=== PATIENT | female | born 1975 | race Caucasian/White ===

== ENCOUNTER 2017-11-07 09:00 | Outpatient (RCR) | payer MEDICAID, SELFPAY ==
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
--- NOTE | 2017-11-07 10:35 | BH.SGPN ---
Service Group Progress Note - Session Psychotherapy Session #2 Date Open:: 11/07/17 Time Started:: 10:12 Time Stopped:: 11:12 Targeted Problem #:: 1 Type of Group:: Illness Management - 10 participants
--- NOTE | 2017-11-07 10:35 | BH.SGPN ---
Service Group Progress Note - Session Psychotherapy Session #1 Date Open:: 18 - 9 group members Time Started:: 09:10 Time Stopped:: 10:02 Targeted Problem #:: 1 Type of Group:: Process Goal of Group:: The goal of today's group was to check-in with client's mood, stressors, and positives, and introduce topic for the day. Client Response/Progress/Benefit:: Client responded well to session as client was receptive to supportive statements from peers. Client reports feeling anxious and depressed today as client is uncertain what her living arrangements will look like after this week. Client shared I don't know where I'm going to sleep tonight. Client stated she had been residing at [facility], but no longer feels supported there. Client stated she is having a hard time focusing on her mental health as the stressor of living is causing racing, paranoid thoughts. Client reported her registered nurse hh case manager plans to help client find a temporary usp. Client's first day of the program and client reported she would like to work on myself by gaining coping skills. Client appeared to benefit from receiving supportive feedback from peers and therapist. Eye Contact:: Intense Motor Activity:: Appropriate Appearance:: Disheveled Speech:: Other - circumstantial- discussing housing issues Mood:: Anxious Affect:: Constricted Thoughts:: Racing, Other - preoccupied, potentially paranoid thoughts as evidenced by report of people being out to get client., No evidence of hallucinations/delusions noted Staff Interventions:: Therapist used open-ended questions to elicit information about client's current stressors and mood state. Therapist was supportive by using active listening and reflection.
--- NOTE | 2017-11-07 11:25 | BH.COMM ---
Communication Note - Communication with Client Communication Note: Upon presenting for group this AM pt reports that she had some housing issues. She decided to leave her Assisted Living Facility on Tuesday due to poor interaction with a staff member. She has been staying with her friend. She wants to look for her own apartment. Does not appear to be immediate crisis however pt unsure of how long she will be with her friend. She was not kicked out of current housing and may return whenever she wishes. ANGEL signed for pt's block and case maker. Message left informing cargo service agent of the current situation. Pt was also given local resources for care home including [facility] and [facility]. [facility] has walk-in housing assessments today from 8a-5pm. She denies any suicidal ideations, plan, or intent during conversation. Future-oriented looking forward to jew group this afternoon and some jew activities happening this week. Does not present as imminent danger to herself due to no ideations, plan, or intent. Has transporation arranged with friend this afternoon. Will await call back from pt's cargo service agent Pratima Bustamante.
--- NOTE | 2017-11-07 11:34 | BH.COMM_ITS ---
Communication Note - Communication with Client Communication Note: Upon presenting for group this AM pt reports that she had some housing issues. She decided to leave her Assisted Living Facility on Tuesday due to poor interaction with a staff member. She has been staying with her friend. She wants to look for her own apartment. Does not appear to be immediate crisis however pt unsure of how long she will be with her friend. She was not kicked out of current housing and may return whenever she wishes. ANGEL signed for pt's medical case manager. Message left informing milking machine operator of the current situation. Pt was also given local resources for long term including [facility] and [facility]. [facility] has walk-in housing assessments today from 8a- 5pm. She denies any suicidal ideations, plan, or intent during conversation. Future-oriented looking forward to zoroastrian group this afternoon and some zoroastrian activities happening this week. Does not present as imminent danger to herself due to no ideations, plan, or intent. Has transporation arranged with friend this afternoon. Will await call back from pt's milking machine operator Pratima Bustamante.
--- NOTE | 2017-11-08 14:39 | BH.COMM ---
Communication Note - Communication with Client Communication Note: Pt's green building energy engineer Pratima Giraldo returned phone call. She is aware of housing issues with pt and is working on a solution. Current plan is for pt to stay with friend until green building energy engineer can find some stable housing which she hopes will be next week. She will keep us informed.
--- NOTE | 2017-11-09 09:41 | BH.COMM_ITS ---
Communication Note - Communication with Client Communication Note: Pt's sql ssis developer Pratima Giraldo returned phone call. She is aware of housing issues with pt and is working on a solution. Current plan is for pt to stay with friend until sql ssis developer can find some stable housing which she hopes will be next week. She will keep us informed.
--- NOTE | 2017-11-10 10:24 | BH.COMM ---
Communication Note - Communication with Client Communication Note: This therapist called client to follow up as client appeared to be having a difficult morning as evidenced by client canceling IOP session today and reporting my life is a mess. Client shared she did not think she could manage coming to group today based on client's current emotional state. Therapist assessed safety and risk while providing emotional support to client. Client contracted for safety and stated she will be staying with a friend to help stabilize clients mood. Client was receptive to therapist contacting client's adult protective caseworker for continuity of care and to create a plan to help client make it to group. Client plans to come to [facility] tomorrow 11/11/17.
--- NOTE | 2017-11-10 10:30 | BH.COMM_ITS ---
Communication Note - Communication with Client Communication Note: This therapist called client to follow up as client appeared to be having a difficult morning as evidenced by client canceling IOP session today and reporting my life is a mess. Client shared she did not think she could manage coming to group today based on client's current emotional state. Therapist assessed safety and risk while providing emotional support to client. Client contracted for safety and stated she will be staying with a friend to help stabilize client?s mood. Client was receptive to therapist contacting client's case management assistant for continuity of care and to create a plan to help client make it to group. Client plans to come to [facility] tomorrow .
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
--- NOTE | 2017-11-11 14:31 | BH.DR.ITP ---
Initial Treatment Plan - Patient Information Visit Information: ADMISSION DATE: EXPECTED LOS: 4-6 weeks Diagnoses:: Schizoaffective disorder bipolar type. PTSD - Problems/Symptoms Problem #1:: Mood instability/depression Symptom:: Sad mood, anhedonia, isolative behavior, decreased energy, biologic disruption of sleep and appetite, suicidal ideation Problem #2:: Anxiety Symptom:: Rumination, paranoid thoughts, intrusive traumatic memories, hypervigilance
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
--- NOTE | 2017-11-14 14:01 | BH.SGPN_ITS ---
Service Group Progress Note - Session Psychotherapy Session #2 Date Open:: 11/14/17 - 7 group members Time Started:: 10:23 Time Stopped:: 11:20 Targeted Problem #:: 1 Type of Group:: Illness Management Goal of Group:: To identify the importance of change, increase understanding of difficulty of making change, identify what clients would like to make changes in and identify the barriers or obstacles that get in the way of change. Client Response/Progress/Benefit:: Client responded well to session, reporting high stress and declining to participate in activity. Client helped group identify difficulties associated with making change such as fear, avoidance, mental health, and feeling overwhelmed. Client identified changes she would like to make such as packing, moving items to storage, and finding housing. Client reported these changes would reduce stress as client is uncertain where she will be living. Client identified her barriers to be no money, no supports, and ?waiting.? Client appeared to benefit from gaining awareness of her barriers as well as identifying changes that would positively impact her mental health and functioning. Client progressing with identifying changes she can make, but continues to struggle with emotional regulation which may hinder client?s progress. Eye Contact:: Poor Motor Activity:: Restless Appearance:: Disheveled Speech:: Tangential Mood:: Anxious - Client had to remove herself from the activity as client reported I can't do this., Irritable, Depressed Affect:: Labile Thoughts:: Circular Staff Interventions:: Therapist facilitated discussion about change and helped client?s make connections of why change is important. Therapist led group in an experiential activity which involved client?s identifying changes want to make and barriers that get in the way of making those changes. Therapist utilized activity as a tool to help client?s make connections of difficulties in making changes and identify what helps overcome barriers to change. Psychotherapy Session #3 Date Open:: 11/14/17 - 6 group members Time Started:: 11:28 Time Stopped:: 12:20 Targeted Problem #:: 1 Type of Group:: Functional Skills Development Goal of Group:: To identify specific barriers to an identified change want to make and identify ways to overcome those barriers. Client Response/Progress/Benefit:: Client responded well to session, contributing ideas to group discussion. Client identified her goal this week as moving her belongings to storage. Client shared her barriers are high anxiety, no supports, and being overwhelmed. Client reported she feels overwhelmed about her goals and reports belief she has no outside supports to help client. With therapist elicitation, client shared she has a friend and a corrections caseworker that could help client. Client created strategies to accomplish this change such as reaching out to her supports and packing her belongings to move throughout the week. Client seemed to benefit from gaining awareness of barriers and developing strategies to reach her weekly goal. Client continues to report high stress and continuous crisis, but reports low willingness to challenge negative thinking that contributes to client?s anxiety. Eye Contact:: Fair Motor Activity:: Appropriate Appearance:: Disheveled Mood:: Anxious, Irritable, Depressed Affect:: Congruent Thoughts:: Circular Staff Interventions:: Therapist facilitated discussion about what helped the group overcome challenges that came about during the experiential activity. Therapist utilized the activity as a tool in relating those experiences to ways to overcome barriers with challenges in their life when trying to make change. Therapist group into smaller groups and had them brainstorm ways to overcome certain barriers to their identified change. Therapist provided support by using reflective listening and providing feedback.
--- NOTE | 2017-11-14 15:48 | BH.MTP ---
Master Treatment Plan - Patient Information Program Physician:: Dr. DENIA Mesa Primary Therapist:: Brea Niño [facility] - Psychiatric Diagnoses Psychiatric Diagnoses:: schizoaffective disorder bipolar type. PTSD. borderline personality disorder. dissociative disorder by history Diagnosis Code(s):: F 25.0 - Estimated LOS Estimated LOS (in weeks):: 6 Problem/Goal #1 - Problem/Goal #1 Stated Goal:: Client will increase mood stability and decrease depressive symptoms, anger/irritability, and suicidal ideation through Intensive Outpatient Program. Description of Barriers: Pt's negative attitude about already trying everything and nothing has worked could be barrier to treatment. Other barriers include: cognitive distortions, past trauma, and psychosocial stressors. Functional Impact: Pt recently hospitalized for SI and has extensive hx of past psychiatric admissions. Pt has been decompensating over the past year which is impacting he energy, motivation, and feeling hopeless. Pt's mental health symptoms put strain on interpersonal relationships. Goal Relevant Strengths/Supports: Pt verbalizes desire to get better. Has several professional supports in community that are helpful to pt. - Objectives Objective #1 Stated Objective: Client will identify and replace 2-3 negative thinking patterns that reinforce depressive symptoms. Interventions: Through groups and individual therapy, pt will be provided with education on cognitive distortions, mistaken beliefs, and identifying and combating negative self-talk. Therapist will help pt explore connection between thoughts, feelings, and actions. Discharge Criteria: Pt will be able to identify 2-3 negative thinking patterns and be able to effectively stop, challenge, or cope with those negative thoughts. Target Date: 12/05/17 Review Date: 12/19/17 Objective #2 Stated Objective: Client will identify 5 physical warning signs of anger and 5 ways to calm and manage anger. Interventions: Therapist will provide worksheet to track situations, thoughts, feelings, and actions associated with moments of anger, irritation, or disappointment. Through individual therapy and group work will help client explore warning signs to anger and anger management strategies. Discharge Criteria: Client will have met this goal after documenting anger journal for several weeks showing insight into anger triggers, warning signs, and effective ways to cope or manage anger. Target Date: 12/05/17 Review Date: 12/29/17 Problem/Goal #2 - Problem/Goal #2 Stated Goal:: Stabilize anxiety level while increasing ability to function and decreasing ruminative thoughts on a daily basis through Intensive Outpatient Program. Description of Barriers: Pt's negative attitude about already trying everything and nothing has worked could be barrier to treatment. Other barriers include: cognitive distortions, past trauma, and psychosocial stressors. Functional Impact: Pt recently hospitalized for SI and has extensive hx of past psychiatric admissions. Pt has been decompensating over the past year which is impacting he energy, motivation, and feeling hopeless. Pt's mental health symptoms put strain on interpersonal relationships. Goal Relevant Strengths/Supports: Pt verbalizes desire to get better. Has several professional supports in community that are helpful to pt. - Objectives Objective #1 Stated Objective: Identify at least 2-3 distorted thought patterns that increase anxious feelings and replace thoughts with positive, rational messages. Interventions: Therapist will help client identify distorted, negative beliefs and replace with more realistic, affirmative messages. Discharge Criteria: Client will have achieved this goal when can verbalize at least 2 distorted thought patterns and effectively replace those thoughts with rational, positive messages. Target Date: 12/05/17 Review Date: 12/19/17
--- NOTE | 2017-11-15 09:42 | BH.MDN ---
Multi-Disciplinary Note - Note 30-min Individual Time Started:: 08:10 Date: 11/15/17 Purpose of session/treatment goals addressed:: Purpose of session was to assess current symptoms and stressors. Other topics: discussing treatment goals. Eye Contact:: Fair Motor Activity:: Restless Appearance:: Disheveled Speech:: Rambling Mood:: Anxious, Depressed Affect:: Labile Thoughts:: Racing, No evidence of hallucinations/delusions noted Staff Interventions:: Therapist used open ended questions to elicit pt's current symptoms and stressors. Therapist inquired pt's thoughts about IOP program thus far. Therapist led discussion about treatment goals, eliciting pt's thoughts about what she wants to focus on while in IOP. Therapist gently challenged pt's negative thought patterns, attempted to help pt see impact her thought patterns has on functioning. Provided support by using active listening. Client Response:: Pt responded well to session AEB pt answering questions and elaborating on responses. Pt reported thus far she is enjoying the program, able to see how it can benefit her. Pt shared she recognizes the need to change her attitude because she is often negative about everything. However, pt reported she doesn't know if she is able to change her thought patterns because she's able to turn everything into a negative. Pt did not respond well to having her thought patten challenged by therapist. Pt reported when others try to point out a positive she is able to give reasons as to why a situation is not positive because of her history and experience. Pt reported she also would like to increase her knowledge and utilization of healthy coping skills. Pt talked about having a lot of anger which can result in pt not being very nice to others. Pt verbalized desire to make changes in her life, but in same sentence often would counter that with a negative can't teach an old dog new tricks. Pt expressed anxieties about all the tasks she needs to get done today to ensure she gets her belongings from the assisted living place she was in. Pt able to verbalize a plan of what she is going to do in order to get those tasks complete. Risks/Concerns:: Pt reports chronic SI, denies current plan or intention to date. Pt's mormonism serves a protective factor for pt. Progress Toward Goals/Plan:: Pt seems to be ambivalent about wanting to make changes that will benefit her mental health due to not believing certain skills won't help. Pt seems to have awareness of what she does that hinders her progress, but it seems her motivation to change is low. Pt to continue IOP to decrease depressive symptoms and prevent decompensation. Time Stopped:: 08:30
--- NOTE | 2017-11-15 15:49 | BH.MTP_ITS ---
Master Treatment Plan - Patient Information Program Physician:: Dr. DENIA Mesa Primary Therapist:: Brea Niño [facility] - Psychiatric Diagnoses Psychiatric Diagnoses:: schizoaffective disorder bipolar type. PTSD. borderline personality disorder. dissociative disorder by history Diagnosis Code(s):: F 25.0 - Estimated LOS Estimated LOS (in weeks):: 6 Problem/Goal #1 - Problem/Goal #1 Stated Goal:: Client will increase mood stability and decrease depressive symptoms, anger/irritability, and suicidal ideation through Intensive Outpatient Program. Description of Barriers: Pt's negative attitude about already trying everything and nothing has worked could be barrier to treatment. Other barriers include : cognitive distortions, past trauma, and psychosocial stressors. Functional Impact: Pt recently hospitalized for SI and has extensive hx of past psychiatric admissions. Pt has been decompensating over the past year which is impacting he energy, motivation, and feeling hopeless. Pt's mental health symptoms put strain on interpersonal relationships. Goal Relevant Strengths/Supports: Pt verbalizes desire to get better. Has several professional supports in community that are helpful to pt. - Objectives Objective #1 Stated Objective: Client will identify and replace 2-3 negative thinking patterns that reinforce depressive symptoms. Interventions: Through groups and individual therapy, pt will be provided with education on cognitive distortions, mistaken beliefs, and identifying and combating negative self-talk. Therapist will help pt explore connection between thoughts, feelings, and actions. Discharge Criteria: Pt will be able to identify 2-3 negative thinking patterns and be able to effectively stop, challenge, or cope with those negative thoughts. Target Date: 12/05/17 Review Date: 12/19/17 Objective #2 Stated Objective: Client will identify 5 physical warning signs of anger and 5 ways to calm and manage anger. Interventions: Therapist will provide worksheet to track situations, thoughts, feelings, and actions associated with moments of anger, irritation, or disappointment. Through individual therapy and group work will help client explore warning signs to anger and anger management strategies. Discharge Criteria: Client will have met this goal after documenting anger journal for several weeks showing insight into anger triggers, warning signs, and effective ways to cope or manage anger. Target Date: 12/05/17 Review Date: 12/29/17 Problem/Goal #2 - Problem/Goal #2 Stated Goal:: Stabilize anxiety level while increasing ability to function and decreasing ruminative thoughts on a daily basis through Intensive Outpatient Program. Description of Barriers: Pt's negative attitude about already trying everything and nothing has worked could be barrier to treatment. Other barriers include : cognitive distortions, past trauma, and psychosocial stressors. Functional Impact: Pt recently hospitalized for SI and has extensive hx of past psychiatric admissions. Pt has been decompensating over the past year which is impacting he energy, motivation, and feeling hopeless. Pt's mental health symptoms put strain on interpersonal relationships. Goal Relevant Strengths/Supports: Pt verbalizes desire to get better. Has several professional supports in community that are helpful to pt. - Objectives Objective #1 Stated Objective: Identify at least 2-3 distorted thought patterns that increase anxious feelings and replace thoughts with positive, rational messages. Interventions: Therapist will help client identify distorted, negative beliefs and replace with more realistic, affirmative messages. Discharge Criteria: Client will have achieved this goal when can verbalize at least 2 distorted thought patterns and effectively replace those thoughts with rational, positive messages. Target Date: 12/05/17 Review Date: 12/19/17
--- NOTE | 2017-11-16 10:32 | BH.SGPN_ITS ---
Service Group Progress Note - Session Psychotherapy Session #2 Date Open:: 11/15/17 Time Started:: 10:10 Time Stopped:: 11:02 Targeted Problem #:: 1 Type of Group:: Illness Management - 4 group members Goal of Group:: To increase understanding of what stress is, identify current life stressors, and connect impact stressors have on mental health. Client Response/Progress/Benefit:: Client reported when she has stress she tries to do something about it to get the stressor taking care of. Client struggled to connect how one's thinking about a stress can increase stress level. She reported there have been times she has done everything and he did not make any of her stress better. Reported currently her stress includes: Self -hatred, not being a nice person, past trauma, financial problems, needing to apply for [employer], being homeless, anger. Client shared she is currently overwhelmed, sure she has and finds herself to be easily irritable and more just verbally go off on people. Client shared she does want to learn ways to manage her anger. She seems to lack awareness often her line of thinking is black and white and catastrophize situations. Seemed benefit from learning about how thought process can increase stress level. Eye Contact:: Fair Motor Activity:: Restless Appearance:: Disheveled Speech:: Appropriate Mood:: Anxious, Irritable, Depressed Affect:: Labile Thoughts:: Linear, No evidence of hallucinations/delusions noted Staff Interventions:: Therapist facilitated discussion about stress. Therapist facilitated an activity in which group members were asked to identify various stressors they have in their life currently. Therapist instructed group members to indicate if certain stressors were larger than others. Therapist led processing of each member???s stress jar and helped them connect impact the stress has on their mental health. Psychotherapy Session #3 Date Open:: 11/15/17 Time Started:: 11:15 Time Stopped:: 12:10 Targeted Problem #:: 1 Type of Group:: Functional Skills Development - 4 group members Goal of Group:: To identify what stressors have control over and what stressors have no control over. Another goal was to increase awareness of healthy strategies that can help relieve stress level. Client Response/Progress/Benefit:: Client able to identify which stressors are currently in and out of her control. Seemed to connect with the idea that it is important to put forth more effort into those stressors that are in her control and put less effort and time into the ones she cannot do anything about. During challenge activity client often reported I cannot do this; I am going to mess everything up; it is all my fault. Despite therapist and peers attempting to encourage and challenge client's negative thought patterns client eventually quit activity because she believed she was going to mess everything up. Struggle with identifying positive that she was able to make it 3 of the 4 rounds in the activity which is progress compared to yesterday's group in which she did not participate at all. Client seemed to benefit from reviewing the handout of different ways to relieve stress. Eye Contact:: Fair Motor Activity:: Restless Appearance:: Disheveled Speech:: Rambling Mood:: Anxious, Irritable, Depressed Affect:: Labile Thoughts:: Racing, Circular, No evidence of hallucinations/delusions noted Staff Interventions:: Therapist facilitated discussion about control versus no control and helped group members connect the concept to stressors. Therapist led an activity in which group members had to manage their stress level during a series of frustrating tasks. Therapist processed with group what skills each group member utilized in order to manage their emotions in stress level during the activity. Therapist read a handout and reviewed the handout about stress relieving skills and strategies.
--- NOTE | 2017-11-17 10:16 | BH.COMM ---
Communication Note - Communication with Client Communication Note: Pt called reporting she wanted to drop out of the IOP program because she did think this is the right time for her to be involved in IOP. Pt reported she has too much going on in her life right now and doesn't really like being around people. Pt shared she knows she won't be any good for the other group members because of her negativity. This therapist attempted to problem solve how to make IOP possible for her to continue to do despite multiple psychosocial stressors. Therapist encouraged her that IOP could provide support needed to help her address current stressors. Pt reported she appreciates all we have done, but does not want to continue attending.
== END 2017-11-16 23:59 ==
LOC: BHIOP 09:00
PROVIDERS: Family Provider Internal Medicine; PCP Internal Medicine; Visit Provider Psychiatry & Neurology Psychiatry
DX: F25.0 Schizoaffective disorder, bipolar type (principal); F43.10 Post-traumatic stress disorder, unspecified; F60.3 Borderline personality disorder; F44.9 Dissociative and conversion disorder, unspecified; R07.9 Chest pain, unspecified; G40.909 Epilepsy, unspecified, not intractable, without status epilepticus; Z79.899 Other long term (current) drug therapy; K21.9 Gastro-esophageal reflux disease without esophagitis; R73.9 Hyperglycemia, unspecified; Z62.810 Personal history of physical and sexual abuse in childhood
CPT/HCPCS: 99204; H0035; H2012; H2020; 90832

== ENCOUNTER 2017-11-11 10:06 | Emergency (ER) | payer MEDICAID, SELFPAY ==
[2017-11-11 10:07] VITALS: BP 155/91; PULSE 88; RESP 24; TEMP 36.4; O2SAT 97; BMI 47.0
--- NOTE | 2017-11-11 10:18 | EKG12_ITS ---
Test Reason : CP Blood Pressure : / mmHG Vent. Rate : 071 BPM Atrial Rate : 071 BPM P-R Int : 164 ms QRS Dur : 088 ms QT Int : 390 ms P-R-T Axes : 058 053 043 degrees QTc Int : 423 ms Normal sinus rhythm Normal ECG Confirmed by ALVAREZ CHAVEZ ([id number]), editorial clerk PRINCE GRAFF ([id number]) on 11/15/2017 9:47:31 AM Referred By: [facility] Confirmed By:ALVAREZ CHAVEZ
--- NOTE | 2017-11-11 10:18 | RAD_ITS ---
STUDY: X-RAY CHEST REASON FOR EXAM: Female, 41 years old. Chest pain. Anxiety TECHNIQUE: Single AP portable view of the chest. COMPARISON: January 07, 2017 FINDINGS: The lungs are clear and expanded. There is no demonstrated pleural abnormality. Normal size heart. Normal mediastinum and getachew. Normal visualized pulmonary arteries. Normal visualized aortic arch and descending thoracic aorta. There are diffuse degenerative changes of the visualized thoracic spine. Normal visualized ribs, clavicles, and shoulders. There is no demonstrated abnormality of the visualized soft tissue structures of the upper abdomen. RAD/Chest 1 View (Portable) IMPRESSION: Degenerative changes, as described above. No demonstrated acute cardiopulmonary process. Electronically Signed: Roe Thomason MD at 10:44 EST , Service support ,
[2017-11-11 10:45] LABS: Absolute Lymphocyte Count 1.55 X10^3/ul (0.83-4.51); Absolute Neutrophil Count 7.9 X10^3/uL (2.0-7.7); Basophil# 0.02 X10^3/uL; Basophil% 0.2 % (0-1); Eosinophil# 0.05 X10^3/uL; Eosinophils% 0.5 % (0-5); Hemoglobin 12.8 g/dl (12.0-15.0); Lymphocyte # 1.55 X10^3/ul (4.0); Mean Corp Hgb Conc 33.7 g/gl (32-36); Mean Corpuscular Hgb 31.3 pg (27.0-32.0); Mean Corpuscular Volume 92.9 fL (81-99); Mean Platelet Vol. 8.6 fl (6.2-12.0); Monocyte% 6.8 % (0-10); Neutrophil # 7.89 X10^3/uL (2.7-7.7); Neutrophil % 76.4 % (47-70); Platelet Count 224 K/mm3 (150-450); RBC Distribution Width CV 13.6 % (11.6-14.6); RBC Distribution Width SD 46.4 fl (35.1-43.9); Red Blood Count 4.09 M/mm3 (4.2-5.4); White Blood Count 10.3 K/mm3 (4.4-11.0)
[2017-11-11 10:46] LABS: POSITIVE COUNT NO; POSITIVE DIFFERENTIAL NO; POSITIVE MORPHOLOGY NO
[2017-11-11 10:50] VITALS: BP 141/87; PULSE 77; RESP 16; O2SAT 100
[2017-11-11 10:55] VITALS: O2SAT 99
[2017-11-11 11:04] LABS: Anion Gap 8 (5-15); BUN 5 mg/dL (7-18); BUN/Creat Ratio 7.2 RATIO (10-20); Calcium,Total 8.4 mg/dL (8.5-10.1); Chloride 100 mmol/L (98-107); EST Glomerular Filtration Rate 98 mL/min (>60); Est Glom Filt Rate - Afr Amer 118 mL/min (>60); Estimated Creatinine Clearance 90.41 ml/min; Glucose 145 mg/dL (70-110); Potassium 3.5 mmol/L (3.5-5.1); Sodium Level 134 mmol/L (136-145)
--- NOTE | 2017-11-11 11:15 | ED.VISSUMM ---
- ER Visit Summary Date of Service: 11/11/17 Chief Complaint: Chest pain History of Present Illness: The patient is a 41 F presenting for evaluation secondary to chest pain. Patient is in intensive outpatient psychiatric therapy and today he complained to the counselor that she was having some chest pain. Patient states it has been continuous since last night and is associated with increased stress because she has to move out of her current home and does not have a place to stay. Patient states that it is worsened by stress or bending over has been associated with some shortness of breath. She describes it as sharp substernal pain. She denies any history of coronary disease she does have a history of hypertension and diabetes she is a non-smoker no premature family history. She denies any DVT or PE risk factors. She has never had a stress test. Physical Examination: Vital signs are within normal limits, patient is afebrile. General: Patient is well-nourished well-developed and in no acute distress. Head: Normocephalic, atraumatic Eyes: Pupils equal round and reactive bilaterally, extra occular motion intact bialterally ENT: Moist mucous membranes Neck: Supple, no lymphadenopathy, no JVD, no meningismus CVS: Heart regular rate and rhythm, no murmurs, rubs or gallops, radial pulses 2+ bilaterally Resp: Respirations nondistressed, lung sounds clear bilaterally Abdomen: Soft, nontender, nondistended, no palpable masses, normal bowel sounds Back: Nontender Extremities: Nontender, atraumatic, active full range of motion, no peripheral edema Skin: warm, no rashes, no petechia Neuro: Alert and oriented x 4, CN 2-12 intact, no lateralizing neurological defecits Psyc: Normal affect Test Results: EKG shows sinus rate [address] segments normal T waves. CBC chemistry troponin negative. Chest x-ray shows chronic changes. Emergency Department Course and Treatment: Patient presented secondary chest pain. This sounds rather atypical, and it has been going on continuously since yesterday. His workup was found to be negative as noted above. Her heart score is low risk. Again I believe the patient cannot receive an outpatient stress test does not require admission. Patient was informed of this and she was discharged. Disposition: Discharge Impression: 1. Anxiety This note was generated with [employer] dictation software. It may contain incorrect words, spelling, and punctuation that were not noted in review of the chart prior to signing ED Disposition - Plan for ED Patient: Disposition: Home or Assisted Living Chief Complaint: Shortness of Breath Diagnosis: Anxiety Instructions: ED Stress React Referrals: Vannesa Guzman MD [Primary Care Provider] -
--- NOTE | 2017-11-11 11:19 | ED.DCSUM_ITS ---
- ER Visit Summary Date of Service: 11/11/17 Chief Complaint: Chest pain History of Present Illness: The patient is a 41 F presenting for evaluation secondary to chest pain. Patient is in intensive outpatient psychiatric therapy and today he complained to the counselor that she was having some chest pain. Patient states it has been continuous since last night and is associated with increased stress because she has to move out of her current home and does not have a place to stay. Patient states that it is worsened by stress or bending over has been associated with some shortness of breath. She describes it as sharp substernal pain. She denies any history of coronary disease she does have a history of hypertension and diabetes she is a non-smoker no premature family history. She denies any DVT or PE risk factors. She has never had a stress test. Physical Examination: Vital signs are within normal limits, patient is afebrile. General: Patient is well-nourished well-developed and in no acute distress. Head: Normocephalic, atraumatic Eyes: Pupils equal round and reactive bilaterally, extra occular motion intact bialterally ENT: Moist mucous membranes Neck: Supple, no lymphadenopathy, no JVD, no meningismus CVS: Heart regular rate and rhythm, no murmurs, rubs or gallops, radial pulses 2 + bilaterally Resp: Respirations nondistressed, lung sounds clear bilaterally Abdomen: Soft, nontender, nondistended, no palpable masses, normal bowel sounds Back: Nontender Extremities: Nontender, atraumatic, active full range of motion, no peripheral edema Skin: warm, no rashes, no petechia Neuro: Alert and oriented x 4, CN 2-12 intact, no lateralizing neurological defecits Psyc: Normal affect Test Results: EKG shows sinus rate [address] segments normal T waves. CBC chemistry troponin negative. Chest x-ray shows chronic changes. Emergency Department Course and Treatment: Patient presented secondary chest pain. This sounds rather atypical, and it has been going on continuously since yesterday. His workup was found to be negative as noted above. Her heart score is low risk. Again I believe the patient cannot receive an outpatient stress test does not require admission. Patient was informed of this and she was discharged. Disposition: Discharge Impression: 1. Anxiety This note was generated with SocialFlow dictation software. It may contain incorrect words, spelling, and punctuation that were not noted in review of the chart prior to signing ED Disposition - Plan for ED Patient: Disposition: Home or Assisted Living Chief Complaint: Shortness of Breath Diagnosis: Anxiety Instructions: ED Stress React Referrals: Vannesa Guzman MD [Primary Care Provider] -
== END 2017-11-11 11:46 | disposition home or self-care (01) ==
PROVIDERS: Emergency Provider Emergency Medicine; Family Provider Internal Medicine; PCP Internal Medicine
DX: F41.9 Anxiety disorder, unspecified (principal); I10 Essential (primary) hypertension; E11.9 Type 2 diabetes mellitus without complications; E66.9 Obesity, unspecified; Z68.42 Body mass index [BMI] 45.0-49.9, adult; Z79.899 Other long term (current) drug therapy
CPT/HCPCS: 71045; 80048; 84484; 85025; 93005; 99284; A4216

== ENCOUNTER 2017-11-28 19:41 | Emergency (ER) | payer MEDICAID, SELFPAY ==
[2017-11-28 19:42] VITALS: BP 159/97; PULSE 97; RESP 17; TEMP 36.6; O2SAT 99; BMI 47.2
--- NOTE | 2017-11-28 20:31 | EKG12_ITS ---
Test Reason : Blood Pressure : / mmHG Vent. Rate : 092 BPM Atrial Rate : 092 BPM P-R Int : 158 ms QRS Dur : 084 ms QT Int : 362 ms P-R-T Axes : 028 015 011 degrees QTc Int : 447 ms Normal sinus rhythm Normal ECG Confirmed by DIVINA CHEUNG MD ([id number]), news editor PRINCE GRAFF ([id number] on 11/29/2017 1:46:21 PM Referred By: LENNY Confirmed By:DIVINA CHEUNG MD
--- NOTE | 2017-11-28 20:35 | RAD_ITS ---
STUDY: X-RAY CHEST REASON FOR EXAM: Female, 42 years old. Short of breath. TECHNIQUE: Single AP portable view of the chest. COMPARISON: None. FINDINGS: The lungs are clear and expanded. There is no demonstrated pleural abnormality. Normal size heart. Normal mediastinum and getachew. Normal visualized pulmonary arteries. Normal visualized aortic arch and descending thoracic aorta. Normal visualized thoracic spine. Normal visualized ribs, clavicles, and shoulders. There is no demonstrated abnormality of the visualized soft tissue structures of the upper abdomen. RAD/Chest 1 View (Portable) IMPRESSION: Normal x-ray examination of the chest. Electronically Signed: Gama Mejia MD at 22:04 EST , Service support ,
[2017-11-28 21:25] LABS: Absolute Neutrophil Count 6.7 X10^3/uL (2.0-7.7); Basophil# 0.01 X10^3/uL; Basophil% 0.1 % (0-1); Eosinophil# 0.05 X10^3/uL; Eosinophils% 0.5 % (0-5); Hematocrit 37.6 % (37-47); Hemoglobin 12.7 g/dl (12.0-15.0); Lymphocyte % 19.1 % (19-41); Mean Corp Hgb Conc 33.8 g/gl (32-36); Mean Corpuscular Hgb 31.3 pg (27.0-32.0); Mean Corpuscular Volume 92.6 fL (81-99); Mean Platelet Vol. 8.9 fl (6.2-12.0); Monocyte# 0.79 X10^3/uL; Monocyte% 8.4 % (0-10); Neutrophil # 6.72 X10^3/uL (2.7-7.7); Neutrophil % 71.6 % (47-70); Platelet Count 216 K/mm3 (150-450); RBC Distribution Width CV 13.5 % (11.6-14.6); RBC Distribution Width SD 46.1 fl (35.1-43.9); Red Blood Count 4.06 M/mm3 (4.2-5.4); White Blood Count 9.4 K/mm3 (4.4-11.0)
[2017-11-28 21:27] LABS: POSITIVE COUNT NO; POSITIVE DIFFERENTIAL NO; POSITIVE MORPHOLOGY NO
[2017-11-28 21:33] LABS: D-Dimer Quantitative (DVT/PE) < 0.27 FEU/ug/m (0.27-0.49)
[2017-11-28 21:38] LABS: Anion Gap 11 (5-15); BUN 8 mg/dL (7-18); BUN/Creat Ratio 11.5 RATIO (10-20); Calcium,Total 8.9 mg/dL (8.5-10.1); Chloride 104 mmol/L (98-107); EST Glomerular Filtration Rate 98 mL/min (>60); Est Glom Filt Rate - Afr Amer 118 mL/min (>60); Estimated Creatinine Clearance 89.48 ml/min; Glucose 113 mg/dL (74-106); Potassium 3.1 mmol/L (3.5-5.1); Sodium Level 140 mmol/L (136-145)
[2017-11-28 22:22] VITALS: BP 126/69; PULSE 76; RESP 16; O2SAT 100
--- NOTE | 2017-11-28 22:44 | ED.VISSUMM ---
- ER Visit Summary Date of Service: 11/28/17 Chief Complaint: Shortness of breath, eyes burning, right lung pain History of Present Illness: The patient is a 42 F who complains of pain and burning sensation to the right side of her chest and right lung for the past week. Patient states pain is worse with a deep breath. She has not had significant cough. Is also complaining of intermittent numb sensation to both distal lower legs. She wonders if she may have diabetic neuropathy. Physical Examination: Vital signs are significant for blood pressure 159/97, otherwise normal. Head and neck examination is unremarkable. Heart is regular rate and rhythm. Lung sounds are clear. Abdomen is soft, obese, nontender. Lower extremity examination is normal sensation on testing. She has good strength throughout. Strong distal pulses are noted throughout. Test Results: EKG is sinus at 92 with no sign of acute ischemia. Nonspecific lateral T-wave flattening is noted. Chest x-ray is normal. CBC and chemistry studies are significant only for potassium 3.1. Troponin and d-dimer are both normal. Emergency Department Course and Treatment: Patient was observed on environmental monitoring specialist and had no significant change in her rhythm strip. Patient is treated with 40 mEq of potassium chloride. She be given a 5 day course of potassium at home. Repeat blood pressure at time of discharge is 117/96. Treatment Plan: [] Disposition: Discharge Impression: 1. Atypical chest pain 2. Hypokalemia This note was generated with [employer] dictation software. It may contain incorrect words, spelling, and punctuation that were not noted in review of the chart prior to signing ED Disposition - Plan for ED Patient: Disposition: Home or Assisted Living Chief Complaint: Shortness of Breath Instructions: ED Chest Pain NonCardiac, ED Potassium Deficiency Prescriptions: Potassium Chloride [K-Dur] 20 meq PO BID #10 tablet Referrals: Guillermo Velázquez MD [Primary Care Provider] - Keep Therese appointment
[2017-11-28 23:01] VITALS: BP 117/96
== END 2017-11-28 23:01 | disposition home or self-care (01) ==
PROVIDERS: Emergency Provider Emergency Medicine; Family Provider Family Medicine; PCP Family Medicine
DX: E87.6 Hypokalemia (principal); R07.89 Other chest pain; E66.9 Obesity, unspecified; Z68.42 Body mass index [BMI] 45.0-49.9, adult; I10 Essential (primary) hypertension; E11.9 Type 2 diabetes mellitus without complications; E78.00 Pure hypercholesterolemia, unspecified; F41.9 Anxiety disorder, unspecified; F31.9 Bipolar disorder, unspecified; F43.10 Post-traumatic stress disorder, unspecified; F20.9 Schizophrenia, unspecified; Z79.899 Other long term (current) drug therapy
CPT/HCPCS: 71045; 80048; 84484; 85025; 85379; 93005; 99285; A4216

== ENCOUNTER 2017-12-07 19:59 | Emergency (ER) | payer MEDICAID, SELFPAY ==
[2017-12-07 20:00] VITALS: BP 112/85; PULSE 101; RESP 16; TEMP 37.2; O2SAT 98; BMI 45.8
[2017-12-07 21:43] LABS: Absolute Lymphocyte Count 1.92 X10^3/ul (0.83-4.51); Absolute Neutrophil Count 7.2 X10^3/uL (2.0-7.7); Basophil# 0.03 X10^3/uL; Basophil% 0.3 % (0-1); Hematocrit 40.4 % (37-47); Hemoglobin 13.5 g/dl (12.0-15.0); Lymphocyte # 1.92 X10^3/ul (4.0); Lymphocyte % 19.3 % (19-41); Mean Corp Hgb Conc 33.4 g/gl (32-36); Mean Corpuscular Hgb 31.3 pg (27.0-32.0); Mean Corpuscular Volume 93.5 fL (81-99); Monocyte# 0.64 X10^3/uL; Monocyte% 6.4 % (0-10); Neutrophil # 7.18 X10^3/uL (2.7-7.7); Neutrophil % 72.1 % (47-70); Platelet Count 278 K/mm3 (150-450); RBC Distribution Width CV 13.6 % (11.6-14.6); RBC Distribution Width SD 46.9 fl (35.1-43.9); Red Blood Count 4.32 M/mm3 (4.2-5.4)
[2017-12-07 21:43] LABS: Amphetamine Urine VISTA NEGATIVE (<1000 ng/mL); Barbiturate Urine VISTA NEGATIVE (< 200 ng/mL); Benzodiazepine Urine VISTA NEGATIVE (< 200 ng/mL); Cocaine Urine VISTA NEGATIVE (< 300 ng/mL); Ecstacy Urine VISTA NEGATIVE (< 500 ng/mL); Methadone Urine VISTA NEGATIVE (< 300 ng/mL); PCP Urine VISTA NEGATIVE (< 25 ng/mL); THC Urine VISTA NEGATIVE (< 50 ng/mL); Vista UDS pH Range 6
[2017-12-07 21:55] LABS: POSITIVE COUNT NO; POSITIVE DIFFERENTIAL NO; POSITIVE MORPHOLOGY NO
[2017-12-07 22:00] VITALS: RESP 16
[2017-12-07 22:07] LABS: Anion Gap 11 (5-15); BUN 10 mg/dL (7-18); BUN/Creat Ratio 10.9 RATIO (10-20); Calcium,Total 8.7 mg/dL (8.5-10.1); Chloride 104 mmol/L (98-107); Creatinine, Serum 0.92 mg/dL (0.55-1.02); EST Glomerular Filtration Rate 71 mL/min (>60); Est Glom Filt Rate - Afr Amer 86 mL/min (>60); Estimated Creatinine Clearance 68.09 ml/min; Glucose 150 mg/dL (74-106); Potassium 3.7 mmol/L (3.5-5.1); Sodium Level 140 mmol/L (136-145)
--- NOTE | 2017-12-07 22:08 | ED.DCSUM_ITS ---
- ER Visit Summary Date of Service: 12/07/17 Chief Complaint: [] Suicidal ideation History of Present Illness: The patient is a 42 F presents with suicidal thoughts for the last 7 days gradual onset intermittent. Situational factors are making it worse. She appears depressed and worthless. She has not been sleeping secondary to stress. She took some sleeping pills last night and this morning in order to kill herself. Comes in for further evaluation. His done this in the past. Physical Examination: [] Vital signs reviewed General: Well-nourished well-developed Head: Normocephalic atraumatic Eyes: Pupils equal round and reactive to light extraocular movements intact ENT: TMs clear no hemotympanum no trauma Neck: Nontender full range of motion Cardiovascular: Regular rate rhythm no murmurs normal S1-S2 Respiratory: No distress clear to auscultation bilaterally chest nontender Abdomen: Soft nontender nondistended normal bowel sounds no masses Back: Nontender no CVA tenderness Extremities: Nontender active range of motion ?4 extremities no trauma Skin: Normal color no trauma Psychiatry: Positive depression and suicidal thoughts Neuro alert oriented cranial nerves II through XII intact normal strength sensation reflexes Test Results: [] Tox CBC chemistry normal. Patient will be seen by crisis. Will be pink slipped and admitted. Emergency Department Course and Treatment: [] Treatment Plan: [] Disposition: [] Impression: [] Depression with suicidal ideation. This note was generated with [employer] dictation software. It may contain incorrect words, spelling, and punctuation that were not noted in review of the chart prior to signing ED Disposition - Plan for ED Patient: Chief Complaint: Suicidal Referrals: Guillermo Velázquez MD [Primary Care Provider] -
[2017-12-07 22:30] LABS: Pregnancy, Serum, hCG Quali. NEGATIVE Negative (0-9 Nonpreg)
[2017-12-07 23:00] VITALS: RESP 18
--- NOTE | 2017-12-07 23:46 | EKG12_ITS ---
Test Reason : Blood Pressure : / mmHG Vent. Rate : 072 BPM Atrial Rate : 072 BPM P-R Int : 172 ms QRS Dur : 088 ms QT Int : 402 ms P-R-T Axes : 048 052 037 degrees QTc Int : 440 ms Normal sinus rhythm Normal ECG Confirmed by RAFITA COHEN, MAKI ([id number]), photo editor PRINCE GRAFF ([id number]) on 12/09/2017 1:24:25 PM Referred By: ALLY Confirmed By:MAKI ELLER MD
[2017-12-08] VITALS: BP 139/72; PULSE 85; RESP 16; O2SAT 96
[2017-12-08 00:32] LABS: Mucous, Urine 0 SEEN /hpf (<or=2+); Red Blood Cells-Urine 0 SEEN /hpf (0-5)
[2017-12-08 00:35] LABS: Color, Urine Yellow (Yellow); Glucose, Dipstick 50 mg/dl (Normal); Ketone-Dipstick Negative (Negative); Leukocyte Esterase-Dipstick 25 /ul (Negative); Nitrite-Dipstick Negative (Negative); Occult Blood-Urine Negative /ul (Negative); Protein-Dipstick Negative (Negative); Urine Bilirubin Dipstick Negative (Negative); Urine Clarity Sl. Cloudy (Clear); Urine Urobilinogen Normal (Normal); Urine pH 6.5 (5.0 - 8.0)
[2017-12-08 00:41] LABS: Bacteria 2+ /hpf (None Seen); Squamous Epithelial Cells - UA 5-10 SEEN /hpf (5-10)
[2017-12-08 00:42] LABS: White Blood Cells 5-10 SEEN /hpf (0-5)
[2017-12-08 00:46] VITALS: BP 139/72; PULSE 85; RESP 16; O2SAT 96
--- NOTE | 2017-12-08 00:48 | NURSING ---
ACCPETED TO [facility] 1929
--- NOTE | 2017-12-08 00:49 | NURSING ---
[facility] UNAVAILABLE TILL MORNING [facility]YS[facility] UNAVAILABLE TILL MORNING
--- NOTE | 2017-12-08 00:51 | NURSING ---
[facility] NO COVERAGE
--- NOTE | 2017-12-08 00:54 | NURSING ---
[facility] IS SENDING SQU[facility]
--- NOTE | 2017-12-08 01:17 | ED.RN ---
REPORT TO [facility]. PT SKIN P/W/D, RESP EVEN AND UNLABORED, PT A&O X 3, NO DISTRESS NOTED. PT OUT OF ED WITH [facility] FOR TRANSPORT TO [facility].
== END 2017-12-08 01:26 ==
LOC: ED 22:19
PROVIDERS: Emergency Provider Emergency Medicine; Family Provider Family Medicine; PCP Family Medicine
DX: T14.91XA Suicide attempt, initial encounter (principal); T45.0X2A Poisoning by antiallergic and antiemetic drugs, intentional self-harm, initial encounter; Y93.89 Activity, other specified; Y92.9 Unspecified place or not applicable; F32.9 Major depressive disorder, single episode, unspecified; E66.9 Obesity, unspecified; Z68.42 Body mass index [BMI] 45.0-49.9, adult; Z59.0 Homelessness
CPT/HCPCS: 80048; 80307; 80320; 81001; 84703; 85025; 93005; 99284; G0480

== ENCOUNTER 2018-01-17 19:49 | Emergency (ER) | payer MEDICAID, SELFPAY ==
[2018-01-17 19:51] VITALS: BP 126/71; PULSE 58; RESP 18; TEMP 36.7; O2SAT 98; BMI 45.1
[2018-01-17 20:28] LABS: Absolute Lymphocyte Count 2.25 X10^3/ul (0.83-4.51); Absolute Neutrophil Count 6.6 X10^3/uL (2.0-7.7); Basophil# 0.02 X10^3/uL; Basophil% 0.2 % (0-1); Eosinophil# 0.06 X10^3/uL; Eosinophils% 0.6 % (0-5); Hemoglobin 12.9 g/dl (12.0-15.0); Lymphocyte # 2.25 X10^3/ul (4.0); Lymphocyte % 23.7 % (19-41); Mean Corp Hgb Conc 33.1 g/gl (32-36); Mean Corpuscular Hgb 30.9 pg (27.0-32.0); Mean Corpuscular Volume 93.3 fL (81-99); Mean Platelet Vol. 8.9 fl (6.2-12.0); Monocyte% 5.3 % (0-10); Neutrophil # 6.57 X10^3/uL (2.7-7.7); Neutrophil % 69.4 % (47-70); POSITIVE COUNT NO; POSITIVE DIFFERENTIAL NO; POSITIVE MORPHOLOGY NO; Platelet Count 205 K/mm3 (150-450); RBC Distribution Width CV 13.3 % (11.6-14.6); RBC Distribution Width SD 45.5 fl (35.1-43.9); Red Blood Count 4.18 M/mm3 (4.2-5.4); White Blood Count 9.5 K/mm3 (4.4-11.0)
[2018-01-17 20:46] LABS: Allen Test POS; Base Excess -6 mmol/L (-2 to +2); Bicarbonate 19.5 mmol/L (22-26); Blood Gas Specimen Type ART; O2 Delivery Device Room Air; PO2 65 mmHG (75-100); SITE L Radial; SO2 92 % (95-99); Time Given 2035; Total Carbon Dioxide 21 mmol/L; pCO2 34.3 mmHg (35-45); pH 7.36 (7.35-7.45)
[2018-01-17 20:49] LABS: BUN 11 mg/dL (7-18); Creatinine, Serum 0.81 mg/dL (0.55-1.02); EST Glomerular Filtration Rate 82 mL/min (>60); Estimated Creatinine Clearance 77.33 ml/min; Glucose 170 mg/dL (74-106)
[2018-01-17 20:50] LABS: Anion Gap 7 (5-15); BUN/Creat Ratio 13.6 RATIO (10-20); Calcium,Total 8.2 mg/dL (8.5-10.1); Chloride 108 mmol/L (98-107); Est Glom Filt Rate - Afr Amer 100 mL/min (>60); Potassium 3.3 mmol/L (3.5-5.1); Sodium Level 141 mmol/L (136-145); Thyroid Stim Hormone (TSH) 0.93 uIU/mL (0.358-3.74)
--- NOTE | 2018-01-17 22:08 | ED.VISSUMM ---
- ER Visit Summary Date of Service: 01/17/18 Chief Complaint: Weak and sleeping more History of Present Illness: The patient is a 42 F who presents with fatigue, weakness and sleeping more. She is homeless residing in a senior living. She denies fever, chills night sweats. She denies ocular, visual or auditory symptoms. She denies any chest pain or shortness of breath. She denies nausea, vomiting or diarrhea. She denies dysuria, frequency, urgency hematuria. She denies weight gain or weight loss. She denies heat or cold intolerance. She denies headache, paresthesia, anesthesia motor weakness. She denies bruising easily. She denies rash, urticaria or swelling. Please read written note for complete detail Patient has history of anxiety and psychosis with hallucination. She is presently homeless residing in a senior living. Physical Examination: Vital signs are normal. She is obese with a BMI of 45.2. Head is atraumatic normocephalic. Pupils are equal round reactive. Extraocular muscles are intact. TMs are pearly white with landmarks noted. Nares patent with no drainage. Posterior pharynx without erythema or exudate. Uvula is midline. There is no dysphonia or dysphasia. Trachea is midline. There is no stridor with auscultation of the neck. Heart is regular without murmur, gallop or rub. S1 and S2 are normal. Lungs are clear to auscultation with good movement of air bilaterally. Abdomen soft nontender. She is not alert but she is oriented. Her neuro exam reveals no motor sensory deficit. DTRs symmetric with no clonus or Babinski sign. Cranial 2 through 12 intact. Cerebellar testing is normal. Test Results: CBC is normal. BMP revealed slight elevation of glucose, 170 and decrease in potassium 3.3. TSH is normal at 0.93. Blood gas reveals increased a gradient. She is not hypoxic. Suspect pickwickian syndrome. Emergency Department Course and Treatment: Because patient is somnolent will obtain an arterial blood gas to assess for hypercapnia. Because of possible weight gain with fatigue weakness TSH was obtained. Labs were obtained to evaluate for anemia or electrolyte abnormality etc. Treatment Plan: Since patient's workup is negative she will be discharged to return to the senior living Disposition: Discharged to senior living in stable condition Impression: Generalized weakness and fatigue unknown etiology History of psychosis and hallucination Obesity Hyperglycemia in a nondiabetic This note was generated with Dragon dictation software. It may contain incorrect words, spelling, and punctuation that were not noted in review of the chart prior to signing ED Disposition - Plan for ED Patient: Disposition: Home or Assisted Living Chief Complaint: Weakness Instructions: ED Weakness UKO, ED Hyperglycemia New Susp Diabetes Referrals: Guillermo Velázquez MD [Primary Care Provider] - 3-5 Days
--- NOTE | 2018-01-17 22:16 | ED.DCSUM_ITS ---
- ER Visit Summary Date of Service: 01/17/18 Chief Complaint: Weak and sleeping more History of Present Illness: The patient is a 42 F who presents with fatigue, weakness and sleeping more. She is homeless residing in a [facility]. She denies fever, chills night sweats. She denies ocular, visual or auditory symptoms. She denies any chest pain or shortness of breath. She denies nausea, vomiting or diarrhea. She denies dysuria, frequency, urgency hematuria. She denies weight gain or weight loss. She denies heat or cold intolerance. She denies headache, paresthesia, anesthesia motor weakness. She denies bruising easily. She denies rash, urticaria or swelling. Please read written note for complete detail Patient has history of anxiety and psychosis with hallucination. She is presently homeless residing in a [facility]. Physical Examination: Vital signs are normal. She is obese with a BMI of 45.2. Head is atraumatic normocephalic. Pupils are equal round reactive. Extraocular muscles are intact. TMs are pearly white with landmarks noted. Nares patent with no drainage. Posterior pharynx without erythema or exudate. Uvula is midline. There is no dysphonia or dysphasia. Trachea is midline. There is no stridor with auscultation of the neck. Heart is regular without murmur, gallop or rub. S1 and S2 are normal. Lungs are clear to auscultation with good movement of air bilaterally. Abdomen soft nontender. She is not alert but she is oriented. Her neuro exam reveals no motor sensory deficit. DTRs symmetric with no clonus or Babinski sign. Cranial 2 through 12 intact. Cerebellar testing is normal. Test Results: CBC is normal. BMP revealed slight elevation of glucose, 170 and decrease in potassium 3.3. TSH is normal at 0.93. Blood gas reveals increased a gradient. She is not hypoxic. Suspect pickwickian syndrome. Emergency Department Course and Treatment: Because patient is somnolent will obtain an arterial blood gas to assess for hypercapnia. Because of possible weight gain with fatigue weakness TSH was obtained. Labs were obtained to evaluate for anemia or electrolyte abnormality etc. Treatment Plan: Since patient's workup is negative she will be discharged to return to the [facility] Disposition: Discharged to [facility] in stable condition Impression: Generalized weakness and fatigue unknown etiology History of psychosis and hallucination Obesity Hyperglycemia in a nondiabetic This note was generated with Dragon dictation software. It may contain incorrect words, spelling, and punctuation that were not noted in review of the chart prior to signing ED Disposition - Plan for ED Patient: Disposition: Home or Assisted Living Chief Complaint: Weakness Instructions: ED Weakness UKO, ED Hyperglycemia New Susp Diabetes Referrals: Guillermo Velázquez MD [Primary Care Provider] - 3-5 Days
[2018-01-17 22:28] VITALS: RESP 18
== END 2018-01-17 22:29 | disposition home or self-care (01) ==
PROVIDERS: Emergency Provider Emergency Medicine; Family Provider Family Medicine; PCP Family Medicine
DX: R53.1 Weakness (principal); R53.83 Other fatigue; F29 Unspecified psychosis not due to a substance or known physiological condition; F32.9 Major depressive disorder, single episode, unspecified; F41.9 Anxiety disorder, unspecified; R73.9 Hyperglycemia, unspecified; E66.9 Obesity, unspecified; Z68.42 Body mass index [BMI] 45.0-49.9, adult; Z59.0 Homelessness
CPT/HCPCS: 36600; 80048; 82803; 84443; 85025; 99285; J7030; A4216

== ENCOUNTER 2018-03-25 04:15 | Emergency (ER) | payer MEDICAID, SELFPAY ==
--- NOTE | 2018-03-25 04:15 | DT_ITS ---
This patient was seen during an EMR downtime March 20, 2018 - March 27, 2018. This patient may have a combination of paper and electronic documentation or all paper documentation. All documentation is viewable within the e-chart portion of [employer] for each patient visit.
--- NOTE | 2018-03-25 04:25 | RAD_ITS ---
STUDY: X-RAY CHEST REASON FOR EXAM: Female, 42 years old. Palpitations. TECHNIQUE: Single AP portable view of the chest. COMPARISON: November 28, 2017. FINDINGS: The lungs are mildly underexpanded with crowding of the bronchovascular markings. There is interstitial thickening present at the lung bases. There is no demonstrated pleural abnormality. There is borderline cardiomegaly. Normal mediastinum and getachew. Normal visualized pulmonary arteries. Normal visualized aortic arch and descending thoracic aorta. Normal visualized thoracic spine. Normal visualized ribs, clavicles, and shoulders. There is no demonstrated abnormality of the visualized soft tissue structures of the upper abdomen. RAD/Chest 1 View (Portable) IMPRESSION: Borderline cardiomegaly and mild pulmonary congestion. Electronically Signed: Carolina Stahl MD at 5:01 EDT , Service support ,
--- NOTE | 2018-03-25 13:06 | EKG12_ITS ---
Test Reason : PALPITATIONS Blood Pressure : / mmHG Vent. Rate : 062 BPM Atrial Rate : 062 BPM P-R Int : 184 ms QRS Dur : 092 ms QT Int : 422 ms P-R-T Axes : 038 036 039 degrees QTc Int : 428 ms Normal sinus rhythm Normal ECG Reconfirmed by SKYE COHEN, DIVINA ([id number]), editor in chief PRINCE GRAFF ([id number]) on 05/02/2018 2:50:54 PM Referred By: LENNY Confirmed By:DIVINA CHEUNG MD
[2018-03-28 06:44] LABS: Bacteria 0 SEEN /hpf (None Seen); Mucous, Urine 0 SEEN /hpf (<or=2+); Red Blood Cells-Urine 0 SEEN /hpf (0-5); Squamous Epithelial Cells - UA 0 SEEN /hpf (5-10); White Blood Cells 0 SEEN /hpf (0-5)
[2018-03-28 07:06] LABS: Color, Urine Yellow (Yellow); Urine Clarity Clear (Clear)
[2018-03-28 07:07] LABS: Glucose, Dipstick NEGATIVE (Normal); Ketone-Dipstick Negative (Negative); Leukocyte Esterase-Dipstick Negative /ul (Negative); Nitrite-Dipstick Negative (Negative); Occult Blood-Urine Negative /ul (Negative); Protein-Dipstick Negative (Negative); Urine Bilirubin Dipstick Negative (Negative); Urine Urobilinogen Normal (Normal); Urine pH 6.5 (5.0 - 8.0)
[2018-03-28 10:05] LABS: Amphetamine Urine VISTA NEGATIVE (<1000 ng/mL); Barbiturate Urine VISTA NEGATIVE (< 200 ng/mL); Benzodiazepine Urine VISTA NEGATIVE (< 200 ng/mL); Cocaine Urine VISTA NEGATIVE (< 300 ng/mL); Ecstacy Urine VISTA NEGATIVE (< 500 ng/mL); Methadone Urine VISTA NEGATIVE (< 300 ng/mL); PCP Urine VISTA NEGATIVE (< 25 ng/mL); THC Urine VISTA NEGATIVE (< 50 ng/mL)
[2018-03-28 10:10] LABS: Anion Gap 11 (5-15); BUN 14 mg/dL (7-18); BUN/Creat Ratio 16.7 RATIO (10-20); Calcium,Total 8.1 mg/dL (8.5-10.1); Chloride 105 mmol/L (98-107); Creatinine, Serum 0.84 mg/dL (0.55-1.02); EST Glomerular Filtration Rate 79 mL/min (>60); Est Glom Filt Rate - Afr Amer 96 mL/min (>60); Glucose 237 mg/dL (74-106); Potassium 3.5 mmol/L (3.5-5.1); Sodium Level 140 mmol/L (136-145)
[2018-03-28 18:05] LABS: Hemoglobin 12.8 g/dl (12.0-15.0); Red Blood Count 4.18 M/mm3 (4.2-5.4); White Blood Count 8.5 K/mm3 (4.4-11.0)
[2018-03-28 18:06] LABS: Absolute Neutrophil Count 5.8 X10^3/uL (2.0-7.7); Basophil# 0.02 X10^3/uL; Basophil% 0.2 % (0-1); Eosinophil# 0.16 X10^3/uL; Eosinophils% 1.9 % (0-5); Hematocrit 38.2 % (37-47); Lymphocyte % 21.3 % (19-41); Mean Corp Hgb Conc 33.5 g/gl (32-36); Mean Corpuscular Hgb 30.6 pg (27.0-32.0); Mean Corpuscular Volume 91.4 fL (81-99); Mean Platelet Vol. 8.7 fl (6.2-12.0); Monocyte# 0.58 X10^3/uL; Monocyte% 6.8 % (0-10); Neutrophil # 5.84 X10^3/uL (2.7-7.7); POSITIVE COUNT NO; POSITIVE DIFFERENTIAL NO; POSITIVE MORPHOLOGY NO; Platelet Count 208 K/mm3 (150-450); RBC Distribution Width CV 13.4 % (11.6-14.6); RBC Distribution Width SD 44.5 fl (35.1-43.9)
== END 2018-03-25 07:30 | disposition home or self-care (01) ==
LOC: ED 03-26 12:18
PROVIDERS: Emergency Provider Emergency Medicine; Family Provider Nurse Practitioner Family; PCP Nurse Practitioner Family
DX: R00.2 Palpitations (principal)
CPT/HCPCS: 36415; 71045; 80048; 80307; 80320; 81001; 84484; 85025; 93005; 99284; G0480

== ENCOUNTER 2018-04-10 20:51 | Inpatient (IN) | payer MEDICAID, SELFPAY ==
[2018-04-10] VITALS (7 sets, daily range): BP systolic 112–183; BP diastolic 7–116; PULSE 77–130; RESP 15–24; TEMP 35–37.1; O2SAT 97–99; BMI 28.8
--- NOTE | 2018-04-10 21:16 | EKG12_ITS ---
Test Reason : OVERDOSE Blood Pressure : / mmHG Vent. Rate : 102 BPM Atrial Rate : 102 BPM P-R Int : 170 ms QRS Dur : 084 ms QT Int : 392 ms P-R-T Axes : 029 025 015 degrees QTc Int : 510 ms Sinus tachycardia Otherwise normal ECG Confirmed by SKYE COHEN, DIVINA ([id number]), subeditor SHAE DORAN ([id number]) on 04/13/2018 4:01:11 PM Referred By: GARY Confirmed By:DIVINA CHEUNG MD
[2018-04-10 21:33] LABS: Absolute Lymphocyte Count 2.23 X10^3/ul (0.83-4.51); Absolute Neutrophil Count 8.6 X10^3/uL (2.0-7.7); Basophil# 0.02 X10^3/uL; Basophil% 0.2 % (0-1); Eosinophil# 0.09 X10^3/uL; Eosinophils% 0.8 % (0-5); Hemoglobin 14.8 g/dl (12.0-15.0); Lymphocyte # 2.23 X10^3/ul (4.0); Lymphocyte % 18.9 % (19-41); Mean Corp Hgb Conc 33.6 g/gl (32-36); Mean Corpuscular Hgb 30.6 pg (27.0-32.0); Mean Corpuscular Volume 90.9 fL (81-99); Mean Platelet Vol. 9.1 fl (6.2-12.0); Monocyte# 0.77 X10^3/uL; Monocyte% 6.5 % (0-10); Neutrophil # 8.64 X10^3/uL (2.7-7.7); Platelet Count 270 K/mm3 (150-450); RBC Distribution Width CV 13.8 % (11.6-14.6); RBC Distribution Width SD 45.7 fl (35.1-43.9); Red Blood Count 4.84 M/mm3 (4.2-5.4); White Blood Count 11.8 K/mm3 (4.4-11.0)
[2018-04-10 21:34] LABS: POSITIVE COUNT NO; POSITIVE DIFFERENTIAL NO; POSITIVE MORPHOLOGY NO
[2018-04-10] MEDS: Succinylcholine Chloride 200 MG/10 ML Vial 100 MG IV (21:53)
[2018-04-10] MEDS: Etomidate 20 MG/10 ML Vial IV (21:53)
[2018-04-10 22:13] LABS: Bacteria 0 SEEN /hpf (None Seen); Mucous, Urine 0 SEEN /hpf (<or=2+); Red Blood Cells-Urine 0 SEEN /hpf (0-5); White Blood Cells 0 SEEN /hpf (0-5)
[2018-04-10 22:14] LABS: ALB/GLOB Ratio 0.8 RATIO (0.9-2.4); AST(SGOT) 32 U/L (15-37); Alanine Aminotransfer ALT/SGPT 28 U/L (13-56); Albumin, Serum 3.8 g/dL (3.2-5.0); Alkaline Phosphatase 126 U/L (45-117); Anion Gap 11 (5-15); BUN 9 mg/dL (7-18); BUN/Creat Ratio 10.4 RATIO (10-20); CPK Total, Creatine Kinase 161 U/L (26-192); Calcium,Total 8.9 mg/dL (8.5-10.1); Chloride 103 mmol/L (98-107); Creatinine, Serum 0.86 mg/dL (0.55-1.02); EST Glomerular Filtration Rate 76 mL/min (>60); Est Glom Filt Rate - Afr Amer 92 mL/min (>60); Estimated Creatinine Clearance 85.09 ml/min; Globulin 4.6 g/dL (2.2-4.2); Glucose 175 mg/dL (74-106); Potassium 3.6 mmol/L (3.5-5.1); Pregnancy, Serum, hCG Quali. NEGATIVE Negative (0-9 Nonpreg); Protein, Total 8.4 g/dL (6.4-8.2); Sodium Level 139 mmol/L (136-145)
[2018-04-10] MEDS: Propofol 10MG/Ml 1,000 MG/100 ML Bottle 2.585 MG CONT INF (22:15)
[2018-04-10 22:30] LABS: Acetaminophen (Tylenol) Level < 2.0 ug/mL (10.0-30.0); Salicylate < 1.7 mg/dL (2.8-20.0)
--- NOTE | 2018-04-10 22:30 | RAD_ITS ---
STUDY: X-RAY CHEST REASON FOR EXAM: Female, 42 years old. ET tube placement TECHNIQUE: Single view of the chest was obtained. COMPARISON: March 25, 2018 chest radiograph FINDINGS: Endotracheal tube is seen with its tip lying approximately 2.6 cm above the augusto. Nasogastric tube is seen traversing into the stomach. No pneumothorax. Mild perihilar streaky opacities. Cardiac size mildly enlarged. IMPRESSION: Satisfactory positioning of the endotracheal and nasogastric tubes Electronically Signed: Doug Holly, at 23:00 EDT Tel , Service support , RAD/Chest 1 View (Portable)
[2018-04-10 22:33] LABS: Color, Urine Yellow (Yellow); Glucose, Dipstick Normal (Normal); Ketone-Dipstick Negative (Negative); Leukocyte Esterase-Dipstick Negative /ul (Negative); Nitrite-Dipstick Negative (Negative); Occult Blood-Urine Negative /ul (Negative); Protein-Dipstick Negative (Negative); Urine Bilirubin Dipstick Negative (Negative); Urine Clarity Clear (Clear); Urine Urobilinogen Normal (Normal)
--- NOTE | 2018-04-10 22:35 | PCM.HP.STD ---
Problem List (1) Overdose Status: Acute Qualifiers: Encounter type: initial encounter Injury intent: intentional self-harm Qualified Code(s): T50.902A - Poisoning by unspecified drugs, medicaments and biological substances, intentional self-harm, initial encounter (2) Diabetes type 2, controlled Status: Chronic Qualifiers: Comment: Now has an apartment. Feels she is doing well. Provided with a meter and strips. Enc to check before and after meals. Is set up with counselor, social service technician and psychiatrist. Looks and feels happy and she verbally confirms this. Reviewed labs, medications History of Present Illness Date of Admission: 04/10/18 Chief Complaint: overdose The patient is a 42 year old female who reportedly ingested 1200mg of Benadryl intentionally. She is sedated and intubated at this time. Poison control was notified as was Dr Nguyen. Per recommendation of poison control benzodiazepines were recommended for restlessness and therefore, a versed drip was initiated. She will be placed in the ICU while on ventilator. Crisis team will need to be consulted when she is extubated. [place] slip was written by Trena BURGESS. Past Medical History Past Medical History (Chronic Problems): Chronic Problems (Last Reviewed 04/05/18 @ 13:34 by Rosenda Tinajero) Diabetes type 2, controlled (Chronic) Now has an apartment. Feels she is doing well. Provided with a meter and strips. Enc to check before and after meals. Is set up with counselor, social service technician and psychiatrist. Looks and feels happy and she verbally confirms this. Reviewed labs, medications Medical History: Medical History (Last Reviewed 04/05/18 @ 13:34 by Rosenda Tinajero) Anxiety disorder F41.9 Asthma J45.909 Back problem M53.9 Breast lump N63.0 Chronic headaches R51 Diabetes type 2, controlled E11.9 Dx : 2006 Last exacerbation : DKA : never Hypoglycemic episode : never ER visit : never GERD (gastroesophageal reflux disease) K21.9 Hypoglycemia E16.2 IBS (irritable bowel syndrome) K58.9 Schizoaffective disorder F25.9 Seasonal allergies J30.2 Seizure disorder G40.909 Stomach ulcer K25.9 Allergies acetaminophen [From Tylenol] Allergy (Verified 04/10/18 20:55) Anaphylaxis aspirin Allergy (Verified 04/10/18 20:55) Anaphylaxis benztropine mesylate [From Cogentin] Allergy (Verified 04/10/18 20:55) Other carbamazepine [From Tegretol] Allergy (Verified 04/10/18 20:55) Rash egg Allergy (Verified 04/10/18 20:55) Other ibuprofen [From Motrin] Allergy (Verified 04/10/18 20:55) Anaphylaxis Penicillins Allergy (Verified 04/10/18 20:55) Anaphylaxis sulfamethoxazole [From Septra] Allergy (Verified 04/10/18 20:55) Anaphylaxis trimethoprim [From Septra] Allergy (Verified 04/10/18 20:55) Anaphylaxis bacitracin [From Neosporin ([id number])] Adverse Reaction (Verified 04/10/18 20:55) Swelling neomycin [From Neosporin ([id number])] Adverse Reaction (Verified 04/05/18 13:31) Swelling polymyxin B [From Neosporin ([id number])] Adverse Reaction (Verified 04/05/18 13:31) Swelling trazodone Adverse Reaction (Verified 04/05/18 13:31) Vomiting Home Medications: Ambulatory Orders Medication Instructions Recorded Multivitamins,Therapeutic 1 tab PO DAILY 11/07/14 [Multivitamin] Topiramate [Trokendi Xr] 100 mg PO BID 03/26/15 Dicyclomine HCl [Bentyl] 10 mg PO 4X/DAY PRN 06/18/15 Prazosin HCl [Minipress] 5 mg PO QHS 06/18/15 Hydroxyzine Pamoate 100 mg PO QHS 08/01/16 Pantoprazole Sodium [Protonix] 40 mg PO DAILY 09/22/17 Cetirizine HCl [All Day Allergy] 10 mg PO DAILY 01/17/18 Mirtazapine [Remeron] 15 mg PO QHS 01/17/18 Sertraline HCl [Zoloft] 50 mg PO DAILY 01/17/18 tizanidine 4 mg capsule 4 mg PO BID PRN #60 cap 04/05/18 Smoking Status: Unknown if ever smoked Review of Systems Unable to obtain accurate/complete ROS d/t: patient is sedated and intubated VTE Information - Inpt Only VTE Present on Admission: No VTE Mechan Device Prophylaxis: SCD's VTE Pharm Prophylaxis ordered?: No Patient Problems: Active and Suspected Problems (Last Reviewed 04/05/18 @ 13:34 by Rosenda Tinajero) Overdose (Acute) - Physical Exam General: - - sedated and intubated HEENT: Atraumatic, Normocephalic Neck: Supple Lungs: Clear to auscultation, Normal air movement Cardiovascular: Regular rate, Normal S1, Normal S2, No murmurs Abdomen: Bowel Sounds Present, Soft, Non Tender, Obese Extremities: No edema, Capillary Refill Less than 3 Seconds Skin: No rashes Musculoskeletal: No Tenderness to Palpation of Joints or Extremities Neurological: - - sedated Psych/Mental Status: Suicidal, - - unable to assess Vital Signs Temp Pulse Resp BP Pulse Ox 95 F L 88 24 H 135/116 H 99 04/10/18 22:08 04/10/18 22:08 04/10/18 22:08 04/10/18 22:08 04/10/18 22:08 Oxygen Delivery Method Mechanical Ventilator Weight: 190 lb Body Mass Index (BMI) 28.8 Finger Stick Blood Glucose 63 Laboratory Tests Past 24 Hrs 04/10/18 04/10/18 04/10/18 21:00 21:00 21:00 WBC 11.8 H RBC 4.84 Hgb 14.8 Hct 44.0 MCV 90.9 MCH 30.6 MCHC 33.6 RDW 13.8 RDW Differential 45.7 H Plt Count 270 MPV 9.1 Immature Gran % (Auto) 0.600 Neut % (Auto) 73.0 H Lymph % (Auto) 18.9 L [place] % (Auto) 6.5 Eos % (Auto) 0.8 Baso % (Auto) 0.2 Absolute Neuts (auto) 8.6 H Absolute Lymphs (auto) 2.23 Total Counted Not Reportable Sodium Potassium Chloride Carbon Dioxide Anion Gap BUN Creatinine Estim Creat Clear Calc Est GFR (MDRD) Af Amer Est GFR (MDRD) Non-Af BUN/Creatinine Ratio Glucose Calcium Total Bilirubin AST ALT Alkaline Phosphatase Total Creatine Kinase Troponin I Total Protein Albumin Globulin Albumin/Globulin Ratio Serum , Qual NEGATIVE Urine Color Urine Clarity Urine pH Ur Specific [place] Urine Protein Urine Glucose (UA) Urine Ketones Urine Occult Blood Urine Nitrite Urine Bilirubin Urine Urobilinogen Ur Leukocyte Esterase Urine RBC Urine WBC Ur Squamous Epith Cells Urine Bacteria Urine Mucus Salicylates Urine Opiates Screen Urine Methadone Screen Acetaminophen Ur Barbiturates Screen Ur Phencyclidine Scrn Ur Amphetamines Screen U Methamphetamin-MDMA U Benzodiazepines Scrn Urine Cocaine Screen U Cannabinoids Screen Ur Drug Screen Comment Ethyl Alcohol 6.0 04/10/18 04/10/18 04/10/18 21:00 21:00 21:00 WBC RBC Hgb Hct MCV MCH MCHC RDW RDW Differential Plt Count MPV Immature Gran % (Auto) Neut % (Auto) Lymph % (Auto) [place] % (Auto) Eos % (Auto) Baso % (Auto) Absolute Neuts (auto) Absolute Lymphs (auto) Total Counted Sodium 139 Potassium 3.6 Chloride 103 Carbon Dioxide 25.0 Anion Gap 11 BUN 9 Creatinine 0.86 Estim Creat Clear Calc 85.09 Est GFR (MDRD) Af Amer 92 Est GFR (MDRD) Non-Af 76 BUN/Creatinine Ratio 10.4 Glucose 175 H Calcium 8.9 Total Bilirubin 0.40 AST 32 ALT 28 Alkaline Phosphatase 126 H Total Creatine Kinase 161 Troponin I < 0.015 Total Protein 8.4 H Albumin 3.8 Globulin 4.6 H Albumin/Globulin Ratio 0.8 L Serum , Qual Urine Color Urine Clarity Urine pH Ur Specific [place] Urine Protein Urine Glucose (UA) Urine Ketones Urine Occult Blood Urine Nitrite Urine Bilirubin Urine Urobilinogen Ur Leukocyte Esterase Urine RBC Urine WBC Ur Squamous Epith Cells Urine Bacteria Urine Mucus Salicylates < 1.7 L Urine Opiates Screen Urine Methadone Screen Acetaminophen < 2.0 L Ur Barbiturates Screen Ur Phencyclidine Scrn Ur Amphetamines Screen U Methamphetamin-MDMA U Benzodiazepines Scrn Urine Cocaine Screen U Cannabinoids Screen Ur Drug Screen Comment Ethyl Alcohol 04/10/18 04/10/18 22:05 22:11 WBC RBC Hgb Hct MCV MCH MCHC RDW RDW Differential Plt Count MPV Immature Gran % (Auto) Neut % (Auto) Lymph % (Auto) [place] % (Auto) Eos % (Auto) Baso % (Auto) Absolute Neuts (auto) Absolute Lymphs (auto) Total Counted Sodium Potassium Chloride Carbon Dioxide Anion Gap BUN Creatinine Estim Creat Clear Calc Est GFR (MDRD) Af Amer Est GFR (MDRD) Non-Af BUN/Creatinine Ratio Glucose Calcium Total Bilirubin AST ALT Alkaline Phosphatase Total Creatine Kinase Troponin I Total Protein Albumin Globulin Albumin/Globulin Ratio Serum , Qual Urine Color Yellow Urine Clarity Clear Urine pH 8.0 Ur Specific [place] 1.010 Urine Protein Negative Urine Glucose (UA) Normal Urine Ketones Negative Urine Occult Blood Negative Urine Nitrite Negative Urine Bilirubin Negative Urine Urobilinogen Normal Ur Leukocyte Esterase Negative Urine RBC Pending Urine WBC Pending Ur Squamous Epith Cells Pending Urine Bacteria Pending Urine Mucus Pending Salicylates Urine Opiates Screen Pending Urine Methadone Screen Pending Acetaminophen Ur Barbiturates Screen Pending Ur Phencyclidine Scrn Pending Ur Amphetamines Screen Pending U Methamphetamin-MDMA Pending U Benzodiazepines Scrn Pending Urine Cocaine Screen Pending U Cannabinoids Screen Pending Ur Drug Screen Comment Ethyl Alcohol Assessment/Plan All Active Problems (Last Reviewed 04/05/18 @ 13:34 by Rosenda Tinajero) Overdose (Acute) Plan - admit to ICU - consult Dr Nguyen - continue mechanical ventilation with Versed drip - ABG in one- two hours - CBC, CMP, CXR in am - consult Crisis team when extubated - SCDs for DVT prophylaxis Code Visit Inpatient E&M: 70573 Init Hosp L3
[2018-04-10 22:38] LABS: Squamous Epithelial Cells - UA 0-5 SEEN /hpf (5-10)
--- NOTE | 2018-04-10 22:46 | HP.PCM_ITS ---
Problem List (1) Overdose Status: Acute Qualifiers: Encounter type: initial encounter Injury intent: intentional self-harm Qualified Code(s): T50.902A - Poisoning by unspecified drugs, medicaments and biological substances, intentional self-harm, initial encounter (2) Diabetes type 2, controlled Status: Chronic Qualifiers: Comment: Now has an apartment. Feels she is doing well. Provided with a meter and strips. Enc to check before and after meals. Is set up with counselor, social staff worker and psychiatrist. Looks and feels happy and she verbally confirms this. Reviewed labs, medications History of Present Illness Date of Admission: 04/10/18 Chief Complaint: overdose The patient is a 42 year old female who reportedly ingested 1200mg of Benadryl intentionally. She is sedated and intubated at this time. Poison control was notified as was Dr Nguyen. Per recommendation of poison control benzodiazepines were recommended for restlessness and therefore, a versed drip was initiated. She will be placed in the ICU while on ventilator. Crisis team will need to be consulted when she is extubated. [place] slip was written by Trena BURGESS. Past Medical History Past Medical History (Chronic Problems): Chronic Problems (Last Reviewed 04/05/18 @ 13:34 by Rosenda Tinajero) Diabetes type 2, controlled (Chronic) Now has an apartment. Feels she is doing well. Provided with a meter and strips. Enc to check before and after meals. Is set up with counselor, social staff worker and psychiatrist. Looks and feels happy and she verbally confirms this. Reviewed labs, medications Medical History: Medical History (Last Reviewed 04/05/18 @ 13:34 by Rosenda Tinajero) Anxiety disorder F41.9 Asthma J45.909 Back problem M53.9 Breast lump N63.0 Chronic headaches R51 Diabetes type 2, controlled E11.9 Dx : 2006 Last exacerbation : DKA : never Hypoglycemic episode : never ER visit : never GERD (gastroesophageal reflux disease) K21.9 Hypoglycemia E16.2 IBS (irritable bowel syndrome) K58.9 Schizoaffective disorder F25.9 Seasonal allergies J30.2 Seizure disorder G40.909 Stomach ulcer K25.9 Allergies acetaminophen [From Tylenol] Allergy (Verified 04/10/18 20:55) Anaphylaxis aspirin Allergy (Verified 04/10/18 20:55) Anaphylaxis benztropine mesylate [From Cogentin] Allergy (Verified 04/10/18 20:55) Other carbamazepine [From Tegretol] Allergy (Verified 04/10/18 20:55) Rash egg Allergy (Verified 04/10/18 20:55) Other ibuprofen [From Motrin] Allergy (Verified 04/10/18 20:55) Anaphylaxis Penicillins Allergy (Verified 04/10/18 20:55) Anaphylaxis sulfamethoxazole [From Septra] Allergy (Verified 04/10/18 20:55) Anaphylaxis trimethoprim [From Septra] Allergy (Verified 04/10/18 20:55) Anaphylaxis bacitracin [From Neosporin ([id number])] Adverse Reaction (Verified 04/10/18 20:55) Swelling neomycin [From Neosporin ([id number])] Adverse Reaction (Verified 04/05/18 13 :31) Swelling polymyxin B [From Neosporin ([id number])] Adverse Reaction (Verified 13:31) Swelling trazodone Adverse Reaction (Verified 04/05/18 13:31) Vomiting Home Medications: Ambulatory Orders Medication Instructions Recorded Multivitamins,Therapeutic 1 tab PO DAILY 11/07/14 [Multivitamin] Topiramate [Trokendi Xr] 100 mg PO BID 03/26/15 Dicyclomine HCl [Bentyl] 10 mg PO 4X/DAY PRN 06/18/15 Prazosin HCl [Minipress] 5 mg PO QHS 06/18/15 Hydroxyzine Pamoate 100 mg PO QHS 08/01/16 Pantoprazole Sodium [Protonix] 40 mg PO DAILY 09/22/17 Cetirizine HCl [All Day Allergy] 10 mg PO DAILY 01/17/18 Mirtazapine [Remeron] 15 mg PO QHS 01/17/18 Sertraline HCl [Zoloft] 50 mg PO DAILY 01/17/18 tizanidine 4 mg capsule 4 mg PO BID PRN #60 cap 04/05/18 Smoking Status: Unknown if ever smoked Review of Systems Unable to obtain accurate/complete ROS d/t: patient is sedated and intubated VTE Information - Inpt Only VTE Present on Admission: No VTE Mechan Device Prophylaxis: SCD's VTE Pharm Prophylaxis ordered?: No Patient Problems: Active and Suspected Problems (Last Reviewed 04/05/18 @ 13:34 by Rosenda Tinajero ) Overdose (Acute) - Physical Exam General: - - sedated and intubated HEENT: Atraumatic, Normocephalic Neck: Supple Lungs: Clear to auscultation, Normal air movement Cardiovascular: Regular rate, Normal S1, Normal S2, No murmurs Abdomen: Bowel Sounds Present, Soft, Non Tender, Obese Extremities: No edema, Capillary Refill Less than 3 Seconds Skin: No rashes Musculoskeletal: No Tenderness to Palpation of Joints or Extremities Neurological: - - sedated Psych/Mental Status: Suicidal, - - unable to assess Vital Signs Temp Pulse Resp BP Pulse Ox 95 F L 88 24 H 135/116 H 99 04/10/18 22:08 04/10/18 22:08 04/10/18 22:08 04/10/18 22:08 04/10/18 22:08 Oxygen Delivery Method Mechanical Ventilator Weight: 190 lb Body Mass Index (BMI) 28.8 Finger Stick Blood Glucose 63 Laboratory Tests Past 24 Hrs 04/10/18 04/10/18 04/10/18 21:00 21:00 21:00 WBC 11.8 H RBC 4.84 Hgb 14.8 Hct 44.0 MCV 90.9 MCH 30.6 MCHC 33.6 RDW 13.8 RDW Differential 45.7 H Plt Count 270 MPV 9.1 Immature Gran % (Auto) 0.600 Neut % (Auto) 73.0 H Lymph % (Auto) 18.9 L Catron % (Auto) 6.5 Eos % (Auto) 0.8 Baso % (Auto) 0.2 Absolute Neuts (auto) 8.6 H Absolute Lymphs (auto) 2.23 Total Counted Not Reportable Sodium Potassium Chloride Carbon Dioxide Anion Gap BUN Creatinine Estim Creat Clear Calc Est GFR (MDRD) Af Amer Est GFR (MDRD) Non-Af BUN/Creatinine Ratio Glucose Calcium Total Bilirubin AST ALT Alkaline Phosphatase Total Creatine Kinase Troponin I Total Protein Albumin Globulin Albumin/Globulin Ratio Serum , Qual NEGATIVE Urine Color Urine Clarity Urine pH Ur Specific [place] Urine Protein Urine Glucose (UA) Urine Ketones Urine Occult Blood Urine Nitrite Urine Bilirubin Urine Urobilinogen Ur Leukocyte Esterase Urine RBC Urine WBC Ur Squamous Epith Cells Urine Bacteria Urine Mucus Salicylates Urine Opiates Screen Urine Methadone Screen Acetaminophen Ur Barbiturates Screen Ur Phencyclidine Scrn Ur Amphetamines Screen U Methamphetamin-MDMA U Benzodiazepines Scrn Urine Cocaine Screen U Cannabinoids Screen Ur Drug Screen Comment Ethyl Alcohol 6.0 04/10/18 04/10/18 04/10/18 21:00 21:00 21:00 WBC RBC Hgb Hct MCV MCH MCHC RDW RDW Differential Plt Count MPV Immature Gran % (Auto) Neut % (Auto) Lymph % (Auto) Catron % (Auto) Eos % (Auto) Baso % (Auto) Absolute Neuts (auto) Absolute Lymphs (auto) Total Counted Sodium 139 Potassium 3.6 Chloride 103 Carbon Dioxide 25.0 Anion Gap 11 BUN 9 Creatinine 0.86 Estim Creat Clear Calc 85.09 Est GFR (MDRD) Af Amer 92 Est GFR (MDRD) Non-Af 76 BUN/Creatinine Ratio 10.4 Glucose 175 H Calcium 8.9 Total Bilirubin 0.40 AST 32 ALT 28 Alkaline Phosphatase 126 H Total Creatine Kinase 161 Troponin I < 0.015 Total Protein 8.4 H Albumin 3.8 Globulin 4.6 H Albumin/Globulin Ratio 0.8 L Serum , Qual Urine Color Urine Clarity Urine pH Ur Specific [place] Urine Protein Urine Glucose (UA) Urine Ketones Urine Occult Blood Urine Nitrite Urine Bilirubin Urine Urobilinogen Ur Leukocyte Esterase Urine RBC Urine WBC Ur Squamous Epith Cells Urine Bacteria Urine Mucus Salicylates < 1.7 L Urine Opiates Screen Urine Methadone Screen Acetaminophen < 2.0 L Ur Barbiturates Screen Ur Phencyclidine Scrn Ur Amphetamines Screen U Methamphetamin-MDMA U Benzodiazepines Scrn Urine Cocaine Screen U Cannabinoids Screen Ur Drug Screen Comment Ethyl Alcohol 04/10/18 04/10/18 22:05 22:11 WBC RBC Hgb Hct MCV MCH MCHC RDW RDW Differential Plt Count MPV Immature Gran % (Auto) Neut % (Auto) Lymph % (Auto) Catron % (Auto) Eos % (Auto) Baso % (Auto) Absolute Neuts (auto) Absolute Lymphs (auto) Total Counted Sodium Potassium Chloride Carbon Dioxide Anion Gap BUN Creatinine Estim Creat Clear Calc Est GFR (MDRD) Af Amer Est GFR (MDRD) Non-Af BUN/Creatinine Ratio Glucose Calcium Total Bilirubin AST ALT Alkaline Phosphatase Total Creatine Kinase Troponin I Total Protein Albumin Globulin Albumin/Globulin Ratio Serum , Qual Urine Color Yellow Urine Clarity Clear Urine pH 8.0 Ur Specific [place] 1.010 Urine Protein Negative Urine Glucose (UA) Normal Urine Ketones Negative Urine Occult Blood Negative Urine Nitrite Negative Urine Bilirubin Negative Urine Urobilinogen Normal Ur Leukocyte Esterase Negative Urine RBC Pending Urine WBC Pending Ur Squamous Epith Cells Pending Urine Bacteria Pending Urine Mucus Pending Salicylates Urine Opiates Screen Pending Urine Methadone Screen Pending Acetaminophen Ur Barbiturates Screen Pending Ur Phencyclidine Scrn Pending Ur Amphetamines Screen Pending U Methamphetamin-MDMA Pending U Benzodiazepines Scrn Pending Urine Cocaine Screen Pending U Cannabinoids Screen Pending Ur Drug Screen Comment Ethyl Alcohol Assessment/Plan All Active Problems (Last Reviewed 04/05/18 @ 13:34 by Rosenda Tinajero) Overdose (Acute) Plan - admit to ICU - consult Dr Nguyen - continue mechanical ventilation with Versed drip - ABG in one- two hours - CBC, CMP, CXR in am - consult Crisis team when extubated - SCDs for DVT prophylaxis Code Visit Inpatient E&M: 00042 Init Hosp L3
[2018-04-10 23:04] LABS: Amphetamine Urine VISTA NEGATIVE (<1000 ng/mL); Barbiturate Urine VISTA NEGATIVE (< 200 ng/mL); Benzodiazepine Urine VISTA NEGATIVE (< 200 ng/mL); Cocaine Urine VISTA NEGATIVE (< 300 ng/mL); Ecstacy Urine VISTA NEGATIVE (< 500 ng/mL); Methadone Urine VISTA NEGATIVE (< 300 ng/mL); PCP Urine VISTA NEGATIVE (< 25 ng/mL); THC Urine VISTA NEGATIVE (< 50 ng/mL); Vista UDS pH Range 7
--- NOTE | 2018-04-10 23:12 | ED.VISSUMM ---
- ER Visit Summary Date of Service: 04/10/18 Chief Complaint: Overdose History of Present Illness: The patient is a 42 F that overdosed on Benadryl. History was obtained through EMS and law enforcement the patient is unable to provide history due to her medical condition. She took 1200 mg of Benadryl. We are unsure what time. It is unclear if she took any other medications or substances. She has an extensive psychiatric history with suicidal attempts. She was pink slipped by [place] police. Physical Examination: Blood pressure 183/107. Heart rate 130. Otherwise vitals unremarkable. Afebrile. Patient is minimally responsive to pain. Pupils dilated bilaterally. Head atraumatic. Neck is nontender. Heart tachycardic but regular. Lungs clear. Abdomen soft. Skin is slightly pale but otherwise unremarkable. Patient is unable to cooperate with neurologic exam. Test Results: EKG showed sinus rhythm at a rate of 102. Normal QRS, but QTC is 510. White count 11.8. CMP unremarkable. Urinalysis negative. Troponin normal. HCG negative. Acetaminophen, salicylates normal. CPK normal. Alcohol negative. Tox pending. Emergency Department Course and Treatment: I spoke with poison control. They recommended monitoring for anticholinergic symptoms. Check CPK and QRS. Place Nguyen and monitor for 8 hours. Benzos as needed for sedation. Patient's mental status was not improving. She was intubated to protect her airway. Medicated with etomidate and succinylcholine. 7.0 ET tube was placed with direct visualization. Good color change. Bilateral breath sounds, quiet stomach. Chest x-ray confirmed placement. Patient sedated with Versed. Patient was discussed with the bargeman and the hospitalist and will be admitted to the ICU for further monitoring and care. Treatment Plan: Above Disposition: Admission Impression: 1. Overdose on Benadryl 2. Acute respiratory failure This note was generated with [employer] dictation software. It may contain incorrect words, spelling, and punctuation that were not noted in review of the chart prior to signing ED Disposition - Plan for ED Patient: Chief Complaint: Overdose
--- NOTE | 2018-04-10 23:13 | ED.RN ---
at 2308 midazoliam iv started per protocol. propofol on hold per dr. may shah.
--- NOTE | 2018-04-10 23:18 | ED.DCSUM_ITS ---
- ER Visit Summary Date of Service: 04/10/18 Chief Complaint: Overdose History of Present Illness: The patient is a 42 F that overdosed on Benadryl. History was obtained through EMS and law enforcement the patient is unable to provide history due to her medical condition. She took 1200 mg of Benadryl. We are unsure what time. It is unclear if she took any other medications or substances. She has an extensive psychiatric history with suicidal attempts. She was pink slipped by [employer] police. Physical Examination: Blood pressure 183/107. Heart rate 130. Otherwise vitals unremarkable. Afebrile. Patient is minimally responsive to pain. Pupils dilated bilaterally. Head atraumatic. Neck is nontender. Heart tachycardic but regular. Lungs clear. Abdomen soft. Skin is slightly pale but otherwise unremarkable. Patient is unable to cooperate with neurologic exam. Test Results: EKG showed sinus rhythm at a rate of 102. Normal QRS, but QTC is 510. White count 11.8. CMP unremarkable. Urinalysis negative. Troponin normal. HCG negative. Acetaminophen, salicylates normal. CPK normal. Alcohol negative. Tox pending. Emergency Department Course and Treatment: I spoke with poison control. They recommended monitoring for anticholinergic symptoms. Check CPK and QRS. Place Nguyen and monitor for 8 hours. Benzos as needed for sedation. Patient's mental status was not improving. She was intubated to protect her airway. Medicated with etomidate and succinylcholine. 7.0 ET tube was placed with direct visualization. Good color change. Bilateral breath sounds, quiet stomach. Chest x-ray confirmed placement. Patient sedated with Versed. Patient was discussed with the sewer line photo inspector and the hospitalist and will be admitted to the ICU for further monitoring and care. Treatment Plan: Above Disposition: Admission Impression: 1. Overdose on Benadryl 2. Acute respiratory failure This note was generated with [employer] dictation software. It may contain incorrect words, spelling, and punctuation that were not noted in review of the chart prior to signing ED Disposition - Plan for ED Patient: Chief Complaint: Overdose
[2018-04-11] VITALS (39 sets, daily range): BP systolic 108–153; BP diastolic 60–101; PULSE 64–96; RESP 12–18; TEMP 36.6–37.2; O2SAT 97–100; BMI 38.6
[2018-04-11] MEDS: Propofol 10MG/Ml 1,000 MG/100 ML Bottle 2.585 MG CONT INF ×6 (01:43→23:56)
[2018-04-11 01:55] LABS: M R Staph aureus DNA By PCR Negative (Negative); Probe Check PASS; Specimen Processing Control PASS
[2018-04-11 03:06] LABS: Base Excess -1 mmol/L (-2 to +2); Bicarbonate 24.1 mmol/L (22-26); Blood Gas Specimen Type ART; FI02 30; Mode A-C; O2 Delivery Device Vent; PEEP 5; PO2 98 mmHG (75-100); RR 13; SITE R Radial; SO2 97 % (95-99); Time Given 305; Total Carbon Dioxide 25 mmol/L; Vt 485; pCO2 42.8 mmHg (35-45); pH 7.36 (7.35-7.45)
[2018-04-11] MEDS: 0.9% Normal Saline 1,000 ML 100 ML IV ×3 (03:12→22:54)
[2018-04-11 04:21] LABS: Hematocrit 37.5 % (37-47); Hemoglobin 12.6 g/dl (12.0-15.0); Mean Corp Hgb Conc 33.6 g/gl (32-36); Mean Corpuscular Hgb 30.8 pg (27.0-32.0); Mean Corpuscular Volume 91.7 fL (81-99); Mean Platelet Vol. 8.8 fl (6.2-12.0); Platelet Count 245 K/mm3 (150-450); RBC Distribution Width CV 13.9 % (11.6-14.6); RBC Distribution Width SD 46.3 fl (35.1-43.9); Red Blood Count 4.09 M/mm3 (4.2-5.4); White Blood Count 11.8 K/mm3 (4.4-11.0)
[2018-04-11 04:22] LABS: Scan Indicated on CBC? Y/N NO
[2018-04-11 04:55] LABS: ALB/GLOB Ratio 0.8 RATIO (0.9-2.4); AST(SGOT) 29 U/L (15-37); Alanine Aminotransfer ALT/SGPT 25 U/L (13-56); Albumin, Serum 3.1 g/dL (3.2-5.0); Alkaline Phosphatase 99 U/L (45-117); Anion Gap 9 (5-15); BUN 9 mg/dL (7-18); BUN/Creat Ratio 13.1 RATIO (10-20); Calcium,Total 8.1 mg/dL (8.5-10.1); Chloride 107 mmol/L (98-107); Creatinine, Serum 0.69 mg/dL (0.55-1.02); EST Glomerular Filtration Rate 99 mL/min (>60); Est Glom Filt Rate - Afr Amer 120 mL/min (>60); Estimated Creatinine Clearance 106.05 ml/min; Glucose 96 mg/dL (74-106); Potassium 3.6 mmol/L (3.5-5.1); Protein, Total 7.1 g/dL (6.4-8.2); Sodium Level 143 mmol/L (136-145)
[2018-04-11] MEDS: 0.9% NaCl Peripheral Flush Adult/Peds IV (05:07)
--- NOTE | 2018-04-11 05:55 | RAD_ITS ---
STUDY: X-RAY CHEST REASON FOR EXAM: Female, 42 years old. Shortness of breath. Intubation. TECHNIQUE: Single AP portable view of the chest. COMPARISON: Comparison is made with prior study dated April 10, 2018. FINDINGS: An endotracheal tube is in situ. The tip is at 2.3 cm proximal to the augusto. An oral gastric tube is seen with the tip in the body of the stomach. Mild degree of increased bilateral perihilar markings suggestive of atelectasis. Follow-up is recommended. There is no demonstrated pleural abnormality. Normal size heart. Normal mediastinum and getachew. Normal visualized pulmonary arteries. Normal visualized aortic arch and descending thoracic aorta. There are degenerative changes of the visualized thoracic spine. Dextroscoliosis. Normal visualized ribs, clavicles, and shoulders. There is no demonstrated abnormality of the visualized soft tissue structures of the upper abdomen. RAD/Chest 1 View (Portable) IMPRESSION: The tip of the endotracheal tube is at 2.3 cm proximal to the augusto. Mild degree of increased bilateral perihilar markings. Electronically Signed: Emmett Delatorre MD at 9:48 EDT Tel [phone], Service support ,
--- NOTE | 2018-04-11 06:05 | EKG12_ITS ---
Test Reason : AM EKG Blood Pressure : / mmHG Vent. Rate : 063 BPM Atrial Rate : 063 BPM P-R Int : 160 ms QRS Dur : 094 ms QT Int : 470 ms P-R-T Axes : 038 045 073 degrees QTc Int : 480 ms Normal sinus rhythm Prolonged QT Abnormal ECG No previous ECGs available Confirmed by SKYE COHEN, DIVINA ([id number]), script editor SHAE DORAN ([id number] on 04/14/2018 10:07:44 AM Referred By: RASTA ALAN Confirmed By:DIVINA CHEUNG MD
[2018-04-11] MEDS: Albuterol 2.5 MG/3 ML VIAL.NEB. INHALATION ×5 (06:32→23:28)
--- NOTE | 2018-04-11 06:48 | PCM.CON.CC ---
Problem List (1) Overdose Status: Acute Qualifiers: Encounter type: initial encounter Injury intent: intentional self-harm Qualified Code(s): T50.902A - Poisoning by unspecified drugs, medicaments and biological substances, intentional self-harm, initial encounter (2) Diabetes type 2, controlled Status: Chronic Qualifiers: Comment: Now has an apartment. Feels she is doing well. Provided with a meter and strips. Enc to check before and after meals. Is set up with counselor, executive secretary social welfare and psychiatrist. Looks and feels happy and she verbally confirms this. Reviewed labs, medications Reason for Consult Date of Consultation: 04/11/18 Reason for Consultation: Benadryl overdose History of Present Illness: The patient is a 42 year old F, with past medical history listed below, who presented to [facility] on 04/10/2018 following an overdose of 12 g of Benadryl. Patient was pink slipped by [place] police and history was somewhat questionable. Time of ingestion is unclear. Patient reportedly does have an extensive psychiatric history with previous suicide attempts. On presentation to the emergency room, patient's blood pressure was elevated at 183/107 with a heart rate of 130 bpm. An EKG showed an elevated QTC at 510. Patient was noted to be minimally responsive with dilated pupils bilaterally. Given patient's mental status, patient was intubated by ER staff without complication. Poison control was called and suggested benzodiazepines. Patient was initiated on a Versed drip and then transferred to the intensive care unit. Overnight, patient did have significant agitation despite Versed drip. Patient was placed on propofol with significant improvement in sedation. Versed drip is currently being weaned off. Patient is currently heavily sedated and not interacting. Remaining history is unclear. Home medications cannot be verified. Past Medical History Past Medical History (Chronic Problems): Chronic Problems (Last Reviewed 04/05/18 @ 13:34 by Rosenda Tinajero) Diabetes type 2, controlled (Chronic) Now has an apartment. Feels she is doing well. Provided with a meter and strips. Enc to check before and after meals. Is set up with counselor, executive secretary social welfare and psychiatrist. Looks and feels happy and she verbally confirms this. Reviewed labs, medications Medical History: Medical History (Last Reviewed 04/05/18 @ 13:34 by Rosenda Tinajero) Anxiety disorder F41.9 Asthma J45.909 Back problem M53.9 Breast lump N63.0 Chronic headaches R51 Diabetes type 2, controlled E11.9 Dx : 2006 Last exacerbation : DKA : never Hypoglycemic episode : never ER visit : never GERD (gastroesophageal reflux disease) K21.9 Hypoglycemia E16.2 IBS (irritable bowel syndrome) K58.9 Schizoaffective disorder F25.9 Seasonal allergies J30.2 Seizure disorder G40.909 Stomach ulcer K25.9 Allergies acetaminophen [From Tylenol] Allergy (Verified 04/10/18 20:55) Anaphylaxis aspirin Allergy (Verified 04/10/18 20:55) Anaphylaxis benztropine mesylate [From Cogentin] Allergy (Verified 04/10/18 20:55) Other carbamazepine [From Tegretol] Allergy (Verified 04/10/18 20:55) Rash egg Allergy (Verified 04/10/18 20:55) Other ibuprofen [From Motrin] Allergy (Verified 04/10/18 20:55) Anaphylaxis Penicillins Allergy (Verified 04/10/18 20:55) Anaphylaxis sulfamethoxazole [From Septra] Allergy (Verified 04/10/18 20:55) Anaphylaxis trimethoprim [From Septra] Allergy (Verified 04/10/18 20:55) Anaphylaxis bacitracin [From Neosporin ([id number])] Adverse Reaction (Verified 04/10/18 20:55) Swelling neomycin [From Neosporin ([id number])] Adverse Reaction (Verified 04/05/18 13:31) Swelling polymyxin B [From Neosporin ([id number])] Adverse Reaction (Verified 04/05/18 13:31) Swelling trazodone Adverse Reaction (Verified 04/05/18 13:31) Vomiting Home Medications: Ambulatory Orders Medication Instructions Recorded Multivitamins,Therapeutic 1 tab PO DAILY 11/07/14 [Multivitamin] Topiramate [Trokendi Xr] 100 mg PO BID 03/26/15 Dicyclomine HCl [Bentyl] 10 mg PO 4X/DAY PRN 06/18/15 Prazosin HCl [Minipress] 5 mg PO QHS 06/18/15 Hydroxyzine Pamoate 100 mg PO QHS 08/01/16 Pantoprazole Sodium [Protonix] 40 mg PO DAILY 09/22/17 Cetirizine HCl [All Day Allergy] 10 mg PO DAILY 01/17/18 Mirtazapine [Remeron] 15 mg PO QHS 01/17/18 Sertraline HCl [Zoloft] 50 mg PO DAILY 01/17/18 tizanidine 4 mg capsule 4 mg PO BID PRN #60 cap 04/05/18 Smoking Status: Unknown if ever smoked Review of Systems Unable to obtain accurate/complete ROS d/t: Intubated and sedated Patient Problems: Active and Suspected Problems (Last Reviewed 04/05/18 @ 13:34 by Rosenda Tinajero) Overdose (Acute) Objective: Multiple chest x-rays were reviewed showing endotracheal tube in good position. OG is within the stomach. No infiltrates are appreciated. - Physical Exam General: - - Intubated and sedated. RASS -4. Appears older than stated age. HEENT: Atraumatic, PERRLA, EOMI, Normocephalic, - - No scleral icterus or injection noted. Oral: Moist Mucosa, No Gingival or Mucosal Lesions/ Ulcerations Neck: Supple, No JVD, No Nodes, Trachea Midline Lungs: No rhonchi, No wheeze, No rales, Diminished, - - Symmetric expansion. No dullness to percussion. Cardiovascular: Regular rate, Regular Rhythm, Normal S1, Normal S2, No murmurs, No rub noted, No Gallop, - - Morning EKG with improvement in QTC Abdomen: Bowel Sounds Present, Soft, Non Tender, Non-Distended, Obese Extremities: No clubbing, No cyanosis, No edema, Capillary Refill Less than 3 Seconds Skin: No rashes, No breakdown Musculoskeletal: No Tenderness to Palpation of Joints or Extremities Lymphatic: No Cervical, Supraclavicular, or Inguinal Adenopathy Neurological: Neuro grossly intact, - - Withdrawal to stimulus. Motor appears intact. Positive gag and cough reflex. Psych/Mental Status: Flat Affect Vital Signs Temp Pulse Resp BP Pulse Ox 36.8 C 65 12 143/84 H 100 04/11/18 06:00 04/11/18 06:00 04/11/18 06:00 04/11/18 06:00 04/11/18 06:00 Oxygen Delivery Method Mechanical Ventilator Weight: 115.8 kg Body Mass Index (BMI) 38.6 Intake and Output for Last 24 Hours 06/24/18 06/25/18 06/26/18 23:59 23:59 23:59 Intake Total 648 / 648 Output Total 550 / 550 Balance 98 / 98 Laboratory Tests Past 24 Hrs 04/11/18 04/11/18 04/11/18 00:10 03:02 04:15 WBC 11.8 H RBC 4.09 L Hgb 12.6 Hct 37.5 MCV 91.7 MCH 30.8 MCHC 33.6 RDW 13.9 RDW Differential 46.3 H Plt Count 245 MPV 8.8 Specimen Type ART Sample Site R Radial pH 7.36 Bicarbonate Actual 24.1 POC Total CO2 25 Base Excess -1 O2 Saturation 97 O2 % 30 ABG pCO2 42.8 ABG pO2 98 Sameer Test NA Respiration Rate 13 O2 Delivery Device Vent Minute Volume 6.00 Vent Mode A-C Tidal Volume 485 POC PEEP 5 Blood Gas Notified Whom [facility] Blood Gas Notified Time 305 Sodium Potassium Chloride Carbon Dioxide Anion Gap BUN Creatinine Estim Creat Clear Calc Est GFR (MDRD) Af Amer Est GFR (MDRD) Non-Af BUN/Creatinine Ratio Glucose Calcium Total Bilirubin AST ALT Alkaline Phosphatase Total Protein Albumin Globulin Albumin/Globulin Ratio MRSA (PCR) Negative 04/11/18 04:15 WBC RBC Hgb Hct MCV MCH MCHC RDW RDW Differential Plt Count MPV Specimen Type Sample Site pH Bicarbonate Actual POC Total CO2 Base Excess O2 Saturation O2 % ABG pCO2 ABG pO2 Sameer Test Respiration Rate O2 Delivery Device Minute Volume Vent Mode Tidal Volume POC PEEP Blood Gas Notified Whom Blood Gas Notified Time Sodium 143 Potassium 3.6 Chloride 107 Carbon Dioxide 27.0 Anion Gap 9 BUN 9 Creatinine 0.69 Estim Creat Clear Calc 106.05 Est GFR (MDRD) Af Amer 120 Est GFR (MDRD) Non-Af 99 BUN/Creatinine Ratio 13.1 Glucose 96 Calcium 8.1 L Total Bilirubin 0.30 AST 29 ALT 25 Alkaline Phosphatase 99 Total Protein 7.1 Albumin 3.1 L Globulin 4.0 Albumin/Globulin Ratio 0.8 L MRSA (PCR) Clinical Impression(s) from Imaging Studies Chest X-Ray 04/10/18 22:30 Assessment/Plan Active and Suspected Problems (Last Reviewed 04/05/18 @ 13:34 by Rosenda Tinajero) Overdose (Acute) RECOMMENDATIONS: 1. Continue mechanical ventilation 2. Wean off Versed, continue propofol 3. Spontaneous breathing and awakening trials per protocol 4. Crisis evaluation upon extubation 5. Attempt to verify home medications 6. Okay to initiate tube feeds. IMPRESSIONS: 1. Acute respiratory failure secondary to coma secondary to Benadryl overdose Exact history is unclear at this time. Patient was showing symptoms consistent with Benadryl overdose. Will attempt to obtain more information through the day today. Patient did receive significant Versed overnight and is heavily sedated at this time. Will attempt to transition of propofol therapy to facilitate a spontaneous awakening and breathing trial. Will attempt to obtain home medication list so that psychiatric meds can be reinitiated. Patient will need crisis evaluation on extubation. No indication for antibiotics as there are no infiltrates on chest x-ray or fever. Leukocytosis may be secondary to acute condition. Patient will need to be monitored for urinary retention (consequence of Benadryl overdose) after Nguyen removal. 2. Type 2 diabetes mellitus Patient has a reported history of type 2 diabetes mellitus. Blood sugar was slightly elevated on presentation. Will check fingerstick blood sugars every 6 hours. Pepcid will be initiated for GI prophylaxis. Likely okay to initiate tube feeds. 3. Prolonged QT Likely toxic effect from Benadryl overdose. This has been improving with time. Will obtain an EKG every morning while in the hospital. TIME: 33 minutes critical care time spent addressing patient's acute respiratory failure, Benadryl overdose, type 2 diabetes mellitus, review of all data and collaboration with care team. (5:30 AM to 6:30 AM) Code Visit 9xxxx: [id number] Critical care first hour
--- NOTE | 2018-04-11 07:02 | CON.PCM_ITS ---
Problem List (1) Overdose Status: Acute Qualifiers: Encounter type: initial encounter Injury intent: intentional self-harm Qualified Code(s): T50.902A - Poisoning by unspecified drugs, medicaments and biological substances, intentional self-harm, initial encounter (2) Diabetes type 2, controlled Status: Chronic Qualifiers: Comment: Now has an apartment. Feels she is doing well. Provided with a meter and strips. Enc to check before and after meals. Is set up with counselor, high school social studies teacher and psychiatrist. Looks and feels happy and she verbally confirms this. Reviewed labs, medications Reason for Consult Date of Consultation: 04/11/18 Reason for Consultation: Benadryl overdose History of Present Illness: The patient is a 42 year old F, with past medical history listed below, who presented to [facility] on 04/10/2018 following an overdose of 12 g of Benadryl. Patient was pink slipped by [place] police and history was somewhat questionable. Time of ingestion is unclear. Patient reportedly does have an extensive psychiatric history with previous suicide attempts. On presentation to the emergency room, patient's blood pressure was elevated at 183 /107 with a heart rate of 130 bpm. An EKG showed an elevated QTC at 510. Patient was noted to be minimally responsive with dilated pupils bilaterally. Given patient's mental status, patient was intubated by ER staff without complication. Poison control was called and suggested benzodiazepines. Patient was initiated on a Versed drip and then transferred to the intensive care unit. Overnight, patient did have significant agitation despite Versed drip. Patient was placed on propofol with significant improvement in sedation. Versed drip is currently being weaned off. Patient is currently heavily sedated and not interacting. Remaining history is unclear. Home medications cannot be verified. Past Medical History Past Medical History (Chronic Problems): Chronic Problems (Last Reviewed 04/05/18 @ 13:34 by Rosenda Tinajero) Diabetes type 2, controlled (Chronic) Now has an apartment. Feels she is doing well. Provided with a meter and strips. Enc to check before and after meals. Is set up with counselor, high school social studies teacher and psychiatrist. Looks and feels happy and she verbally confirms this. Reviewed labs, medications Medical History: Medical History (Last Reviewed 04/05/18 @ 13:34 by Rosenda Tinajero) Anxiety disorder F41.9 Asthma J45.909 Back problem M53.9 Breast lump N63.0 Chronic headaches R51 Diabetes type 2, controlled E11.9 Dx : 2006 Last exacerbation : DKA : never Hypoglycemic episode : never ER visit : never GERD (gastroesophageal reflux disease) K21.9 Hypoglycemia E16.2 IBS (irritable bowel syndrome) K58.9 Schizoaffective disorder F25.9 Seasonal allergies J30.2 Seizure disorder G40.909 Stomach ulcer K25.9 Allergies acetaminophen [From Tylenol] Allergy (Verified 04/10/18 20:55) Anaphylaxis aspirin Allergy (Verified 04/10/18 20:55) Anaphylaxis benztropine mesylate [From Cogentin] Allergy (Verified 04/10/18 20:55) Other carbamazepine [From Tegretol] Allergy (Verified 04/10/18 20:55) Rash egg Allergy (Verified 04/10/18 20:55) Other ibuprofen [From Motrin] Allergy (Verified 04/10/18 20:55) Anaphylaxis Penicillins Allergy (Verified 04/10/18 20:55) Anaphylaxis sulfamethoxazole [From Septra] Allergy (Verified 04/10/18 20:55) Anaphylaxis trimethoprim [From Septra] Allergy (Verified 04/10/18 20:55) Anaphylaxis bacitracin [From Neosporin ([id number])] Adverse Reaction (Verified 04/10/18 20:55) Swelling neomycin [From Neosporin ([id number])] Adverse Reaction (Verified 04/05/18 13 :31) Swelling polymyxin B [From Neosporin ([id number])] Adverse Reaction (Verified 13:31) Swelling trazodone Adverse Reaction (Verified 04/05/18 13:31) Vomiting Home Medications: Ambulatory Orders Medication Instructions Recorded Multivitamins,Therapeutic 1 tab PO DAILY 11/07/14 [Multivitamin] Topiramate [Trokendi Xr] 100 mg PO BID 03/26/15 Dicyclomine HCl [Bentyl] 10 mg PO 4X/DAY PRN 06/18/15 Prazosin HCl [Minipress] 5 mg PO QHS 06/18/15 Hydroxyzine Pamoate 100 mg PO QHS 08/01/16 Pantoprazole Sodium [Protonix] 40 mg PO DAILY 09/22/17 Cetirizine HCl [All Day Allergy] 10 mg PO DAILY 01/17/18 Mirtazapine [Remeron] 15 mg PO QHS 01/17/18 Sertraline HCl [Zoloft] 50 mg PO DAILY 01/17/18 tizanidine 4 mg capsule 4 mg PO BID PRN #60 cap 04/05/18 Smoking Status: Unknown if ever smoked Review of Systems Unable to obtain accurate/complete ROS d/t: Intubated and sedated Patient Problems: Active and Suspected Problems (Last Reviewed 04/05/18 @ 13:34 by Rosenda Tinajero ) Overdose (Acute) Objective: Multiple chest x-rays were reviewed showing endotracheal tube in good position. OG is within the stomach. No infiltrates are appreciated. - Physical Exam General: - - Intubated and sedated. RASS -4. Appears older than stated age. HEENT: Atraumatic, PERRLA, EOMI, Normocephalic, - - No scleral icterus or injection noted. Oral: Moist Mucosa, No Gingival or Mucosal Lesions/ Ulcerations Neck: Supple, No JVD, No Nodes, Trachea Midline Lungs: No rhonchi, No wheeze, No rales, Diminished, - - Symmetric expansion. No dullness to percussion. Cardiovascular: Regular rate, Regular Rhythm, Normal S1, Normal S2, No murmurs, No rub noted, No Gallop, - - Morning EKG with improvement in QTC Abdomen: Bowel Sounds Present, Soft, Non Tender, Non-Distended, Obese Extremities: No clubbing, No cyanosis, No edema, Capillary Refill Less than 3 Seconds Skin: No rashes, No breakdown Musculoskeletal: No Tenderness to Palpation of Joints or Extremities Lymphatic: No Cervical, Supraclavicular, or Inguinal Adenopathy Neurological: Neuro grossly intact, - - Withdrawal to stimulus. Motor appears intact. Positive gag and cough reflex. Psych/Mental Status: Flat Affect Vital Signs Temp Pulse Resp BP Pulse Ox 36.8 C 65 12 143/84 H 100 04/11/18 06:00 04/11/18 06:00 04/11/18 06:00 04/11/18 06:00 04/11/18 06:00 Oxygen Delivery Method Mechanical Ventilator Weight: 115.8 kg Body Mass Index (BMI) 38.6 Intake and Output for Last 24 Hours 06/24/18 06/25/18 06/26/18 23:59 23:59 23:59 Intake Total 648 / 648 Output Total 550 / 550 Balance 98 / 98 Laboratory Tests Past 24 Hrs 04/11/18 04/11/18 04/11/18 00:10 03:02 04:15 WBC 11.8 H RBC 4.09 L Hgb 12.6 Hct 37.5 MCV 91.7 MCH 30.8 MCHC 33.6 RDW 13.9 RDW Differential 46.3 H Plt Count 245 MPV 8.8 Specimen Type ART Sample Site R Radial pH 7.36 Bicarbonate Actual 24.1 POC Total CO2 25 Base Excess -1 O2 Saturation 97 O2 % 30 ABG pCO2 42.8 ABG pO2 98 Sameer Test NA Respiration Rate 13 O2 Delivery Device Vent Minute Volume 6.00 Vent Mode A-C Tidal Volume 485 POC PEEP 5 Blood Gas Notified Whom [facility] Blood Gas Notified Time 305 Sodium Potassium Chloride Carbon Dioxide Anion Gap BUN Creatinine Estim Creat Clear Calc Est GFR (MDRD) Af Amer Est GFR (MDRD) Non-Af BUN/Creatinine Ratio Glucose Calcium Total Bilirubin AST ALT Alkaline Phosphatase Total Protein Albumin Globulin Albumin/Globulin Ratio MRSA (PCR) Negative 04/11/18 04:15 WBC RBC Hgb Hct MCV MCH MCHC RDW RDW Differential Plt Count MPV Specimen Type Sample Site pH Bicarbonate Actual POC Total CO2 Base Excess O2 Saturation O2 % ABG pCO2 ABG pO2 Sameer Test Respiration Rate O2 Delivery Device Minute Volume Vent Mode Tidal Volume POC PEEP Blood Gas Notified Whom Blood Gas Notified Time Sodium 143 Potassium 3.6 Chloride 107 Carbon Dioxide 27.0 Anion Gap 9 BUN 9 Creatinine 0.69 Estim Creat Clear Calc 106.05 Est GFR (MDRD) Af Amer 120 Est GFR (MDRD) Non-Af 99 BUN/Creatinine Ratio 13.1 Glucose 96 Calcium 8.1 L Total Bilirubin 0.30 AST 29 ALT 25 Alkaline Phosphatase 99 Total Protein 7.1 Albumin 3.1 L Globulin 4.0 Albumin/Globulin Ratio 0.8 L MRSA (PCR) Clinical Impression(s) from Imaging Studies Chest X-Ray 04/10/18 22:30 Assessment/Plan Active and Suspected Problems (Last Reviewed 04/05/18 @ 13:34 by Rosenda Tinajero ) Overdose (Acute) RECOMMENDATIONS: 1. Continue mechanical ventilation 2. Wean off Versed, continue propofol 3. Spontaneous breathing and awakening trials per protocol 4. Crisis evaluation upon extubation 5. Attempt to verify home medications 6. Okay to initiate tube feeds. IMPRESSIONS: 1. Acute respiratory failure secondary to coma secondary to Benadryl overdose Exact history is unclear at this time. Patient was showing symptoms consistent with Benadryl overdose. Will attempt to obtain more information through the day today. Patient did receive significant Versed overnight and is heavily sedated at this time. Will attempt to transition of propofol therapy to facilitate a spontaneous awakening and breathing trial. Will attempt to obtain home medication list so that psychiatric meds can be reinitiated. Patient will need crisis evaluation on extubation. No indication for antibiotics as there are no infiltrates on chest x-ray or fever. Leukocytosis may be secondary to acute condition. Patient will need to be monitored for urinary retention (consequence of Benadryl overdose) after Nguyen removal. 2. Type 2 diabetes mellitus Patient has a reported history of type 2 diabetes mellitus. Blood sugar was slightly elevated on presentation. Will check fingerstick blood sugars every 6 hours. Pepcid will be initiated for GI prophylaxis. Likely okay to initiate tube feeds. 3. Prolonged QT Likely toxic effect from Benadryl overdose. This has been improving with time. Will obtain an EKG every morning while in the hospital. TIME: 33 minutes critical care time spent addressing patient's acute respiratory failure, Benadryl overdose, type 2 diabetes mellitus, review of all data and collaboration with care team. (5:30 AM to 6:30 AM) Code Visit 9xxxx: [id number] Critical care first hour
--- NOTE | 2018-04-11 08:05 | PN_ITS ---
Patient Problems: Active and Suspected Problems (Last Reviewed 04/05/18 @ 13:34 by Rosenda Tinajero ) Overdose (Acute) Subjective: Patient was seen and examined. She is in ICU, intubated, mechanical ventilation. Admitted yesterday after reported overdose of Benadryl about 1200 mg. She was intubated in the ED for airway protection. Been on the Versed drip per poison control recommendation. Patient was still restless and she was subsequently put on propofol drip. Brass Pourer has been consulted. Vitals/I&O's: Vital Signs Temp Pulse Resp BP Pulse Ox 98.2 F 70 12 140/77 H 100 04/11/18 08:00 04/11/18 08:00 04/11/18 08:00 04/11/18 08:00 04/11/18 08:00 Oxygen Delivery Method Mechanical Ventilator Weight: 115.8 kg Body Mass Index (BMI) 38.6 Intake and Output for Last 24 Hours 04/09/18 04/10/18 04/11/18 23:59 23:59 23:59 Intake Total 648 / 648 Output Total 550 / 550 Balance 98 / 98 General: Lethargic - Status post intubation, on propofol and Versed drips HEENT: Atraumatic, PERRLA, EOMI, Normocephalic Oral: Dry Mucosa Neck: Supple Lungs: Clear to auscultation, Normal air movement Cardiovascular: Regular rate, Regular Rhythm, Normal S1, Normal S2, No murmurs Abdomen: Bowel Sounds Present, Soft, Non Tender, Non-Distended, No Hepato- splenomegaly Extremities: No edema Skin: No rashes, No breakdown Musculoskeletal: No Tenderness to Palpation of Joints or Extremities Lymphatic: No Cervical, Supraclavicular, or Inguinal Adenopathy Neurological: Cranial nerves II-XII grossly intact, Neuro grossly intact Psych/Mental Status: Normal Affect, Appropriate Laboratory Results 04/11/18 00:10: MRSA (PCR) Negative 04/11/18 03:02: Specimen Type ART, Sample Site R Radial, pH 7.36, Bicarbonate Actual 24.1, POC Total CO2 25, Base Excess -1, O2 Saturation 97, O2 % 30, ABG pCO2 42.8, ABG pO2 98, Sameer Test NA, Respiration Rate 13, O2 Delivery Device Vent, Minute Volume 6.00, Vent Mode A-C, Tidal Volume 485, POC PEEP 5, Blood Gas Notified Whom BONY COHEN, Blood Gas Notified Time 305 04/11/18 04:15: WBC 11.8 H, RBC 4.09 L, Hgb 12.6, Hct 37.5, MCV 91.7, MCH 30.8, MCHC 33.6, RDW 13.9, RDW Differential 46.3 H, Plt Count 245, MPV 8.8 04/11/18 04:15: Sodium 143, Potassium 3.6, Chloride 107, Carbon Dioxide 27.0, Anion Gap 9, BUN 9, Creatinine 0.69, Estim Creat Clear Calc 106.05, Est GFR ( MDRD) Af Amer 120, Est GFR (MDRD) Non-Af 99, BUN/Creatinine Ratio 13.1, Glucose 96, Calcium 8.1 L, Total Bilirubin 0.30, AST 29, ALT 25, Alkaline Phosphatase 99 , Total Protein 7.1, Albumin 3.1 L, Globulin 4.0, Albumin/Globulin Ratio 0.8 L 04/11/18 04:15: Hemoglobin A1c Pending Current Medications Albuterol Sulfate (Ventolin Aerosols) 2.5 mg INHALATION Q4H.RT [facility] Last Admin: 04/11/18 06:32 Dose: 2.5 mg Chlorhexidine Gluconate () 15 ml PO BID [facility] Chlorhexidine Gluconate () 1 each TOPICAL DAILY [facility] Dextrose (D50w Syringe) 0 gm IV X1 PRN; Protocol PRN Reason: Hypoglycemia Famotidine (Pepcid) 20 mg PO BID [facility] Glucagon () 1 mg IM .X1 PRN PRN Reason: Hypoglycemia Sodium Chloride () 1,000 mls @ 100 mls/hr IV .Q10H [facility] Last Admin: 04/11/18 03:12 Dose: 100 mls/hr Sodium Chloride () 250 mls @ 15 mls/hr IV .[id number] PRN PRN Reason: SALINE FLUSH Propofol (Diprivan) 1,000 mg in 100 mls @ 2.585 mls/hr CONT INF .Q12H [facility]; 5 MCG/KG/MIN PRN Reason: Protocol Last Admin: 04/11/18 04:39 Dose: Not Given Midazolam HCl 50 mg/ Sodium (Chloride) 100 mls @ 0 mls/hr CONT INF .Q0M [facility]; Titrate PRN Reason: Protocol Last Admin: 04/11/18 05:06 Dose: 4 mls/hr Insulin Human Lispro (Humalog Kwikpen (Bkc)) 0 unit SC Q6 [facility] PRN Reason: Protocol Magnesium Hydroxide (Milk Of Magnesia) 30 ml PO DAILY PRN PRN PRN Reason: Constipation Sodium Chloride () 5 - 30 ml IV UD PRN PRN Reason: SALINE FLUSH Last Admin: 04/11/18 05:07 Dose: 10 ml Medical Necessity - Tobacco Use Smoking Status: Unknown if ever smoked Assessment/Plan All Active Problems (Last Reviewed 04/05/18 @ 13:34 by Rosenda Tinajero) Overdose (Acute) 42-year-old female with past medical history of major depression with repeated suicide ideation and intent comes into the hospital via EMS when she is reported to have overdosed on Benadryl more than 1200 mg. Has been intubated for airway protection, remains on mechanical ventilation. Poison control was consulted. Recommended Versed drip, propofol added for restlessness. 1. Acute metabolic encephalopathy secondary to intentional drug overdose, remains intubated, cigarette tester consulted, follow-up on cigarette tester recommendations 2. Intentional drug overdose, Benadryl, on versed drip and propofol, versed being weaned off, will continue to monitor for anticholinergic symptoms 3. Suicidal attempt, history of multiple suicide attempts, patient will be seen by crisis when she is extubated 4. Seizure disorder, on topiramate 5. 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 Type 2 DM, HbA1c 7.4, not on medications, will continue for now on Accu- Cheks and insulin sliding scale whilst on oral feeds and kept n.p.o. 7. Hypertension, fairly controlled, prazosin on hold, will continue to monitor, hydralazine prn 8. Strep agalactiae UTI, unclear if patient is symptomatic from this, status post Nguyen catheter placement, although urine appears cloudy, will hold off starting antibiotics for now. Will have a low threshold to start if she has fevers or leucocytosis worsens. 9. GI prophylaxis with famotidine 10. DVT PPx - Lovenox SC Code Visit Inpatient E&M: 35913 Subs Hosp L3
[2018-04-11 08:15] LABS: Hemoglobin A1c 7.4 % (4.2-6.3)
[2018-04-11 09:14] LABS: Internal QC Validated? YES +Cl - CLEAR BKGD; Pregnancy, Urine Negative Negative
[2018-04-11] MEDS: CHLORHEXIDINE GLUC 2% CLOTH 1 EACH TOWELETTE TOPICAL (09:33)
[2018-04-11] MEDS: Famotidine 20 MG Tablet PO ×2 (09:34→21:29)
[2018-04-11] MEDS: Chlorhexidine 15 ML PO ×2 (09:34→21:30)
[2018-04-11 11:35] LABS: Bedside Glucose 82 mg/dL (70-110)
--- NOTE | 2018-04-11 14:25 | CASEMGMT ---
Social Work SW attended morning rounds. RN reports that the phone numbers on contact list were not correct and family has not been notified that pt is currently in the hospital. SW placed phone call to both numbers on demo sheet and both numbers are wrong numbers. [facility] They were able to provide emergency contact as pt mother Joycelyn Sandhu and correct phone number. Call placed to Joycelyn and SW informed her that pt is currently in the hospital. Pt mother was not aware and upset. SW provided support and offered to call someone else to come be with pt mother. Joycelyn declined and states she will call her other daughter and ask her to come pick her up to bring her to the hosptial. Demographic sheet changed to reflect the correct number. MELIDA Brooks notified of correct contact information and that pt mother plans to be in later today. SW will continue to follow. REHANA Rojas
[2018-04-11] MEDS: Vital AF 1.2 Cal Liquid 1,000 ML 70 ML GT (14:46)
[2018-04-11 18:21] LABS: Bedside Glucose 77 mg/dL (70-110)
[2018-04-12] VITALS (28 sets, daily range): BP systolic 93–157; BP diastolic 64–91; PULSE 68–101; RESP 12–24; TEMP 36.7–37.5; O2SAT 2–99
[2018-04-12 00:11] LABS: Bedside Glucose 105 mg/dL (70-110)
[2018-04-12] MEDS: Propofol 10MG/Ml 1,000 MG/100 ML Bottle 2.585 MG CONT INF (02:15)
[2018-04-12] MEDS: Albuterol 2.5 MG/3 ML VIAL.NEB. INHALATION ×5 (03:32→19:07)
[2018-04-12 04:15] LABS: Absolute Lymphocyte Count 2.15 X10^3/ul (0.83-4.51); Absolute Neutrophil Count 6.7 X10^3/uL (2.0-7.7); Basophil# 0.03 X10^3/uL; Basophil% 0.3 % (0-1); Eosinophil# 0.18 X10^3/uL; Eosinophils% 1.8 % (0-5); Hematocrit 35.7 % (37-47); Hemoglobin 11.8 g/dl (12.0-15.0); Lymphocyte # 2.15 X10^3/ul (4.0); Lymphocyte % 21.3 % (19-41); Mean Corp Hgb Conc 33.1 g/gl (32-36); Mean Corpuscular Hgb 30.9 pg (27.0-32.0); Mean Corpuscular Volume 93.5 fL (81-99); Mean Platelet Vol. 8.7 fl (6.2-12.0); Monocyte# 0.99 X10^3/uL; Monocyte% 9.8 % (0-10); Neutrophil # 6.68 X10^3/uL (2.7-7.7); Neutrophil % 66.1 % (47-70); Platelet Count 207 K/mm3 (150-450); RBC Distribution Width CV 14.6 % (11.6-14.6); RBC Distribution Width SD 48.1 fl (35.1-43.9); Red Blood Count 3.82 M/mm3 (4.2-5.4); White Blood Count 10.1 K/mm3 (4.4-11.0)
[2018-04-12 04:17] LABS: POSITIVE COUNT NO; POSITIVE DIFFERENTIAL NO; POSITIVE MORPHOLOGY NO
--- NOTE | 2018-04-12 05:00 | EKG12_ITS ---
Test Reason : MORNING EKG Blood Pressure : / mmHG Vent. Rate : 082 BPM Atrial Rate : 082 BPM P-R Int : 168 ms QRS Dur : 088 ms QT Int : 444 ms P-R-T Axes : 040 057 100 degrees QTc Int : 518 ms Normal sinus rhythm Prolonged QT Abnormal ECG Confirmed by SKYE COHEN, DIVINA ([id number]), society editor SHAE DORAN ([id number]) on 04/14/2018 9:44:57 AM Referred By: LOUISE Confirmed By:DIVINA CHEUNG MD
[2018-04-12] MEDS: 0.9% NaCl Peripheral Flush Adult/Peds IV (06:04)
[2018-04-12] MEDS: CHLORHEXIDINE GLUC 2% CLOTH 1 EACH TOWELETTE TOPICAL (06:04)
[2018-04-12 06:16] LABS: Bedside Glucose 135 mg/dL (70-110)
[2018-04-12 06:31] LABS: Allen Test POS; Base Excess -1 mmol/L (-2 to +2); Bicarbonate 23.8 mmol/L (22-26); Blood Gas Specimen Type ART; FI02 35; Mode CPAP PS; O2 Delivery Device Vent; PEEP 5; PO2 57 mmHG (75-100); PS 5; SITE R Radial; SO2 89 % (95-99); Time Given 627; Total Carbon Dioxide 25 mmol/L; pCO2 37.6 mmHg (35-45); pH 7.41 (7.35-7.45)
--- NOTE | 2018-04-12 06:34 | PCM.PN.INT ---
Subjective: Patient did okay overnight. No acute issues were reported. Patient was placed on a spontaneous breathing trial this morning without difficulty. Patient did have a decrease in saturations, but saturations were acceptable, so trial was continued. Patient did have a bowel movement while on spontaneous breathing trial. Patient is much more animated and agitated this morning compared to previous. Follow some commands, but rolling eyes frequently. General: Alert, Cooperative - Intermittently, No apparent distress, - - Appears older than stated age. HEENT: Atraumatic, PERRLA, EOMI, Normocephalic, - - Slight scleral injection without icterus Oral: Moist Mucosa, No Gingival or Mucosal Lesions/ Ulcerations Neck: Supple, No JVD, No Nodes, Trachea Midline Lungs: No wheeze, No rales, Diminished, Rhonchi - Scattered, - - Symmetric expansion. No dullness to percussion. Cardiovascular: Regular rate, Regular Rhythm, Normal S1, Normal S2, No murmurs, No rub noted, No Gallop Abdomen: Bowel Sounds Present, Soft, Non Tender, Non-Distended, Obese Extremities: No clubbing, No cyanosis, No edema, Capillary Refill Less than 3 Seconds Skin: No rashes, No breakdown Musculoskeletal: No Tenderness to Palpation of Joints or Extremities Lymphatic: No Cervical, Supraclavicular, or Inguinal Adenopathy Neurological: Cranial nerves II-XII grossly intact, Neuro grossly intact, Motor Exam 5/5 strength throughout Psych/Mental Status: Anxious, Restless Vital Signs Temp Pulse Resp BP Pulse Ox 37.3 C H 75 12 93/64 2 04/12/18 06:00 04/12/18 06:00 04/12/18 06:00 04/12/18 06:00 04/12/18 06:00 Oxygen Delivery Method Mechanical Ventilator Weight: 116.3 kg Body Mass Index (BMI) 38.6 Intake and Output for Last 24 Hours 04/10/18 04/11/18 04/12/18 23:59 23:59 23:59 Intake Total 3697 / 3697 1334 / 1334 Output Total 1150 / 1150 410 / 410 Balance 2547 / 2547 924 / 924 Labs (Last 48 Hours) 04/11/18 04/11/18 04/11/18 00:10 03:02 04:15 WBC 11.8 H RBC 4.09 L Hgb 12.6 Hct 37.5 MCV 91.7 MCH 30.8 MCHC 33.6 RDW 13.9 RDW Differential 46.3 H Plt Count 245 MPV 8.8 Immature Gran % (Auto) Neut % (Auto) Lymph % (Auto) [place] % (Auto) Eos % (Auto) Baso % (Auto) Absolute Neuts (auto) Absolute Lymphs (auto) Total Counted Specimen Type ART Sample Site R Radial pH 7.36 Bicarbonate Actual 24.1 POC Total CO2 25 Base Excess -1 O2 Saturation 97 O2 % 30 ABG pCO2 42.8 ABG pO2 98 Sameer Test NA Respiration Rate 13 O2 Delivery Device Vent Minute Volume 6.00 Vent Mode A-C Tidal Volume 485 POC PEEP 5 POC Pressure Suppt Blood Gas Notified Whom [facility] Blood Gas Notified Time 305 Sodium Potassium Chloride Carbon Dioxide Anion Gap BUN Creatinine Estim Creat Clear Calc Est GFR (MDRD) Af Amer Est GFR (MDRD) Non-Af BUN/Creatinine Ratio Glucose Hemoglobin A1c Calcium Total Bilirubin AST ALT Alkaline Phosphatase Total Protein Albumin Globulin Albumin/Globulin Ratio Urine Test MRSA (PCR) Negative POC Glucose 04/11/18 04/11/18 04/11/18 04:15 04:15 09:00 WBC RBC Hgb Hct MCV MCH MCHC RDW RDW Differential Plt Count MPV Immature Gran % (Auto) Neut % (Auto) Lymph % (Auto) [place] % (Auto) Eos % (Auto) Baso % (Auto) Absolute Neuts (auto) Absolute Lymphs (auto) Total Counted Specimen Type Sample Site pH Bicarbonate Actual POC Total CO2 Base Excess O2 Saturation O2 % ABG pCO2 ABG pO2 Sameer Test Respiration Rate O2 Delivery Device Minute Volume Vent Mode Tidal Volume POC PEEP POC Pressure Suppt Blood Gas Notified Whom Blood Gas Notified Time Sodium 143 Potassium 3.6 Chloride 107 Carbon Dioxide 27.0 Anion Gap 9 BUN 9 Creatinine 0.69 Estim Creat Clear Calc 106.05 Est GFR (MDRD) Af Amer 120 Est GFR (MDRD) Non-Af 99 BUN/Creatinine Ratio 13.1 Glucose 96 Hemoglobin A1c 7.4 H Calcium 8.1 L Total Bilirubin 0.30 AST 29 ALT 25 Alkaline Phosphatase 99 Total Protein 7.1 Albumin 3.1 L Globulin 4.0 Albumin/Globulin Ratio 0.8 L Urine Test Negative MRSA (PCR) POC Glucose 04/11/18 04/11/18 04/11/18 11:25 18:09 23:58 WBC RBC Hgb Hct MCV MCH MCHC RDW RDW Differential Plt Count MPV Immature Gran % (Auto) Neut % (Auto) Lymph % (Auto) Mercer % (Auto) Eos % (Auto) Baso % (Auto) Absolute Neuts (auto) Absolute Lymphs (auto) Total Counted Specimen Type Sample Site pH Bicarbonate Actual POC Total CO2 Base Excess O2 Saturation O2 % ABG pCO2 ABG pO2 Sameer Test Respiration Rate O2 Delivery Device Minute Volume Vent Mode Tidal Volume POC PEEP POC Pressure Suppt Blood Gas Notified Whom Blood Gas Notified Time Sodium Potassium Chloride Carbon Dioxide Anion Gap BUN Creatinine Estim Creat Clear Calc Est GFR (MDRD) Af Amer Est GFR (MDRD) Non-Af BUN/Creatinine Ratio Glucose Hemoglobin A1c Calcium Total Bilirubin AST ALT Alkaline Phosphatase Total Protein Albumin Globulin Albumin/Globulin Ratio Urine Test MRSA (PCR) POC Glucose 82 77 105 04/12/18 04/12/18 04/12/18 04:05 06:10 06:25 WBC 10.1 RBC 3.82 L Hgb 11.8 L Hct 35.7 L MCV 93.5 MCH 30.9 MCHC 33.1 RDW 14.6 RDW Differential 48.1 H Plt Count 207 MPV 8.7 Immature Gran % (Auto) 0.700 Neut % (Auto) 66.1 Lymph % (Auto) 21.3 Mercer % (Auto) 9.8 Eos % (Auto) 1.8 Baso % (Auto) 0.3 Absolute Neuts (auto) 6.7 Absolute Lymphs (auto) 2.15 Total Counted Not Reportable Specimen Type ART Sample Site R Radial pH 7.41 Bicarbonate Actual 23.8 POC Total CO2 25 Base Excess -1 O2 Saturation 89 L O2 % 35 ABG pCO2 37.6 ABG pO2 57 L Sameer Test POS Respiration Rate O2 Delivery Device Vent Minute Volume Vent Mode CPAP PS Tidal Volume POC PEEP 5 POC Pressure Suppt 5 Blood Gas Notified Whom ICU MD Blood Gas Notified Time 627 Sodium Potassium Chloride Carbon Dioxide Anion Gap BUN Creatinine Estim Creat Clear Calc Est GFR (MDRD) Af Amer Est GFR (MDRD) Non-Af BUN/Creatinine Ratio Glucose Hemoglobin A1c Calcium Total Bilirubin AST ALT Alkaline Phosphatase Total Protein Albumin Globulin Albumin/Globulin Ratio Urine Test MRSA (PCR) POC Glucose 135 H Clinical Impression(s) from Imaging Studies Chest X-Ray 04/11/18 05:55 IMPRESSION: The tip of the endotracheal tube is at 2.3 cm proximal to the augusto. Mild degree of increased bilateral perihilar markings. Electronically Signed: Emmett Delatorre MD at 9:48 EDT Tel [phone], Service support , Medical Necessity - Tobacco Use Smoking Status: Unknown if ever smoked Assessment/Plan All Active Problems (Last Reviewed 04/05/18 @ 13:34 by Rosenda Tinajero) Overdose (Acute) RECOMMENDATIONS: 1. Okay to liberate from the ventilator 2. Discontinue propofol 3. Crisis evaluation in the next 24 hours 4. Bedside swallow evaluation 5. Wean oxygen as tolerated. IMPRESSIONS: 1. Acute respiratory failure secondary to coma secondary to Benadryl overdose Exact history is unclear at this time. Patient was showing symptoms consistent with Benadryl overdose. Patient was able to pass a spontaneous breathing trial this morning. Unclear patient has an element of aspiration, but no significant leukocytosis or fever has been reported. Will wean oxygen as tolerated. Patient will need a crisis evaluation once hemodynamically stable. 2. Type 2 diabetes mellitus Patient has a reported history of type 2 diabetes mellitus. Blood sugar was slightly elevated on presentation. Will check fingerstick blood sugars every 6 hours. Pepcid will be initiated for GI prophylaxis. Transition blood sugar checks to q. before meals and at bedtime once patient passes bedside swallow evaluation. 3. Prolonged QT Likely toxic effect from Benadryl overdose. This has been improving with time. Will obtain an EKG every morning while in the hospital until back within normal range. TIME: 37 minutes critical care time spent addressing patient's acute respiratory failure, Benadryl overdose, type 2 diabetes mellitus, review of all data and collaboration with care team. (5:30 AM to 6:30 AM) Code Visit 9xxxx: [id number] Critical care first hour
--- NOTE | 2018-04-12 08:49 | PCM.PN.HOSP ---
Patient Problems: Active and Suspected Problems (Last Reviewed 04/05/18 @ 13:34 by Rosenda Tinajero) Overdose (Acute) Subjective: Patient was seen and examined. She was extubated this morning. No acute events since. Patient's states she has dissociative identity disorder and follows closely with psychiatrist, and therapist as well as counselor. She felt very upset with lots of issues going on in her life. She denies any suicidal or homicidal ideation now. But states that the part of her wants to end herself. No cough or shortness of breath. She will be seen by crisis today. Vitals/I&O's: Vital Signs Temp Pulse Resp BP Pulse Ox 99.2 F H 81 19 H 93/64 93 04/12/18 06:00 04/12/18 07:18 04/12/18 06:40 04/12/18 06:00 04/12/18 06:42 Oxygen Flow Rate (L/min) 3 Oxygen Delivery Method Nasal Cannula Weight: 116.3 kg Body Mass Index (BMI) 38.6 Intake and Output for Last 24 Hours 04/10/18 04/11/18 04/12/18 23:59 23:59 23:59 Intake Total 3697 / 3697 1334 / 1334 Output Total 1150 / 1150 410 / 410 Balance 2547 / 2547 924 / 924 General: Alert, Oriented x3, Cooperative, No apparent distress, - - morbidly obese HEENT: Atraumatic, PERRLA, EOMI, Normocephalic Oral: Moist Mucosa Neck: Supple Lungs: Clear to auscultation, Normal air movement Cardiovascular: Regular rate, Regular Rhythm, Normal S1, Normal S2, No murmurs Abdomen: Bowel Sounds Present, Soft, Non Tender, Non-Distended, No Hepato-splenomegaly Extremities: No edema Skin: No rashes, No breakdown Musculoskeletal: No Tenderness to Palpation of Joints or Extremities Lymphatic: No Cervical, Supraclavicular, or Inguinal Adenopathy Neurological: Cranial nerves II-XII grossly intact, Neuro grossly intact Psych/Mental Status: Normal Affect, Appropriate Laboratory Results 04/11/18 09:00: Urine Test Negative 04/11/18 11:25: POC Glucose 82 04/11/18 18:09: POC Glucose 77 04/11/18 23:58: POC Glucose 105 04/12/18 04:05: WBC 10.1, RBC 3.82 L, Hgb 11.8 L, Hct 35.7 L, MCV 93.5, MCH 30.9, MCHC 33.1, RDW 14.6, RDW Differential 48.1 H, Plt Count 207, MPV 8.7, Immature Gran % (Auto) 0.700, Neut % (Auto) 66.1, Lymph % (Auto) 21.3, [place] % (Auto) 9.8, Eos % (Auto) 1.8, Baso % (Auto) 0.3, Absolute Neuts (auto) 6.7, Absolute Lymphs (auto) 2.15, Total Counted Not Reportable 04/12/18 06:10: POC Glucose 135 H 04/12/18 06:25: Specimen Type ART, Sample Site R Radial, pH 7.41, Bicarbonate Actual 23.8, POC Total CO2 25, Base Excess -1, O2 Saturation 89 L, O2 % 35, ABG pCO2 37.6, ABG pO2 57 L, Sameer Test POS, O2 Delivery Device Vent, Vent Mode CPAP PS, POC PEEP 5, POC Pressure Suppt 5, Blood Gas Notified Whom ICU MD, Blood Gas Notified Time 627 Current Medications Albuterol Sulfate (Ventolin Aerosols) 2.5 mg INHALATION Q4H.RT [facility] Last Admin: 04/12/18 06:34 Dose: 2.5 mg Chlorhexidine Gluconate () 1 each TOPICAL DAILY [facility] Last Admin: 04/12/18 06:04 Dose: 1 each Dextrose (D50w Syringe) 0 gm IV X1 PRN; Protocol PRN Reason: Hypoglycemia Famotidine (Pepcid) 20 mg PO BID [facility] Last Admin: 04/11/18 21:29 Dose: 20 mg Glucagon () 1 mg IM .X1 PRN PRN Reason: Hypoglycemia Hydralazine HCl (Apresoline Iv) 5 mg IV Q6H PRN PRN PRN Reason: blood pressure Sodium Chloride () 250 mls @ 15 mls/hr IV .[id number] PRN PRN Reason: SALINE FLUSH Insulin Human Lispro (Humalog Kwikpen (Bkc)) 0 unit SC Q6 [facility] PRN Reason: Protocol Last Admin: 04/12/18 07:35 Dose: Not Given Magnesium Hydroxide (Milk Of Magnesia) 30 ml PO DAILY PRN PRN PRN Reason: Constipation Mirtazapine (Remeron) 15 mg PO QHS [facility] Multivitamins (Multivitamin) tablet PO DAILY [facility] Non-Formulary Medication (Prazosin Hcl) 5 mg PO QHS [facility] Non-Formulary Medication (Tizanidine Hcl [Zanaflex]) 4 mg PO BID PRN PRN Reason: muscle spasticity Non-Formulary Medication (Topiramate [Trokendi Xr]) 100 mg PO BID [facility] Sertraline HCl (Zoloft) 100 mg PO DAILY [facility] Sodium Chloride () 5 - 30 ml IV UD PRN PRN Reason: SALINE FLUSH Last Admin: 04/12/18 06:04 Dose: 10 ml Medical Necessity - Tobacco Use Smoking Status: Unknown if ever smoked Assessment/Plan All Active Problems (Last Reviewed 04/05/18 @ 13:34 by Rosenda Tinajero) Overdose (Acute) 42-year-old female with past medical history of major depression with repeated suicide ideation/intent comes into the hospital via EMS when she is reported to have overdosed on Benadryl more than 1200 mg. Has been intubated for airway protection, remains on mechanical ventilation. Poison control was consulted. Recommended Versed drip, propofol added for restlessness. 1. Acute metabolic encephalopathy secondary to intentional drug overdose, status post extubation, alert oriented ?3 2. Acute hypoxic respiratory insufficiency, status post recent extubation for primary airway protection, on 3 L of oxygen, will encourage use of incentive spirometer to prevent atelectasis, wean off oxygen for SPO2 more than 94% 3. Intentional drug overdose, Benadryl, off versed drip and propofol, will continue to monitor patient. 3. Suicidal attempt, history of multiple suicide attempts, she will be seen by mobile crisis today. 4. Seizure disorder, on topiramate 5. 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 Type 2 DM, HbA1c 7.4, not on medications, blood sugars have been fairly controlled, will continue to monitor and start patient likely on metformin after further discussions with her. Will continue on accucheks and ISS for now. 7. Hypertension, controlled, will resume home prazosin 8. History of Strep agalactiae UTI, patient is asymptomatic, no need for antibiotics 9. GI prophylaxis with famotidine 10. DVT PPx - Lovenox SC Code Visit Inpatient E&M: 72895 Subs Hosp L3
--- NOTE | 2018-04-12 08:59 | PN_ITS ---
Patient Problems: Active and Suspected Problems (Last Reviewed 04/05/18 @ 13:34 by Rosenda Tinajero ) Overdose (Acute) Subjective: Patient was seen and examined. She was extubated this morning. No acute events since. Patient's states she has dissociative identity disorder and follows closely with psychiatrist, and therapist as well as counselor. She felt very upset with lots of issues going on in her life. She denies any suicidal or homicidal ideation now. But states that the part of her wants to end herself. No cough or shortness of breath. She will be seen by crisis today. Vitals/I&O's: Vital Signs Temp Pulse Resp BP Pulse Ox 99.2 F H 81 19 H 93/64 93 04/12/18 06:00 04/12/18 07:18 04/12/18 06:40 04/12/18 06:00 04/12/18 06:42 Oxygen Flow Rate (L/min) 3 Oxygen Delivery Method Nasal Cannula Weight: 116.3 kg Body Mass Index (BMI) 38.6 Intake and Output for Last 24 Hours 04/10/18 04/11/18 04/12/18 23:59 23:59 23:59 Intake Total 3697 / 3697 1334 / 1334 Output Total 1150 / 1150 410 / 410 Balance 2547 / 2547 924 / 924 General: Alert, Oriented x3, Cooperative, No apparent distress, - - morbidly obese HEENT: Atraumatic, PERRLA, EOMI, Normocephalic Oral: Moist Mucosa Neck: Supple Lungs: Clear to auscultation, Normal air movement Cardiovascular: Regular rate, Regular Rhythm, Normal S1, Normal S2, No murmurs Abdomen: Bowel Sounds Present, Soft, Non Tender, Non-Distended, No Hepato- splenomegaly Extremities: No edema Skin: No rashes, No breakdown Musculoskeletal: No Tenderness to Palpation of Joints or Extremities Lymphatic: No Cervical, Supraclavicular, or Inguinal Adenopathy Neurological: Cranial nerves II-XII grossly intact, Neuro grossly intact Psych/Mental Status: Normal Affect, Appropriate Laboratory Results 04/11/18 09:00: Urine Test Negative 04/11/18 11:25: POC Glucose 82 04/11/18 18:09: POC Glucose 77 04/11/18 23:58: POC Glucose 105 04/12/18 04:05: WBC 10.1, RBC 3.82 L, Hgb 11.8 L, Hct 35.7 L, MCV 93.5, MCH 30.9 , MCHC 33.1, RDW 14.6, RDW Differential 48.1 H, Plt Count 207, MPV 8.7, Immature Gran % (Auto) 0.700, Neut % (Auto) 66.1, Lymph % (Auto) 21.3, [place] % ( Auto) 9.8, Eos % (Auto) 1.8, Baso % (Auto) 0.3, Absolute Neuts (auto) 6.7, Absolute Lymphs (auto) 2.15, Total Counted Not Reportable 04/12/18 06:10: POC Glucose 135 H 04/12/18 06:25: Specimen Type ART, Sample Site R Radial, pH 7.41, Bicarbonate Actual 23.8, POC Total CO2 25, Base Excess -1, O2 Saturation 89 L, O2 % 35, ABG pCO2 37.6, ABG pO2 57 L, Sameer Test POS, O2 Delivery Device Vent, Vent Mode CPAP PS, POC PEEP 5, POC Pressure Suppt 5, Blood Gas Notified Whom ICU MD, Blood Gas Notified Time 627 Current Medications Albuterol Sulfate (Ventolin Aerosols) 2.5 mg INHALATION Q4H.RT [facility] Last Admin: 04/12/18 06:34 Dose: 2.5 mg Chlorhexidine Gluconate () 1 each TOPICAL DAILY [facility] Last Admin: 04/12/18 06:04 Dose: 1 each Dextrose (D50w Syringe) 0 gm IV X1 PRN; Protocol PRN Reason: Hypoglycemia Famotidine (Pepcid) 20 mg PO BID [facility] Last Admin: 04/11/18 21:29 Dose: 20 mg Glucagon () 1 mg IM .X1 PRN PRN Reason: Hypoglycemia Hydralazine HCl (Apresoline Iv) 5 mg IV Q6H PRN PRN PRN Reason: blood pressure Sodium Chloride () 250 mls @ 15 mls/hr IV .[id number] PRN PRN Reason: SALINE FLUSH Insulin Human Lispro (Humalog Kwikpen (Bkc)) 0 unit SC Q6 [facility] PRN Reason: Protocol Last Admin: 04/12/18 07:35 Dose: Not Given Magnesium Hydroxide (Milk Of Magnesia) 30 ml PO DAILY PRN PRN PRN Reason: Constipation Mirtazapine (Remeron) 15 mg PO QHS [facility] Multivitamins (Multivitamin) tablet PO DAILY [facility] Non-Formulary Medication (Prazosin Hcl) 5 mg PO QHS [facility] Non-Formulary Medication (Tizanidine Hcl [Zanaflex]) 4 mg PO BID PRN PRN Reason: muscle spasticity Non-Formulary Medication (Topiramate [Trokendi Xr]) 100 mg PO BID [facility] Sertraline HCl (Zoloft) 100 mg PO DAILY [facility] Sodium Chloride () 5 - 30 ml IV UD PRN PRN Reason: SALINE FLUSH Last Admin: 04/12/18 06:04 Dose: 10 ml Medical Necessity - Tobacco Use Smoking Status: Unknown if ever smoked Assessment/Plan All Active Problems (Last Reviewed 04/05/18 @ 13:34 by Rosenda Tinajero) Overdose (Acute) 42-year-old female with past medical history of major depression with repeated suicide ideation/intent comes into the hospital via EMS when she is reported to have overdosed on Benadryl more than 1200 mg. Has been intubated for airway protection, remains on mechanical ventilation. Poison control was consulted. Recommended Versed drip, propofol added for restlessness. 1. Acute metabolic encephalopathy secondary to intentional drug overdose, status post extubation, alert oriented ?3 2. Acute hypoxic respiratory insufficiency, status post recent extubation for primary airway protection, on 3 L of oxygen, will encourage use of incentive spirometer to prevent atelectasis, wean off oxygen for SPO2 more than 94% 3. Intentional drug overdose, Benadryl, off versed drip and propofol, will continue to monitor patient. 3. Suicidal attempt, history of multiple suicide attempts, she will be seen by mobile crisis today. 4. Seizure disorder, on topiramate 5. Major depression, follows with outpatient psychiatrist, counselor, psychiatric social worker supervisor , will resume sertraline, Remeron, hydroxyzine 6. Type 2 DM, HbA1c 7.4, not on medications, blood sugars have been fairly controlled, will continue to monitor and start patient likely on metformin after further discussions with her. Will continue on accucheks and ISS for now. 7. Hypertension, controlled, will resume home prazosin 8. History of Strep agalactiae UTI, patient is asymptomatic, no need for antibiotics 9. GI prophylaxis with famotidine 10. DVT PPx - Lovenox SC Code Visit Inpatient E&M: 65958 Subs Hosp L3
[2018-04-12] MEDS: Sertraline 50 MG Tablet 100 MG PO (10:00)
[2018-04-12] MEDS: Famotidine 20 MG Tablet PO ×2 (10:00→21:15)
[2018-04-12] MEDS: Enoxaparin 40 MG/0.4 ML Syringe SC (10:00)
[2018-04-12] MEDS: Insulin Lispro 100 UNIT/ML INSULN.PEN SC ×2 (10:40→21:15)
[2018-04-12 10:41] LABS: Bedside Glucose 153 mg/dL (70-110)
--- NOTE | 2018-04-12 11:02 | CASEMGMT ---
Addendum entered by Rakel Sherman 04/12/18 13:08: AUDELIA received a return call from Pratima Bustamante. She said patient does have a bad history with [facility]. She said she would not feel comfortable with letting patient be discharged home due to her history of Psych admissions and past suicide attempts. Pat is on vacation starting tomorrow and will be gone for 3 weeks. AUDELIA tried to call patient's counselor again and this time SW was told she took a vacation day today. AUDELIA conferred with several colleagues and at this time patient should not be sent home and the crisis team should be consulted to help facilitate psych placement. AUDELIA will speak with Donny from Crisis. Rakel TORRES Original Note: AUDELIA participated in interdisciplinary rounds. When AUDELIA told patient someone from [facility] will come and talk with her she became upset. She spoke for quite awhile and eventually AUDELIA spoke with her alone. She told SW her history with [facility] and why she does not want to talk with them. She told SW her counselor's name as well as her Psychiatrist and Credit Union Manager's names. She said she would rather talk with them. She said she has been doing well. She said last night was a mistake. She said she does not need a psych hospital. AUDELIA told her SW will talk with her counselor and caser for some guidance. Patient signed 2 releases of information for AUDELIA. AUDELIA called her counselor, [facility] and left her a voice mail. AUDELIA also called her Credit Union Manager, Pratima Bustamante at [facility] and spoke with academic support assistant. She was able to contact [facility] and she will call AUDELIA between 113. Await return call. Rakel TORRES
--- NOTE | 2018-04-12 14:08 | CASEMGMT ---
AUDELIA called Crisis at [facility] and spoke with Meryl. She said they would come and see patient. SW told her patient's feelings about seeing [facility]. They will still plan on seeing patient. AUDELIA notified carolina Maxwell RN as patient's bedside RN is at lunch. AUDELIA then spoke with patient letting her know SW called her counselor back and she took a vacation day today. AUDELIA told her the only option is for crisis to come and see her. AUDELIA told her SW spoke with Meryl. She said she will not talk with Meryl, but she will talk with Donny. AUDELIA told her SW is not sure who will be coming. SW spoke with Meryl as she is on her way to see patient. SW told her what patient had said. AUDELIA told her that her issue with Meryl stems from a ED visit in early March. She said she will try and straighten this out with patient. Rakel TORRES
[2018-04-12 18:00] LABS: Bedside Glucose 131 mg/dL (70-110)
[2018-04-12] MEDS: Doxazosin 4 MG Tablet PO (21:15)
[2018-04-12] MEDS: Mirtazapine 15 MG Tablet PO (21:15)
[2018-04-12] MEDS: Topiramate 100 MG Tablet PO (21:15)
[2018-04-12 21:35] LABS: Bedside Glucose 175 mg/dL (70-110)
[2018-04-13] VITALS (9 sets, daily range): BP systolic 137–169; BP diastolic 56–82; PULSE 78–90; RESP 18–21; TEMP 36.7–37.1; O2SAT 93–100
[2018-04-13] MEDS: 0.9% NaCl Peripheral Flush Adult/Peds IV (05:48)
[2018-04-13] MEDS: CHLORHEXIDINE GLUC 2% CLOTH 1 EACH TOWELETTE TOPICAL (05:48)
[2018-04-13] MEDS: Albuterol 2.5 MG/3 ML VIAL.NEB. INHALATION (06:38)
--- NOTE | 2018-04-13 07:45 | PCM.PN.INT ---
Subjective: Patient did well overnight. Patient has been on room air overnight without complications. Patient does report significant diarrhea, but states this is an issue at baseline. Patient has voided without complication. Patient denying any pain at this time. General: Alert, Oriented x3, Cooperative, No apparent distress, - - Much more appropriate today. Speaking in full sentences. Obese. HEENT: Atraumatic, PERRLA, EOMI, Normocephalic, - - No scleral icterus or injection noted. Oral: Moist Mucosa, No Gingival or Mucosal Lesions/ Ulcerations Neck: Supple, No JVD, No Nodes, Trachea Midline Lungs: Clear to auscultation, No rhonchi, No wheeze, No rales, Diminished, - - No dullness to percussion. Symmetric expansion. Cardiovascular: Regular rate, Regular Rhythm, Normal S1, Normal S2, No murmurs, No rub noted, No Gallop Abdomen: Bowel Sounds Present, Soft, Non Tender, Non-Distended, Obese Extremities: No clubbing, No cyanosis, No edema, Capillary Refill Less than 3 Seconds Skin: No rashes, No breakdown Musculoskeletal: No Tenderness to Palpation of Joints or Extremities Lymphatic: No Cervical, Supraclavicular, or Inguinal Adenopathy Neurological: Cranial nerves II-XII grossly intact, Neuro grossly intact, Sensory exam intact to light touch and pain Psych/Mental Status: Alert and oriented to time, place, person, mood and affect Vital Signs Temp Pulse Resp BP Pulse Ox 36.7 C 78 18 137/65 H 96 04/13/18 06:00 04/13/18 06:38 04/13/18 06:38 04/13/18 06:00 04/13/18 06:38 Oxygen Flow Rate (L/min) 1 Oxygen Delivery Method Room Air Weight: 115.9 kg Body Mass Index (BMI) 38.6 Intake and Output for Last 24 Hours 04/11/18 04/12/18 04/13/18 23:59 23:59 23:59 Intake Total 3697 / 3697 2663 / 2663 240 / 240 Output Total 1150 / 1150 4710 / 4710 100 / 100 Balance 2547 / 2547 -2047 / -2047 140 / 140 Labs (Last 48 Hours) 04/11/18 04/11/18 04/11/18 04:15 09:00 11:25 WBC RBC Hgb Hct MCV MCH MCHC RDW RDW Differential Plt Count MPV Immature Gran % (Auto) Neut % (Auto) Lymph % (Auto) [place] % (Auto) Eos % (Auto) Baso % (Auto) Absolute Neuts (auto) Absolute Lymphs (auto) Total Counted Specimen Type Sample Site pH Bicarbonate Actual POC Total CO2 Base Excess O2 Saturation O2 % ABG pCO2 ABG pO2 Sameer Test O2 Delivery Device Vent Mode POC PEEP POC Pressure Suppt Blood Gas Notified Whom Blood Gas Notified Time Hemoglobin A1c 7.4 H Urine Test Negative POC Glucose 82 04/11/18 04/11/18 04/12/18 18:09 23:58 04:05 WBC 10.1 RBC 3.82 L Hgb 11.8 L Hct 35.7 L MCV 93.5 MCH 30.9 MCHC 33.1 RDW 14.6 RDW Differential 48.1 H Plt Count 207 MPV 8.7 Immature Gran % (Auto) 0.700 Neut % (Auto) 66.1 Lymph % (Auto) 21.3 [place] % (Auto) 9.8 Eos % (Auto) 1.8 Baso % (Auto) 0.3 Absolute Neuts (auto) 6.7 Absolute Lymphs (auto) 2.15 Total Counted Not Reportable Specimen Type Sample Site pH Bicarbonate Actual POC Total CO2 Base Excess O2 Saturation O2 % ABG pCO2 ABG pO2 Sameer Test O2 Delivery Device Vent Mode POC PEEP POC Pressure Suppt Blood Gas Notified Whom Blood Gas Notified Time Hemoglobin A1c Urine Test POC Glucose 77 105 04/12/18 04/12/18 04/12/18 06:10 06:25 10:37 WBC RBC Hgb Hct MCV MCH MCHC RDW RDW Differential Plt Count MPV Immature Gran % (Auto) Neut % (Auto) Lymph % (Auto) [place] % (Auto) Eos % (Auto) Baso % (Auto) Absolute Neuts (auto) Absolute Lymphs (auto) Total Counted Specimen Type ART Sample Site R Radial pH 7.41 Bicarbonate Actual 23.8 POC Total CO2 25 Base Excess -1 O2 Saturation 89 L O2 % 35 ABG pCO2 37.6 ABG pO2 57 L Sameer Test POS O2 Delivery Device Vent Vent Mode CPAP PS POC PEEP 5 POC Pressure Suppt 5 Blood Gas Notified Whom ICU Blood Gas Notified Time 627 Hemoglobin A1c Urine Test POC Glucose 135 H 153 H 04/12/18 04/12/18 17:55 21:13 WBC RBC Hgb Hct MCV MCH MCHC RDW RDW Differential Plt Count MPV Immature Gran % (Auto) Neut % (Auto) Lymph % (Auto) [place] % (Auto) Eos % (Auto) Baso % (Auto) Absolute Neuts (auto) Absolute Lymphs (auto) Total Counted Specimen Type Sample Site pH Bicarbonate Actual POC Total CO2 Base Excess O2 Saturation O2 % ABG pCO2 ABG pO2 Sameer Test O2 Delivery Device Vent Mode POC PEEP POC Pressure Suppt Blood Gas Notified Whom Blood Gas Notified Time Hemoglobin A1c Urine Test POC Glucose 131 H 175 H Medical Necessity - Tobacco Use Smoking Status: Unknown if ever smoked Assessment/Plan All Active Problems (Last Reviewed 04/05/18 @ 13:34 by Rosenda Tinajero) Overdose (Acute) RECOMMENDATIONS: 1. Okay to resume home medications 2. Continue with sliding scale insulin with meals 3. Hemodynamically stable on room air. Will sign off from a critical care perspective IMPRESSIONS: 1. Acute respiratory failure secondary to coma secondary to Benadryl overdose Patient very apologetic about Benadryl overdose at this time. Patient has been able to void without complications. Patient is back to room air. No signs or symptoms of complications such as aspiration pneumonia at this time. Patient currently hemodynamically stable on room air. Will sign off from a critical care perspective. No outpatient pulmonary follow-up as indicated. 2. Type 2 diabetes mellitus Patient has a reported history of type 2 diabetes mellitus. Blood sugar was slightly elevated on presentation, but well controlled at this time. Continue Pepcid for GI prophylaxis. Continue with sliding scale insulin. 3. Prolonged QT RESOLVED > Likely toxic effect from Benadryl overdose. This has been improving with time. Will obtain an EKG every morning while in the hospital until back within normal range. Code Visit Inpatient E&M: 17754 Subs Hosp L2
[2018-04-13 09:25] LABS: Bedside Glucose 143 mg/dL (70-110)
[2018-04-13] MEDS: Multivitamins,Therapeutic Tablet 1 TABLET PO (09:42)
[2018-04-13] MEDS: Sertraline 50 MG Tablet 100 MG PO (09:43)
[2018-04-13] MEDS: Famotidine 20 MG Tablet PO (09:43)
[2018-04-13] MEDS: Enoxaparin 40 MG/0.4 ML Syringe SC (09:43)
[2018-04-13] MEDS: Topiramate 100 MG Tablet PO (09:44)
[2018-04-13] MEDS: Insulin Lispro 100 UNIT/ML INSULN.PEN SC (13:09)
[2018-04-13 13:15] LABS: Bedside Glucose 201 mg/dL (70-110)
--- NOTE | 2018-04-13 15:50 | PCM.PN.HOSP ---
Patient Problems: Active and Suspected Problems (Last Reviewed 04/05/18 @ 13:34 by Rosenda Tinajero) Overdose (Acute) Subjective: Patient seen and examined. She feels much better. He admits to hearing voices and sees a part of her still wants to kill herself. She is tearful and said 2 nights ago was a mistake and she should not have tried to kill herself. She wants to do better. She is hoping to be discharged home. I told her that she will be evaluated by crisis and will follow up on their recommendations. Denies any shortness of breath or chest pain or dizziness. She has had multiple bowel movements . She has no problems voiding on the bedside commode. She has used both Seroquel and risperidone before. Did not have much effect from the Seroquel but did have significant benefit from risperidone. Will resume risperidone Objective: Physical exam: General: Alert, Oriented x3, Cooperative, No apparent distress, - - morbidly obese HEENT: Atraumatic, PERRLA, EOMI, Normocephalic Oral: Moist Mucosa Neck: Supple Lungs: Clear to auscultation, Normal air movement Cardiovascular: Regular rate, Regular Rhythm, Normal S1, Normal S2, No murmurs Abdomen: Bowel Sounds Present, Soft, Non Tender, Non-Distended, No Hepato-splenomegaly Extremities: No edema Skin: No rashes, No breakdown Musculoskeletal: No Tenderness to Palpation of Joints or Extremities Lymphatic: No Cervical, Supraclavicular, or Inguinal Adenopathy Neurological: Cranial nerves II-XII grossly intact, Neuro grossly intact Psych/Mental Status: Normal Affect, Appropriate Vitals/I&O's: Vital Signs Temp Pulse Resp BP Pulse Ox 98.7 F 90 20 H 169/82 H 95 04/13/18 15:00 04/13/18 15:00 04/13/18 15:00 04/13/18 15:00 04/13/18 15:00 Oxygen Flow Rate (L/min) 1 Oxygen Delivery Method Room Air Weight: 115.9 kg Body Mass Index (BMI) 38.6 Intake and Output for Last 24 Hours 04/11/18 04/12/18 04/13/18 23:59 23:59 23:59 Intake Total 3697 / 3697 2663 / 2663 540 / 540 Output Total 1150 / 1150 4710 / 4710 100 / 100 Balance 2547 / 2547 -7 / -2046 440 / 440 Laboratory Results 04/12/18 17:55: POC Glucose 131 H 04/12/18 21:13: POC Glucose 175 H 04/13/18 09:23: POC Glucose 143 H 04/13/18 13:04: POC Glucose 201 H Current Medications Albuterol Sulfate (Ventolin Aerosols) 2.5 mg INHALATION Q2H PRN PRN PRN Reason: SOB &/OR WHEEZING Chlorhexidine Gluconate () 1 each TOPICAL DAILY [facility] Last Admin: 04/13/18 05:48 Dose: 1 each Dextrose (D50w Syringe) 0 gm IV X1 PRN; Protocol PRN Reason: Hypoglycemia Dicyclomine HCl (Bentyl) 10 mg PO 4X/DAY PRN PRN Reason: abd pain Doxazosin Mesylate (Cardura) 4 mg PO QHS [facility] Last Admin: 04/12/18 21:15 Dose: 4 mg Enoxaparin Sodium (Lovenox) 40 mg SC DAILY [facility] Last Admin: 04/13/18 09:43 Dose: 40 mg Famotidine (Pepcid) 20 mg PO BID [facility] Last Admin: 04/13/18 09:43 Dose: 20 mg Glucagon () 1 mg IM .X1 PRN PRN Reason: Hypoglycemia Hydralazine HCl (Apresoline Iv) 5 mg IV Q6H PRN PRN PRN Reason: blood pressure Hydroxyzine Pamoate (Vistaril Pamoate Capsule) 100 mg PO [facility] Insulin Human Lispro (Humalog Kwikpen (Bkc)) 0 unit SC ACHS [facility] PRN Reason: Protocol Last Admin: 04/13/18 13:09 Dose: 1 u Magnesium Hydroxide (Milk Of Magnesia) 30 ml PO DAILY PRN PRN PRN Reason: Constipation Mirtazapine (Remeron) 15 mg PO QHS [facility] Last Admin: 04/12/18 21:15 Dose: 15 mg [facility]it[facility]) [facility] Last Admin: 04/13/18 09:42 Dose: 1 tablet Pantoprazole Sodium (Protonix) 40 mg PO DAILY [facility] Risperidone (Risperdal) 1 mg PO BID [facility] Sertraline HCl (Zoloft) 100 mg PO DAILY [facility] Last Admin: 04/13/18 09:43 Dose: 100 mg Sodium Chloride () 5 - 30 ml IV UD PRN PRN Reason: SALINE FLUSH Last Admin: 04/13/18 05:48 Dose: 20 ml Tizanidine HCl (Zanaflex) 4 mg PO BID PRN PRN Reason: muscle spasticity Topiramate (Topamax) 100 mg PO BID [facility] Last Admin: 04/13/18 09:44 Dose: 100 mg Medical Necessity - Tobacco Use Smoking Status: Unknown if ever smoked Assessment/Plan All Active Problems (Last Reviewed 04/05/18 @ 13:34 by Rosenda Tinajero) Overdose (Acute) 42-year-old female with past medical history of major depression with repeated suicide ideation/intent comes into the hospital via EMS when she is reported to have overdosed on Benadryl more than 1200 mg. She was intubated for airway protection, was on mechanical ventilation s/p extubation now. 1. Acute metabolic encephalopathy secondary to intentional drug overdose, resolved, status post extubation, alert oriented ?3. 2. Acute hypoxic respiratory insufficiency, status post recent extubation for primary airway protection, resolved, patient is comfortable at room air, no respiratory distress, saturating well. 3. Intentional drug overdose, Benadryl, control consulted, recommended Versed drip, propofol added for restlessness, off all these medications, no anticholinergic side effects seen, will continue to monitor on telemetry. 3. Suicidal attempt, history of multiple suicide attempts, seen by mobile crisis, recommended discharge to inpatient psych facility. Care managera/SW working on facility for discharge. 4. Seizure disorder, on topiramate 5. Major depression, possible schizoaffective disorder, patient admits to hearing voices today, follows with outpatient psychiatrist, counselor, licensed social worker will add risperidone, continue on sertraline, Remeron. 6. Type 2 DM, HbA1c 7.4, not on medications, BS are uncontrolled, will start patient on metformin 500mg po bid, watch for side-effects, continue Accu-Cheks and insulin sliding scale. 7. Hypertension, uncontrolled, on doxazosin, will add amlodipine 5 mg po daily, continue to monitor BP. 8. GI prophylaxis with famotidine 9. DVT PPx - Lovenox SC 10. Disposition: DC to inpatient psych facility when bed is available. Code Visit Inpatient E&M: 50447 Subs Hosp L2
--- NOTE | 2018-04-13 16:06 | PN_ITS ---
Patient Problems: Active and Suspected Problems (Last Reviewed 04/05/18 @ 13:34 by Rosenda Tinajero ) Overdose (Acute) Subjective: Patient seen and examined. She feels much better. He admits to hearing voices and sees a part of her still wants to kill herself. She is tearful and said 2 nights ago was a mistake and she should not have tried to kill herself. She wants to do better. She is hoping to be discharged home. I told her that she will be evaluated by crisis and will follow up on their recommendations. Denies any shortness of breath or chest pain or dizziness. She has had multiple bowel movements . She has no problems voiding on the bedside commode. She has used both Seroquel and risperidone before. Did not have much effect from the Seroquel but did have significant benefit from risperidone. Will resume risperidone Objective: Physical exam: General: Alert, Oriented x3, Cooperative, No apparent distress, - - morbidly obese HEENT: Atraumatic, PERRLA, EOMI, Normocephalic Oral: Moist Mucosa Neck: Supple Lungs: Clear to auscultation, Normal air movement Cardiovascular: Regular rate, Regular Rhythm, Normal S1, Normal S2, No murmurs Abdomen: Bowel Sounds Present, Soft, Non Tender, Non-Distended, No Hepato- splenomegaly Extremities: No edema Skin: No rashes, No breakdown Musculoskeletal: No Tenderness to Palpation of Joints or Extremities Lymphatic: No Cervical, Supraclavicular, or Inguinal Adenopathy Neurological: Cranial nerves II-XII grossly intact, Neuro grossly intact Psych/Mental Status: Normal Affect, Appropriate Vitals/I&O's: Vital Signs Temp Pulse Resp BP Pulse Ox 98.7 F 90 20 H 169/82 H 95 04/13/18 15:00 04/13/18 15:00 04/13/18 15:00 04/13/18 15:00 04/13/18 15:00 Oxygen Flow Rate (L/min) 1 Oxygen Delivery Method Room Air Weight: 115.9 kg Body Mass Index (BMI) 38.6 Intake and Output for Last 24 Hours 04/11/18 04/12/18 04/13/18 23:59 23:59 23:59 Intake Total 3697 / 3697 2663 / 2663 540 / 540 Output Total 1150 / 1150 4710 / 4710 100 / 100 Balance 2547 / 2547 -7 / -2046 440 / 440 Laboratory Results 04/12/18 17:55: POC Glucose 131 H 04/12/18 21:13: POC Glucose 175 H 04/13/18 09:23: POC Glucose 143 H 04/13/18 13:04: POC Glucose 201 H Current Medications Albuterol Sulfate (Ventolin Aerosols) 2.5 mg INHALATION Q2H PRN PRN PRN Reason: SOB &/OR WHEEZING Chlorhexidine Gluconate () 1 each TOPICAL DAILY [facility] Last Admin: 04/13/18 05:48 Dose: 1 each Dextrose (D50w Syringe) 0 gm IV X1 PRN; Protocol PRN Reason: Hypoglycemia Dicyclomine HCl (Bentyl) 10 mg PO 4X/DAY PRN PRN Reason: abd pain Doxazosin Mesylate (Cardura) 4 mg PO QHS [facility] Last Admin: 04/12/18 21:15 Dose: 4 mg Enoxaparin Sodium (Lovenox) 40 mg SC DAILY [facility] Last Admin: 04/13/18 09:43 Dose: 40 mg Famotidine (Pepcid) 20 mg PO BID [facility] Last Admin: 04/13/18 09:43 Dose: 20 mg Glucagon () 1 mg IM .X1 PRN PRN Reason: Hypoglycemia Hydralazine HCl (Apresoline Iv) 5 mg IV Q6H PRN PRN PRN Reason: blood pressure Hydroxyzine Pamoate (Vistaril Pamoate Capsule) 100 mg PO [facility] Insulin Human Lispro (Humalog Kwikpen (Bkc)) 0 unit SC ACHS [facility] PRN Reason: Protocol Last Admin: 04/13/18 13:09 Dose: 1 u Magnesium Hydroxide (Milk Of Magnesia) 30 ml PO DAILY PRN PRN PRN Reason: Constipation Mirtazapine (Remeron) 15 mg PO QHS [facility] Last Admin: 04/12/18 21:15 Dose: 15 mg [facility] Admin: 04/13/18 09:42 Dose: 1 tablet Pantoprazole Sodium (Protonix) 40 mg PO DAILY [facility] Risperidone (Risperdal) 1 mg PO BID [facility] Sertraline HCl (Zoloft) 100 mg PO DAILY [facility] Last Admin: 04/13/18 09:43 Dose: 100 mg Sodium Chloride () 5 - 30 ml IV UD PRN PRN Reason: SALINE FLUSH Last Admin: 04/13/18 05:48 Dose: 20 ml Tizanidine HCl (Zanaflex) 4 mg PO BID PRN PRN Reason: muscle spasticity Topiramate (Topamax) 100 mg PO BID [facility] Last Admin: 04/13/18 09:44 Dose: 100 mg Medical Necessity - Tobacco Use Smoking Status: Unknown if ever smoked Assessment/Plan All Active Problems (Last Reviewed 04/05/18 @ 13:34 by Rosenda Tinajero) Overdose (Acute) 42-year-old female with past medical history of major depression with repeated suicide ideation/intent comes into the hospital via EMS when she is reported to have overdosed on Benadryl more than 1200 mg. She was intubated for airway protection, was on mechanical ventilation s/p extubation now. 1. Acute metabolic encephalopathy secondary to intentional drug overdose, resolved, status post extubation, alert oriented ?3. 2. Acute hypoxic respiratory insufficiency, status post recent extubation for primary airway protection, resolved, patient is comfortable at room air, no respiratory distress, saturating well. 3. Intentional drug overdose, Benadryl, control consulted, recommended Versed drip, propofol added for restlessness, off all these medications, no anticholinergic side effects seen, will continue to monitor on telemetry. 3. Suicidal attempt, history of multiple suicide attempts, seen by mobile crisis , recommended discharge to inpatient psych facility. Care managera/SW working on facility for discharge. 4. Seizure disorder, on topiramate 5. Major depression, possible schizoaffective disorder, patient admits to hearing voices today, follows with outpatient psychiatrist, counselor, psychosocial rehabilitation counselor will add risperidone, continue on sertraline, Remeron. 6. Type 2 DM, HbA1c 7.4, not on medications, BS are uncontrolled, will start patient on metformin 500mg po bid, watch for side-effects, continue Accu-Cheks and insulin sliding scale. 7. Hypertension, uncontrolled, on doxazosin, will add amlodipine 5 mg po daily, continue to monitor BP. 8. GI prophylaxis with famotidine 9. DVT PPx - Lovenox SC 10. Disposition: DC to inpatient psych facility when bed is available. Code Visit Inpatient E&M: 38222 Subs Hosp L2
[2018-04-13] MEDS: RisperiDONE 1 MG Tablet PO (16:31)
[2018-04-13 17:51] LABS: Bedside Glucose 148 mg/dL (70-110)
--- NOTE | 2018-04-13 18:28 | PCM.DC ---
- Discharge Diagnoses Current Active Problems: Current Active and Chronic Problems (Last Reviewed 04/05/18 @ 13:34 by Rosenda Tinajero) Overdose (Acute) Reason(s) for Visit for Discharge Instructions: Altered mental status You will use the following diet at home:: Calorie/Carbohydrate Controlled (specify 1200, 1400, etc) Your food should be the consistency of: Regular Your liquids should be the consistency of: Regular/Thin Discharge Activity: Return to Normal Activity Allergies/Adverse Reactions: Allergies acetaminophen [From Tylenol] Allergy (Verified 04/10/18 20:55) Anaphylaxis aspirin Allergy (Verified 04/10/18 20:55) Anaphylaxis benztropine mesylate [From Cogentin] Allergy (Verified 04/10/18 20:55) Other carbamazepine [From Tegretol] Allergy (Verified 04/10/18 20:55) Rash egg Allergy (Verified 04/10/18 20:55) Other ibuprofen [From Motrin] Allergy (Verified 04/10/18 20:55) Anaphylaxis Penicillins Allergy (Verified 04/10/18 20:55) Anaphylaxis sulfamethoxazole [From Septra] Allergy (Verified 04/10/18 20:55) Anaphylaxis trimethoprim [From Septra] Allergy (Verified 04/10/18 20:55) Anaphylaxis bacitracin [From Neosporin ([id number])] Adverse Reaction (Verified 04/10/18 20:55) Swelling neomycin [From Neosporin ([id number])] Adverse Reaction (Verified 04/05/18 13:31) Swelling polymyxin B [From Neosporin ([id number])] Adverse Reaction (Verified 04/05/18 13:31) Swelling trazodone Adverse Reaction (Verified 04/05/18 13:31) Vomiting Medications to take at Discharge Multivitamins,Therapeutic [Multivitamin] 1 tab PO DAILY 11/07/14 Dicyclomine HCl [Bentyl] 10 mg PO 4X/DAY PRN 06/18/15 Prazosin HCl [Minipress] 5 mg PO QHS 06/18/15 Hydroxyzine Pamoate 100 mg PO QHS 08/01/16 Pantoprazole Sodium [Protonix] 40 mg PO DAILY 09/22/17 Cetirizine HCl [All Day Allergy] 10 mg PO DAILY 01/17/18 Mirtazapine [Remeron] 15 mg PO QHS 01/17/18 Sertraline HCl [Zoloft] 100 mg PO DAILY 01/17/18 tizanidine 4 mg capsule 4 mg PO BID PRN #60 cap 04/05/18 Topiramate [Topamax] 100 mg PO BID 04/12/18 Amlodipine [Norvasc] 5 mg PO DAILY tablet 04/13/18 Glimepiride [Amaryl] 1 mg PO DAILY@0800 tablet 04/13/18 Insulin Lispro [Humalog KwikPen] See Protocol [facility] ACHS insuln.pen 04/13/18 Magnesium Hydroxide [Milk Of Magnesia] 30 ml PO DAILY PRN PRN udc 04/13/18 Risperidone [Risperdal] 1 mg PO BID tablet 04/13/18 Primary Care Physician: Keren Brown NP-C [Primary Care Provider] - Please follow up with your Primary Care Physician in: within 2 weeks of discharge from psych facility Proposed Discharge Date: 04/13/18
--- NOTE | 2018-04-13 18:31 | DS.PCM_ITS ---
Discharge Date and Diagnosis - Problem List Patient Problems: Active and Suspected Problems (Last Reviewed 04/05/18 @ 13:34 by Rosenda Tniajero ) Overdose (Acute) Date of Admission: 04/10/18 Date of Discharge: 04/13/18 - Primary Discharge Diagnosis Active and Suspected Problems (Last Reviewed 04/05/18 @ 13:34 by Rosenda Tinajero ) Intentional Overdose (Acute) Acute metabolic encephalopathy Acute hypoxic respiratory insufficiency Suicide attempt - Secondary Discharge Diagnosis Chronic Problems (Last Reviewed 04/05/18 @ 13:34 by Rosenda Tinajero) Diabetes type 2, controlled (Chronic) Now has an apartment. Feels she is doing well. Provided with a meter and strips. Enc to check before and after meals. Is set up with counselor, social services technician and psychiatrist. Looks and feels happy and she verbally confirms this. Reviewed labs, medications Major depression Hypertension Hyperlipidemia Hospital Course and Treatment Imaging Results: Clinical Impression(s) from Imaging Studies Chest X-Ray 04/10/18 22:30 Chest X-Ray 04/11/18 05:55 IMPRESSION: The tip of the endotracheal tube is at 2.3 cm proximal to the augusto. Mild degree of increased bilateral perihilar markings. Electronically Signed: Emmett Delatorre MD at 9:48 EDT Tel [phone], Service support , Critical care Operations: None Procedures: Intubation - managed on mechanical ventilation Summary of Care Provided: 42-year-old female with past medical history of major depression with repeated suicide ideation/intent comes into the hospital via EMS when she is reported to have overdosed on Benadryl more than 1200 mg. She was intubated for airway protection, was on mechanical ventilation s/p extubation now. 1. Acute metabolic encephalopathy secondary to intentional drug overdose, resolved, status post extubation, alert oriented ?3. 2. Acute hypoxic respiratory insufficiency, status post recent extubation for primary airway protection, resolved, patient is comfortable at room air, no respiratory distress, saturating well. 3. Intentional drug overdose, Benadryl, control consulted, recommended Versed drip, propofol added for restlessness, off all these medications, no anticholinergic side effects seen. 4. Suicidal attempt, history of multiple suicide attempts, seen by mobile crisis , will be discharged to inpatient psych facility. 5. Seizure disorder, on topiramate 6. Major depression, possible schizoaffective disorder, patient admits to hearing voices today, follows with outpatient psychiatrist, counselor, social services technician. Started on risperidone, continued on sertraline, Remeron. 7. Type 2 DM, HbA1c 7.4, not on medications, BS are uncontrolled, started on amaryl as well as ISS with accuchecks. 8. Hypertension, was on doxazosin, amlodipine added. Discharge Diet: Low fat/ Low Cholesterol, 2000 mg Sodium Diet, Carb Control Diet Discharge Activity: Return to Normal Activity Home Medications: Medications to take at Discharge Multivitamins,Therapeutic [Multivitamin] 1 tab PO DAILY 11/07/14 Dicyclomine HCl [Bentyl] 10 mg PO 4X/DAY PRN 06/18/15 Prazosin HCl [Minipress] 5 mg PO QHS 06/18/15 Hydroxyzine Pamoate 100 mg PO QHS 08/01/16 Pantoprazole Sodium [Protonix] 40 mg PO DAILY 09/22/17 Cetirizine HCl [All Day Allergy] 10 mg PO DAILY 01/17/18 Mirtazapine [Remeron] 15 mg PO QHS 01/17/18 Sertraline HCl [Zoloft] 100 mg PO DAILY 01/17/18 tizanidine 4 mg capsule 4 mg PO BID PRN #60 cap 04/05/18 Topiramate [Topamax] 100 mg PO BID 04/12/18 Amlodipine [Norvasc] 5 mg PO DAILY tablet 04/13/18 Glimepiride [Amaryl] 1 mg PO DAILY@0800 tablet 04/13/18 Insulin Lispro [Humalog KwikPen] See Protocol [facility] ACHS insuln.pen 04/13/18 Magnesium Hydroxide [Milk Of Magnesia] 30 ml PO DAILY PRN PRN udc 04/13/18 Risperidone [Risperdal] 1 mg PO BID tablet 04/13/18 Primary Care Physician: Keren Brown NP-C [Primary Care Provider] - Please follow up with your Primary Care Physician in: within 2 weeks of discharge from psych facility Disposition: Psych Hospital or Unit Minutes spent on discharge:: 35 Patient Condition:: Stable Medical Necessity - Tobacco Use Smoking Status: Unknown if ever smoked Meaningful Use Info Meaningful Use Diagnoses (Choose all that apply): None applicable Code Visit Inpatient E&M: 02702 Disch Hosp
== END 2018-04-13 19:20 | disposition designated cancer center or children's hospital (05) | DRG 449 ==
LOC: ED 21:17 → ICU 22:59
PROVIDERS: Admitting Provider Family Medicine; Emergency Provider Emergency Medicine; Family Provider Nurse Practitioner Family; PCP Nurse Practitioner Family; Visit Provider Internal Medicine
DX: T45.0X2A Poisoning by antiallergic and antiemetic drugs, intentional self-harm, initial encounter (principal); G92 Toxic encephalopathy; E11.65 Type 2 diabetes mellitus with hyperglycemia; F32.9 Major depressive disorder, single episode, unspecified; I10 Essential (primary) hypertension; E78.5 Hyperlipidemia, unspecified; R06.89 Other abnormalities of breathing; G40.909 Epilepsy, unspecified, not intractable, without status epilepticus
CPT/HCPCS: 31500; 31720; 36600; 51702; 71045; 80053; 80307; 80320; 80329; 81001; 81025; 82550; 82803; 82962; 83036; 84484; 84703; 85025; 85027; 87641; 93005; 94002; 94003; 94640; 94660; 95831; 97162; 97165; 97530; 97802; 99251; 99285; 99291; J7030; J7040; A4216; G0463; G0480

== ENCOUNTER 2018-07-05 09:49 | Emergency (ER) | payer MEDICAID, SELFPAY ==
[2018-07-05] VITALS (10 sets, daily range): BP systolic 129–166; BP diastolic 77–98; PULSE 80–100; RESP 14–18; TEMP 36.8; O2SAT 95–98; BMI 44.6
[2018-07-05 10:33] LABS: Absolute Lymphocyte Count 1.47 X10^3/ul (0.83-4.51); Absolute Neutrophil Count 5.3 X10^3/uL (2.0-7.7); Basophil# 0.02 X10^3/uL; Basophil% 0.3 % (0-1); Eosinophils% 1.3 % (0-5); Hematocrit 42.3 % (37-47); Hemoglobin 13.8 g/dl (12.0-15.0); Lymphocyte # 1.47 X10^3/ul (4.0); Lymphocyte % 19.5 % (19-41); Mean Corp Hgb Conc 32.6 g/gl (32-36); Mean Corpuscular Hgb 30.4 pg (27.0-32.0); Mean Corpuscular Volume 93.2 fL (81-99); Mean Platelet Vol. 8.8 fl (6.2-12.0); Monocyte# 0.59 X10^3/uL; Monocyte% 7.8 % (0-10); Neutrophil # 5.29 X10^3/uL (2.7-7.7); Neutrophil % 70.2 % (47-70); POSITIVE COUNT NO; POSITIVE DIFFERENTIAL NO; POSITIVE MORPHOLOGY NO; Platelet Count 214 K/mm3 (150-450); RBC Distribution Width CV 13.7 % (11.6-14.6); RBC Distribution Width SD 46.8 fl (35.1-43.9); Red Blood Count 4.54 M/mm3 (4.2-5.4); White Blood Count 7.5 K/mm3 (4.4-11.0)
[2018-07-05 10:53] LABS: Alcohol, Blood (Medical)-Serum < 3.0 mg/dL
[2018-07-05 10:55] LABS: Anion Gap 9 (5-15); BUN 15 mg/dL (7-18); Calcium,Total 8.2 mg/dL (8.5-10.1); Chloride 103 mmol/L (98-107); Creatinine, Serum 0.83 mg/dL (0.55-1.02); EST Glomerular Filtration Rate 79 mL/min (>60); Est Glom Filt Rate - Afr Amer 96 mL/min (>60); Estimated Creatinine Clearance 75.47 ml/min; Glucose 219 mg/dL (74-106); Potassium 3.2 mmol/L (3.5-5.1); Sodium Level 136 mmol/L (136-145)
[2018-07-05 10:58] LABS: Pregnancy, Serum, hCG Quali. NEGATIVE Negative (0-9 Nonpreg)
--- NOTE | 2018-07-05 11:45 | NURSING ---
CALLED [facility]. SOMEONE WILL CALL US BACK
--- NOTE | 2018-07-05 12:24 | ED.RN ---
[facility] CALLED STATING KENDELL WILL BE HERE AROUND 1330 TO SEE PATIENT.
[2018-07-05 12:37] LABS: Mucous, Urine 0 SEEN /hpf (<or=2+); Red Blood Cells-Urine 0 SEEN /hpf (0-5)
[2018-07-05 12:42] LABS: Color, Urine Yellow (Yellow); Glucose, Dipstick Normal (Normal); Ketone-Dipstick Negative (Negative); Leukocyte Esterase-Dipstick 25 /ul (Negative); Nitrite-Dipstick Negative (Negative); Occult Blood-Urine Negative /ul (Negative); Protein-Dipstick Negative (Negative); Urine Bilirubin Dipstick Negative (Negative); Urine Clarity Sl. Cloudy (Clear); Urine Urobilinogen Normal (Normal); Urine pH 6.5 (5.0 - 8.0)
[2018-07-05 12:47] LABS: Bacteria 1+ /hpf (None Seen); Squamous Epithelial Cells - UA 0-5 SEEN /hpf (5-10); White Blood Cells 0-5 SEEN /hpf (0-5)
[2018-07-05 13:37] LABS: Amphetamine Urine VISTA NEGATIVE (<1000 ng/mL); Barbiturate Urine VISTA NEGATIVE (< 200 ng/mL); Benzodiazepine Urine VISTA NEGATIVE (< 200 ng/mL); Cocaine Urine VISTA NEGATIVE (< 300 ng/mL); Ecstacy Urine VISTA NEGATIVE (< 500 ng/mL); Methadone Urine VISTA NEGATIVE (< 300 ng/mL); PCP Urine VISTA NEGATIVE (< 25 ng/mL); THC Urine VISTA NEGATIVE (< 50 ng/mL); Vista UDS pH Range 6
--- NOTE | 2018-07-05 14:20 | NURSING ---
[facility] AWARE OF PATIENT
--- NOTE | 2018-07-05 16:19 | ED.VISSUMM ---
- ER Visit Summary Date of Service: 07/05/18 Chief Complaint: [Depression and suicidal ideation] History of Present Illness: The patient is a 42 F [presents the emergency department stating that she is feeling depressed and is feeling suicidal. Patient states that she has been feeling this way over the last 2 weeks. Patient has been easily agitated and feels hopeless and lonely. Patient also feeling very paranoid. She denies any visual or auditory hallucinations. Patient did have an overdose on Benadryl in March of this year. She has no specific plan at this time. Patient denies any physical complaints. Patient does have a history of depression, bipolar disorder, schizoaffective disorder, PTSD, and dissociative disorder.] Physical Examination: [HEENT-PERRLA, EOMI. Cranial nerves II through XII grossly intact. TMs clear. Mucous membranes moist. No adenopathy. Cardiovascular-regular rate and rhythm without murmur or ectopy Lungs-clear to auscultation, chest wall stable without crepitus or subcu emphysema Abdomen-normoactive bowel sounds, soft, nontender, no rebound or rigidity, no peritoneal signs. Extremities-intact ?4, normal range of motion, normal pulses, atraumatic] Test Results: [CBC with differential obtained showed a white count of 7.5, hemoglobin 13.8, hematocrit 42, platelets 214. Chemistries unremarkable. HCG was negative. Alcohol was normal. Tox screen was unremarkable.] Emergency Department Course and Treatment: [Patient currently being evaluated by crisis.] Treatment Plan: Pending evaluation by crisis however I feel patient will require admission as she is willing to voluntarily be admitted. [] Disposition: [Pending] Impression: [Depression Suicidal ideation] This note was generated with [employer] dictation software. It may contain incorrect words, spelling, and punctuation that were not noted in review of the chart prior to signing ED Disposition - Plan for ED Patient: Chief Complaint: Suicidal Referrals: Janie Walters MD [Primary Care Provider] -
--- NOTE | 2018-07-05 21:39 | NURSING ---
ACCEPTED TO [facility] [phone] REPORT
--- NOTE | 2018-07-05 21:49 | NURSING ---
CALLED [facility] AT 2144 SAID NO AVAILABILITY TILL MORNING CALLED [facility] AT 2146 WAS ALSO TOLD NO AVAILABILITY TILL MORNING
[2018-07-05] MEDS: Mirtazapine 15 MG Tablet PO (23:37)
[2018-07-05] MEDS: Dicyclomine 10 MG Capsule PO (23:37)
[2018-07-05] MEDS: Topiramate 100 MG Tablet PO (23:37)
[2018-07-05] MEDS: hydrOXYzine PAM 25 MG Capsule 100 MG PO (23:39)
[2018-07-06] VITALS (9 sets, daily range): BP systolic 138–146; BP diastolic 71–77; PULSE 63–67; RESP 16–18; O2SAT 97
--- NOTE | 2018-07-06 05:32 | NURSING ---
CALLED [facility] AT 0527 AND WAS TOLD NO AVAILABILITY TILL EARLY AFTERNOON CALLED [facility] AT 0532 CARE AND WAS TOLD POSSIBLE AVAILABILITY AROUND 9-10AM BUT NEED TO CALL BACK AT 7:30AM TO CONFIRM
[2018-07-06] MEDS: Sertraline 100 MG Tablet PO (07:33)
== END 2018-07-06 08:06 ==
LOC: ED 10:06
PROVIDERS: Emergency Provider Emergency Medicine; Family Provider Internal Medicine; PCP Internal Medicine
DX: F32.9 Major depressive disorder, single episode, unspecified (principal); R45.851 Suicidal ideations; K21.9 Gastro-esophageal reflux disease without esophagitis; Z79.899 Other long term (current) drug therapy
CPT/HCPCS: 80048; 80307; 80320; 81001; 84703; 85025; 99284; G0480

== ENCOUNTER 2018-08-24 16:54 | Emergency (ER) | payer MEDICAID, SELFPAY ==
[2018-08-24 16:56] VITALS: BP 162/101; PULSE 97; RESP 18; TEMP 36.9; O2SAT 94; BMI 44.9
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
[2018-08-24 17:32] LABS: Absolute Lymphocyte Count 1.89 X10^3/ul (0.83-4.51); Absolute Neutrophil Count 8.5 X10^3/uL (2.0-7.7); Basophil# 0.03 X10^3/uL; Basophil% 0.3 % (0-1); Eosinophil# 0.11 X10^3/uL; Hematocrit 39.9 % (37-47); Hemoglobin 13.2 g/dl (12.0-15.0); Lymphocyte # 1.89 X10^3/ul (4.0); Lymphocyte % 16.9 % (19-41); Mean Corp Hgb Conc 33.1 g/gl (32-36); Mean Corpuscular Hgb 30.7 pg (27.0-32.0); Mean Corpuscular Volume 92.8 fL (81-99); Mean Platelet Vol. 8.9 fl (6.2-12.0); Monocyte# 0.52 X10^3/uL; Monocyte% 4.6 % (0-10); Neutrophil # 8.48 X10^3/uL (2.7-7.7); Neutrophil % 75.6 % (47-70); POSITIVE COUNT NO; POSITIVE DIFFERENTIAL NO; POSITIVE MORPHOLOGY NO; Platelet Count 271 K/mm3 (150-450); RBC Distribution Width SD 46.9 fl (35.1-43.9); White Blood Count 11.2 K/mm3 (4.4-11.0)
[2018-08-24 17:43] LABS: Anion Gap 8 (5-15); BUN 24 mg/dL (7-18); BUN/Creat Ratio 33.2 RATIO (10-20); Calcium,Total 8.4 mg/dL (8.5-10.1); Chloride 104 mmol/L (98-107); Creatinine, Serum 0.72 mg/dL (0.55-1.02); EST Glomerular Filtration Rate 93 mL/min (>60); Est Glom Filt Rate - Afr Amer 113 mL/min (>60); Glucose 157 mg/dL (74-106); Potassium 3.4 mmol/L (3.5-5.1); Sodium Level 138 mmol/L (136-145)
[2018-08-24 18:00] LABS: Pregnancy, Serum, hCG Quali. NEGATIVE Negative (0-9 Nonpreg)
--- NOTE | 2018-08-24 18:19 | NURSING ---
MAE, [facility], HERE FOR PATIENT
[2018-08-24 19:00] LABS: Amphetamine Urine VISTA NEGATIVE (<1000 ng/mL); Barbiturate Urine VISTA NEGATIVE (< 200 ng/mL); Benzodiazepine Urine VISTA NEGATIVE (< 200 ng/mL); Cocaine Urine VISTA NEGATIVE (< 300 ng/mL); Ecstacy Urine VISTA NEGATIVE (< 500 ng/mL); Methadone Urine VISTA NEGATIVE (< 300 ng/mL); PCP Urine VISTA NEGATIVE (< 25 ng/mL); THC Urine VISTA NEGATIVE (< 50 ng/mL); Vista UDS pH Range 6
[2018-08-24 20:49] VITALS: BP 131/61; PULSE 83; RESP 16; O2SAT 97
[2018-08-25] VITALS: RESP 16
--- NOTE | 2018-08-25 01:31 | NURSING ---
REPORT DR. YANEZ ACCEPTING ROOM [id number]
[2018-08-25] MEDS: DiphenhydrAMINE 25 MG Capsule 50 MG PO (02:10)
[2018-08-25 02:50] VITALS: RESP 16
[2018-08-25 03:46] VITALS: BP 121/60; PULSE 75; RESP 16; O2SAT 96
--- NOTE | 2018-08-25 04:27 | NURSING ---
[facility] SET UP THEIR OWN TRANSPORT. THEY WILL BE AT THEIR FACILITY AT 8AM AND THEN HEAD HERE FOR PATIENT
[2018-08-25 05:00] VITALS: RESP 14
[2018-08-25 08:49] VITALS: BP 144/85; PULSE 84; RESP 16; O2SAT 94
[2018-08-25 08:52] VITALS: BP 144/85; PULSE 84; RESP 16; O2SAT 94
== END 2018-08-25 08:53 ==
PROVIDERS: Emergency Provider Emergency Medicine; Family Provider Internal Medicine; PCP Internal Medicine
DX: R45.851 Suicidal ideations (principal); F22 Delusional disorders; F31.9 Bipolar disorder, unspecified; F25.9 Schizoaffective disorder, unspecified; F41.9 Anxiety disorder, unspecified; F44.81 Dissociative identity disorder; E11.9 Type 2 diabetes mellitus without complications; K21.9 Gastro-esophageal reflux disease without esophagitis; Z79.899 Other long term (current) drug therapy
CPT/HCPCS: 36415; 80048; 80307; 80320; 84703; 85025; 99284; G0480

== ENCOUNTER → 2018-09-11 08:33 | Outpatient (CLI) | payer MEDICAID, SELFPAY ==
[2018-08-24 16:56] VITALS: BMI 44.9
[2018-09-11 10:13] LABS: Hemoglobin A1c 7.4 % (4.2-6.3)
[2018-09-11 10:15] LABS: ALB/GLOB Ratio 0.8 RATIO (0.9-2.4); AST(SGOT) 19 U/L (15-37); Alanine Aminotransfer ALT/SGPT 26 U/L (13-56); Albumin, Serum 3.4 g/dL (3.2-5.0); Alkaline Phosphatase 126 U/L (45-117); Anion Gap 14 (5-15); BUN 20 mg/dL (7-18); BUN/Creat Ratio 22.9 RATIO (10-20); Calcium,Total 8.1 mg/dL (8.5-10.1); Chloride 101 mmol/L (98-107); Cholesterol 166 mg/dL (200); Creatinine, Serum 0.87 mg/dL (0.55-1.02); EST Glomerular Filtration Rate 75 mL/min (>60); Est Glom Filt Rate - Afr Amer 91 mL/min (>60); Globulin 4.4 g/dL (2.2-4.2); Glucose 167 mg/dL (74-106); High Density Lipoprotein 30 mg/dL; Potassium 3.4 mmol/L (3.5-5.1); Protein, Total 7.8 g/dL (6.4-8.2); Sodium Level 139 mmol/L (136-145); Triglycerides 200 mg/dL; Very Low Density Lipoprotein 40 mg/dL (5-40)
== END ==
PROVIDERS: Family Provider Internal Medicine; PCP Internal Medicine; Referring Provider Nurse Practitioner; Visit Provider Nurse Practitioner
DX: E11.9 Type 2 diabetes mellitus without complications (principal)
CPT/HCPCS: 36415; 80053; 80061; 82043; 82570; 83036; 84443

== ENCOUNTER → 2018-09-13 08:29 | Outpatient (CLI) | payer MEDICAID, SELFPAY ==
[2018-09-13 10:48] LABS: Microalbumin,Random Urine 7.7 mg/L (NO RANGE EST.); Microalbumin:Creatinine Ratio 9.4 mg/g CRE (<30 mg/g CRE)
--- OUTSIDE RECORDS SUMMARY | 2018-11-08 13:39 | XMS RPT_ITS ---
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 hypotension(dizziness or lightheadedness) -Pt denies symptoms of hypoglycemia ( sweaty, confusion, anxiety, tremor, hunger, palpitations) and hyperglycemia ( polydipsia, polyuria) -Pt denies potential medication adverse effect. Since our last visit she denies excessive thirst, increased frequency of urination, chest pain or dyspnea. Follows a varied diet, SMBG Meter has 1 recent BG of 124 Last readings otherwise from April Exercise No routine exercise Is active Walks most days Diet 2-3 meals daily Understands carb counting Does not carb count her meals Has a counselor she sees routinely Has a pyschiatrist she sees routinely Has new PCP Exam Const General: comfortable, well groomed Nutritional Appearance: well nourished, overweight Orientation: oriented x3 HENMT Head: normal to inspection Ears: hearing grossly normal bilaterally Nose: external nose normal Face and sinus: normal facial exam Mouth: oral mucosae normal, moist mucous membranes Teeth and gingiva: dentition normal Eyes General: appearance normal, both eyes and all related structures Eyelids: eyelids normal Conjunctivae: conjunctivae normal Sclera: sclerae normal Pupils: PERRL Neck Neck: normal visual inspection, full ROM Neck mass: No Resp Effort AND Inspection: normal respiratory effort, able to speak in complete sentences, symmetric chest movement Auscultation: Bilateral: Clear to Auscultation Cardio Rate: regular rate Rhythm: regular rhythm Heart Sounds: S1 normal, S2 normal, no murmurs, no rubs GI Inspection: normal to inspection Auscultation: normal bowel sounds Palpation: soft, no guarding Skin General: no rashes or lesions noted Wounds: no wounds Diabetic Foot Pulses: L dorsalis pedis pulse: normal, R dorsalis pedis pulse: normal Monofilament test: Left foot: normal, Right foot: normal Neuro General: CN's II-XI intact bilaterally, moves all extremities Extrem General: normal to inspection, normal capillary refill Psych Appearance: grossly normal, well kempt Mood: congruent mood Affect: normal affect Speech and Movement: speech and movement normal Attitude: cooperative Judgment: judgment poor Type: type 2 Weight and fatigue symptoms: Denies snoring Cardiopulmonary symptoms: Reports chest pain at rest; denies dyspnea on exertion, lightheadedness or myalgias GI symptoms: Denies constipation, diarrhea, nausea/dyspepsia or vomiting Other symptoms: Denies blurry vision or change in vision Pertinent visit history: Reports recent visit to ER and recent hospital admission Self monitoring: No Dietary compliance: Diabetes: other Glucose testing: demonstrates correct use of meter Physical activity: sedentary lifestyle Intake Vital Signs08/22/18 Height 5 ft 4 in 08/22/18 Weight: 255 lb 6 oz 08/22/18 Body Mass Index (BMI) 43.8 08/22/18 Blood Pressure 160/82 H 08/22/18 Blood Pressure Location Lt popliteal Intake Visit Reasons: Diabetes Mellitus Type 2 Accompanied by: Self Allergies acetaminophen [From Tylenol] Allergy (Verified 08/22/18 09:18) Anaphylaxis aspirin Allergy (Verified 08/22/18 09:18) Anaphylaxis benztropine mesylate [From Cogentin] Allergy (Verified 08/22/18 09:18) Other carbamazepine [From Tegretol] Allergy (Verified 08/22/18 09:18) Rash egg Allergy (Verified 08/22/18 09:18) Other ibuprofen [From Motrin] Allergy (Verified 08/22/18 09:18) Anaphylaxis Penicillins Allergy (Verified 08/22/18 09:18) Anaphylaxis sulfamethoxazole [From Septra] Allergy (Verified 08/22/18 09:18) Anaphylaxis trimethoprim [From Septra] Allergy (Verified 08/22/18 09:18) Anaphylaxis bacitracin [From Neosporin ([id number]-pmb-[id number])] Adverse Reaction (Verified 08/22/18 09:18) Swelling neomycin [From Neosporin ([id number]-izz-[id number])] Adverse Reaction (Verified 08/22/18 09:18) Swelling polymyxin B [From Neosporin ([id number]-wev-rouvj)] Adverse Reaction (Verified 08/22/18 09:18) Swelling trazodone Adverse Reaction (Verified 08/22/18 09:18) Vomiting Medications Prazosin HCl [Minipress] 5 mg PO QHS 06/18/15 [History Confirmed 08/22/18] Sertraline HCl [Zoloft] 100 mg PO DAILY 01/17/18 [History Confirmed 08/22/18] Topiramate [Topamax] 100 mg PO BID 04/12/18 [History Confirmed 08/22/18] benzonatate 100 mg capsule 100 mg PO TID PRN #30 cap 08/04/18 [Rx Confirmed 08/22/18] dicyclomine 10 mg capsule 10 mg PO 4X/DAY PRN 08/04/18 [History Confirmed 08/22/18] hydroxyzine pamoate 50 mg capsule 100 mg PO QHS 08/04/18 [History Confirmed 08/22/18] loratadine 10 mg tablet 10 mg PO DAILY 08/04/18 [History Confirmed 08/22/18] mirtazapine 15 mg tablet 15 mg PO QHS 08/04/18 [History Confirmed 08/22/18] lancets 33 gauge See Dose Instructions .ROUTE .MEDSUPPLY #100 ea 08/22/18 [Rx Confirmed 08/22/18] lurasidone 20 mg tablet 20 mg PO DAILY 08/22/18 [History Confirmed 08/22/18] Nurse's Note: blood sugars : low : high : [facility] Medical History Abnormal bruising (Acute) Anxiety disorder (Acute) Asthma (Acute) Back problem (Acute) Breast lump (Acute) Chest pain (Acute) Chronic headaches (Acute) Diabetes type 2, controlled (Acute) Diarrhea (Acute) Fatigue (Acute) GERD (gastroesophageal reflux disease) (Acute) Hypoglycemia (Acute) IBS (irritable bowel syndrome) (Acute) SOB (shortness of breath) (Acute) Schizoaffective disorder (Acute) Seasonal allergies (Acute) Seizure disorder (Acute) Shoulder pain (Acute) Stomach ulcer (Acute) Family History Other Cancer Diabetes Heart disease Parkinson disease Social History Smoking Status: Never smoker second hand exposure: No alcohol intake: never substance use type: does not use ROS Const Constitutional: Positive for change in appetite and headache(s); no anorexia, body ache, chills, fatigue, fever(s), frequent falls, decreased energy, malaise, night sweats, weakness, weight change, sleep problems, abnormal sleep pattern, other, snoring or excessive sweating Eyes Eyes: No blurry vision, change in vision, double vision, discharge, dry eyes, bulging eyes, floaters, visual disturbances, eye pain, light sensitivity, spots in vision, tunnel vision or other ENT ENT: Positive for abnormal hearing, nasal congestion, sinus pressure and headache(s); no ear pain, ear discharge, ear pressure, hearing loss, tinnitus, dizziness/vertigo, balance problems, nosebleed/epistaxis, nasal obstruction, nose pain, sinus pain, nasal discharge, post nasal drip, facial pain, dental pain, dry mouth, bad breath, hoarseness, lip swelling, mouth lesions, mouth pain, sore throat, tongue swelling, throat swelling, other, difficulty swallowing or neck pain Resp Respiratory: Positive for cough and shortness of breath; no change in phlegm color, chest congestion, excessive phlegm production, hemoptysis, pain on inspiration, pain with cough, snoring, stridor, wheezing or other Cardio Cardiology: Positive for chest pain at rest, chest pain with exertion and generalized swelling; no leg pain with exertion, excessive sweating, shortness of breath, dyspnea on exertion, irregular heart rhythm, lightheadedness, orthopnea, radiating jaw, neck or arm pain, fast heart rate, slow heart rate, palpitations or other Gastro GI: No abdominal pain, belching, bloating, change in bowel habits, change in stool character, coffee ground emesis, constipation, cramping, diarrhea, heartburn, difficulty swallowing, feeling full early, excessive flatus, incontinent of stools, Vomiting blood/hematemesis, blood in stool, loose stools, Black,tarry stools, nausea/dyspepsia, pain with swallowing, vomiting or other Genitourinary-Female: No difficulty urinating, burning urination, painful urination, urinary incontinence, urinary frequency, urinary urgency, urinary hesitancy, urinary retention, blood in urine, Frequent nighttime urination/ nocturia, post void dribbling, suprapubic fullness, side pain, sexual problems, genital lesions, genital itching, hot flashes, abnormal periods, abnormal vaginal bleeding, absent period, painful periods, light periods, heavy periods, difficulty getting , painful intercourse, pelvic pain, vaginal dryness, vaginal odor, Vaginal Itching or other Musc Musculoskeletal: No abnormal walking, joint pain, back pain, deformity, joint swelling, limited range of motion, loss of height, muscle cramps, muscle weakness, decreased muscle mass, body aches, neck pain, numbness, radiating pain into limb, stiffness, tingling or other Skin Skin: Positive for wounds (L foot); no acne, hair loss, change in hair, nail changes, boil, change in skin color, dry skin, redness, excessive hair growth, yellowing of the skin, lesions, itching, rash, skin pain, skin ulcer, sores, skin swelling or other Breast Breast: No other Neuro Neurology: Positive for abnormal hearing and headache(s); no frequent falls, weakness, visual disturbances, abnormal walking, numbness or tingling Psych Psychiatric: No abnormal sleep pattern, Positive for change in appetite Endo Endocrine: No fatigue, other or excessive sweating Aller/Imm Allergy/Immunologic: No lip swelling, tongue swelling, throat swelling, wheezing or itchy eyes Assessment AND Plan Problems 1. Controlled type 2 diabetes mellitus without complication, without long-term current use of insulin E11.9 Plan Enc patient to have updated labs and to check BG every few days in pairs. One day check before and 2 hours after breakfast, another day check before and after lunch and another day check before and after evening meal. Patient Instructions Call office if you note BG readings are elevated above 150 range. Orders Orders: Medications New: Plan Detail Additional Comments 1. Please schedule follow up in 3 months. 2. Lab work one week before appointment. 3. Discussed importance of regular exercise and recommend starting or continuing a regular exercise program for good health. 4. The patient was encouraged to lose weight for good health 5. The importance of monitoring blood sugar regularly was reviewed. 6. The importance of monitoring the HBA1c level regularly was reviewed. 7. The importance of prper foot care and regularly checking feet to prevent sores and loss of limbs was reviewed. 8. The importance of keeping BP at or below 130/80 to prevent stroke, heart attacks, kidney failure, blindness was reviewed. Spent approximately 30 minutes with patient with over 50% of time spent in discussion and counseling regarding medication adjustment, symptoms and treatment of hypoglycemia, diet adherence, and checking BG before driving. Coding Level of Care Code Off vis,est,level 4 Diagnoses Controlled type 2 diabetes mellitus without complication, without long-term current use of insulin E11.9 08/23/18 1208 <Electronically signed by Bernarda MATTHEW> Date Bernarda MATTHEW Cosigner Signature: Date (if applicable) CC: ELECTROLYTES Collected: 08/13/2018 Status: F Source: [facility] 9:13 AM [facility] REPOSITORY TYPE CODE TESTS RESULT OUT OF RANGE REFERENCE UNITS LAB NA 135-145 mmol/L Normal Sodium 137 LAB K 3.5-5.1 mmol/L Normal Potassium 3.7 LAB CL 98-108 mmol/L Normal Chloride 101 LAB CO2 21-32 mmol/L CO2 Normal 28 Performed By: #### LYTES #### Unless otherwise noted, all testing performed by [facility] [address] [place], [place] [address] CLIA: [id number] Credentialer: Kathleen Pepper M.D. URINALYSIS, ROUTINE Collected: 08/12/2018 Status: F Source: [facility] 8:47 AM [facility] REPOSITORY TYPE CODE TESTS RESULT OUT OF RANGE REFERENCE UNITS LAB COLOR Normal Color, Urine Yellow LAB CHAUR Normal Character Hazy LAB SPGRUR 1.003-1.029 Normal Specific 1.009 Mcdonald,Urine LAB PHUR 4.5-8.0 Normal pH,Urine 5.0 LAB GLUCUR NEG;NEGATIVE mg/dL Normal Glucose,Urine Negative LAB KETUR NEG;NEGATIVE mg/dL Normal Ketone,Urine Negative LAB PROTUR NEG;NEGATIVE mg/dL Normal Protein,Urine Negative LAB BLDUR NEG;NEGATIVE Abnormal Blood,Urine Moderate LAB NITUR NEG;NEGATIVE Normal Nitrite,Urine Negative LAB BILIUR NEG;NEGATIVE Normal Bilirubin,Urine Negative LAB UROUR <2 mg/dL Normal Urobilinogen,Ur < 2.0 ine LAB LEUESTUR Negative Abnormal Leuk.Esterase,U Small rine LAB WBCUR 0-5 /HPF Normal WBC,Urine 5 LAB SQEPI 0-40 /HPF Normal Squamous 4 Epithelial Performed By: #### UA #### Unless otherwise noted, all testing performed by [address] [place]. [place] [address] CLIA: [id number] Credentialer: Kathleen Pepper M.D. CBC WITH DIFF Collected: 08/12/2018 Status: F Source: [facility] 7:31 AM [facility] REPOSITORY TYPE CODE TESTS RESULT OUT OF RANGE REFERENCE UNITS LAB WBC 3.4-10.6 K/mcL WBC Normal 9.3 LAB RBC 3.7-5.0 M/mcL RBC Normal 4.40 LAB HGB 11.6-15.4 g/dL Normal Hemoglobin 13.4 LAB HCT 34.4-44.8 % Normal Hematocrit 40.1 LAB MCV 82.6-98.9 FL MCV Normal 91.3 LAB MCH 27.9-33.9 pg MCH Normal 30.4 LAB MCHC 33.1-35.1 g/dL MCHC Normal 33.3 LAB RDW 10.0-14.4 % RDW Normal 13.7 LAB PLT 162-402 K/mcL Platelet Normal Count 289 LAB MPV 7.0-10.6 FL MPV Normal 7.0 LAB NEUT# 1.2-6.9 K/mcL Normal Neutrophil # 6.8 LAB LYMPH# 1.0-3.7 K/mcL Normal Lymphocyte # 1.8 LAB MONO# 0.1-0.6 K/mcL Monocyte Normal # 0.6 LAB EOS# 0-0.5 K/mcL Normal Eosinophil # 0.1 LAB BASO# 0-0.2 K/mcL Basophil Normal # 0.0 LAB SEGNEU% % Normal Segmented Neut % 72.7 LAB LYMP% % Normal Lymphocyte% 19.3 LAB MO% % Monocyte Normal % 6.7 LAB EO% % Normal Eosinophil % 1.0 LAB BA% % Basophil Normal % 0.3 Performed By: #### CBCDIF, CMET, TSH, LIPID #### Unless otherwise noted, all testing performed by [address] [place], [place] [address] CLIA: [id number] Credentialer: Kathleen Pepper M.D. TSH Collected: 08/12/2018 Status: F Source: [facility] 7:31 [facility] REPOSITORY TYPE CODE TESTS RESULT OUT OF RANGE REFERENCE UNITS LAB TSH 0.270-4.200 uIU/mL Normal TSH 2.06 Result Comment: Samples from patients routinely receiving high dose biotin therapy (100-300 mg/day) may show falsely decreased results. Please correlate clinically. Please note reference range change as of 08/08/18. Performed By: #### CBCDIF, CMET, TSH, LIPID #### Unless otherwise noted, all testing performed by [address] [address] CLIA: [id number] Credentialer: Kathleen Pepper M.D. COMPREHENSIVE METABOLIC Collected: 08/12/2018 Status: F Source: [facility] 7:31 [facility] REPOSITORY TYPE CODE TESTS RESULT OUT OF REFERENCE UNITS RANGE LAB GLU 70-99 mg/dL High Glucose 112 Result Comment: This test result might be falsely depressed or falsely elevated on samples drawn from patients taking Sulfasalazine and Sulfapyridine. Venipuncture should occur prior to taking either of these drugs. LAB BUN 8-25 mg/dL BUN 10 LAB CREA 0.40-1.10 mg/dL Creatinine 0.70 LAB eGFR ml/min/1.73sq .m eGFR,NonAfrican-Am erican >=60 Result Comment: Non- GFR Calc eGFR is an estimated Glomerular Filtration Rate based on the value of the patient's serum creatinine. In outpatients, eGFR should be used as a helpful tool in screening for CKD. In inpatients or patients with acute renal failure, eGFR represents the GFR at the moment of the draw and should be used with caution. LAB eGFRB ml/min/1.73sq.m eGFR, -Puerto Rican >=60 Result Comment: GFR Calc LAB CALCM 8.4-10.2 mg/dL Calcium 8.5 LAB NA 135-145 mmol/L Sodium 138 LAB K 3.5-5.1 mmol/L Low Potassium 3.4 LAB CL 98-108 mmol/L Chloride 103 LAB CO2 21-32 mmol/L CO2 25 LAB AST 0-45 U/L AST (SGOT) 20 Result Comment: This test result might be falsely depressed or falsely elevated on samples drawn from patients taking Sulfasalazine and Sulfapyridine. Venipuncture should occur prior to taking either of these drugs. LAB ALT 14-65 U/L ALT (SGPT) 22 Result Comment: This test result might be falsely depressed or falsely elevated on samples drawn from patients taking Sulfasalazine and Sulfapyridine. Venipuncture should occur prior to taking either of these drugs. LAB ALKP 40-150 U/L Alkaline Phosphatase 128 LAB BILIT 0.3-1.2 mg/dL Bilirubin,Total 0.4 LAB PROT 6.0-8.0 g/dL Protein, Total 7.8 LAB ALB 3.2-5.2 g/dL Albumin 3.3 Performed By: #### CBCDIF, CMET, TSH, LIPID #### Unless otherwise noted, all testing performed by [place] [address] CLIA: [id number] Credentialer: Kathleen Pepper M.D. LIPID PANEL Collected: 08/12/2018 Status: F Source: [facility] 7:31 AM [facility] REPOSITORY TYPE CODE TESTS RESULT OUT OF REFERENCE UNITS RANGE LAB CHOL 100-199 mg/dL Cholesterol Normal 193 LAB TRIG 25-120 mg/dL Triglycerides High 329 LAB HDL 40-59 mg/dL Low HDL 31 LAB LDL 10-150 mg/dL LDL Normal 96 LAB VLDL 5-40 mg/dL VLDL High 66 LAB CHOL/HDL 3.2-5.0 CHOL/HDL Ratio High 6.3 Result Comment: Female Coronary Heart Disease Risk Factor (CHDRF): Average risk= 4.4 1/2 Average risk= 3.3 2 times Average risk= 7.1 Performed By: #### CBCDIF, CMET, TSH, LIPID #### Unless otherwise noted, all testing performed by [place] [address] CLIA: [id number] Credentialer: Kathleen Pepper M.D. DRUGS OF ABUSE, Collected: 08/11/2018 Status: F Source: [facility] URINE 5:08 PM [facility] REPOSITORY TYPE CODE TESTS RESULT OUT OF RANGE REFERENCE UNITS LAB CUTOFF Normal DOA Cutoffs See comment. Result Comment: Drugs of Abuse, Urine Presumptive Positive Cutoff Concentrations . Amphetamine/Methamphetamine: 1000 ng/ml Barbiturates: 200 ng/ml Benzodiazepines and metabolities: 200 ng/ml Cannabinoids: 50 ng/ml Cocaine/Benzoylecgonine: 300 ng/ml Methadone: 300 ng/ml Opiates: 300 ng/ml Oxycodone/Oxymorphone: 100 ng/ml LAB AMPH None Detected Amphetamines,Ur Normal None Detected LAB SHAYNE None Detected Barbiturates,Ur Normal None Detected LAB LILY None Detected Benzodiazepine,Ur Normal None Detected LAB CAN50 None Detected Cannabinoids,Ur Normal None Detected LAB COCAI None Detected Cocaine,Ur Normal None Detected LAB METHD None Detected Methadone,Ur Normal None Detected LAB OPIATE None Detected Opiates,Ur Normal None Detected LAB OXYCOD None Detected Oxycodone, Urine Normal None Detected Result Comment: THESE DRUGS OF ABUSE TESTS ARE PROVIDED A MEDICAL SCREENING ONLY. POSITIVE RESULTS ARE NOT CONFIRMED BY GCMS Performed By: #### DRUGSCRU #### Unless otherwise noted, all testing performed by [place] [address] CLIA: [id number] Credentialer: Kathleen Pepper M.D. ALCOHOL, MEDICAL Collected: 08/11/2018 Status: F Source: [facility] 4:20 PM [facility] REPOSITORY TYPE CODE TESTS RESULT OUT OF RANGE REFERENCE UNITS LAB ALCMD G% Normal Alcohol Negative [Medical] Performed By: #### ALC #### Unless otherwise noted, all testing performed by [place] [address] CLIA: [id number] Credentialer: Kathleen Pepper M.D. URGENT CARE VISIT Observed: 08/04/2018 Status: F Source: [facility] RE[place] 2:44 PM [facility] [address] [place] [address] OFFICE VISIT Date of Service: 08/04/18 MR#: [id number] Acct: [id number] Name: ALICJA SANDHU Rep #: [id number] : 1975 Provider: Christy Graham NP Age/Sex: 42/F Location: [facility] Status: Signed Intake Vital Signs08/04/18 Height 5 ft 4 in Intake Visit Reasons: TOE NAIL/COUGH Chief Complaint: cough, left fifth toenail injury Allergies acetaminophen [From Tylenol] Allergy (Verified 08/04/18 11:12) Anaphylaxis aspirin Allergy (Verified 08/04/18 11:12) Anaphylaxis benztropine mesylate [From Cogentin] Allergy (Verified 08/04/18 11:12) Other carbamazepine [From Tegretol] Allergy (Verified 08/04/18 11:12) Rash egg Allergy (Verified 08/04/18 11:12) Other ibuprofen [From Motrin] Allergy (Verified 08/04/18 11:12) Anaphylaxis Penicillins Allergy (Verified 08/04/18 11:12) Anaphylaxis sulfamethoxazole [From Septra] Allergy (Verified 08/04/18 11:12) Anaphylaxis trimethoprim [From Septra] Allergy (Verified 08/04/18 11:12) Anaphylaxis bacitracin [From Neosporin (joi-zpy-bgzkj)] Adverse Reaction (Verified 08/04/18 11:12) Swelling neomycin [From Neosporin (zjz-wul-ewqdh)] Adverse Reaction (Verified 08/04/18 11:12) Swelling polymyxin B [From Neosporin (zke-zuy-gipig)] Adverse Reaction (Verified 08/04/18 11:12) Swelling trazodone Adverse Reaction (Verified 08/04/18 11:12) Vomiting Medications Prazosin HCl [Minipress] 5 mg PO QHS 06/18/15 [History Confirmed 08/04/18] Sertraline HCl [Zoloft] 100 mg PO DAILY 01/17/18 [History Confirmed 08/04/18] Topiramate [Topamax] 100 mg PO BID 04/12/18 [History Confirmed 08/04/18] benzonatate 100 mg capsule 100 mg PO TID PRN #30 cap 08/04/18 [Rx Confirmed 08/04/18] dicyclomine 10 mg capsule 10 mg PO 4X/DAY PRN 08/04/18 [History Confirmed 08/04/18] hydroxyzine pamoate 50 mg capsule 100 mg PO QHS 08/04/18 [History Confirmed 08/04/18] loratadine 10 mg tablet 10 mg PO DAILY 08/04/18 [History Confirmed 08/04/18] mirtazapine 15 mg tablet 15 mg PO QHS 08/04/18 [History Confirmed 08/04/18] PFSH Medical History Abnormal bruising (Acute) Anxiety disorder (Acute) Asthma (Acute) Back problem (Acute) Breast lump (Acute) Chest pain (Acute) Chronic headaches (Acute) Diabetes type 2, controlled (Acute) Diarrhea (Acute) Fatigue (Acute) GERD (gastroesophageal reflux disease) (Acute) Hypoglycemia (Acute) IBS (irritable bowel syndrome) (Acute) SOB (shortness of breath) (Acute) Schizoaffective disorder (Acute) Seasonal allergies (Acute) Seizure disorder (Acute) Shoulder pain (Acute) Stomach ulcer (Acute) Family History Other Cancer Diabetes Heart disease Parkinson disease Social History Smoking Status: Never smoker second hand exposure: No alcohol intake: never substance use type: does not use HPI HPI Chief Complaint: cough, left fifth toenail injury Details: ALICJA SANDHU, is a 42 F who presents to the office today for acute cough and injury to left fifth toe. She has a PMH as listed above. Patient notes that over the past two days she has had a nonproductive intermittent cough that keeps her awake at night. She also notes some clear nasal discharge. Denies any otc tx and is requesting tessalon that worked well for her in the past. Denies any other aggravating or alleviating symptoms. Pt also notes that she struck her 5th left toe on a hard object and noted dried blood surrounding the nail. She denies any pain or signs of infection at this time. Otherwise denies any fever, chills, nausea, vomiting, SOB, CP, syncope or presyncopal episodes. ROS Const Constitutional: No fever(s), chills, weakness, change in appetite, sleep problems, fatigue, malaise or frequent falls Eyes Eyes: No blurry vision, change in vision, double vision or discharge ENT ENT: No abnormal hearing, ear pain, ear pressure or dizziness/vertigo Resp Respiratory: Positive for cough Cough: Yes non-productive; no wheezing or shortness of breath Cardio Cardiology: No chest pain at rest, chest pain with exertion, shortness of breath, dyspnea on exertion, lightheadedness, irregular heart rhythm, fast heart rate, palpitations, orthopnea or generalized swelling Gastro GI: No abdominal pain, change in bowel habits, constipation, diarrhea, vomiting or nausea/dyspepsia Musc Musculoskeletal: Positive for other (left 5th toenail injury); no joint pain, back pain, limited range of motion, joint swelling, muscle weakness, tingling or numbness Skin Skin: No change in skin color, wounds, rash or itching Neuro Neurology: No weakness, frequent falls, abnormal hearing, tingling, numbness, unsteady gait/balance, dizziness, loss of vision or memory loss Psych Psychiatric: No change in appetite, No memory loss, No anxiety, No depression, No Thoughts of harming yourself/Others Endo Endocrine: No fatigue, increased thirst/drinking, increased urination, increased hunger or heat intolerance Aller/Imm Allergy/Immunologic: No wheezing, itchy eyes or seasonal allergy symptoms Sy/Lymp Hematologic/Lymphatic: No easy bleeding, easy bruising or enlarged lymph nodes Exam Const General: cooperative, comfortable, no acute distress Nutritional Appearance: average body habitus, well nourished Orientation: alert, oriented x3 Limitations: mental status not altered [facility] Head: normal to inspection Ears: hearing grossly normal bilaterally Face and sinus: normal facial exam Mouth: oral mucosae normal Throat: posterior oropharynx normal Resp Effort AND Inspection: normal respiratory effort, able to speak in complete sentences, normal respiratory pattern, symmetric chest movement, no audible wheezes, no cough Auscultation: Bilateral: Clear to Auscultation Cardio Palpation: normal PMI Rate: regular rate Heart Sounds: S1 normal, S2 normal, normal S1 and S2, no click, no gallops, no murmurs, no rubs Musc Musculoskeletal: No muscle weakness Skin General: no rashes or lesions noted, elasticity normal, turgor normal Lesions: no lesions Rashes: no rashes Neuro General: alert, awake, oriented x3, CN's II-XI intact bilaterally Speech: speech normal Gait: normal gait Motor: muscle tone normal throughout Extrem General: normal to inspection, normal gait, no edema, no pedal edema Other: left 5th toenail without signs of subungal hematoma, small dried blood external nail, no signs of infection at this time. Psych Appearance: grossly normal Mental Status: mental status grossly normal Affect: normal affect Attitude: cooperative Thought Process: normal Assessment AND Plan 1. Cough R05 Plan pt c/o nonproductive cough, no cough during entire exam and lungs are clear, most likely viral, discussed conservative measures to take and will treat with prn tessalon. educated on red flag symptoms requiring urgent medical attention. 2. Injury of toenail of left foot S99.922A Plan left 5th toenail, small amount of dried blood present, no pain or signs of infection. Discussed following up with podiatry if pain or signs of infection occurs given her diabetes status. Discussed red flag symptoms requiring urgent medical attention. Plan Detail Other Medications New: Follow Up prn or with pcp Coding Level of Care Code Off vis,est,level 3 Diagnoses Cough R05 Injury of toenail of left foot S99.922A 08/04/18 1444 <Electronically signed by Christy MATTHEW> Date Christy MATTHEW Cosigner Signature: Date (if applicable) CC: EMERGENCY DEPARTMENT Observed: 07/05/2018 Status: F Source: [place] SUMMARY 4:22 PM [facility] [place] [facility] Medical Records Department [address] [place] [address] Emergency Department Summary 07/05/18 1619 MR#: [id number] Acct: [id number] Name: ALICJA SANDHU Shanell Rep #: [id number] : 1975 42 From: Sean Felix DO PCP: Janie Walters MD Status: REG ER - ER Visit Summary Date of Service: 07/05/18 Chief Complaint: [Depression and suicidal ideation] History of Present Illness: The patient is a 42 F [presents the emergency department stating that she is feeling depressed and is feeling suicidal. Patient states that she has been feeling this way over the last 2 weeks. Patient has been easily agitated and feels hopeless and lonely. Patient also feeling very paranoid. She denies any visual or auditory hallucinations. Patient did have an overdose on Benadryl in March of this year. She has no specific plan at this time. Patient denies any physical complaints. Patient does have a history of depression, bipolar disorder, schizoaffective disorder, PTSD, and dissociative disorder.] Physical Examination: [HEENT-PERRLA, EOMI. Cranial nerves II through XII grossly intact. TMs clear. Mucous membranes moist. No adenopathy. Cardiovascular-regular rate and rhythm without murmur or ectopy Lungs-clear to auscultation, chest wall stable without crepitus or subcu emphysema Abdomen-normoactive bowel sounds, soft, nontender, no rebound or rigidity, no peritoneal signs. Extremities-intact 4, normal range of motion, normal pulses, atraumatic] Test Results: [CBC with differential obtained showed a white count of 7.5, hemoglobin 13.8, hematocrit 42, platelets 214. Chemistries unremarkable. HCG was negative. Alcohol was normal. Tox screen was unremarkable.] Emergency Department Course and Treatment: [Patient currently being evaluated by crisis.] Treatment Plan: Pending evaluation by crisis however I feel patient will require admission as she is willing to voluntarily be admitted. [] Disposition: [Pending] Impression: [Depression Suicidal ideation] This note was generated with Mobile Mult[employer] dictation software. It may contain incorrect words, spelling, and punctuation that were not noted in review of the chart prior to signing ED Disposition - Plan for ED Patient: Chief Complaint: Suicidal Referrals: Janie Walters MD [Primary Care Provider] - What to do if you have Problems For any increased pain, shortness of breath, bleeding, nausea or vomiting, chest pain, or any unexpected problems, contact your Primary Care Provider. Call [facility] ([phone]) or report to the closest Emergency Room. Call 911 if necessary. 07/05/18 0662 <Electronically signed by Sean Felix DO> Date Sean Felix DO Jorgeignfermin Signature (If Indicated): Date CC: Janie Walters MD URINE DRUG SCREEN Collected: 07/05/2018 Status: F Source: [place] (VISTA) 11:15 AM [facility] [place] TYPE CODE TESTS RESULT OUT OF RANGE REFERENCE UNITS LAB L505.0075 TO BE Normal CONFIRMED Result Comment: CONFIRMATORY TESTING FOR ALL POSITIVE URINE DRUG SCREEN RESULTS WILL ONLY BE SENT OUT UPON PHYSICIAN ORDER. VISTA Urine Drug Screen methods provide only preliminary analytical test results. A more specific alternate chemical method must be used in order to obtain a confirmed analytical result. Gas chromatography/mass spectrometery (GC/MS) is the preferred confirmatory method. Clinical consideration and professional judgement should be applied to any drug of abuse test result, particularly when preliminary positive results are used. URINE TCA TESTING MUST BE ORDERED SEPARATELY. USE TEST MNEMONIC: [facility] LAB L505.5005 VISTA UDS PH 6 Normal LAB L505.5015 <1000 ng/mL AMPHETAMINES Normal NEGATIVE LAB L505.5025 < 200 ng/mL BARBITIURATES Normal NEGATIVE LAB L505.5035 < 200 ng/mL BENZODIAZIPINE Normal NEGATIVE LAB L505.5045 < 300 ng/mL COCAINE Normal NEGATIVE LAB L505.5055 < 500 ng/mL ECSTACY Normal NEGATIVE LAB L505.5065 < 300 ng/mL METHADONE Normal NEGATIVE LAB L505.5075 < 300 ng/mL OPIATES Normal NEGATIVE LAB L505.5085 < 25 ng/mL PCP Normal NEGATIVE LAB L505.5095 < 50 ng/mL THC Normal NEGATIVE Performed By: #### L505.5000 #### [facility] [address] [place], [address] URINALYSIS, COMPLETE Collected: 07/05/2018 Status: F Source: [place] 11:15 AM [facility] [place] Order Comment: Has pt arrived? Y How was Urine Obtained? CLEAN CATCH TYPE CODE TESTS RESULT OUT OF RANGE REFERENCE UNITS LAB L400.3000 Yellow COLOR Normal Yellow LAB L400.3050 Clear Normal CLARITY Sl. Cloudy LAB L400.3200 Normal mg/dl Normal GLUCOSE, UR Normal LAB L400.3300 Negative mg/dL Normal BILIRUBIN URINE Negative LAB L400.3400 Negative mg/dl Normal KETONE UR Negative LAB L400.3465 1.002-1.030 Normal SP.GR. DIPSTX 1.010 LAB L400.3550 5.0 - 8.0 pH UR Normal 6.5 LAB L400.3600 Negative mg/dl PROT Normal DIPSTX Negative LAB L400.3700 Normal mg/dl Normal UROBILI Normal LAB L400.3750 Negative Normal NITRITE UR Negative LAB L400.3780 Negative /ul Normal OCCULT BLOOD-UR Negative LAB L400.3800 Negative /ul High LEUK 25 ESTERASE LAB L400.4050 0-5 /hpf WBC Normal 0-5 SEEN LAB L400.4100 0-5 /hpf 0 Normal RBC-UA SEEN LAB L400.4150 5-10 /hpf SQUAM Normal EPI 0-5 SEEN LAB L400.4300 None Seen /hpf 1+ Normal BACTERIA LAB L400.4350 <or=2+ /hpf 0 Normal MUCUS, URINE SEEN Performed By: #### L400.0001 #### [facility] [address] [facility] [place], [address] CBC W/DIFF, AUTOMATED Collected: 07/05/2018 Status: F Source: [place] 10:20 AM [facility] [place] TYPE CODE TESTS RESULT OUT OF RANGE REFERENCE UNITS LAB L100.1000 4.4-11.0 K/mm3 Normal WBC 7.5 LAB L100.1200 4.2-5.4 M/mm3 Normal RBC 4.54 LAB L100.1300 12.0-15.0 g/dl Normal HGB 13.8 LAB L100.1400 37-47 % Normal HCT 42.3 LAB L100.1500 81-99 fL Normal MCV 93.2 LAB L100.1600 27.0-32.0 pg Normal MCH 30.4 LAB L100.1700 32-36 g/gl Normal MCHC 32.6 LAB L100.1810 11.6-14.6 % Normal RDW CV 13.7 LAB L100.1820 35.1-43.9 fl High RDW SD 46.8 LAB L100.1900 150-450 K/mm3 Normal PLT 214 LAB L100.2000 6.2-12.0 fl Normal MPV 8.8 LAB L100.2100 47-70 % High NEUT% 70.2 LAB L100.2200 19-41 % Normal LY% 19.5 LAB L100.2300 0-10 % Normal MONO% 7.8 LAB L100.2400 0-5 % Normal EO% 1.3 LAB L100.2500 0-1 % Normal BASO% 0.3 LAB L100.2550 0.0-0.9 % Normal IM GRAN % 0.900 Result Comment: IG% - Immature Granulocytes (promyelocytes, myelocytes and metamyelocytes) > 1% indicates that a LEFT SHIFT is Present. LAB L100.2620 2.0-7.7 X10 3/uL Normal Absolute Neut 5.3 LAB L100.2720 0.83-4.51 X10 3/ul Normal Absolute Lymph 1.47 Performed By: #### L100.0100 #### [facility] [address] [place], [place], [address] ALCOHOL, BLOOD Collected: 07/05/2018 Status: F Source: [place] (MEDICAL)-SERUM 10:20 AM [facility] [place] TYPE CODE TESTS RESULT OUT OF RANGE REFERENCE UNITS LAB L501.9100 mg/dL Normal SERUM < 3.0 ETOH Result Comment: The serum:whole blood ethanol ratio is approximately 1.14 and varies slightly with hematocrit. Medical Alcohol reference interval and critical value in non-tolerant individuals; 50 - 100 Impairment 100 Intoxication 100 - 250 Severe Poisoning 250 - 400 Deep/possible fatal coma Performed By: #### L501.9100 #### [facility] [address] [place], [place], [address] BASIC METABOLIC Collected: 07/05/2018 Status: F Source: [place] PROFILE (BMP) 10:20 AM [facility] [place] TYPE CODE TESTS RESULT OUT OF RANGE REFERENCE UNITS LAB L501.0100 74-106 mg/dL High GLU 219 Result Comment: Glucose result greater than or equal to 200 mg/dL suggests DIABETES MELLITUS per A.D.A. criteria. Please note revised GLUCOSE reference range effective 2017. LAB L501.1000 7-18 mg/dL Normal BUN 15 LAB L501.1100 0.55-1.02 mg/dL Normal CREAT,SERUM 0.83 Result Comment: The validity of the calculated GFR AND GFRAA in patients over 70 years has not been determined. Clinical correlation is essential. LAB L501.1110 >60 mL/min Normal EST GFR 79 Result Comment: Non- GFR Calc LAB L501.1115 >60 mL/min Normal EST GFR - AA 96 Result Comment: GFR Calc LAB L501.1255 ml/min Normal Estimated CRCL 75.47 LAB L501.1300 10-20 RATIO Normal BUN/CRE 18.0 LAB L501.2200 8.5-10 mg/dL Low .1 CA 8.2 LAB L501.5300 136-14 mmol/L Normal 5 NA 136 LAB L501.5600 3.5-5. mmol/L Low 1 K 3.2 LAB L501.5900 98-107 mmol/L Normal CL 103 LAB L501.6100 21.0-3 mmol/L Normal 2.0 CO2 24.0 LAB L501.6200 5-15 Normal GAP 9 Performed By: #### L500.2500 #### [facility] [address] [facility], [address] ,SERUM,HCG QUALI. Collected: Status: F Source: [place] 07/05/2018 10:20 AM [facility] [place] TYPE CODE TESTS RESULT OUT OF REFERENCE UNITS RANGE LAB L700.6700 =>Qualitative mIU/mL Normal HCG Qual < 1 triggr LAB L700.7000 0-9 Nonpreg Negative Normal HCGSQUAL NEGATIVE Performed By: #### L700.6800 #### [facility] [address] [facility] [place], [address] CNCO Observed: 06/07/2018 Status: COMPLETED Source: [place] 12:00 AM [facility] REPOSITORY Letter [facility] [address] [place] [address] Office: [phone] Lyn Velázquez MD REQUEST FOR EYE EXAM FINDINGS November 05, 2016 Dear eye healthcare administration intern, Thank you for coordinating eye care for our mutual patient, Alicja Sandhu (1975). Please fax this letter back to me with the most appropriate response selected below. Please allow the patient's signature to serve as permission to share your findings. Sincerely, Lyn Velázquez MD Patient Signature Date Date of eye exam: Findings Both Eyes Right Left No Retinopathy Detected Non Proliferative Retinopathy Mild Moderate Severe Proliferative Retinopathy Macular Edema Further testing and/or treatment indicated Comments: Patient is to return: Letter Text [facility] Lyn Velázquez M.D. [address] [address] Dear Alicja Sandhu Your health care is very important to us. Our records indicate that you may be due for a diabetic eye exam. If you have had a diabetic eye exam within the last year, please have your records sent to us so that we may update your medical records. There is a medical records of release of information included in this letter. Please take the release to your eye doctor for future appointments to have your records forwarded to us. Important facts about diabetic eye exams Diabetic retinal exams should be done yearly for all patients with a diagnosis of diabetes. Risks such as diabetic retinopathy can be reduced with blood glucose control and early detection of potential problems. Diabetic retinopathy is damage to the small blood vessels in the retina that can lead to blindness Thank you, Lyn Velázquez MD 12 LEAD ELECTROCARDIOGRAM Observed: 05/02/2018 Status: F Source: [place] 2:51 PM [facility] [place] [facility] Cardiovascular Services [address] [place] [address] 12 Lead EKG 03/25/18 0425 MR#: [id number] Acct: [id number] Name: ALICJA SANDHU Rep #: [id number] : 1975 42 From: Arsalan Sprague MD Attending Dr: Status: DEP ER Ordering Dr: Viridiana Stark MD Date: 03/25/18 Location: ED Sex: F C Admitted: Test Reason : PALPITATIONS Blood Pressure : / mmHG Vent. Rate : 062 BPM Atrial Rate : 062 BPM P-R Int : 184 ms QRS Dur : 092 ms QT Int : 422 ms P-R-T Axes : 038 036 039 degrees QTc Int : 428 ms Normal sinus rhythm Normal ECG Reconfirmed by ARSALAN SPRAGUE MD ([id number]), scientific editor PRINCE STAHL ([id number]) on 05/02/2018 2:50:54 PM Referred By: LENNY Confirmed By:ARSALAN SPRAGUE MD 05/02/18 1451 Date Arsalan Sprague MD CC: Viridiana Stark MD; Kreen STACY Signed 12 LEAD ELECTROCARDIOGRAM Observed: 04/14/2018 Status: F Source: [place] 10:08 AM [facility] [place] [facility] Cardiovascular Services [address] [place] [address] 12 Lead EKG 04/11/18 0629 MR#: [id number] Acct: [id number] Name: ALICJA SANDHU Rep #: [id number] : 1975 42 From: Arsalan Sprague MD Attending Dr: Clarisse Camarena MD Status: DIS IN Ordering Dr: Marcelino Alan MD Date: 04/11/18 Location: ICU Sex: F C Admitted: 04/10/18 Test Reason : AM EKG Blood Pressure : / mmHG Vent. Rate : 063 BPM Atrial Rate : 063 BPM P-R Int : 160 ms QRS Dur : 094 ms QT Int : 470 ms P-R-T Axes : 038 045 073 degrees QTc Int : 480 ms Normal sinus rhythm Prolonged QT Abnormal ECG No previous ECGs available Confirmed by ARSALAN SPRAGUE MD ([id number]), scientific editor SHAE DORAN ([id number]) on 04/14/2018 10:07:44 AM Referred By: MARCELINO ALAN Confirmed By:ARSALAN SPRAGUE MD 04/14/18 1007 Date Arsalan Sprague MD CC: Clarisse Camarena MD; Marcelino Alan MD; Keren STAYC Signed 12 LEAD ELECTROCARDIOGRAM Observed: 04/14/2018 Status: F Source: [place] 9:45 AM [facility] Cardiovascular Services [address] [place] [address] 12 Lead EKG 04/12/18 0533 MR#: [id number] Acct: [id number] Name: ALICJA SANDHU Shanell Rep #: [id number] : 1975 42 From: Arsalan Sprague MD Attending Dr: lCarisse Camarena MD Status: DIS IN Ordering Dr: Marcelino Alan MD Date: 04/12/18 Location: ICU Sex: F C Admitted: 04/10/18 Test Reason : MORNING EKG Blood Pressure : / mmHG Vent. Rate : 082 BPM Atrial Rate : 082 BPM P-R Int : 168 ms QRS Dur : 088 ms QT Int : 444 ms P-R-T Axes : 040 057 100 degrees QTc Int : 518 ms Normal sinus rhythm Prolonged QT Abnormal ECG Confirmed by ARSALAN SPRAGUE MD ([id number]), scientific editor SHAE DORAN ([id number]) on 04/14/2018 9:44:57 AM Referred By: APAINT Confirmed By:ARSALAN SPRAGUE MD 04/14/18 0945 Date Arsalan Sprague MD CC: Clarisse Camarena MD; Marcelino Alan MD; Keren STACY Signed DISCHARGE SUMMARY Observed: 04/13/2018 Status: F Source: [place] 6:38 PM [facility] Medical Records Department [address] [place] [address] Discharge Summary 04/13/18 1830 MR#: [id number] Acct: [id number] Name: PHOEBEALICJA Shanell Rep #: [id number] : 1975 42 From: Clarisse Camarena MD PCP: Keren Hooker Status: ADM IN Y Location: ICU ICU04-1 Discharge Date and Diagnosis - Problem List Patient Problems: Active and Suspected Problems (Last Reviewed 04/05/18 @ 13:34 by Rosenda Tinajero) Overdose (Acute) Date of Admission: 04/10/18 Date of Discharge: 04/13/18 - Primary Discharge Diagnosis Active and Suspected Problems (Last Reviewed 04/05/18 @ 13:34 by Rosenda Tinajero) Intentional Overdose (Acute) Acute metabolic encephalopathy Acute hypoxic respiratory insufficiency Suicide attempt - Secondary Discharge Diagnosis Chronic Problems (Last Reviewed 04/05/18 @ 13:34 by Rosenda Tinajero) Diabetes type 2, controlled (Chronic) Now has an apartment. Feels she is doing well. Provided with a meter and strips. Enc to check before and after meals. Is set up with counselor, healthcare social worker and psychiatrist. Looks and feels happy and she verbally confirms this. Reviewed labs, medications Major depression Hypertension Hyperlipidemia Hospital Course and Treatment Imaging Results: Clinical Impression(s) from Imaging Studies Chest X-Ray 04/10/18 22:30 Chest X-Ray 04/11/18 05:55 IMPRESSION: The tip of the endotracheal tube is at 2.3 cm proximal to the augusto. Mild degree of increased bilateral perihilar markings. Electronically Signed: Emmett Delatorre MD at 9:48 EDT Tel [phone], Service support , Critical care Operations: None Procedures: Intubation - managed on mechanical ventilation Summary of Care Provided: 42-year-old female with past medical history of major depression with repeated suicide ideation/intent comes into the hospital via EMS when she is reported to have overdosed on Benadryl more than 1200 mg. She was intubated for airway protection, was on mechanical ventilation s/p extubation now. 1. Acute metabolic encephalopathy secondary to intentional drug overdose, resolved, status post extubation, alert oriented 3. 2. Acute hypoxic respiratory insufficiency, status post recent extubation for primary airway protection, resolved, patient is comfortable at room air, no respiratory distress, saturating well. 3. Intentional drug overdose, Benadryl, control consulted, recommended Versed drip, propofol added for restlessness, off all these medications, no anticholinergic side effects seen. 4. Suicidal attempt, history of multiple suicide attempts, seen by mobile crisis, will be discharged to inpatient psych facility. 5. Seizure disorder, on topiramate 6. Major depression, possible schizoaffective disorder, patient admits to hearing voices today, follows with outpatient psychiatrist, counselor, healthcare social worker. Started on risperidone, continued on sertraline, Remeron. 7. Type 2 DM, HbA1c 7.4, not on medications, BS are uncontrolled, started on amaryl as well as ISS with accuchecks. 8. Hypertension, was on doxazosin, amlodipine added. Discharge Diet: Low fat/ Low Cholesterol, 2000 mg Sodium Diet, Carb Control Diet Discharge Activity: Return to Normal Activity Home Medications: Medications to take at Discharge Multivitamins,Therapeutic [Multivitamin] 1 tab PO DAILY 11/07/14 Dicyclomine HCl [Bentyl] 10 mg PO 4X/DAY PRN 06/18/15 Prazosin HCl [Minipress] 5 mg PO QHS 06/18/15 Hydroxyzine Pamoate 100 mg PO QHS 08/01/16 Pantoprazole Sodium [Protonix] 40 mg PO DAILY 09/22/17 Cetirizine HCl [All Day Allergy] 10 mg PO DAILY 01/17/18 Mirtazapine [Remeron] 15 mg PO QHS 01/17/18 Sertraline HCl [Zoloft] 100 mg PO DAILY 01/17/18 tizanidine 4 mg capsule 4 mg PO BID PRN #60 cap 04/05/18 Topiramate [Topamax] 100 mg PO BID 04/12/18 Amlodipine [Norvasc] 5 mg PO DAILY tablet 04/13/18 Glimepiride [Amaryl] 1 mg PO DAILY@0800 tablet 04/13/18 Insulin Lispro [Humalog KwikPen] See Protocol MO ACHS insuln.pen 04/13/18 Magnesium Hydroxide [Milk Of Magnesia] 30 ml PO DAILY PRN PRN udc 04/13/18 Risperidone [Risperdal] 1 mg PO BID tablet 04/13/18 Primary Care Physician: Keren Brown NP-C [Primary Care Provider] - Please follow up with your Primary Care Physician in: within 2 weeks of discharge from psych facility Disposition: Psych Hospital or Unit Minutes spent on discharge:: 35 Patient Condition:: Stable Medical Necessity - Tobacco Use Smoking Status: Unknown if ever smoked Meaningful Use Info Meaningful Use Diagnoses (Choose all that apply): None applicable Code Visit Inpatient E AND M: 23429 Disch Hosp 04/13/18 1838 <Electronically signed by Clarisse aCmarena MD> Date Clarisse Camarena MD Cosigner Signature (if applicable): Date CC: Clarisse Camarena MD; Keren STACY Signed DISCHARGE INSTRUCTION Observed: 04/13/2018 Status: F Source: [place] 6:30 PM [facility] [place] Medical Records Department [address] [facility] [place] [address] Instructions for Home/Discharge Instructions 04/13/18 1828 MR#: [id number] Acct: [id number] Name: ALICJA SANDHU Shanell Rep #: [id number] : 1975 42 From: Clarisse Camarena MD PCP: Keren Hooker Status: ADM IN - Discharge Diagnoses Current Active Problems: Current Active and Chronic Problems (Last Reviewed 04/05/18 @ 13:34 by Rosenda Tinajero) Overdose (Acute) Reason(s) for Visit for Discharge Instructions: Altered mental status You will use the following diet at home:: Calorie/Carbohydrate Controlled (specify 1200, 1400, etc) Your food should be the consistency of: Regular Your liquids should be the consistency of: Regular/Thin Discharge Activity: Return to Normal Activity Allergies/Adverse Reactions: Allergies acetaminophen [From Tylenol] Allergy (Verified 04/10/18 20:55) Anaphylaxis aspirin Allergy (Verified 04/10/18 20:55) Anaphylaxis benztropine mesylate [From Cogentin] Allergy (Verified 04/10/18 20:55) Other carbamazepine [From Tegretol] Allergy (Verified 04/10/18 20:55) Rash egg Allergy (Verified 04/10/18 20:55) Other ibuprofen [From Motrin] Allergy (Verified 04/10/18 20:55) Anaphylaxis Penicillins Allergy (Verified 04/10/18 20:55) Anaphylaxis sulfamethoxazole [From Septra] Allergy (Verified 04/10/18 20:55) Anaphylaxis trimethoprim [From Septra] Allergy (Verified 04/10/18 20:55) Anaphylaxis bacitracin [From Neosporin ([id number]-[id number])] Adverse Reaction (Verified 04/10/18 20:55) Swelling neomycin [From Neosporin (xrz-[id number]-qvigc)] Adverse Reaction (Verified 04/05/18 13:31) Swelling polymyxin B [From Neosporin (smj-rux-rildv)] Adverse Reaction (Verified 04/05/18 13:31) Swelling trazodone Adverse Reaction (Verified 04/05/18 13:31) Vomiting Medications to take at Discharge Multivitamins,Therapeutic [Multivitamin] 1 tab PO DAILY 11/07/14 Dicyclomine HCl [Bentyl] 10 mg PO 4X/DAY PRN 06/18/15 Prazosin HCl [Minipress] 5 mg PO QHS 06/18/15 Hydroxyzine Pamoate 100 mg PO QHS 08/01/16 Pantoprazole Sodium [Protonix] 40 mg PO DAILY 09/22/17 Cetirizine HCl [All Day Allergy] 10 mg PO DAILY 01/17/18 Mirtazapine [Remeron] 15 mg PO QHS 01/17/18 Sertraline HCl [Zoloft] 100 mg PO DAILY 01/17/18 tizanidine 4 mg capsule 4 mg PO BID PRN #60 cap 04/05/18 Topiramate [Topamax] 100 mg PO BID 04/12/18 Amlodipine [Norvasc] 5 mg PO DAILY tablet 04/13/18 Glimepiride [Amaryl] 1 mg PO DAILY@0800 tablet 04/13/18 Insulin Lispro [Humalog KwikPen] See Protocol SC ACHS insuln.pen 04/13/18 Magnesium Hydroxide [Milk Of Magnesia] 30 ml PO DAILY PRN PRN udc 04/13/18 Risperidone [Risperdal] 1 mg PO BID tablet 04/13/18 Primary Care Physician: Keren Brown NP-C [Primary Care Provider] - Please follow up with your Primary Care Physician in: within 2 weeks of discharge from psych facility Proposed Discharge Date: 04/13/18 04/13/18 1830 <Electronically signed by Clarisse Camarena MD> Date Clarisse Camarena MD CC: Marcelino Alan MD; Keren STACY BEDSIDE GLUCOSE Collected: 04/13/2018 Status: F Source: [place] 5:44 PM [facility] [place] TYPE CODE TESTS RESULT OUT OF REFERENCE UNITS RANGE LAB L501.080 70-110 mg/dL High BEDSIDE GLU 148 Result Comment: MANAGEMENT OF PATIENT CARE PER NURSING PROTOCOL Performed By: #### L501.080 #### [facility] Point of Care [address] [place] [address] 12 LEAD ELECTROCARDIOGRAM Observed: 04/13/2018 Status: F Source: [place] 4:01 PM [facility] [place] [facility] Cardiovascular Services [address] [place] [address] 12 Lead EKG 04/10/188 MR#: [id number] Acct: [id number] Name: ALICJA SANDHU Rep #: [id number] : 1975 42 From: Arsalan Sprague MD Attending Dr: Clarisse Camarena MD Status: ADM IN Ordering Dr: Ernst Mckinnon MD Date: 04/10/18 Location: ICU Sex: F C Admitted: 04/10/18 Test Reason : OVERDOSE Blood Pressure : / mmHG Vent. Rate : 102 BPM Atrial Rate : 102 BPM P-R Int : 170 ms QRS Dur : 084 ms QT Int : 392 ms P-R-T Axes : 029 025 015 degrees QTc Int : 510 ms Sinus tachycardia Otherwise normal ECG Confirmed by ARSALAN SPRAGUE MD ([id number]), scientific editor SHAE DORAN ([id number]) on 04/13/2018 4:01:11 PM Referred By: GARY Confirmed By:ARSALAN SPRAGUE MD 04/13/18 1605 Date Arsalan Sprague MD CC: Clarisse Camarena MD; Ernst Mckinnon MD; Keren STACY Signed BEDSIDE GLUCOSE Collected: 04/13/2018 Status: F Source: [place] 1:04 PM [facility] [place] TYPE CODE TESTS RESULT OUT OF REFERENCE UNITS RANGE LAB L501.080 70-110 mg/dL High BEDSIDE GLU 201 Result Comment: MANAGEMENT OF PATIENT CARE PER NURSING PROTOCOL Performed By: #### L501.080 #### [facility] Point of Care [address] [place] [address] BEDSIDE GLUCOSE Collected: 04/13/2018 Status: F Source: [place] 9:23 AM [facility] [place] TYPE CODE TESTS RESULT OUT OF REFERENCE UNITS RANGE LAB L501.080 70-110 mg/dL High BEDSIDE GLU 143 Result Comment: MANAGEMENT OF PATIENT CARE PER NURSING PROTOCOL Performed By: #### L501.080 #### [facility] Point of Care [address] [place] [address] BEDSIDE GLUCOSE Collected: 04/12/2018 Status: F Source: [place] 9:13 PM [facility] [place] TYPE CODE TESTS RESULT OUT OF REFERENCE UNITS RANGE LAB L501.080 70-110 mg/dL High BEDSIDE GLU 175 Result Comment: Dr Orders Followed MANAGEMENT OF PATIENT CARE PER NURSING PROTOCOL Performed By: #### L501.080 #### [facility] Point of Care [address] [place] [address] BEDSIDE GLUCOSE Collected: 04/12/2018 Status: F Source: [place] 5:55 PM [facility] [place] TYPE CODE TESTS RESULT OUT OF REFERENCE UNITS RANGE LAB L501.080 70-110 mg/dL High BEDSIDE GLU 131 Result Comment: MANAGEMENT OF PATIENT CARE PER NURSING PROTOCOL Performed By: #### L501.080 #### [facility] Point of Care [address] [place] [address] BEDSIDE GLUCOSE Collected: 04/12/2018 Status: F Source: [place] 10:37 AM [facility] [place] TYPE CODE TESTS RESULT OUT OF REFERENCE UNITS RANGE LAB L501.080 70-110 mg/dL High BEDSIDE GLU 153 Result Comment: MANAGEMENT OF PATIENT CARE PER NURSING PROTOCOL Performed By: #### L501.080 #### [facility] Point of Care [address] [place] [address] BLOOD GASES BY CPS Collected: 04/12/2018 Status: F Source: [place] 6:25 AM [facility] [place] TYPE CODE TESTS RESULT OUT OF RANGE REFERENCE UNITS LAB L9000.9990 Normal BLD GAS TYPE ART LAB L9001.1000 Normal SITE R Radial LAB L9001.1010 Normal [place] TEST POS LAB L9001.1048 Normal Mode CPAP PS LAB L9001.1050 O2 Normal Delivery Dev Vent LAB L9001.1074 Normal FI02 35 LAB L9001.1076 Normal PEEP 5 LAB L9001.1078 PS Normal 5 LAB L9001.1104 Normal Results To ICU LAB L9001.1105 Normal Time Given 627 LAB L9001.1110 7.35-7.45 pH Normal - I-STAT 7.41 LAB L9001.1210 35-45 mmHg Normal pCO2 - ISTAT 37.6 LAB L9001.1310 75-100 mmHG Low PO2 I-STAT 57 LAB L9001.2300 22-26 mmol/L Normal HCO3 ISTAT 23.8 LAB L9001.2400 -2 to +2 mmol/L BE Normal ISTAT -1 LAB L9001.2415 mmol/L Normal TOTAL CO2 25 ISTAT LAB L9001.2425 95-99 % Low SO2 ISTAT 89 Performed By: #### L9000.0800 #### [facility] Point of Care [address] [place] [address] BEDSIDE GLUCOSE Collected: 04/12/2018 Status: F Source: [place] 6:10 AM [facility] [place] TYPE CODE TESTS RESULT OUT OF REFERENCE UNITS RANGE LAB L501.080 70-110 mg/dL High BEDSIDE GLU 135 Result Comment: MANAGEMENT OF PATIENT CARE PER NURSING PROTOCOL Performed By: #### L501.080 #### [facility] Point of Care [address] [place] [address] CONSULTATION Observed: 04/12/2018 Status: F Source: [place] 5:30 AM [facility] Medical Records Department [address] [place] [address] Consultation 04/11/18 0648 MR#: [id number] Acct: [id number] Name: ALICJA SANDHU Rep #: [id number] : 1975 42 From: Marcelino Alan MD PCP: Keren Hooker Status: ADM IN Y Location: ICU ICU-1 Problem List (1) Overdose Status: Acute Qualifiers: Encounter type: initial encounter Injury intent: intentional self-harm Qualified Code(s): T50.902A - Poisoning by unspecified drugs, medicaments and biological substances, intentional self-harm, initial encounter (2) Diabetes type 2, controlled Status: Chronic Qualifiers: Comment: Now has an apartment. Feels she is doing well. Provided with a meter and strips. Enc to check before and after meals. Is set up with counselor, healthcare social worker and psychiatrist. Looks and feels happy and she verbally confirms this. Reviewed labs, medications Reason for Consult Date of Consultation: 04/11/18 Reason for Consultation: Benadryl overdose History of Present Illness: The patient is a 42 year old F, with past medical history listed below, who presented to [facility] on 04/10/2018 following an overdose of 12 g of Benadryl. Patient was pink slipped by [place] police and history was somewhat questionable. Time of ingestion is unclear. Patient reportedly does have an extensive psychiatric history with previous suicide attempts. On presentation to the emergency room, patient's blood pressure was elevated at 183/107 with a heart rate of 130 bpm. An EKG showed an elevated QTC at 510. Patient was noted to be minimally responsive with dilated pupils bilaterally. Given patient's mental status, patient was intubated by ER staff without complication. Poison control was called and suggested benzodiazepines. Patient was initiated on a Versed drip and then transferred to the intensive care unit. Overnight, patient did have significant agitation despite Versed drip. Patient was placed on propofol with significant improvement in sedation. Versed drip is currently being weaned off. Patient is currently heavily sedated and not interacting. Remaining history is unclear. Home medications cannot be verified. Past Medical History Past Medical History (Chronic Problems): Chronic Problems (Last Reviewed 04/05/18 @ 13:34 by Rosenda Tinajero) Diabetes type 2, controlled (Chronic) Now has an apartment. Feels she is doing well. Provided with a meter and strips. Enc to check before and after meals. Is set up with counselor, healthcare social worker and psychiatrist. Looks and feels happy and she verbally confirms this. Reviewed labs, medications Medical History: Medical History (Last Reviewed 04/05/18 @ 13:34 by Rosenda Tinajero) Anxiety disorder F41.9 Asthma J45.909 Back problem M53.9 Breast lump N63.0 Chronic headaches R51 Diabetes type 2, controlled E11.9 Dx : 2006 Last exacerbation : DKA : never Hypoglycemic episode : never ER visit : never GERD (gastroesophageal reflux disease) K21.9 Hypoglycemia E16.2 IBS (irritable bowel syndrome) K58.9 Schizoaffective disorder F25.9 Seasonal allergies J30.2 Seizure disorder G40.909 Stomach ulcer K25.9 Allergies acetaminophen [From Tylenol] Allergy (Verified 04/10/18 20:55) Anaphylaxis aspirin Allergy (Verified 04/10/18 20:55) Anaphylaxis benztropine mesylate [From Cogentin] Allergy (Verified 04/10/18 20:55) Other carbamazepine [From Tegretol] Allergy (Verified 04/10/18 20:55) Rash egg Allergy (Verified 04/10/18 20:55) Other ibuprofen [From Motrin] Allergy (Verified 04/10/18 20:55) Anaphylaxis Penicillins Allergy (Verified 04/10/18 20:55) Anaphylaxis sulfamethoxazole [From Septra] Allergy (Verified 04/10/18 20:55) Anaphylaxis trimethoprim [From Septra] Allergy (Verified 04/10/18 20:55) Anaphylaxis bacitracin [From Neosporin (uds-uve-tiscw)] Adverse Reaction (Verified 04/10/18 20:55) Swelling neomycin [From Neosporin (ydz-dud-enisx)] Adverse Reaction (Verified 04/05/18 13:31) Swelling polymyxin B [From Neosporin (kmd-vub-glmhw)] Adverse Reaction (Verified 04/05/18 13:31) Swelling trazodone Adverse Reaction (Verified 04/05/18 13:31) Vomiting Home Medications: Ambulatory Orders Medication Instructions Recorded Multivitamins,Therapeutic 1 tab PO DAILY 11/07/14 [Multivitamin] Topiramate [Trokendi Xr] 100 mg PO BID 03/26/15 Dicyclomine HCl [Bentyl] 10 mg PO 4X/DAY PRN 06/18/15 Smoking Status: Unknown if ever smoked Review of Systems Unable to obtain accurate/complete ROS d/t: Intubated and sedated Patient Problems: Active and Suspected Problems (Last Reviewed 04/05/18 @ 13:34 by Rosenda Tinajero) Overdose (Acute) Objective: Multiple chest x-rays were reviewed showing endotracheal tube in good position. OG is within the stomach. No infiltrates are appreciated. - Physical Exam General: - - Intubated and sedated. RASS -4. Appears older than stated age. HEENT: Atraumatic, PERRLA, EOMI, Normocephalic, - - No scleral icterus or injection noted. Oral: Moist Mucosa, No Gingival or Mucosal Lesions/ Ulcerations Neck: Supple, No JVD, No Nodes, Trachea Midline Lungs: No rhonchi, No wheeze, No rales, Diminished, - - Symmetric expansion. No dullness to percussion. Cardiovascular: Regular rate, Regular Rhythm, Normal S1, Normal S2, No murmurs, No rub noted, No Gallop, - - Morning EKG with improvement in QTC Abdomen: Bowel Sounds Present, Soft, Non Tender, Non-Distended, Obese Extremities: No clubbing, No cyanosis, No edema, Capillary Refill Less than 3 Seconds Skin: No rashes, No breakdown Musculoskeletal: No Tenderness to Palpation of Joints or Extremities Lymphatic: No Cervical, Supraclavicular, or Inguinal Adenopathy Neurological: Neuro grossly intact, - - Withdrawal to stimulus. Motor appears intact. Positive gag and cough reflex. Psych/Mental Status: Flat Affect Vital Signs Temp Pulse Resp BP Pulse Ox 36.8 C 65 12 143/84 H 100 04/11/18 06:00 04/11/18 06:00 04/11/18 06:00 04/11/18 06:00 04/11/18 06:00 Oxygen Delivery Method Mechanical Ventilator Weight: 115.8 kg Body Mass Index (BMI) 38.6 Intake and Output for Last 24 Hours Intake Total 648 / 648 Output Total 550 / 550 Balance 98 / 98 Laboratory Tests Past 24 Hrs WBC 11.8 H WBC RBC Hgb Hct MCV MCH Clinical Impression(s) from Imaging Studies Chest X-Ray 04/10/18 22:30 Assessment/Plan Active and Suspected Problems (Last Reviewed 04/05/18 @ 13:34 by Rosenda Tinajero) Overdose (Acute) RECOMMENDATIONS: 1. Continue mechanical ventilation 2. Wean off Versed, continue propofol 3. Spontaneous breathing and awakening trials per protocol 4. Crisis evaluation upon extubation 5. Attempt to verify home medications 6. Okay to initiate tube feeds. IMPRESSIONS: 1. Acute respiratory failure secondary to coma secondary to Benadryl overdose Exact history is unclear at this time. Patient was showing symptoms consistent with Benadryl overdose. Will attempt to obtain more information through the day today. Patient did receive significant Versed overnight and is heavily sedated at this time. Will attempt to transition of propofol therapy to facilitate a spontaneous awakening and breathing trial. Will attempt to obtain home medication list so that psychiatric meds can be reinitiated. Patient will need crisis evaluation on extubation. No indication for antibiotics as there are no infiltrates on chest x-ray or fever. Leukocytosis may be secondary to acute condition. Patient will need to be monitored for urinary retention (consequence of Benadryl overdose) after Nguyen removal. 2. Type 2 diabetes mellitus Patient has a reported history of type 2 diabetes mellitus. Blood sugar was slightly elevated on presentation. Will check fingerstick blood sugars every 6 hours. Pepcid will be initiated for GI prophylaxis. Likely okay to initiate tube feeds. 3. Prolonged QT Likely toxic effect from Benadryl overdose. This has been improving with time. Will obtain an EKG every morning while in the hospital. TIME: 33 minutes critical care time spent addressing patient's acute respiratory failure, Benadryl overdose, type 2 diabetes mellitus, review of all data and collaboration with care team. (5:30 AM to 6:30 AM) Code Visit 9xxxx: [id number] Critical care first hour 04/12/18 0830 <Electronically signed by Marcelino Alan MD> Date Marcelino Alan MD Cosigner Signature (if applicable): Date CC: Marcelino Alan MD; Keren STACY Signed CBC W/DIFF, AUTOMATED Collected: 04/12/2018 Status: F Source: [place] 4:05 AM [facility] [place] TYPE CODE TESTS RESULT OUT OF RANGE REFERENCE UNITS LAB L100.1000 4.4-11.0 K/mm3 Normal WBC 10.1 LAB L100.1200 4.2-5.4 M/mm3 Low RBC 3.82 LAB L100.1300 12.0-15.0 g/dl Low HGB 11.8 LAB L100.1400 37-47 % Low HCT 35.7 LAB L100.1500 81-99 fL Normal MCV 93.5 LAB L100.1600 27.0-32.0 pg Normal MCH 30.9 LAB L100.1700 32-36 g/gl Normal MCHC 33.1 LAB L100.1810 11.6-14.6 % Normal RDW CV 14.6 LAB L100.1820 35.1-43.9 fl High RDW SD 48.1 LAB L100.1900 150-450 K/mm3 Normal PLT 207 LAB L100.2000 6.2-12.0 fl Normal MPV 8.7 LAB L100.2100 47-70 % Normal NEUT% 66.1 LAB L100.2200 19-41 % Normal LY% 21.3 LAB L100.2300 0-10 % Normal MONO% 9.8 LAB L100.2400 0-5 % Normal EO% 1.8 LAB L100.2500 0-1 % Normal BASO% 0.3 LAB L100.2550 0.0-0.9 % Normal IM GRAN % 0.700 Result Comment: IG% - Immature Granulocytes (promyelocytes, myelocytes and metamyelocytes) > 1% indicates that a LEFT SHIFT is Present. LAB L100.2620 2.0-7.7 X10 3/uL Normal Absolute Neut 6.7 LAB L100.2720 0.83-4.51 X10 3/ul Normal Absolute Lymph 2.15 Performed By: #### L100.0100 #### [facility] [address] [place], [address] BEDSIDE GLUCOSE Collected: 04/11/2018 Status: F Source: [place] 11:58 PM [facility] [place] TYPE CODE TESTS RESULT OUT OF RANGE REFERENCE UNITS LAB L501.080 70-110 mg/dL Normal BEDSIDE GLU 105 Result Comment: MANAGEMENT OF PATIENT CARE PER NURSING PROTOCOL Performed By: #### L501.080 #### [facility] Point of Care [address] [place], [place] [address] BEDSIDE GLUCOSE Collected: 04/11/2018 Status: F Source: [place] 6:09 PM [facility] [place] TYPE CODE TESTS RESULT OUT OF RANGE REFERENCE UNITS LAB L501.080 70-110 mg/dL Normal BEDSIDE GLU 77 Result Comment: MANAGEMENT OF PATIENT CARE PER NURSING PROTOCOL Performed By: #### L501.080 #### [facility] Point of Care [address] [place], [place] [address] BEDSIDE GLUCOSE Collected: 04/11/2018 Status: F Source: [place] 11:25 AM [facility] [place] TYPE CODE TESTS RESULT OUT OF RANGE REFERENCE UNITS LAB L501.080 70-110 mg/dL Normal BEDSIDE GLU 82 Result Comment: MANAGEMENT OF PATIENT CARE PER NURSING PROTOCOL Performed By: #### L501.080 #### [facility] Point of Care [address] [place] [address] ,URINE Collected: 04/11/2018 Status: F Source: [place] 9:00 AM [facility] [place] TYPE CODE TESTS RESULT OUT OF REFERENCE UNITS RANGE LAB L400.8000 Negative Normal HCGUQUAL Negative Result Comment: Very dilute urine specimens, as indicated by a low specific gravity, may not contain sales support representative levels of hCG. If is still suspected, a first morning urine specimen should be collected 48 hours later and tested. Performed By: #### L400.7600 #### [facility] [address] [place], [place], [address] CBC-COMPLETE BLOOD CNT Collected: 04/11/2018 Status: F Source: [place] NO DIFF 4:15 AM [facility] [place] TYPE CODE TESTS RESULT OUT OF RANGE REFERENCE UNITS LAB L100.1000 4.4-11.0 K/mm3 High WBC 11.8 LAB L100.1200 4.2-5.4 M/mm3 Low RBC 4.09 LAB L100.1300 12.0-15.0 g/dl Normal HGB 12.6 LAB L100.1400 37-47 % Normal HCT 37.5 LAB L100.1500 81-99 fL Normal MCV 91.7 LAB L100.1600 27.0-32.0 pg Normal MCH 30.8 LAB L100.1700 32-36 g/gl Normal MCHC 33.6 LAB L100.1810 11.6-14.6 % Normal RDW CV 13.9 LAB L100.1820 35.1-43.9 fl High RDW SD 46.3 LAB L100.1900 150-450 K/mm3 Normal PLT 245 LAB L100.2000 6.2-12.0 fl Normal MPV 8.8 Performed By: #### L100.0500 #### [facility] [address] [place], [address] COMPREHENSIVE METABOLIC Collected: 04/11/2018 Status: F Source: [facility] 4:15 AM [facility] [place] TYPE CODE TESTS RESULT OUT OF RANGE REFERENCE UNITS LAB L501.0100 74-106 mg/dL Normal GLU 96 Result Comment: Please note revised GLUCOSE reference range effective 2017. LAB L501.1000 7-18 mg/dL Normal BUN 9 LAB L501.1100 0.55-1.02 mg/dL Normal CREAT,SERUM 0.69 Result Comment: The validity of the calculated GFR AND GFRAA in patients over 70 years has not been determined. Clinical correlation is essential. LAB L501.1110 >60 mL/min Normal EST GFR 99 Result Comment: Non- GFR Calc LAB L501.1115 >60 mL/min Normal EST GFR - AA 120 Result Comment: GFR Calc LAB L501.1255 ml/min Normal Estimated CRCL 106.05 LAB L501.1300 10-20 RATIO BUN/CRE Normal 13.1 LAB L501.1500 6.4-8. g/dL 2 T PROT Normal 7.1 LAB L501.1800 3.2-5. g/dL Low 0 ALB 3.1 LAB L501.1950 2.2-4. g/dL 2 GLOB Normal 4.0 LAB L501.2000 0.9-2. RATIO Low 4 A/G 0.8 LAB L501.2200 8.5-10 mg/dL Low .1 CA 8.1 LAB L501.4100 15-37 U/L AST Normal 29 LAB L501.4305 45-117 U/L ALK P Normal 99 LAB L501.4405 13-56 U/L ALT Normal 25 LAB L501.4600 0.20-1 mg/dL .00 T BILI Normal 0.30 LAB L501.5300 136-14 mmol/L 5 NA Normal 143 LAB L501.5600 3.5-5. mmol/L 1 K Normal 3.6 LAB L501.5900 98-107 mmol/L CL Normal 107 LAB L501.6100 21.0-3 mmol/L 2.0 CO2 Normal 27.0 LAB L501.6200 5-15 GAP Normal 9 Performed By: #### L500.4050 #### [facility] [address] [place], [address] HEMOGLOBIN A1C Collected: 04/11/2018 Status: F Source: [place] 4:15 AM [facility] [place] Order Comment: Comments: as add on test TYPE CODE TESTS RESULT OUT OF RANGE REFERENCE UNITS LAB L501.9985 4.2-6.3 % High HGB A1C 7.4 Performed By: #### L501.9985 #### [facility] [address] [place], [address] BLOOD GASES BY CPS Collected: 04/11/2018 Status: F Source: [place] 3:02 AM [facility] [place] TYPE CODE TESTS RESULT OUT OF RANGE REFERENCE UNITS LAB L9000.9990 Normal BLD GAS TYPE ART LAB L9001.1000 Normal SITE R Radial LAB L9001.1010 Normal [place] TEST NA LAB L9001.1048 Normal Mode A-C LAB L9001.1050 O2 Normal Delivery Dev Vent LAB L9001.1060 MV Normal 6.00 LAB L9001.1065 Vt Normal 485 LAB L9001.1070 RR Normal 13 LAB L9001.1074 Normal FI02 30 LAB L9001.1076 Normal PEEP 5 LAB L9001.1104 Normal Results To HOSP MD LAB L9001.1105 Normal Time Given 305 LAB L9001.1110 7.35-7.45 pH Normal - I-STAT 7.36 LAB L9001.1210 35-45 mmHg Normal pCO2 - ISTAT 42.8 LAB L9001.1310 75-100 mmHG Normal PO2 I-STAT 98 LAB L9001.2300 22-26 mmol/L Normal HCO3 ISTAT 24.1 LAB L9001.2400 -2 to +2 mmol/L BE Normal ISTAT -1 LAB L9001.2415 mmol/L Normal TOTAL CO2 25 ISTAT LAB L9001.2425 95-99 % Normal SO2 ISTAT 97 Performed By: #### L9000.0800 #### [facility] Point of Care [address] [place] [address] EMERGENCY DEPARTMENT Observed: 04/11/2018 Status: F Source: [place] SUMMARY 12:17 AM [facility] [place] [facility] Medical Records Department [address] [place] [address] Emergency Department Summary 04/10/18 2312 MR#: [id number] Acct: [id number] Name: ALICJA SANDHU Rep #: [id number] : 1975 42 From: Ernst Mckinnon MD PCP: Keren Hooker Status: ADM IN - ER Visit Summary Date of Service: 04/10/18 Chief Complaint: Overdose History of Present Illness: The patient is a 42 F that overdosed on Benadryl. History was obtained through EMS and law enforcement the patient is unable to provide history due to her medical condition. She took 1200 mg of Benadryl. We are unsure what time. It is unclear if she took any other medications or substances. She has an extensive psychiatric history with suicidal attempts. She was pink slipped by [place] police. Physical Examination: Blood pressure 183/107. Heart rate 130. Otherwise vitals unremarkable. Afebrile. Patient is minimally responsive to pain. Pupils dilated bilaterally. Head atraumatic. Neck is nontender. Heart tachycardic but regular. Lungs clear. Abdomen soft. Skin is slightly pale but otherwise unremarkable. Patient is unable to cooperate with neurologic exam. Test Results: EKG showed sinus rhythm at a rate of 102. Normal QRS, but QTC is 510. White count 11.8. CMP unremarkable. Urinalysis negative. Troponin normal. HCG negative. Acetaminophen, salicylates normal. CPK normal. Alcohol negative. Tox pending. Emergency Department Course and Treatment: I spoke with poison control. They recommended monitoring for anticholinergic symptoms. Check CPK and QRS. Place Nguyen and monitor for 8 hours. Benzos as needed for sedation. Patient's mental status was not improving. She was intubated to protect her airway. Medicated with etomidate and succinylcholine. 7.0 ET tube was placed with direct visualization. Good color change. Bilateral breath sounds, quiet stomach. Chest x-ray confirmed placement. Patient sedated with Versed. Patient was discussed with the rehab aid and the hospitalist and will be admitted to the ICU for further monitoring and care. Treatment Plan: Above Disposition: Admission Impression: 1. Overdose on Benadryl 2. Acute respiratory failure This note was generated with [employer] dictation software. It may contain incorrect words, spelling, and punctuation that were not noted in review of the chart prior to signing ED Disposition - Plan for ED Patient: Chief Complaint: Overdose What to do if you have Problems For any increased pain, shortness of breath, bleeding, nausea or vomiting, chest pain, or any unexpected problems, contact your Primary Care Provider. Call [facility] ([phone]) or report to the closest Emergency Room. Call 911 if necessary. 04/11/18 0017 <Electronically signed by Ernst Mckinnon MD> Date Ernst Mckinnon MD Cosigner Signature (If Indicated): Date CC: Keren Lawrence [employer] Collected: 04/11/2018 Status: F Source: [place] DNA BY PCR 12:10 AM [facility] [place] TYPE CODE TESTS RESULT OUT OF RANGE REFERENCE UNITS LAB L8200.1100 Negative Normal MRSA Negative RESULT Performed By: #### L8200.1000 #### [facility] [address] [place], [address] CHEST 1 VIEW Observed: 04/11/2018 Status: F Source: [place] (PORTABLE) 12:06 AM [facility] Imaging Services [address] [place] [address] Chest 1 View (Portable) MR#: [id number] Acct: [id number] Name: ALICJA SANDHU Rep #: [id number] : 1975 F 42 From: Emmett Delatorre MD PCP: Keren Hooker Status: ADM IN Study: Chest 1 View (Portable) Date of Exam: 04/11/18 Exam# [id number] Ordering Dr: Drake Montez MD STUDY: X-RAY CHEST REASON FOR EXAM: Female, 42 years old. Shortness of breath. Intubation. TECHNIQUE: Single AP portable view of the chest. COMPARISON: Comparison is made with prior study dated April 10, 2018. FINDINGS: An endotracheal tube is in situ. The tip is at 2.3 cm proximal to the augusto. An oral gastric tube is seen with the tip in the body of the stomach. Mild degree of increased bilateral perihilar markings suggestive of atelectasis. Follow-up is recommended. There is no demonstrated pleural abnormality. Normal size heart. Normal mediastinum and getachew. Normal visualized pulmonary arteries. Normal visualized aortic arch and descending thoracic aorta. There are degenerative changes of the visualized thoracic spine. Dextroscoliosis. Normal visualized ribs, clavicles, and shoulders. There is no demonstrated abnormality of the visualized soft tissue structures of the upper abdomen. RAD/Chest 1 View (Portable) IMPRESSION: The tip of the endotracheal tube is at 2.3 cm proximal to the augusto. Mild degree of increased bilateral perihilar markings. Electronically Signed: Emmett Delatorre MD at 9:48 EDT Tel [phone], Service support , CC: Keren STACY; Drake Montez MD Financial Management Analyst: Signed HISTORY AND PHYSICAL Observed: 04/10/2018 Status: F Source: [place] EXAM 10:46 PM [facility] [place] Medical Records Department [address] [place] [address] History and Physical 04/10/182234 MR#: [id number] Acct: [id number] Name: ALICJA SANDHU Rep #: [id number] : 1975 42 From: Drake Montez MD PCP: Keren Hooker Status: REG ER Y Location: ED Problem List (1) Overdose Status: Acute Qualifiers: Encounter type: initial encounter Injury intent: intentional self-harm Qualified Code(s): T50.902A - Poisoning by unspecified drugs, medicaments and biological substances, intentional self-harm, initial encounter (2) Diabetes type 2, controlled Status: Chronic Qualifiers: Comment: Now has an apartment. Feels she is doing well. Provided with a meter and strips. Enc to check before and after meals. Is set up with counselor, healthcare social worker and psychiatrist. Looks and feels happy and she verbally confirms this. Reviewed labs, medications History of Present Illness Date of Admission: 04/10/18 Chief Complaint: overdose The patient is a 42 year old female who reportedly ingested 1200mg of Benadryl intentionally. She is sedated and intubated at this time. Poison control was notified as was Dr Alan. Per recommendation of poison control benzodiazepines were recommended for restlessness and therefore, a versed drip was initiated. She will be placed in the ICU while on ventilator. Crisis team will need to be consulted when she is extubated. [place] slip was written by Trena BURGESS. Past Medical History Past Medical History (Chronic Problems): Chronic Problems (Last Reviewed 04/05/18 @ 13:34 by Rosenda Tinajero) Diabetes type 2, controlled (Chronic) Now has an apartment. Feels she is doing well. Provided with a meter and strips. Enc to check before and after meals. Is set up with counselor, healthcare social worker and psychiatrist. Looks and feels happy and she verbally confirms this. Reviewed labs, medications Medical History: Medical History (Last Reviewed 04/05/18 @ 13:34 by Rosenda Tinajero) Anxiety disorder F41.9 Asthma J45.909 Back problem M53.9 Breast lump N63.0 Chronic headaches R51 Diabetes type 2, controlled E11.9 Dx : 2006 Last exacerbation : DKA : never Hypoglycemic episode : never ER visit : never GERD (gastroesophageal reflux disease) K21.9 Hypoglycemia E16.2 IBS (irritable bowel syndrome) K58.9 Schizoaffective disorder F25.9 Seasonal allergies J30.2 Seizure disorder G40.909 Stomach ulcer K25.9 Allergies acetaminophen [From Tylenol] Allergy (Verified 04/10/18 20:55) Anaphylaxis aspirin Allergy (Verified 04/10/18 20:55) Anaphylaxis benztropine mesylate [From Cogentin] Allergy (Verified 04/10/18 20:55) Other carbamazepine [From Tegretol] Allergy (Verified 04/10/18 20:55) Rash egg Allergy (Verified 04/10/18 20:55) Other ibuprofen [From Motrin] Allergy (Verified 04/10/18 20:55) Anaphylaxis Penicillins Allergy (Verified 04/10/18 20:55) Anaphylaxis sulfamethoxazole [From Septra] Allergy (Verified 04/10/18 20:55) Anaphylaxis trimethoprim [From Septra] Allergy (Verified 04/10/18 20:55) Anaphylaxis bacitracin [From Neosporin (mze-fhl-zjpbt)] Adverse Reaction (Verified 04/10/18 20:55) Swelling neomycin [From Neosporin (qox-inx-mciay)] Adverse Reaction (Verified 04/05/18 13:31) Swelling polymyxin B [From Neosporin (nvm-lmk-kgzae)] Adverse Reaction (Verified 04/05/18 13:31) Swelling trazodone Adverse Reaction (Verified 04/05/18 13:31) Vomiting Home Medications: Ambulatory Orders Medication Instructions Recorded Multivitamins,Therapeutic 1 tab PO DAILY 11/07/14 [Multivitamin] Topiramate [Trokendi Xr] 100 mg PO BID 03/26/15 Dicyclomine HCl [Bentyl] 10 mg PO 4X/DAY PRN 06/18/15 Smoking Status: Unknown if ever smoked Review of Systems Unable to obtain accurate/complete ROS d/t: patient is sedated and intubated VTE Information - Inpt Only VTE Present on Admission: No VTE Mechan Device Prophylaxis: SCD's VTE Pharm Prophylaxis ordered?: No Patient Problems: Active and Suspected Problems (Last Reviewed 04/05/18 @ 13:34 by Rosenda Tinajero) Overdose (Acute) - Physical Exam General: - - sedated and intubated HEENT: Atraumatic, Normocephalic Neck: Supple Lungs: Clear to auscultation, Normal air movement Cardiovascular: Regular rate, Normal S1, Normal S2, No murmurs Abdomen: Bowel Sounds Present, Soft, Non Tender, Obese Extremities: No edema, Capillary Refill Less than 3 Seconds Skin: No rashes Musculoskeletal: No Tenderness to Palpation of Joints or Extremities Neurological: - - sedated Psych/Mental Status: Suicidal, - - unable to assess Vital Signs Temp Pulse Resp BP Pulse Ox 95 F L 88 24 H 135/116 H 99 04/10/18 22:08 04/10/18 22:08 04/10/18 22:08 04/10/18 22:08 04/10/18 22:08 Oxygen Delivery Method Mechanical Ventilator Weight: 190 lb Body Mass Index (BMI) 28.8 Finger Stick Blood Glucose 63 Laboratory Tests Past 24 Hrs Assessment/Plan All Active Problems (Last Reviewed 04/05/18 @ 13:34 by Rosenda Tinajero) Overdose (Acute) Plan - admit to ICU - consult Dr Alan - continue mechanical ventilation with Versed drip - ABG in one- two hours - CBC, CMP, CXR in am - consult Crisis team when extubated - SCDs for DVT prophylaxis Code Visit Inpatient E AND M: 69319 Init Hosp L3 04/10/18 8516 <Electronically signed by Drake Montez MD> Date Drake Montez MD Cosigner Signature: Date (if applicable) CC: Keren STACY; Drake Montez MD Signed CHEST 1 VIEW Observed: 04/10/2018 Status: F Source: [place] (PORTABLE) 10:29 PM [facility] [place] Imaging Services [address] [place] [id number] Chest 1 View (Portable) MR#: [id number] Acct: [id number] Name: ALICJA SANDHU Rep #: [id number] : 1975 F 42 From: Doug Holly MD PCP: Keren Hooker Status: ADM IN Study: Chest 1 View (Portable) Date of Exam: 04/10/18 Exam# [id number] Ordering Dr: Ernst Mckinnon MD STUDY: X-RAY CHEST REASON FOR EXAM: Female, 42 years old. ET tube placement TECHNIQUE: Single view of the chest was obtained. COMPARISON: March 25, 2018 chest radiograph FINDINGS: Endotracheal tube is seen with its tip lying approximately 2.6 cm above the augusto. Nasogastric tube is seen traversing into the stomach. No pneumothorax. Mild perihilar streaky opacities. Cardiac size mildly enlarged. IMPRESSION: Satisfactory positioning of the endotracheal and nasogastric tubes Electronically Signed: Doug Holly, at 23:00 EDT Tel , Service support , RAD/Chest 1 View (Portable) CC: Ernst Mckinnon MD; Keren STACY Financial Management Analyst: Signed URINALYSIS, COMPLETE Collected: 04/10/2018 Status: F Source: [place] 10:11 PM [facility] [place] Order Comment: How was Urine Obtained? CATHETER SPECIMEN TYPE CODE TESTS RESULT OUT OF RANGE REFERENCE UNITS LAB L400.3000 Yellow COLOR Normal Yellow LAB L400.3050 Clear Normal CLARITY Clear LAB L400.3200 Normal mg/dl Normal GLUCOSE, UR Normal LAB L400.3300 Negative mg/dL Normal BILIRUBIN URINE Negative LAB L400.3400 Negative mg/dl Normal KETONE UR Negative LAB L400.3465 1.002-1.030 Normal SP.GR. DIPSTX 1.010 LAB L400.3550 5.0 - 8.0 pH UR Normal 8.0 LAB L400.3600 Negative mg/dl PROT Normal DIPSTX Negative LAB L400.3700 Normal mg/dl Normal UROBILI Normal LAB L400.3750 Negative Normal NITRITE UR Negative LAB L400.3780 Negative /ul Normal OCCULT BLOOD-UR Negative LAB L400.3800 Negative /ul LEUK Normal ESTERASE Negative LAB L400.4050 0-5 /hpf WBC 0 Normal SEEN LAB L400.4100 0-5 /hpf 0 Normal RBC-UA SEEN LAB L400.4150 5-10 /hpf SQUAM Normal EPI 0-5 SEEN LAB L400.4300 None Seen /hpf 0 Normal BACTERIA SEEN LAB L400.4350 <or=2+ /hpf 0 Normal MUCUS, URINE SEEN Performed By: #### L400.0001 #### [facility] [address] [place], [address] URINE DRUG SCREEN Collected: 04/10/2018 Status: F Source: [place] (VISTA) 10:05 PM [facility] [place] TYPE CODE TESTS RESULT OUT OF RANGE REFERENCE UNITS LAB L505.0075 TO BE Normal CONFIRMED Result Comment: CONFIRMATORY TESTING FOR ALL POSITIVE URINE DRUG SCREEN RESULTS WILL ONLY BE SENT OUT UPON PHYSICIAN ORDER. VISTA Urine Drug Screen methods provide only preliminary analytical test results. A more specific alternate chemical method must be used in order to obtain a confirmed analytical result. Gas chromatography/mass spectrometery (GC/MS) is the preferred confirmatory method. Clinical consideration and professional judgement should be applied to any drug of abuse test result, particularly when preliminary positive results are used. URINE TCA TESTING MUST BE ORDERED SEPARATELY. USE TEST MNEMONIC: [facility] LAB L505.5005 VISTA UDS PH 7 Normal LAB L505.5015 <1000 ng/mL AMPHETAMINES Normal NEGATIVE LAB L505.5025 < 200 ng/mL BARBITIURATES Normal NEGATIVE LAB L505.5035 < 200 ng/mL BENZODIAZIPINE Normal NEGATIVE LAB L505.5045 < 300 ng/mL COCAINE Normal NEGATIVE LAB L505.5055 < 500 ng/mL ECSTACY Normal NEGATIVE LAB L505.5065 < 300 ng/mL METHADONE Normal NEGATIVE LAB L505.5075 < 300 ng/mL OPIATES Normal NEGATIVE LAB L505.5085 < 25 ng/mL PCP Normal NEGATIVE LAB L505.5095 < 50 ng/mL THC Normal NEGATIVE Performed By: #### L505.5000 #### [facility] [address] [place], [address] CBC W/DIFF, AUTOMATED Collected: 04/10/2018 Status: F Source: [place] 9:00 PM [facility] [place] TYPE CODE TESTS RESULT OUT OF RANGE REFERENCE UNITS LAB L100.1000 4.4-11.0 K/mm3 High WBC 11.8 LAB L100.1200 4.2-5.4 M/mm3 Normal RBC 4.84 LAB L100.1300 12.0-15.0 g/dl Normal HGB 14.8 LAB L100.1400 37-47 % Normal HCT 44.0 LAB L100.1500 81-99 fL Normal MCV 90.9 LAB L100.1600 27.0-32.0 pg Normal MCH 30.6 LAB L100.1700 32-36 g/gl Normal MCHC 33.6 LAB L100.1810 11.6-14.6 % Normal RDW CV 13.8 LAB L100.1820 35.1-43.9 fl High RDW SD 45.7 LAB L100.1900 150-450 K/mm3 Normal PLT 270 LAB L100.2000 6.2-12.0 fl Normal MPV 9.1 LAB L100.2100 47-70 % High NEUT% 73.0 LAB L100.2200 19-41 % Low LY% 18.9 LAB L100.2300 0-10 % Normal MONO% 6.5 LAB L100.2400 0-5 % Normal EO% 0.8 LAB L100.2500 0-1 % Normal BASO% 0.2 LAB L100.2550 0.0-0.9 % Normal IM GRAN % 0.600 Result Comment: IG% - Immature Granulocytes (promyelocytes, myelocytes and metamyelocytes) > 1% indicates that a LEFT SHIFT is Present. LAB L100.2620 2.0-7.7 X10 3/uL High Absolute Neut 8.6 LAB L100.2720 0.83-4.51 X10 3/ul Normal Absolute Lymph 2.23 Performed By: #### L100.0100 #### [facility] [address] [place], [address] ,SERUM,HCG QUALI. Collected: Status: F Source: TRENA 04/10/2018 9:00 PM [facility] TYPE CODE TESTS RESULT OUT OF REFERENCE UNITS RANGE LAB L700.7000 0-9 Nonpreg Negative Normal HCGSQUAL NEGATIVE LAB L700.6700 =>Qualitative mIU/mL Normal HCG Qual < 1 triggr Performed By: #### L700.6800 #### [facility] [address] [place], [place], [address] COMPREHENSIVE METABOLIC Collected: 04/10/2018 Status: F Source: [facility] 9:00 PM [facility] [place] TYPE CODE TESTS RESULT OUT OF RANGE REFERENCE UNITS LAB L501.0100 74-106 mg/dL High GLU 175 Result Comment: Fasting Glucose result greater than or equal to 126 mg/dL suggests DIABETES MELLITUS per A.D.A. criteria. Please note revised GLUCOSE reference range effective 2017. LAB L501.1000 7-18 mg/dL Normal BUN 9 LAB L501.1100 0.55-1.02 mg/dL Normal CREAT,SERUM 0.86 Result Comment: The validity of the calculated GFR AND GFRAA in patients over 70 years has not been determined. Clinical correlation is essential. LAB L501.1110 >60 mL/min Normal EST GFR 76 Result Comment: Non- GFR Calc LAB L501.1115 >60 mL/min Normal EST GFR - AA 92 Result Comment: GFR Calc LAB L501.1255 ml/min Normal Estimated CRCL 85.09 LAB L501.1300 10-20 RATIO Normal BUN/CRE 10.4 LAB L501.1500 6.4-8. g/dL High 2 T PROT 8.4 LAB L501.1800 3.2-5. g/dL Normal 0 ALB 3.8 LAB L501.1950 2.2-4. g/dL High 2 GLOB 4.6 LAB L501.2000 0.9-2. RATIO Low 4 A/G 0.8 LAB L501.2200 8.5-10 mg/dL Normal .1 CA 8.9 LAB L501.4100 15-37 U/L Normal AST 32 Result Comment: Moderate Hemolysis, Result may be falsely increased. LAB L501.4305 45-117 U/L High ALK P 126 LAB L501.4405 13-56 U/L Normal ALT 28 LAB L501.4600 0.20-1.00 mg/dL Normal T BILI 0.40 LAB L501.5300 136-145 mmol/L Normal NA 139 LAB L501.5600 3.5-5.1 mmol/L Normal K 3.6 Result Comment: Moderate Hemolysis, Result may be falsely increased. LAB L501.5900 98-107 mmol/L Normal CL 103 LAB L501.6100 21.0-32.0 mmol/L Normal CO2 25.0 LAB L501.6200 5-15 Normal GAP 11 Performed By: #### L500.4050 #### [facility] [address] [place], [address] CPK TOTAL, CREATINE Collected: 04/10/2018 Status: F Source: [place] KINASE 9:00 PM [facility] [place] TYPE CODE TESTS RESULT OUT OF RANGE REFERENCE UNITS LAB L501.3620 26-192 U/L Normal CPK TOTAL 161 Result Comment: Moderate Hemolysis, Result may be falsely increased. Performed By: #### L501.3620, L501.4010 #### [facility] [address] [place], [address] TROPONIN-I Collected: 04/10/2018 Status: F Source: [place] 9:00 PM [facility] TYPE CODE TESTS RESULT OUT OF RANGE REFERENCE UNITS LAB L501.4010 <0.045 ng/mL Normal < 0.015 TROPONIN-I Result Comment: TROPONIN-I EXPECTED VALUES <0.045 Negative 0.045 - 0.590 Consistent with Cardiac Damage > OR = 0.600 Critical Value Not every elevated troponin is indicative of HI. These values should be used with clinical judgement in examining the patient's clinical picture for diagnosis. To establish a diagnosis of HI versus myocardial injury, there must be a demonstrated rise and/or fall in the troponin values, in addition to ischemic symptoms, EKG changes, new regional wall motion abnormality, and/or angiographical evidence. PLEASE NOTE: REFERENCE RANGES EDITED 18 Performed By: #### L501.3620, L501.4010 #### [facility] [address] [place], [address] ALCOHOL, BLOOD Collected: 04/10/2018 Status: F Source: [place] (MEDICAL)-SERUM 9:00 PM [facility] TYPE CODE TESTS RESULT OUT OF RANGE REFERENCE UNITS LAB L501.9100 mg/dL Normal SERUM 6.0 ETOH Result Comment: The serum:whole blood ethanol ratio is approximately 1.14 and varies slightly with hematocrit. Medical Alcohol reference interval and critical value in non-tolerant individuals; 50 - 100 Impairment 100 Intoxication 100 - 250 Severe Poisoning 250 - 400 Deep/possible fatal coma Performed By: #### L501.9100 #### [facility] [address] [place], [place], [address] SALICYLATE Collected: 04/10/2018 Status: F Source: [place] 9:00 PM [facility] TYPE CODE TESTS RESULT OUT OF REFERENCE UNITS RANGE LAB L501.8300 2.8-20.0 mg/dL Low SALICYLATE < 1.7 Performed By: #### L501.8300, L501.8400 #### [facility] [address] [place], [address] ACETAMINOPHEN (TYLENOL) Collected: 04/10/2018 Status: F Source: [place] LEVEL 9:00 PM [facility] [place] TYPE CODE TESTS RESULT OUT OF REFERENCE UNITS RANGE LAB L501.8400 10.0-30.0 ug/mL ACETAMINOPHEN Low < 2.0 Performed By: #### L501.8300, L501.8400 #### [facility] [address] [place], [place], [address] ENDOCRINOLOGY VISIT Observed: 04/08/2018 Status: F Source: [place] REPORT 10:46 AM [facility] [place] [address] [place], [place] [address] OFFICE VISIT Date of Service: 04/05/18 MR#: [id number] Acct: [id number] Name: ALICJA SANDHU Rep #: [id number] : 1975 Provider: Bernarda Matos NP Age/Sex: 42/F Location[place] [facility] [place] Status: Signed HPI History of present illness Alicja Sandhu is a 42 year old female who presents today for diabetes type 2 controlled. Diagnnosed in 2006. Currently she does not have ameter for slef monitoringg of BG but recently A1c notes she is controlled. She presents today with her healthcare social worker Pat. At time of visit: -Pt denies symptoms of hypertensive emergency (CP,SOB,PRUITT, or blurred vision) and hypotension(dizziness or lightheadedness) -Pt denies symptoms of hypoglycemia ( sweaty, confusion, anxiety, tremor, hunger, palpitations) and hyperglycemia ( polydipsia, polyuria) -Pt denies potential medication adverse effect. Since our last visit he denies excessive thirst, increased frequency of urination, chest pain or dyspnea. Follows a varied diet, SMBG No meter Exercise No routine exercise I active Walks most days Diet 2-3 meals daily Understands carb counting Does not carb count her meals Has a counselor she sees routinely Has a pschiatrist she sees routinely Has new PCP Type: type 2 Weight and fatigue symptoms: Reports not sleeping well; denies snoring Cardiopulmonary symptoms: Denies chest pain at rest, dyspnea on exertion, lightheadedness or myalgias GI symptoms: Reports diarrhea; denies constipation, nausea/dyspepsia or vomiting Other symptoms: Denies blurry vision or change in vision Self monitoring: No Percentage of fasting blood glucose within goal: most of the time Dietary compliance: Diabetes: other Diabetes education in past year: Yes Glucose testing: demonstrates correct use of meter Sick day education - understands ketone testing: Yes Physical activity: regular Exam Const General: comfortable, well groomed Nutritional Appearance: well nourished, overweight Orientation: oriented x3 HENMT Head: normal to inspection Ears: hearing grossly normal bilaterally Nose: external nose normal Face and sinus: normal facial exam Mouth: oral mucosae normal, moist mucous membranes Teeth and gingiva: dentition normal Eyes General: appearance normal, both eyes and all related structures Eyelids: eyelids normal Conjunctivae: conjunctivae normal Sclera: sclerae normal Pupils: PERRL Neck Neck: normal visual inspection, full ROM Neck mass: No Resp Effort AND Inspection: normal respiratory effort, able to speak in complete sentences, symmetric chest movement Auscultation: Bilateral: Clear to Auscultation Cardio Rate: regular rate Rhythm: regular rhythm Heart Sounds: S1 normal, S2 normal, no murmurs, no rubs GI Inspection: normal to inspection Auscultation: normal bowel sounds Palpation: soft, no guarding Skin General: no rashes or lesions noted Wounds: no wounds Diabetic Foot Pulses: L dorsalis pedis pulse: normal, R dorsalis pedis pulse: normal Monofilament test: Left foot: normal, Right foot: normal Neuro General: CN's II-XI intact bilaterally, moves all extremities Extrem General: normal to inspection, normal capillary refill Psych Appearance: grossly normal, well kempt Mood: congruent mood Affect: normal affect Speech and Movement: speech and movement normal Attitude: cooperative Thought Process: normal Thought Content: normal Judgment: judgment good Intake Vital Signs04/05/18 Height 5 ft 4 in 04/05/18 Weight: 257 lb 4 oz 04/05/18 Body Mass Index (BMI) 44.1 04/05/18 Blood Pressure 148/75 04/05/18 Blood Pressure Location Lt popliteal 04/05/18 Blood Pressure Position Sitting 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: No Accompanied by: Friend Is patient in pain?: No Allergies acetaminophen [From Tylenol] Allergy (Verified 04/05/18 13:31) Anaphylaxis aspirin Allergy (Verified 04/05/18 13:31) Anaphylaxis benztropine mesylate [From Cogentin] Allergy (Verified 04/05/18 13:31) Other carbamazepine [From Tegretol] Allergy (Verified 04/05/18 13:31) Rash egg Allergy (Verified 04/05/18 13:31) Other ibuprofen [From Motrin] Allergy (Verified 04/05/18 13:31) Anaphylaxis Penicillins Allergy (Verified 04/05/18 13:31) Anaphylaxis sulfamethoxazole [From Septra] Allergy (Verified 04/05/18 13:31) Anaphylaxis trimethoprim [From Septra] Allergy (Verified 04/05/18 13:31) Anaphylaxis bacitracin [From Neosporin (vmo-nga-hahys)] Adverse Reaction (Verified 04/05/18 13:31) Swelling neomycin [From Neosporin (pia-ste-idzeq)] Adverse Reaction (Verified 04/05/18 13:31) Swelling polymyxin B [From Neosporin (cif-jby-byymq)] Adverse Reaction (Verified 04/05/18 13:31) Swelling trazodone Adverse Reaction (Verified 04/05/18 13:31) Vomiting Medications Multivitamins,Therapeutic [Multivitamin] 1 tab PO DAILY 11/07/14 [History Confirmed 04/05/18] Topiramate [Trokendi Xr] 100 mg PO BID 03/26/15 [History Confirmed 04/05/18] Dicyclomine HCl [Bentyl] 10 mg PO 4X/DAY PRN 06/18/15 [History Confirmed 04/05/18] Prazosin HCl [Minipress] 5 mg PO QHS 06/18/15 [History Confirmed 04/05/18] Hydroxyzine Pamoate 100 mg PO QHS 08/01/16 [History Confirmed 04/05/18] Pantoprazole Sodium [Protonix] 40 mg PO DAILY 09/22/17 [History Confirmed 04/05/18] Cetirizine HCl [All Day Allergy] 10 mg PO DAILY 01/17/18 [History Confirmed 04/05/18] Mirtazapine [Remeron] 15 mg PO QHS 01/17/18 [History Confirmed 04/05/18] Sertraline HCl [Zoloft] 50 mg PO DAILY 01/17/18 [History Confirmed 04/05/18] tizanidine 4 mg capsule 4 mg PO BID PRN #60 cap 04/05/18 [Rx Confirmed 04/05/18] Is last menstrual period known: No Post menopausal: No Patient : No Nurse's Note: blood sugars : low : high : [facility] Medical History Anxiety disorder (Acute) Asthma (Acute) Back problem (Acute) Breast lump (Acute) Chronic headaches (Acute) Diabetes type 2, controlled (Acute) GERD (gastroesophageal reflux disease) (Acute) Hypoglycemia (Acute) IBS (irritable bowel syndrome) (Acute) Schizoaffective disorder (Acute) Seasonal allergies (Acute) Seizure disorder (Acute) Stomach ulcer (Acute) Social History Smoking Status: Never smoker second hand exposure: No alcohol intake: never substance use type: does not use ROS Const Constitutional: Positive for fatigue; no anorexia, body ache, chills, fever(s), frequent falls, decreased energy, malaise, night sweats, weakness, weight change, sleep problems, abnormal sleep pattern, change in appetite, other, headache(s), snoring or excessive sweating Eyes Eyes: Positive for eye pain; no blurry vision, change in vision, double vision, discharge, dry eyes, bulging eyes, floaters, visual disturbances, light sensitivity, spots in vision, tunnel vision or other ENT ENT: No abnormal hearing, ear pain, ear discharge, ear pressure, hearing loss, tinnitus, dizziness/vertigo, balance problems, nosebleed/epistaxis, nasal congestion, nasal obstruction, nose pain, sinus pressure, sinus pain, nasal discharge, post nasal drip, headache(s), facial pain, dental pain, dry mouth, difficulty swallowing, bad breath, hoarseness, lip swelling, mouth lesions, mouth pain, sore throat, tongue swelling, throat swelling, other or neck pain Resp Respiratory: No cough, change in phlegm color, chest congestion, excessive phlegm production, hemoptysis, pain on inspiration, shortness of breath, pain with cough, snoring, stridor, wheezing or other Cardio Cardiology: No chest pain at rest, chest pain with exertion, leg pain with exertion, excessive sweating, shortness of breath, dyspnea on exertion, generalized swelling, irregular heart rhythm, lightheadedness, orthopnea, radiating jaw, neck or arm pain, fast heart rate, slow heart rate, palpitations or other Gastro GI: Positive for diarrhea and heartburn; no abdominal pain, belching, bloating, change in bowel habits, change in stool character, coffee ground emesis, constipation, cramping, feeling full early, excessive flatus, incontinent of stools, Vomiting blood/hematemesis, blood in stool, loose stools, Black,tarry stools, nausea/dyspepsia, pain with swallowing, vomiting, other or difficulty swallowing Genitourinary-Female: No difficulty urinating, burning urination, painful urination, urinary incontinence, urinary frequency, urinary urgency, urinary hesitancy, urinary retention, blood in urine, Frequent nighttime urination/ nocturia, post void dribbling, suprapubic fullness, side pain, sexual problems, genital lesions, genital itching, hot flashes, abnormal periods, abnormal vaginal bleeding, absent period, painful periods, light periods, heavy periods, difficulty getting , painful intercourse, pelvic pain, vaginal dryness, vaginal odor, Vaginal Itching or other Musc Musculoskeletal: Positive for back pain; no abnormal walking, joint pain, deformity, joint swelling, limited range of motion, loss of height, muscle cramps, muscle weakness, decreased muscle mass, body aches, neck pain, numbness, radiating pain into limb, stiffness, tingling or other Skin Skin: No acne, hair loss, change in hair, nail changes, boil, change in skin color, dry skin, redness, excessive hair growth, yellowing of the skin, lesions, itching, rash, skin pain, skin ulcer, sores, skin swelling, wounds or other Breast Breast: No other Neuro Neurology: No frequent falls, weakness, abnormal hearing, headache(s), visual disturbances, abnormal walking, numbness or tingling Psych Psychiatric: No abnormal sleep pattern, No change in appetite Endo Endocrine: Positive for fatigue; no other or excessive sweating Aller/Imm Allergy/Immunologic: No lip swelling, tongue swelling, throat swelling, wheezing or itchy eyes Assessment AND Plan Problems 1. Controlled type 2 diabetes mellitus without complication, without long-term current use of insulin E11.9 Plan Check Bg readings consistently Call with any concerns or change in condition RTC 3 months Medications New: Plan Detail Additional Comments 1. Please schedule follow up in 3 months. 2. Lab work one week before appointment. 3. Discussed importance of regular exercise and recommend starting or continuing a regular exercise program for good health. 4. The patient was encouraged to lose weight for good health 5. The importance of monitoring blood sugar regularly was reviewed. 6. The importance of monitoring the HBA1c level regularly was reviewed. 7. The importance of prper foot care and regularly checking feet to prevent sores and loss of limbs was reviewed. 8. The importance of keeping BP at or below 130/80 to prevent stroke, heart attacks, kidney failure, blindness was reviewed. Spent approximately 30 minutes with patient with over 50% of time spent in discussion and counseling regarding medication adjustment, symptoms and treatment of hypoglycemia, diet adherence, and checking BG before driving. 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 This patient may have a combination of paper and electronic documentation or all paper documentation. All documentation is viewable within the e-chart portion of [employer] for each patient visit. CHEST 1 VIEW Observed: 03/26/2018 Status: F Source: [place] (PORTABLE) 3:33 PM [facility] Imaging Services [address] [place] [address] Chest 1 View (Portable) MR#: [id number] Acct: [id number] Name: ALICJA SANDHU Rep #: [id number] : 1975 F 42 From: Carolina Stahl MD PCP: Keren Hooker Status: REG ER Study: Chest 1 View (Portable) Date of Exam: 03/25/18 Exam# [id number] Ordering Dr: Viridiana Stark MD STUDY: X-RAY CHEST REASON FOR EXAM: Female, 42 years old. Palpitations. TECHNIQUE: Single AP portable view of the chest. COMPARISON: November 28, 2017. FINDINGS: The lungs are mildly underexpanded with crowding of the bronchovascular markings. There is interstitial thickening present at the lung bases. There is no demonstrated pleural abnormality. There is borderline cardiomegaly. Normal mediastinum and getachew. Normal visualized pulmonary arteries. Normal visualized aortic arch and descending thoracic aorta. Normal visualized thoracic spine. Normal visualized ribs, clavicles, and shoulders. There is no demonstrated abnormality of the visualized soft tissue structures of the upper abdomen. RAD/Chest 1 View (Portable) IMPRESSION: Borderline cardiomegaly and mild pulmonary congestion. Electronically Signed: Carolina Stahl MD at 5:01 EDT , Service support , CC: Viridiana Stark MD; Keren STACY Financial Management Analyst: Signed URINALYSIS, COMPLETE Collected: 03/25/2018 Status: F Source: [place] 6:00 AM [facility] Order Comment: RESULT(S) PREVIOUSLY REPORTED ON MANUAL REQUISITION DURING DOWNTIME. ORDERED FROM DT REQUISITION How was Urine Obtained? CLEAN CATCH TYPE CODE TESTS RESULT OUT OF RANGE REFERENCE UNITS LAB L400.3000 Yellow COLOR Normal Yellow LAB L400.3050 Clear Normal CLARITY Clear LAB L400.3200 Normal mg/dl Normal GLUCOSE, UR NEGATIVE LAB L400.3300 Negative mg/dL Normal BILIRUBIN URINE Negative LAB L400.3400 Negative mg/dl Normal KETONE UR Negative LAB L400.3465 1.002-1.030 Normal SP.GR. DIPSTX 1.010 LAB L400.3550 5.0 - 8.0 pH UR Normal 6.5 LAB L400.3600 Negative mg/dl PROT Normal DIPSTX Negative LAB L400.3700 Normal mg/dl Normal UROBILI Normal LAB L400.3750 Negative Normal NITRITE UR Negative LAB L400.3780 Negative /ul Normal OCCULT BLOOD-UR Negative LAB L400.3800 Negative /ul LEUK Normal ESTERASE Negative LAB L400.4050 0-5 /hpf WBC 0 Normal SEEN LAB L400.4100 0-5 /hpf 0 Normal RBC-UA SEEN LAB L400.4150 5-10 /hpf SQUAM 0 Normal EPI SEEN LAB L400.4300 None Seen /hpf 0 Normal BACTERIA SEEN LAB L400.4350 <or=2+ /hpf 0 Normal MUCUS, URINE SEEN Performed By: #### L400.0001 #### [facility] [address] [place], [place], [id number] URINE DRUG SCREEN Collected: 03/25/2018 Status: F Source: [place] (VISTA) 5:04 AM [facility] Order Comment: List of Drugs Taken or Suspected? . TYPE CODE TESTS RESULT OUT OF RANGE REFERENCE UNITS LAB L505.0075 TO BE Normal CONFIRMED Result Comment: CONFIRMATORY TESTING FOR ALL POSITIVE URINE DRUG SCREEN RESULTS WILL ONLY BE SENT OUT UPON PHYSICIAN ORDER. VISTA Urine Drug Screen methods provide only preliminary analytical test results. A more specific alternate chemical method must be used in order to obtain a confirmed analytical result. Gas chromatography/mass spectrometery (GC/MS) is the preferred confirmatory method. Clinical consideration and professional judgement should be applied to any drug of abuse test result, particularly when preliminary positive results are used. URINE TCA TESTING MUST BE ORDERED SEPARATELY. USE TEST MNEMONIC: [facility] LAB L505.5005 VISTA UDS PH Test Normal not performed LAB L505.5015 <1000 ng/mL AMPHETAMINES Normal NEGATIVE LAB L505.5025 < 200 ng/mL BARBITIURATES Normal NEGATIVE LAB L505.5035 < 200 ng/mL BENZODIAZIPINE Normal NEGATIVE LAB L505.5045 < 300 ng/mL COCAINE Normal NEGATIVE LAB L505.5055 < 500 ng/mL ECSTACY Normal NEGATIVE LAB L505.5065 < 300 ng/mL METHADONE Normal NEGATIVE LAB L505.5075 < 300 ng/mL OPIATES Normal NEGATIVE LAB L505.5085 < 25 ng/mL PCP Normal NEGATIVE LAB L505.5095 < 50 ng/mL THC Normal NEGATIVE Performed By: #### L505.5000 #### [facility] [place], [address] ALCOHOL, BLOOD Collected: 03/25/2018 Status: F Source: [place] (MEDICAL)-SERUM 5:04 AM [facility] Order Comment: RESULT(S) PREVIOUSLY REPORTED ON MANUAL REQUISITION DURING DOWNTIME. TYPE CODE TESTS RESULT OUT OF RANGE REFERENCE UNITS LAB L501.9100 mg/dL Normal SERUM 8.0 ETOH Result Comment: The serum:whole blood ethanol ratio is approximately 1.14 and varies slightly with hematocrit. Medical Alcohol reference interval and critical value in non-tolerant individuals; 50 - 100 Impairment 100 Intoxication 100 - 250 Severe Poisoning 250 - 400 Deep/possible fatal coma Performed By: #### L501.9100 #### [facility] [address] [place], [address] BASIC METABOLIC Collected: 03/25/2018 Status: F Source: [place] PROFILE ([facility]) 5:04 AM [facility] Order Comment: RESULT(S) PREVIOUSLY REPORTED ON MANUAL REQUISITION DURING DOWNTIME. 'TROP' Serial specimen #1, #2, #3, or #4: 1 TYPE CODE TESTS RESULT OUT OF RANGE REFERENCE UNITS LAB L501.0100 74-106 mg/dL High GLU 237 Result Comment: Glucose result greater than or equal to 200 mg/dL suggests DIABETES MELLITUS per A.D.A. criteria. Please note revised GLUCOSE reference range effective 2017. LAB L501.1000 7-18 mg/dL Normal BUN 14 LAB L501.1100 0.55-1.02 mg/dL Normal CREAT,SERUM 0.84 Result Comment: The validity of the calculated GFR AND GFRAA in patients over 70 years has not been determined. Clinical correlation is essential. LAB L501.1110 >60 mL/min Normal EST GFR 79 LAB L501.1115 >60 mL/min Normal EST GFR - AA 96 LAB L501.1300 10-20 RATIO Normal BUN/CRE 16.7 LAB L501.2200 8.5-10.1 mg/dL Low CA 8.1 LAB L501.5300 136-145 mmol/L Normal NA 140 LAB L501.5600 3.5-5.1 mmol/L Normal K 3.5 LAB L501.5900 98-107 mmol/L Normal CL 105 LAB L501.6100 21.0-32.0 mmol/L Normal CO2 24.0 LAB L501.6200 5-15 Normal GAP 11 Performed By: #### L500.2500, L501.4010 #### [facility] [address] [place], [place], [address] TROPONIN-I Collected: 03/25/2018 Status: F Source: [place] 5:04 AM [facility] Order Comment: RESULT(S) PREVIOUSLY REPORTED ON MANUAL REQUISITION DURING DOWNTIME. 'TROP' Serial specimen #1, #2, #3, or #4: 1 TYPE CODE TESTS RESULT OUT OF RANGE REFERENCE UNITS LAB L501.4010 <0.045 ng/mL Normal < 0.015 TROPONIN-I Result Comment: TROPONIN-I EXPECTED VALUES <0.045 Negative 0.045 - 0.590 Consistent with Cardiac Damage > OR = 0.600 Critical Value Not every elevated troponin is indicative of HI. These values should be used with clinical judgement in examining the patient's clinical picture for diagnosis. To establish a diagnosis of HI versus myocardial injury, there must be a demonstrated rise and/or fall in the troponin values, in addition to ischemic symptoms, EKG changes, new regional wall motion abnormality, and/or angiographical evidence. PLEASE NOTE: REFERENCE RANGES EDITED 18 Performed By: #### L500.2500, L501.4010 #### [facility] [address] [place], [address] CBC W/DIFF, AUTOMATED Collected: 03/25/2018 Status: F Source: [place] 5:04 AM [facility] Order Comment: RESULT(S) PREVIOUSLY REPORTED ON MANUAL REQUISITION DURING DOWNTIME. TYPE CODE TESTS RESULT OUT OF RANGE REFERENCE UNITS LAB L100.1000 4.4-11.0 K/mm3 Normal WBC 8.5 LAB L100.1200 4.2-5.4 M/mm3 Low RBC 4.18 LAB L100.1300 12.0-15.0 g/dl Normal HGB 12.8 LAB L100.1400 37-47 % Normal HCT 38.2 LAB L100.1500 81-99 fL Normal MCV 91.4 LAB L100.1600 27.0-32.0 pg Normal MCH 30.6 LAB L100.1700 32-36 g/gl Normal MCHC 33.5 LAB L100.1810 11.6-14.6 % Normal RDW CV 13.4 LAB L100.1820 35.1-43.9 fl High RDW SD 44.5 LAB L100.1900 150-450 K/mm3 Normal PLT 208 LAB L100.2000 6.2-12.0 fl Normal MPV 8.7 LAB L100.2100 47-70 % Normal NEUT% 69.0 LAB L100.2200 19-41 % Normal LY% 21.3 LAB L100.2300 0-10 % Normal MONO% 6.8 LAB L100.2400 0-5 % Normal EO% 1.9 LAB L100.2500 0-1 % Normal BASO% 0.2 LAB L100.2550 0.0-0.9 % Normal IM GRAN % 0.800 Result Comment: IG% - Immature Granulocytes (promyelocytes, myelocytes and metamyelocytes) > 1% indicates that a LEFT SHIFT is Present. LAB L100.2620 2.0-7.7 X10 3/uL Normal Absolute Neut 5.8 LAB L100.2720 0.83-4.51 X10 3/ul Normal Absolute Lymph 1.80 Performed By: #### L100.0100 #### [facility] [address] [place], [address] CNOV Observed: 02/09/2018 Status: COMPLETED Source: [place] 11:00 AM [facility] REPOSITORY [facility] ALICJA SANDHU ([id number]) 1975 F Date Time Provider Department 02/09/18 11:00 AM [facility] During [facility] visit today, we recorded the following information about you: Pulse Respiration Blood pressure Weight 80/minute 16/minute 142/90 115.7 kg Melissa Weiss APRN.CNP 02/09/2018 11:57 AM Signed 02/09/2018 Patient presents with: Recheck: follow up for neck and back pain SUBJECTIVE: This is a 42 year old that is here today for Above Complaints. Years ago was moving a large TV and pulled her nuck and back muscles on the right side. Has been taking Zanaflex 4 mg twice daily since that time. She had to stop in June d/t ANDquot;no insurance.ANDquot; She has seen Dr. Flores for pain management in the past and she reprots he is the one that had originally placed her this medication. Last week she was reaching for something and flelt her neck muscle and lower back muscles get tight and start to spasm. Pain is described as tightnessANDquot; and ANDquot;spasming.ANDquot; Rated as a 5/10 today. Aggravated by bending to the right or turning next to the right. No alleviating factors. Has tried tylenol. Denies fever, joint swelling/erythema/warmth, extremity numbness tingling, or weakness, urinary/bowel difficulties or incontinence. PAST MEDICAL HISTORY Diagnosis Date - Dissociative identity disorder - EXTRINSIC ASTHMA UNSPECIFIED 09/01/2005 - GERD (gastroesophageal reflux disease) - HTN (hypertension) - Hyperlipidemia - IBS (irritable bowel syndrome) - Morbid obesity (HCC) - Other convulsions Neurology Dr. Casanova - Personal history of allergy, other than to medicinal agents, presenting hazards to health - PTSD (post-traumatic stress disorder) - SLEEP APNEA NOS 09/01/2005 not on CPAP, has lost significant amount weight since diagnosis - Suicidal thoughts 11/23/2009 Hospitalized at [facility] for Suicidal Thoughts - Suicidal thoughts February 2010 Hospitalized at [facility] in [place] - Type II or unspecified type diabetes mellitus without mention of complication, uncontrolled - Unspecified schizophrenia Schizophrenia. Seeing Dr. Cabrera ALLERGIES Lovastatin; Advil [Ibuprofen]; Ambien [Zolpidem Tartrate]; Asa [Salicylates]; Cogentin [Benztropine Mesylate]; Egg; Glucophage [Metformin Hcl]; Woodworth, Woodworth Oil; Penicillins; Septra [Sulfamethoxazole-Trimethoprim]; Tegretol [Carbamazepine]; Trazodone; Tylenol [Acetaminophen] MEDICATIONS Current Outpatient Prescriptions: metFORMIN ER (GLUCOPHAGE XR) 500 mg 24 hr tablet Take 1 tablet by mouth twice daily before meals. tiZANidine (ZANAFLEX) 4 mg tablet Take 1 tablet by mouth twice daily. DAILY VITES/IRON tab TAKE 1 TABLET BY MOUTH ONCE DAILY. cetirizine (ZYRTEC) 10 mg tablet TAKE 1 TABLET BY MOUTH DAILY FOR ALLERGIES sertraline (ZOLOFT) 50 mg tablet Take 50 mg by mouth once daily. mirtazapine (REMERON) 15 mg tablet Take 15 mg by mouth daily at bedtime. prazosin (MINIPRESS) 5 mg cap Take 1 capsule by mouth daily at bedtime. PTSD topiramate (TOPAMAX) 100 mg tablet Take 1 tablet by mouth twice daily. loperamide (ANTI-DIARRHEAL) 2 mg cap(s) Take 1 capsule by mouth three times daily as needed for Diarrhea. pantoprazole DR (PROTONIX) 40 mg tablet Take 1 tablet by mouth once daily. before breakfast dicyclomine (BENTYL) 10 mg capsule Take 1 capsule by mouth three times daily before meals and at bedtime. for ibs lisinopril (ZESTRIL, PRINIVIL) 10 mg tablet Take 1 tablet by mouth once daily. OXcarbazepine (TRILEPTAL) 300 mg tablet Take 1 tablet by mouth twice daily. take 300 mg a.m., take 600 mg p.m glucose (DEX4 GLUCOSE) 4 gram chewable tablet Take 4 tablets by mouth as needed for Low Blood Sugar. hydrOXYzine HCl (ATARAX) 50 mg tablet Take 1 tablet by mouth every 6 hours as needed for Itching/Rash. or anxiety aluminum-magnesium hydroxide-simethicone (MAALOX,MYLANTA,MAG- AL PLUS) 200-200-20 mg/5 mL suspension Take 10 mL by mouth every 6 hours as needed (for indigestion). albuterol HFA (PROAIR HFA) 90 mcg/actuation inhaler Inhale 2 Puffs as instructed every 4 hours as needed for Wheezing/Shortness of Breath. loratadine (CLARITIN) 10 mg tablet TAKE 1 TABLET DAILY blood sugar diagnostic (FREESTYLE LITE STRIPS) test strip TEST BLOOD SUGARS 6 TIMES DAILY Dx 250.00 Lancets (FREESTYLE LANCETS) lancets Use as instructed 3-4 times daily No current facility-administered medications for this visit. Medications and allergies reviewed by this provider. SOCIAL HISTORY Social History Marital status: Single Spouse name: Years of education: 12 Number of children: 0 Occupational History Occupation Employer Comment Unemployed Social History Main Topics Smoking status: Never Smoker Smokeless status: Never Used Alcohol use: No Comment: admits to periods of excessive ETOH use- states that she currently cannot afford ETOH. Drug use: No Sexual activity: No Comment: mirena REVIEW OF SYSTEMS All other reviewed and negative other than HPI. OBJECTIVE: BP 142/90 (BP Site: Right Arm, BP Position: Sitting, BP Cuff Size: Large Adult) Pulse 80 Resp 16 Wt 115.7 kg (255 lb 1.9 oz) BMI 44.14 kg/m2. Vital signs reviewed by this provider. General appearance: Well appearing, alert, in no acute distress, well-hydrated, well nourished. Skin: Skin color, texture, turgor normal, no suspicious rashes or lesions Neck: TTP to right trapezius with rotation to the right limited d/t pain. Normal flexion, extension, and left lateral rotation Back: Normal exam, mild pain to palpation in the LS spine right, negative findings: symmetric, no skin lesions, erythema, or scars, positive findings: limitation of motion - rotation: mild, paraspinal muscle spasm Lungs: Lungs clear to auscultation. No wheezing, rhonchi, rales Heart: RRR without murmur, gallop, or rubs. No ectopy Extremities: No deformities, edema, skin discoloration, clubbing or cyanosis. Good capillary refill. , Negative findings: Strength normal, Musculoskeletal: No joint swelling, deformity, or tenderness Peripheral pulses: Normal Neuro: Gait normal. Reflexes normal and symmetric. Sensation grossly intact. ASSESSMENT/PLAN: 1. Chronic right-sided low back pain without sciatica - ICD9: 724.2, 338.29, ICD10: M54.5, G89.29 (primary diagnosis) Acute on chronic - no red flag symptoms -red flag symptoms discussed, patient verbalizes understanding - Warm moist heat for 20 min three times a day - Muscle relaxant- see orders - PT consult - Follow up in with primary care provider or sooner if symptoms persist or worsen - CONSULT TO PHYSICAL THERAPY 2. Cervical pain (neck) - ICD9: 723.1, ICD10: M54.2 - as above - CONSULT TO PHYSICAL THERAPY Melissa Weiss, COMPENSATION AND BENEFITS ANALYST.CAUSTIC PREPARER Prescription instructions reviewed with patient as applicable. Patient advised if symptoms do not improve or if symptoms worsen sooner, to contact their primary care physician. Potential red flag symptoms discussed with the patient. Reviewed appropriate action plan to take if red flag symptoms occur. Patient agreeable to treatment plan. Referring Provider: KATHLEEN CHAPMAN ([facility]) [[id number]] Allergies As of Date: 02/09/2018 Noted Allergy Reaction LOVASTATIN 06/09/2005 7 - Swelling Comments: Severe Leg Edema ADVIL (IBUPROFEN) 07/13/2006 14 - Other: See Comments Comments: Lip and tongue swelling- tolerated 2011 without adverse effect AMBIEN (ZOLPIDEM TARTRATE) 05/18/2012 1 - Mental Status Change Comments: confusion; hallucinations; took more than was supposed to in this state ASA (SALICYLATES) 06/09/2005 2 - Rash COGENTIN (BENZTROPINE MESYLATE) 09/21/2005 5 - Intolerance EGG 09/21/2005 11 - Vomiting GLUCOPHAGE (METFORMIN HCL) 09/21/2005 11 - Vomiting ORANGE, ORANGE OIL 09/21/2005 PENICILLINS 06/09/2005 2 - Rash SEPTRA (SULFAMETHOXAZOLE-TRIMETHO*06/09/2005 2 - Rash TEGRETOL (CARBAMAZEPINE) 06/09/2005 5 - Intolerance TRAZODONE 05/18/2012 8 - GI Upset Comments: nausea and vomiting TYLENOL (ACETAMINOPHEN) 06/09/2005 2 - Rash Date Reviewed: 02/09/2018 Reviewed by: Tania Rojas LPN - Fully Assessed Reason for Visit: Recheck [92] Cmt: follow up for neck and back pain Primary Visit Diagnosis:Chronic right-sided low back pain without sciatica [M54.5, G89.29] Other Visit Diagnosis:Cervical pain (neck) [M54.2] Order(s):tiZANidine (ZANAFLEX) 4 mg tabletTake 1 tablet by mouth twice daily.Disp: 60 tabletRfl: 1 CONSULT TO PHYSICAL THERAPY [9032] Order #: [id number]: 1 Prescriptions as of 02/09/2018 Sig: TIZANIDINE 4 MG TABLET Take 1 tablet by mouth twice * DAILY VITES/IRON TABLET TAKE 1 TABLET BY MOUTH ONCE D* CETIRIZINE 10 MG TABLET TAKE 1 TABLET BY MOUTH DAILY * SERTRALINE 50 MG TABLET Take 50 mg by mouth once frandy* MIRTAZAPINE 15 MG TABLET Take 15 mg by mouth daily at * PRAZOSIN 5 MG CAPSULE Take 1 capsule by mouth daily* TOPIRAMATE 100 MG TABLET Take 1 tablet by mouth twice * LOPERAMIDE 2 MG CAPSULE Take 1 capsule by mouth three* PANTOPRAZOLE 40 MG TABLET,DEL* Take 1 tablet by mouth once d* DICYCLOMINE 10 MG CAPSULE Take 1 capsule by mouth three* LISINOPRIL 10 MG TABLET Take 1 tablet by mouth once d* OXCARBAZEPINE 300 MG TABLET Take 1 tablet by mouth twice * GLUCOSE 4 GRAM CHEWABLE TABLET Take 4 tablets by mouth as ne* HYDROXYZINE HCL 50 MG TABLET Take 1 tablet by mouth every * ALUMINUM-MAG HYDROXIDE-SIMETH* Take 10 mL by mouth every 6 h* ALBUTEROL SULFATE HFA 90 MCG/* Inhale 2 Puffs as instructed * LORATADINE 10 MG TABLET TAKE 1 TABLET DAILY BLOOD SUGAR DIAGNOSTIC STRIPS TEST BLOOD SUGARS 6 TIMES GENE* LANCETS Use as instructed 3-4 times d* More... Problem List As Of Date 02/09/2018 Noted Resolved EXTRINSIC ASTHMA UNSPECIFIED [J45.909] INVALID FOR* OBESITY NOS [E66.9] INVALID FOR* More... Sleep apnea [G47.30] INVALID FOR* More... CHRONIC RHINITIS [J31.0] MIXED HYPERLIPIDEMIA [E78.2] INVALID FOR* More... Diabetes mellitus (HCC) [E11.9] INVALID FOR* More... Esophageal reflux [K21.9] INVALID FOR*01/06/2018 INSOMNIA NOS [G47.00] INVALID FOR* Routine general medical examination at a health*INVALID FOR*10/07/2015 Hematuria [599.7] INVALID FOR* More... Schizophrenia (HCC) [F20.9] INVALID FOR* More... GERD (Gastroesophageal Reflux Disease) [K21.9] Unspecified pruritic disorder [L29.9] INVALID FOR* Vaginitis and vulvovaginitis, unspecified [N76.*INVALID FOR* Other tenosynovitis of hand and wrist [M65.849,*INVALID FOR* Iron deficiency [E61.1] INVALID FOR* Zinc deficiency [E60] INVALID FOR* Vitamin B6 deficiency [E53.1] INVALID FOR* Chronic diarrhea [K52.9] INVALID FOR* Paresthesia [R20.2] INVALID FOR* Abnormal mammogram, unspecified [R92.8] INVALID FOR* PTSD (post-traumatic stress disorder) [F43.10] INVALID FOR* Asthma [J45.909] INVALID FOR* More... HTN (hypertension) [I10] INVALID FOR* More... Obesity (BMI 35.0-39.9 without comorbidity) [E6*INVALID FOR* Disturbance in sleep behavior [G47.9] INVALID FOR* Major depressive disorder, recurrent, severe wi*INVALID FOR* More... Prescriptions ordered this encounter Disp Refills Start End TIZANIDINE 4 MG TABLET 60 t* 1 02/09/2018 Route: ORAL Sig: Take 1 tablet by mouth twice daily. Medications Discontinued During This Encounter metFORMIN ER (GLUCOPHAGE XR) 500 mg * 60 t* 11 02/02/2018 02/09/2018 Route: ORAL Sig: Take 1 tablet by mouth twice daily before meals. Disc: Discontinued by Patient tiZANidine (ZANAFLEX) 4 mg tablet 14 t* 0 02/01/2018 02/09/2018 Route: ORAL Sig: Take 1 tablet by mouth twice daily. Disc: Reason for discontinue is not on file. Follow-up and Disposition History Recorded Encounter Status:Closed by PODLOGARMELISSA CNP on 02/09/18 PROGRESS Observed: 02/09/2018 Status: COMPLETED Source: [facility] 10[facility]38 AM [facility] REPOSITORY HNO ID: [id number] Author: Melissa Carias) Podlogar Service: (none) Author Type: Nurse Practitioner Type: Progress Notes Filed: 02/09/2018 11:57 AM Note Text: 02/09/2018 Patient presents with: Recheck: follow up for neck and back pain SUBJECTIVE: This is a 42 year old that is here today for Above Complaints. Years ago was moving a large TV and pulled her nuck and back muscles on the right side. Has been taking Zanaflex 4 mg twice daily since that time. She had to stop in June d/t no insurance. She has seen Dr. Flores for pain management in the past and she reprots he is the one that had originally placed her this medication. Last week she was reaching for something and flelt her neck muscle and lower back muscles get tight and start to spasm. Pain is described as tightness and spasming. Rated as a 5/10 today. Aggravated by bending to the right or turning next to the right. No alleviating factors. Has tried tylenol. Denies fever, joint swelling/erythema/warmth, extremity numbness tingling, or weakness, urinary/bowel difficulties or incontinence. PAST MEDICAL HISTORY Diagnosis Date - Dissociative identity disorder - EXTRINSIC ASTHMA UNSPECIFIED 09/01/2005 - GERD (gastroesophageal reflux disease) - HTN (hypertension) - Hyperlipidemia - IBS (irritable bowel syndrome) - Morbid obesity (HCC) - Other convulsions Neurology Dr. Casanova - Personal history of allergy, other than to medicinal agents, presenting hazards to health - PTSD (post-traumatic stress disorder) - SLEEP APNEA NOS 09/01/2005 not on CPAP, has lost significant amount weight since diagnosis - Suicidal thoughts 11/23/2009 Hospitalized at [facility] for Suicidal Thoughts - Suicidal thoughts February 2010 Hospitalized at [facility] in [place] - Type II or unspecified type diabetes mellitus without mention of complication, uncontrolled - Unspecified schizophrenia Schizophrenia. Seeing Dr. Cabrera ALLERGIES Lovastatin; Advil [Ibuprofen]; Ambien [Zolpidem Tartrate]; Asa [Salicylates]; Cogentin [Benztropine Mesylate]; Egg; Glucophage [Metformin Hcl]; Woodworth, Woodworth Oil; Penicillins; Septra [Sulfamethoxazole-Trimethoprim]; Tegretol [Carbamazepine]; Trazodone; Tylenol [Acetaminophen] MEDICATIONS Current Outpatient Prescriptions: metFORMIN ER (GLUCOPHAGE XR) 500 mg 24 hr tablet Take 1 tablet by mouth twice daily before meals. tiZANidine (ZANAFLEX) 4 mg tablet Take 1 tablet by mouth twice daily. DAILY VITES/IRON tab TAKE 1 TABLET BY MOUTH ONCE DAILY. cetirizine (ZYRTEC) 10 mg tablet TAKE 1 TABLET BY MOUTH DAILY FOR ALLERGIES sertraline (ZOLOFT) 50 mg tablet Take 50 mg by mouth once daily. mirtazapine (REMERON) 15 mg tablet Take 15 mg by mouth daily at bedtime. prazosin (MINIPRESS) 5 mg cap Take 1 capsule by mouth daily at bedtime. PTSD topiramate (TOPAMAX) 100 mg tablet Take 1 tablet by mouth twice daily. loperamide (ANTI-DIARRHEAL) 2 mg cap(s) Take 1 capsule by mouth three times daily as needed for Diarrhea. pantoprazole DR (PROTONIX) 40 mg tablet Take 1 tablet by mouth once daily. before breakfast dicyclomine (BENTYL) 10 mg capsule Take 1 capsule by mouth three times daily before meals and at bedtime. for ibs lisinopril (ZESTRIL, PRINIVIL) 10 mg tablet Take 1 tablet by mouth once daily. OXcarbazepine (TRILEPTAL) 300 mg tablet Take 1 tablet by mouth twice daily. take 300 mg a.m., take 600 mg p.m glucose (DEX4 GLUCOSE) 4 gram chewable tablet Take 4 tablets by mouth as needed for Low Blood Sugar. hydrOXYzine HCl (ATARAX) 50 mg tablet Take 1 tablet by mouth every 6 hours as needed for Itching/Rash. or anxiety aluminum-magnesium hydroxide-simethicone (MAALOX,MYLANTA,MAG- AL PLUS) 200-200-20 mg/5 mL suspension Take 10 mL by mouth every 6 hours as needed (for indigestion). albuterol HFA (PROAIR HFA) 90 mcg/actuation inhaler Inhale 2 Puffs as instructed every 4 hours as needed for Wheezing/Shortness of Breath. loratadine (CLARITIN) 10 mg tablet TAKE 1 TABLET DAILY blood sugar diagnostic (FREESTYLE LITE STRIPS) test strip TEST BLOOD SUGARS 6 TIMES DAILY Dx 250.00 Lancets (FREESTYLE LANCETS) lancets Use as instructed 3-4 times daily No current facility-administered medications for this visit. Medications and allergies reviewed by this provider. SOCIAL HISTORY Social History Marital status: Single Spouse name: Years of education: 12 Number of children: 0 Occupational History Occupation Employer Comment Unemployed Social History Main Topics Smoking status: Never Smoker Smokeless status: Never Used Alcohol use: No Comment: admits to periods of excessive ETOH use- states that she currently cannot afford ETOH. Drug use: No Sexual activity: No Comment: mirena REVIEW OF SYSTEMS All other reviewed and negative other than HPI. OBJECTIVE: BP 142/90 (BP Site: Right Arm, BP Position: Sitting, BP Cuff Size: Large Adult) Pulse 80 Resp 16 Wt 115.7 kg (255 lb 1.9 oz) BMI 44.14 kg/m2. Vital signs reviewed by this provider. General appearance: Well appearing, alert, in no acute distress, well-hydrated, well nourished. Skin: Skin color, texture, turgor normal, no suspicious rashes or lesions Neck: TTP to right trapezius with rotation to the right limited d/t pain. Normal flexion, extension, and left lateral rotation Back: Normal exam, mild pain to palpation in the LS spine right, negative findings: symmetric, no skin lesions, erythema, or scars, positive findings: limitation of motion - rotation: mild, paraspinal muscle spasm Lungs: Lungs clear to auscultation. No wheezing, rhonchi, rales Heart: RRR without murmur, gallop, or rubs. No ectopy Extremities: No deformities, edema, skin discoloration, clubbing or cyanosis. Good capillary refill. , Negative findings: Strength normal, Musculoskeletal: No joint swelling, deformity, or tenderness Peripheral pulses: Normal Neuro: Gait normal. Reflexes normal and symmetric. Sensation grossly intact. ASSESSMENT/PLAN: 1. Chronic right-sided low back pain without sciatica - ICD9: 724.2, 338.29, ICD10: M54.5, G89.29 (primary diagnosis) Acute on chronic - no red flag symptoms -red flag symptoms discussed, patient verbalizes understanding - Warm moist heat for 20 min three times a day - Muscle relaxant- see orders - PT consult - Follow up in with primary care provider or sooner if symptoms persist or worsen - CONSULT TO PHYSICAL THERAPY 2. Cervical pain (neck) - ICD9: 723.1, ICD10: M54.2 - as above - CONSULT TO PHYSICAL THERAPY Melissa Weiss, DC.CAUSTIC PREPARER Prescription instructions reviewed with patient as applicable. Patient advised if symptoms do not improve or if symptoms worsen sooner, to contact their primary care physician. Potential red flag symptoms discussed with the patient. Reviewed appropriate action plan to take if red flag symptoms occur. Patient agreeable to treatment plan. PROGRESS Observed: 02/01/2018 Status: COMPLETED Source: [facility] 11:24 AM [facility] REPOSITORY HNO ID: [id number] Author: Kathleen (Basin Operator) Service: (none) Author Type: Nurse Practitioner Type: Progress Notes Filed: 02/01/2018 11:44 AM Note Text: Subjective HPI HPI Alicja Sandhu is a 42 year old female who presents today for CC of chronic back pain, worsened by carrying heavy back pack. Has been treated for many years with zanaflex, is out of medication, requesting refill. .No chief complaint on file. PAST MEDICAL HISTORY Diagnosis Date - Dissociative identity disorder - EXTRINSIC ASTHMA UNSPECIFIED 09/01/2005 - GERD (gastroesophageal reflux disease) - HTN (hypertension) - Hyperlipidemia - IBS (irritable bowel syndrome) - Morbid obesity (HCC) - Other convulsions Neurology Dr. Casanova - Personal history of allergy, other than to medicinal agents, presenting hazards to health - PTSD (post-traumatic stress disorder) - SLEEP APNEA NOS 09/01/2005 not on CPAP, has lost significant amount weight since diagnosis - Suicidal thoughts 11/23/2009 Hospitalized at [facility] for Suicidal Thoughts - Suicidal thoughts February 2010 Hospitalized at [facility] in [place] - Type II or unspecified type diabetes mellitus without mention of complication, uncontrolled - Unspecified schizophrenia Schizophrenia. Seeing Dr. Cabrera PAST SURGICAL HISTORY Procedure Laterality Date - BREAST BIOPSY W/STEREOTACTIC GUIDANCE 09-19-14 LEFT STEREO - BREAST BIOPSY W/ULTRASOUND GUIDANCE 07/31/14 U/S needle core medial left breast - DANDC, DIAG AND/OR THERAPEUTIC Dilation AND curettage - DANDC, DIAG AND/OR THERAPEUTIC - EGD W/O OR W/BRUSH/WASH high school EGD - EGD W/O OR W/BRUSH/WASH 03/05/2015 EGD - HYSTEROSCOPY - HYSTEROSCOPY 06/29/2012 Dr Cevallos - MIRENA IUD - PULMONARY FUNCTION TEST 12/29/04 ALLERGIES Lovastatin; Advil [Ibuprofen]; Ambien [Zolpidem Tartrate]; Asa [Salicylates]; Cogentin [Benztropine Mesylate]; Egg; Glucophage [Metformin Hcl]; Woodworth, Woodworth Oil; Penicillins; Septra [Sulfamethoxazole-Trimethoprim]; Tegretol [Carbamazepine]; Trazodone; Tylenol [Acetaminophen] MEDICATIONS tiZANidine (ZANAFLEX) 4 mg tablet Take 1 tablet by mouth twice daily. DAILY VITES/IRON tab TAKE 1 TABLET BY MOUTH ONCE DAILY. cetirizine (ZYRTEC) 10 mg tablet TAKE 1 TABLET BY MOUTH DAILY FOR ALLERGIES sertraline (ZOLOFT) 50 mg tablet Take 50 mg by mouth once daily. mirtazapine (REMERON) 15 mg tablet Take 15 mg by mouth daily at bedtime. prazosin (MINIPRESS) 5 mg cap Take 1 capsule by mouth daily at bedtime. PTSD topiramate (TOPAMAX) 100 mg tablet Take 1 tablet by mouth twice daily. loperamide (ANTI-DIARRHEAL) 2 mg cap(s) Take 1 capsule by mouth three times daily as needed for Diarrhea. pantoprazole DR (PROTONIX) 40 mg tablet Take 1 tablet by mouth once daily. before breakfast dicyclomine (BENTYL) 10 mg capsule Take 1 capsule by mouth three times daily before meals and at bedtime. for ibs lisinopril (ZESTRIL, PRINIVIL) 10 mg tablet Take 1 tablet by mouth once daily. OXcarbazepine (TRILEPTAL) 300 mg tablet Take 1 tablet by mouth twice daily. take 300 mg a.m., take 600 mg p.m glucose (DEX4 GLUCOSE) 4 gram chewable tablet Take 4 tablets by mouth as needed for Low Blood Sugar. hydrOXYzine HCl (ATARAX) 50 mg tablet Take 1 tablet by mouth every 6 hours as needed for Itching/Rash. or anxiety aluminum-magnesium hydroxide-simethicone (MAALOX,MYLANTA,MAG- AL PLUS) 200-200-20 mg/5 mL suspension Take 10 mL by mouth every 6 hours as needed (for indigestion). albuterol HFA (PROAIR HFA) 90 mcg/actuation inhaler Inhale 2 Puffs as instructed every 4 hours as needed for Wheezing/Shortness of Breath. loratadine (CLARITIN) 10 mg tablet TAKE 1 TABLET DAILY blood sugar diagnostic (FREESTYLE LITE STRIPS) test strip TEST BLOOD SUGARS 6 TIMES DAILY Dx 250.00 Lancets (FREESTYLE LANCETS) lancets Use as instructed 3-4 times daily FAMILY HISTORY Problem Relation Age of Onset - Hypertension Mother - Heart Father a fib - Thyroid Sister - Heart Maternal Grandmother - Diabetes Paternal Grandmother - Stroke Paternal Grandmother - Breast Cancer Paternal Grandmother - Hyperlipidemia Paternal Grandfather - Breast Cancer Other P great grandmother - Breast Cancer Paternal Aunt Social History Substance Use Topics - Smoking status: Never Smoker - Smokeless tobacco: Never Used - Alcohol use No Comment: admits to periods of excessive ETOH use- states that she currently cannot afford ETOH. Review of Systems Constitutional: Negative for chills, fever and weight loss. Cardiovascular: Negative for leg swelling. Gastrointestinal: Negative for abdominal pain, constipation, diarrhea, nausea and vomiting. Genitourinary: Negative for dysuria, flank pain, frequency, hematuria and urgency. Musculoskeletal: Positive for back pain and neck pain. Negative for myalgias. Skin: Negative for rash. Neurological: Negative for sensory change and focal weakness. Objective Blood pressure 120/75, pulse 80, temperature 36.2 ?C (97.2 ?F), temperature source Left Tympanic, resp. rate 16, weight 115.7 kg (255 lb). Physical Exam Constitutional: She is oriented to person, place, and time and well-developed, well-nourished, and in no distress. Non-toxic appearance. She does not have a sickly appearance. No distress. HENT: Head: Normocephalic and atraumatic. Eyes: Conjunctivae are normal. No scleral icterus. Neck: Trachea normal and normal range of motion. Cardiovascular: Normal rate, regular rhythm, S1 normal, S2 normal and normal heart sounds. Pulmonary/Chest: Effort normal and breath sounds normal. Neurological: She is alert and oriented to person, place, and time. Gait normal. Skin: She is not diaphoretic. Psychiatric: Speech is rapid/flight of idea. ASSESSMENT/PLAN: 1. Upper back pain - ICD9: 724.5, ICD10: M54.9 -will give 1 week of zanaflex. -chronic, will schedule with primary care for follow up -discussed red flags and reasons for urgent f/u Prescription instructions reviewed with patient as applicable. Patient advised if symptoms do not improve or if symptoms worsen sooner, to contact the office for further evaluation by their primary care physician. Potential red flag symptoms discussed with the patient. Reviewed appropriate action plan to take if red flag symptoms occur. Patient agreeable to treatment plan. Kathleen Chapman APRN.CAUSTIC PREPARER CBC Collected: 02/01/2018 Status: F Source: [facility] 10:36 AM [facility] REPOSITORY TYPE CODE TESTS RESULT OUT OF REFERENCE UNITS RANGE LAB WBC 3.70-11.00 k/uL WBC 9.16 LAB RBC 3.90-5.20 m/uL RBC 4.46 LAB HGB 11.5-15.5 g/dL Hemoglobin 13.9 LAB HCT 36.0-46.0 % Hematocrit 42.8 LAB MCV 80.0-100.0 fL MCV 96.0 LAB MCH 26.0-34.0 pG MCH 31.2 LAB MCHC 30.5-36.0 g/dL MCHC 32.5 LAB RDWCV 11.5-15.0 % RDW-CV 13.2 LAB PLTCT 150-400 k/uL Platelet Count 267 LAB MPV 9.0-12.7 fL MPV 9.3 LAB ABSNUC <0.01 k/uL Absolute nRBC <0.01 Performed By: #### CBC, CMP, LIPB, HBA1C #### [facility] [address] [place], [place] [address] COMP METABOLIC PANEL Collected: 02/01/2018 Status: F Source: [place] 10:36 AM [facility] REPOSITORY TYPE CODE TESTS RESULT OUT OF REFERENCE UNITS RANGE LAB TP 6.3-8.0 g/dL Protein, Total 7.7 LAB ALB 3.9-4.9 g/dL Albumin 4.4 LAB CA 8.5-10.2 mg/dL Calcium, Total 9.2 LAB TBIL 0.2-1.3 mg/dL Bilirubin, Total 0.3 LAB ALKP 32-117 U/L Alkaline Phosphatase 98 LAB AST 13-35 U/L AST 23 LAB GLU 74-99 mg/dL Glucose High 138 Result Comment: The [place] Diabetes Association (ADA) provides guidance for cutoff values for fasting glucose and random glucose. The ADA defines fasting as no caloric intake for at least 8 hours. Fas ting plasma glucose results between 100 to 125 mg/dL indicate increased risk for diabetes (prediabetes). Fasting plasma glucose results greater than or equal to 126 mg/dL meet the criteria for diagnosis of diabetes. In the absence of unequivocal hyperglycemia, results should be confirmed by repeat testing. In a patient with classic symptoms of hyperglycemia or hyperglycemic crisis, random plasma glucose results greater than or equal to 200 mg/dL meet the criteria for diagnosis of diabetes. Reference: Standards of Medical Care in Diabetes 2016, [place] Diabetes Association. Diabetes Care. 2016.39(Suppl 1). LAB BUN 7-21 mg/dL BUN 11 LAB CRET 0.58-0.96 mg/dL Creatinine 0.78 LAB NA 136-144 mmol/L Sodium 137 LAB K 3.7-5.1 mmol/L Potassium Low 3.6 LAB CL 97-105 mmol/L Chloride 98 LAB CO2 22-30 mmol/L CO2 25 LAB AGAP 9-18 mmol/L Anion Gap 14 LAB ALT 7-38 U/L ALT 20 LAB GFRAA eGFR- Amer. >60 LAB GFRNAA . eGFR-All Other Races >60 Result Comment: eGFR (Estimated GFR) Units of measure: mL/min/1.73 meters squared eGFR is derived from the reexpressed MDRD Study equation using the following parameters: serum creatinine, age, gender and race. The creatinine assay has been calibrated to be traceable to IDMS. An eGFR <60 mL/min/1.73m2 for >3 months is consistent with chronic kidney disease. Refer to KDOQI guidelines for clinical interpretation. In patients with unstable renal function, e.g. those with acute kidney injury, the eGFR may not accurately reflect actual GFR. Performed By: #### CBC, CMP, LIPB, HBA1C #### [facility] [employer] [address] [place], [place] [address] LIPID PANEL, BASIC Collected: 02/01/2018 Status: F Source: [facility] 10:36 AM [facility] REPOSITORY TYPE CODE TESTS RESULT OUT OF REFERENCE UNITS RANGE LAB CHOL <200 mg/dL Cholesterol 187 Result Comment: <200 mg/dL, Desirable 200-239 mg/dL, Borderline high >239 mg/dL, High LAB TRIGLY <150 mg/dL Triglyceride High 226 Result Comment: <150 mg/dL, Normal 150-199 mg/dL, Borderline high 200-499 mg/dL, High >499 mg/dL, Very high LAB HDL >39 mg/dL HDL-Cholesterol Low 35 Result Comment: 40-59 mg/dL, Acceptable >59 mg/dL, High: Negative risk factor for coronary heart disease <40 mg/dL, Low: Positive risk factor for coronary heart disease LAB LDL <100 mg/dL LDL-Cholesterol High 107 Result Comment: <100 mg/dL, Optimal 100-129 mg/dL, Near optimal/above optimal 130-159 mg/dL, Borderline high 160-189 mg/dL, High >189 mg/dL, Very high Secondary prevention optimal LDL Cholesterol levels are recommended to be < 70 mg/dL LAB NONHDL <130 mg/dL Non HDL High Cholesterol 152 Result Comment: <130 mg/dL, Optimal 130-159 mg/dL, Near optimal/above optimal 160-189 mg/dL, Borderline high 190-219 mg/dL, High >219 mg/dL, Very high Secondary prevention optimal non HDL Cholesterol levels are recommended to be < 100 mg/dL LAB FT hrs Fasting Time 0 LAB VLDL <30 mg/dL High VLDL Cholesterol 45 LAB TCHDL <5.10 High TC:HDL Ratio 5.34 LAB LDLHDL <2.54 High LDL:HDL Ratio 3.06 Result Comment: Reference: 1. National Cholesterol Education Program ATP III Guideline At-A-Glance Quick Desk Reference: National Heart, Lung, and Blood [place]. National Institutes of Health. 2001: NIH Publication No. 01-3305. 2. An International Atherosclerosis Society position paper: global recommendations for the management of dyslipidemia: executive summary, Atherosclerosis. 2014: 232(2):410-413. Performed By: #### CBC, CMP, LIPB, HBA1C #### [facility] [employer] [address] [place], [place] [address] HEMOGLOBIN A1C Collected: 02/01/2018 Status: F Source: [place] 10:36 AM [facility] REPOSITORY TYPE CODE TESTS RESULT OUT OF REFERENCE UNITS RANGE LAB HGBA1C 4.3-5.6 % High Hemoglobin A1c 6.5 LAB HBA0 mg/dL Est. Average Glucose 140 Result Comment: eAG: (Estimated average glucose) is a calculated value from HgbA1c and is sales support representative of the average blood glucose level in the last 2-3 month period. Performed By: #### CBC, CMP, LIPB, HBA1C #### [facility] [employer] [address] [place], [place] [address] CNOV Observed: 02/01/2018 Status: COMPLETED Source: [place] 9:30 AM [facility] REPOSITORY Office Visit (UCWSTR) ALICJA SANDHU ([id number]) 1975 F Date Time Provider Department 02/01/18 9:30 AM KATHLEEN CHAPMAN (TANK) WSTR During your visit today, we recorded the following information about you: Temperature Pulse Respiration Blood pressure 97.2 degrees 80/minute 16/minute 120/75 Weight 115.7 kg Kathleen Chapman APRN.CNP 02/01/2018 10:12 AM Signed ASSESSMENT/PLAN: 1. Upper back pain - ICD9: 724.5, ICD10: M54.9 -chronic, will schedule with primary care for follow up Kathleen Chapman APRN.CNP 02/01/2018 11:44 AM Signed Subjective HPI HPI Alicja Sandhu is a 42 year old female who presents today for CC of chronic back pain, worsened by carrying heavy back pack. Has been treated for many years with zanaflex, is out of medication, requesting refill. .No chief complaint on file. PAST MEDICAL HISTORY Diagnosis Date - Dissociative identity disorder - EXTRINSIC ASTHMA UNSPECIFIED 09/01/2005 - GERD (gastroesophageal reflux disease) - HTN (hypertension) - Hyperlipidemia - IBS (irritable bowel syndrome) - Morbid obesity (HCC) - Other convulsions Neurology Dr. Casanova - Personal history of allergy, other than to medicinal agents, presenting hazards to health - PTSD (post-traumatic stress disorder) - SLEEP APNEA NOS 09/01/2005 not on CPAP, has lost significant amount weight since diagnosis - Suicidal thoughts 11/23/2009 Hospitalized at [facility] for Suicidal Thoughts - Suicidal thoughts February 2010 Hospitalized at [facility] in [place] - Type II or unspecified type diabetes mellitus without mention of complication, uncontrolled - Unspecified schizophrenia Schizophrenia. Seeing Dr. Cabrera PAST SURGICAL HISTORY Procedure Laterality Date - BREAST BIOPSY W/STEREOTACTIC GUIDANCE 09-19-14 LEFT STEREO - BREAST BIOPSY W/ULTRASOUND GUIDANCE 07/31/14 U/S needle core medial left breast - DANDamp;C, DIAG AND/OR THERAPEUTIC Dilation ANDamp; curettage - DANDamp;C, DIAG AND/OR THERAPEUTIC - EGD W/O OR W/BRUSH/WASH high school EGD - EGD W/O OR W/BRUSH/WASH 03/05/2015 EGD - HYSTEROSCOPY - HYSTEROSCOPY 06/29/2012 Dr Cevallos - MIRENA IUD - PULMONARY FUNCTION TEST 12/29/04 ALLERGIES Lovastatin; Advil [Ibuprofen]; Ambien [Zolpidem Tartrate]; Asa [Salicylates]; Cogentin [Benztropine Mesylate]; Egg; Glucophage [Metformin Hcl]; Woodworth, Woodworth Oil; Penicillins; Septra [Sulfamethoxazole-Trimethoprim]; Tegretol [Carbamazepine]; Trazodone; Tylenol [Acetaminophen] MEDICATIONS tiZANidine (ZANAFLEX) 4 mg tablet Take 1 tablet by mouth twice daily. DAILY VITES/IRON tab TAKE 1 TABLET BY MOUTH ONCE DAILY. cetirizine (ZYRTEC) 10 mg tablet TAKE 1 TABLET BY MOUTH DAILY FOR ALLERGIES sertraline (ZOLOFT) 50 mg tablet Take 50 mg by mouth once daily. mirtazapine (REMERON) 15 mg tablet Take 15 mg by mouth daily at bedtime. prazosin (MINIPRESS) 5 mg cap Take 1 capsule by mouth daily at bedtime. PTSD topiramate (TOPAMAX) 100 mg tablet Take 1 tablet by mouth twice daily. loperamide (ANTI-DIARRHEAL) 2 mg cap(s) Take 1 capsule by mouth three times daily as needed for Diarrhea. pantoprazole DR (PROTONIX) 40 mg tablet Take 1 tablet by mouth once daily. before breakfast dicyclomine (BENTYL) 10 mg capsule Take 1 capsule by mouth three times daily before meals and at bedtime. for ibs lisinopril (ZESTRIL, PRINIVIL) 10 mg tablet Take 1 tablet by mouth once daily. OXcarbazepine (TRILEPTAL) 300 mg tablet Take 1 tablet by mouth twice daily. take 300 mg a.m., take 600 mg p.m glucose (DEX4 GLUCOSE) 4 gram chewable tablet Take 4 tablets by mouth as needed for Low Blood Sugar. hydrOXYzine HCl (ATARAX) 50 mg tablet Take 1 tablet by mouth every 6 hours as needed for Itching/Rash. or anxiety aluminum-magnesium hydroxide-simethicone (MAALOX,MYLANTA,MAG- AL PLUS) 200-200-20 mg/5 mL suspension Take 10 mL by mouth every 6 hours as needed (for indigestion). albuterol HFA (PROAIR HFA) 90 mcg/actuation inhaler Inhale 2 Puffs as instructed every 4 hours as needed for Wheezing/Shortness of Breath. loratadine (CLARITIN) 10 mg tablet TAKE 1 TABLET DAILY blood sugar diagnostic (FREESTYLE LITE STRIPS) test strip TEST BLOOD SUGARS 6 TIMES DAILY Dx 250.00 Lancets (FREESTYLE LANCETS) lancets Use as instructed 3-4 times daily FAMILY HISTORY Problem Relation Age of Onset - Hypertension Mother - Heart Father a fib - Thyroid Sister - Heart Maternal Grandmother - Diabetes Paternal Grandmother - Stroke Paternal Grandmother - Breast Cancer Paternal Grandmother - Hyperlipidemia Paternal Grandfather - Breast Cancer Other P great grandmother - Breast Cancer Paternal Aunt Social History Substance Use Topics - Smoking status: Never Smoker - Smokeless tobacco: Never Used - Alcohol use No Comment: admits to periods of excessive ETOH use- states that she currently cannot afford ETOH. Review of Systems Constitutional: Negative for chills, fever and weight loss. Cardiovascular: Negative for leg swelling. Gastrointestinal: Negative for abdominal pain, constipation, diarrhea, nausea and vomiting. Genitourinary: Negative for dysuria, flank pain, frequency, hematuria and urgency. Musculoskeletal: Positive for back pain and neck pain. Negative for myalgias. Skin: Negative for rash. Neurological: Negative for sensory change and focal weakness. Objective Blood pressure 120/75, pulse 80, temperature 36.2 ?C (97.2 ?F), temperature source Left Tympanic, resp. rate 16, weight 115.7 kg (255 lb). Physical Exam Constitutional: She is oriented to person, place, and time and well-developed, well-nourished, and in no distress. Non-toxic appearance. She does not have a sickly appearance. No distress. HENT: Head: Normocephalic and atraumatic. Eyes: Conjunctivae are normal. No scleral icterus. Neck: Trachea normal and normal range of motion. Cardiovascular: Normal rate, regular rhythm, S1 normal, S2 normal and normal heart sounds. Pulmonary/Chest: Effort normal and breath sounds normal. Neurological: She is alert and oriented to person, place, and time. Gait normal. Skin: She is not diaphoretic. Psychiatric: Speech is rapid/flight of idea. ASSESSMENT/PLAN: 1. Upper back pain - ICD9: 724.5, ICD10: M54.9 -will give 1 week of zanaflex. -chronic, will schedule with primary care for follow up -discussed red flags and reasons for urgent f/u Prescription instructions reviewed with patient as applicable. Patient advised if symptoms do not improve or if symptoms worsen sooner, to contact the office for further evaluation by their primary care physician. Potential red flag symptoms discussed with the patient. Reviewed appropriate action plan to take if red flag symptoms occur. Patient agreeable to treatment plan. Kathleen Chapman APRN.CAUSTIC PREPARER Referring Provider: SELF [[id number]] Allergies As of Date: 02/01/2018 Noted Allergy Reaction LOVASTATIN 06/09/2005 7 - Swelling Comments: Severe Leg Edema ADVIL (IBUPROFEN) 07/13/2006 14 - Other: See Comments Comments: Lip and tongue swelling- tolerated 2011 without adverse effect AMBIEN (ZOLPIDEM TARTRATE) 05/18/2012 1 - Mental Status Change Comments: confusion; hallucinations; took more than was supposed to in this state ASA (SALICYLATES) 06/09/2005 2 - Rash COGENTIN (BENZTROPINE MESYLATE) 09/21/2005 5 - Intolerance EGG 09/21/2005 11 - Vomiting GLUCOPHAGE (METFORMIN HCL) 09/21/2005 11 - Vomiting ORANGE, ORANGE OIL 09/21/2005 PENICILLINS 06/09/2005 2 - Rash SEPTRA (SULFAMETHOXAZOLE-TRIMETHO*06/09/2005 2 - Rash TEGRETOL (CARBAMAZEPINE) 06/09/2005 5 - Intolerance TRAZODONE 05/18/2012 8 - GI Upset Comments: nausea and vomiting TYLENOL (ACETAMINOPHEN) 06/09/2005 2 - Rash Date Reviewed: 02/01/2018 Reviewed by: Kathleen Chapman - Fully Assessed Primary Visit Diagnosis:Upper back pain [M54.9] Order(s):tiZANidine (ZANAFLEX) 4 mg tabletTake 1 tablet by mouth twice daily.Disp: 14 tabletRfl: 0 Prescriptions as of 02/01/2018 Sig: TIZANIDINE 4 MG TABLET Take 1 tablet by mouth twice * DAILY VITES/IRON TABLET TAKE 1 TABLET BY MOUTH ONCE D* CETIRIZINE 10 MG TABLET TAKE 1 TABLET BY MOUTH DAILY * SERTRALINE 50 MG TABLET Take 50 mg by mouth once frandy* MIRTAZAPINE 15 MG TABLET Take 15 mg by mouth daily at * PRAZOSIN 5 MG CAPSULE Take 1 capsule by mouth daily* TOPIRAMATE 100 MG TABLET Take 1 tablet by mouth twice * LOPERAMIDE 2 MG CAPSULE Take 1 capsule by mouth three* PANTOPRAZOLE 40 MG TABLET,DEL* Take 1 tablet by mouth once d* DICYCLOMINE 10 MG CAPSULE Take 1 capsule by mouth three* LISINOPRIL 10 MG TABLET Take 1 tablet by mouth once d* Patient not taking: Reported on 01/06/2018 OXCARBAZEPINE 300 MG TABLET Take 1 tablet by mouth twice * Patient not taking: Reported on 01/06/2018 GLUCOSE 4 GRAM CHEWABLE TABLET Take 4 tablets by mouth as ne* HYDROXYZINE HCL 50 MG TABLET Take 1 tablet by mouth every * ALUMINUM-MAG HYDROXIDE-SIMETH* Take 10 mL by mouth every 6 h* Patient not taking: Reported on 01/06/2018 ALBUTEROL SULFATE HFA 90 MCG/* Inhale 2 Puffs as instructed * LORATADINE 10 MG TABLET TAKE 1 TABLET DAILY BLOOD SUGAR DIAGNOSTIC STRIPS TEST BLOOD SUGARS 6 TIMES GENE* Patient not taking: Reported on 01/06/2018 LANCETS Use as instructed 3-4 times d* Patient not taking: Reported on 01/06/2018 More... Problem List As Of Date 02/01/2018 Noted Resolved EXTRINSIC ASTHMA UNSPECIFIED [J45.909] INVALID FOR* OBESITY NOS [E66.9] INVALID FOR* More... Sleep apnea [G47.30] INVALID FOR* More... CHRONIC RHINITIS [J31.0] MIXED HYPERLIPIDEMIA [E78.2] INVALID FOR* More... Diabetes mellitus (HCC) [E11.9] INVALID FOR* More... Esophageal reflux [K21.9] INVALID FOR*01/06/2018 INSOMNIA NOS [G47.00] INVALID FOR* Routine general medical examination at a [facility]*INVALID FOR*10/07/2015 Hematuria [599.7] INVALID FOR* More... Schizophrenia (HCC) [F20.9] INVALID FOR* More... GERD (Gastroesophageal Reflux Disease) [K21.9] Unspecified pruritic disorder [L29.9] INVALID FOR* Vaginitis and vulvovaginitis, unspecified [N76.*INVALID FOR* Other tenosynovitis of hand and wrist [M65.849,*INVALID FOR* Iron deficiency [E61.1] INVALID FOR* Zinc deficiency [E60] INVALID FOR* Vitamin B6 deficiency [E53.1] INVALID FOR* Chronic diarrhea [K52.9] INVALID FOR* Paresthesia [R20.2] INVALID FOR* Abnormal mammogram, unspecified [R92.8] INVALID FOR* PTSD (post-traumatic stress disorder) [F43.10] INVALID FOR* Asthma [J45.909] INVALID FOR* More... HTN (hypertension) [I10] INVALID FOR* More... Obesity (BMI 35.0-39.9 without comorbidity) [E6*INVALID FOR* Disturbance in sleep behavior [G47.9] INVALID FOR* Major depressive disorder, recurrent, severe wi*INVALID FOR* More... Other instructions from your clinician: ASSESSMENT/PLAN: 1. Upper back pain - ICD9: 724.5, ICD10: M54.9 -chronic, will schedule with primary care for follow up Prescriptions ordered this encounter Disp Refills Start End TIZANIDINE 4 MG TABLET 14 t* 0 02/01/2018 Route: ORAL Sig: Take 1 tablet by mouth twice daily. Medications Discontinued During This Encounter ziprasidone (GEODON) 20 mg capsule 30 c* 2 11/18/2017 02/01/2018 Route: ORAL Sig: Take 1 capsule by mouth twice daily with meals. for depression Patient not taking: Reported on 01/06/2018 Disc: Discontinued by another Health Care Provider Encounter Status:Closed by KATHLEEN CHAPMAN CNP on 02/01/18 EMERGENCY DEPARTMENT Observed: 01/17/2018 Status: F Source: [place] SUMMARY 10:16 PM [facility] [place] [facility] Medical Records Department [address] [place] [address] Emergency Department Summary 01/17/18 2208 MR#: [id number] Acct: [id number] Name: ALICJA SANDHU Rep #: [id number] : 1975 42 From: Karsten Delacruz MD PCP: Guillermo Velázquez MD Status: REG ER - ER Visit Summary Date of Service: 01/17/18 Chief Complaint: Weak and sleeping more History of Present Illness: The patient is a 42 F who presents with fatigue, weakness and sleeping more. She is [facility] She denies fever, chills night sweats. She denies ocular, visual or auditory symptoms. She denies any chest pain or shortness of breath. She denies nausea, vomiting or diarrhea. She denies dysuria, frequency, urgency hematuria. She denies weight gain or weight loss. She denies heat or cold intolerance. She denies headache, paresthesia, anesthesia motor weakness. She denies bruising easily. She denies rash, urticaria or swelling. Please read written note for complete detail Patient has history of anxiety and psychosis with hallucination. She is presently homeless residing [facility]. Physical Examination: Vital signs are normal. She is obese with a BMI of 45.2. Head is atraumatic normocephalic. Pupils are equal round reactive. Extraocular muscles are intact. TMs are pearly white with landmarks noted. Nares patent with no drainage. Posterior pharynx without erythema or exudate. Uvula is midline. There is no dysphonia or dysphasia. Trachea is midline. There is no stridor with auscultation of the neck. Heart is regular without murmur, gallop or rub. S1 and S2 are normal. Lungs are clear to auscultation with good movement of air bilaterally. Abdomen soft nontender. She is not alert but she is oriented. Her neuro exam reveals no motor sensory deficit. DTRs symmetric with no clonus or Babinski sign. Cranial 2 through 12 intact. Cerebellar testing is normal. Test Results: CBC is normal. BMP revealed slight elevation of glucose, 170 and decrease in potassium 3.3. TSH is normal at 0.93. Blood gas reveals increased a gradient. She is not hypoxic. Suspect pickwickian syndrome. Emergency Department Course and Treatment: Because patient is somnolent will obtain an arterial blood gas to assess for hypercapnia. Because of possible weight gain with fatigue weakness TSH was obtained. Labs were obtained to evaluate for anemia or electrolyte abnormality etc. Treatment Plan: Since patient's workup is negative she will be discharged to return to [facility] Disposition: Discharged to [facility] in [facility] condition Impression: Generalized weakness and fatigue unknown etiology History of psychosis and hallucination Obesity Hyperglycemia in a nondiabetic This note was generated with [employer] software. It may contain incorrect words, spelling, and punctuation that were not noted in review of the chart prior to signing ED Disposition - Plan for ED Patient: Disposition: Home or Assisted Living Chief Complaint: Weakness Instructions: ED Weakness UKO, ED Hyperglycemia New Susp Diabetes Referrals: Guillermo Velázquez MD [Primary Care Provider] - 3-5 Days What to do if you have Problems For any increased pain, shortness of breath, bleeding, nausea or vomiting, chest pain, or any unexpected problems, contact your Primary Care Provider. Call [facility] ([phone]) or report to the closest Emergency Room. Call 911 if necessary. 01/17/18 5940 <Electronically signed by Karsten Delacruz MD> Date Karsten Delacruz MD Cosigner Signature (If Indicated): Date CC: Guillermo Velázquez MD BLOOD GASES BY [facility] Collected: 01/17/2018 Status: F Source: [place] 8:40 PM [facility] TYPE CODE TESTS RESULT OUT OF RANGE REFERENCE UNITS LAB L9000.9990 Normal BLD GAS TYPE ART LAB L9001.1000 Normal SITE L Radial LAB L9001.1010 Normal [place] TEST POS LAB L9001.1050 O2 Normal Delivery Dev Room Air LAB L9001.1104 Normal Results To ED LAB L9001.1105 Normal Time Given 2034 LAB L9001.1110 7.35-7.45 pH Normal - I-STAT 7.36 LAB L9001.1210 35-45 mmHg Low pCO2 - ISTAT 34.3 LAB L9001.1310 75-100 mmHG Low PO2 I-STAT 65 LAB L9001.2300 22-26 mmol/L Low HCO3 ISTAT 19.5 LAB L9001.2400 -2 to +2 mmol/L Low BE ISTAT -6 LAB L9001.2415 mmol/L Normal TOTAL CO2 21 ISTAT LAB L9001.2425 95-99 % Low SO2 ISTAT 92 Performed By: #### L9000.0800 #### [facility] Point of Care [address] [place], [place] [address] CBC W/DIFF, AUTOMATED Collected: 01/17/2018 Status: F Source: [place] 8:12 PM [facility] [place] TYPE CODE TESTS RESULT OUT OF RANGE REFERENCE UNITS LAB L100.1000 4.4-11.0 K/mm3 Normal WBC 9.5 LAB L100.1200 4.2-5.4 M/mm3 Low RBC 4.18 LAB L100.1300 12.0-15.0 g/dl Normal HGB 12.9 LAB L100.1400 37-47 % Normal HCT 39.0 LAB L100.1500 81-99 fL Normal MCV 93.3 LAB L100.1600 27.0-32.0 pg Normal MCH 30.9 LAB L100.1700 32-36 g/gl Normal MCHC 33.1 LAB L100.1810 11.6-14.6 % Normal RDW CV 13.3 LAB L100.1820 35.1-43.9 fl High RDW SD 45.5 LAB L100.1900 150-450 K/mm3 Normal PLT 205 LAB L100.2000 6.2-12.0 fl Normal MPV 8.9 LAB L100.2100 47-70 % Normal NEUT% 69.4 LAB L100.2200 19-41 % Normal LY% 23.7 LAB L100.2300 0-10 % Normal MONO% 5.3 LAB L100.2400 0-5 % Normal EO% 0.6 LAB L100.2500 0-1 % Normal BASO% 0.2 LAB L100.2550 0.0-0.9 % Normal IM GRAN % 0.800 Result Comment: IG% - Immature Granulocytes (promyelocytes, myelocytes and metamyelocytes) > 1% indicates that a LEFT SHIFT is Present. LAB L100.2620 2.0-7.7 X10 3/uL Normal Absolute Neut 6.6 LAB L100.2720 0.83-4.51 X10 3/ul Normal Absolute Lymph 2.25 Performed By: #### L100.0100 #### [facility] [address] [place], [address] BASIC METABOLIC Collected: 01/17/2018 Status: F Source: [place] PROFILE ([facility]) 8:12 PM [facility] [place] TYPE CODE TESTS RESULT OUT OF RANGE REFERENCE UNITS LAB L501.0100 74-106 mg/dL High GLU 170 Result Comment: Fasting Glucose result greater than or equal to 126 mg/dL suggests DIABETES MELLITUS per A.D.A. criteria. Please note revised GLUCOSE reference range effective 2017. LAB L501.1000 7-18 mg/dL Normal BUN 11 LAB L501.1100 0.55-1.02 mg/dL Normal CREAT,SERUM 0.81 Result Comment: The validity of the calculated GFR AND GFRAA in patients over 70 years has not been determined. Clinical correlation is essential. LAB L501.1110 >60 mL/min Normal EST GFR 82 Result Comment: Non- GFR Calc LAB L501.1115 >60 mL/min Normal EST GFR - AA 100 Result Comment: GFR Calc LAB L501.1255 ml/min Normal Estimated CRCL 77.33 LAB L501.1300 10-20 RATIO Normal BUN/CRE 13.6 LAB L501.2200 8.5-10 mg/dL Low .1 CA 8.2 LAB L501.5300 136-14 mmol/L Normal 5 NA 141 LAB L501.5600 3.5-5. mmol/L Low 1 K 3.3 LAB L501.5900 98-107 mmol/L High CL 108 LAB L501.6100 21.0-3 mmol/L Normal 2.0 CO2 26.0 LAB L501.6200 5-15 Normal GAP 7 Performed By: #### L500.2500, L501.9520 #### [facility] [address] [place], [address] THYROID STIM HORMONE Collected: 01/17/2018 Status: F Source: [place] ([facility]) 8:12 PM [facility] [place] TYPE CODE TESTS RESULT OUT OF RANGE REFERENCE UNITS LAB L501.9520 0.358-3.74 uIU/mL Normal TSH 0.93 Performed By: #### L500.2500, L501.9520 #### [facility] [address] [place], [address] PROGRESS Observed: 01/06/2018 Status: COMPLETED Source: [place] 2:06 PM [facility] REPOSITORY HNO ID: [id number] Author: Lyn Carlos) Eber Service: (none) Author Type: Physician Type: Progress Notes Filed: 01/08/2018 5:21 PM Note Text: Chief Complaint Patient presents with: Establish Care HPI Alicja Sandhu is a 42 year old female who presents here today for establish care visit. Here today with outpatient case manager from [facility]. Previously seeing Dr. Gabriel and last OV was over a year ago. Seeing Dr. Shabazz prior to that. Reviewed records from [facility] ED prior to appointment and she was last seen on 12/07 for suicidal ideation. Patient was pink slipped and admitted for 2 days after transfer to [facility]. While inpatient, patient had adjustments to her regimen by her psychiatrist Dr. Cabrera and has been following with his office every 3 months and counseling on a weekly basis. Brought in med list today which is up to date. Patient states that since she has been discharged she has been diagnosed with dissociative identity disorder and over the last week has had more suicidal thoughts. Currently staying at the [facility] which is staffed 24 hours and does not have access to her own medications. Feels safe to go home today and will discuss this with her counselor next week. territory business manager agrees with this. Patient has IUD in place and follows up with Dr. Cevallos, but cannot say when last appointment was or when she had Mirena placed. Discussed following up with [employer] which outpatient case manager will help with. Has history of DM type II, but has been controlled in the past with diet alone. Not on medication at this time. Denies worsening symptoms. Will need to obtain labs. Past medical history, appointments, medications, allergies reviewed. Previous Medical History PAST MEDICAL HISTORY Diagnosis Date - Dissociative identity disorder - EXTRINSIC ASTHMA UNSPECIFIED 09/01/2005 - GERD (gastroesophageal reflux disease) - HTN (hypertension) - Hyperlipidemia - IBS (irritable bowel syndrome) - Morbid obesity (HCC) - Other convulsions Neurology Dr. Casanova - Personal history of allergy, other than to medicinal agents, presenting hazards to health - PTSD (post-traumatic stress disorder) - SLEEP APNEA NOS 09/01/2005 not on CPAP, has lost significant amount weight since diagnosis - Suicidal thoughts 11/23/2009 Hospitalized at [facility] for Suicidal Thoughts - Suicidal thoughts February 2010 Hospitalized at [facility] in [place] - Type II or unspecified type diabetes mellitus without mention of complication, uncontrolled - Unspecified schizophrenia Schizophrenia. Seeing Dr. Cabrera Previous Surgical History PAST SURGICAL HISTORY Procedure Laterality Date - BREAST BIOPSY W/STEREOTACTIC GUIDANCE 09-19-14 LEFT STEREO - BREAST BIOPSY W/ULTRASOUND GUIDANCE 07/31/14 U/S needle core medial left breast - DANDC, DIAG AND/OR THERAPEUTIC Dilation AND curettage - DANDC, DIAG AND/OR THERAPEUTIC - EGD W/O OR W/BRUSH/WASH high school EGD - EGD W/O OR W/BRUSH/WASH 03/05/2015 EGD - HYSTEROSCOPY - HYSTEROSCOPY 06/29/2012 Dr Cevallos - MIRENA IUD - PULMONARY FUNCTION TEST 12/29/04 Family History FAMILY HISTORY Problem Relation Age of Onset - Hypertension Mother - Heart Father a fib - Thyroid Sister - Heart Maternal Grandmother - Diabetes Paternal Grandmother - Stroke Paternal Grandmother - Breast Cancer Paternal Grandmother - Hyperlipidemia Paternal Grandfather - Breast Cancer Other P great grandmother - Breast Cancer Paternal Aunt Patient Allergies ALLERGIES Allergen Reactions - Lovastatin Swelling Severe Leg Edema - Advil [Ibuprofen] Other: See Comments Lip and tongue swelling- tolerated 2011 without adverse effect - Ambien [Zolpidem Ta* Mental Status Change confusion; hallucinations; took more than was supposed to in this state - Asa [Salicylates] Rash - Cogentin [Benztropi* Intolerance - Egg Vomiting - Glucophage [Metform* Vomiting - Woodworth, [place]worth Oil - Penicillins Rash - Septra [Sulfamethox* Rash - Tegretol [Carbamaze* Intolerance - Trazodone GI Upset nausea and vomiting - Tylenol [Acetaminop* Rash Current Medications Current Outpatient Prescriptions on File Prior to Visit: topiramate (TOPAMAX) 100 mg tablet Take 1 tablet by mouth daily at bedtime. Take one 100 mg and one 25 mg for a total of 125 mg daily at HS topiramate (TOPAMAX) 25 mg tablet Take 1 tablet by mouth daily at bedtime. Take one 100 mg and one 25 mg for a total of 125 mg daily at HS pantoprazole DR (PROTONIX) 40 mg tablet Take 1 tablet by mouth once daily. before breakfast prazosin (MINIPRESS) 5 mg cap Take 1 capsule by mouth twice daily. PTSD ziprasidone (GEODON) 20 mg capsule Take 1 capsule by mouth twice daily with meals. for depression cetirizine (ZYRTEC) 10 mg tablet Take 1 tablet by mouth once daily. for allergies dicyclomine (BENTYL) 10 mg capsule Take 1 capsule by mouth three times daily before meals and at bedtime. for ibs lisinopril (ZESTRIL, PRINIVIL) 10 mg tablet Take 1 tablet by mouth once daily. multivitamin tablet Take 1 tablet by mouth once daily. OXcarbazepine (TRILEPTAL) 300 mg tablet Take 1 tablet by mouth twice daily. take 300 mg a.m., take 600 mg p.m glucose (DEX4 GLUCOSE) 4 gram chewable tablet Take 4 tablets by mouth as needed for Low Blood Sugar. hydrOXYzine HCl (ATARAX) 50 mg tablet Take 1 tablet by mouth every 6 hours as needed for Itching/Rash. or anxiety loperamide (ANTI-DIARRHEAL) 2 mg cap(s) Take 1 capsule by mouth four times daily as needed for Diarrhea. aluminum-magnesium hydroxide-simethicone (MAALOX,MYLANTA,MAG- AL PLUS) 200-200-20 mg/5 mL suspension Take 10 mL by mouth every 6 hours as needed (for indigestion). guaiFENesin (MUCINEX) 600 mg 12 hr tablet Take 1 tablet by mouth twice daily as needed for Cold/Allergy Symptoms. albuterol HFA (PROAIR HFA) 90 mcg/actuation inhaler Inhale 2 Puffs as instructed every 4 hours as needed for Wheezing/Shortness of Breath. loratadine (CLARITIN) 10 mg tablet TAKE 1 TABLET DAILY blood sugar diagnostic (FREESTYLE LITE STRIPS) test strip TEST BLOOD SUGARS 6 TIMES DAILY Dx 250.00 Lancets (FREESTYLE LANCETS) lancets Use as instructed 3-4 times daily No current facility-administered medications on file prior to visit. Social History Social History Marital status: Single Spouse name: Years of education: 12 Number of children: 0 Occupational History Occupation Employer Comment Unemployed Social History Main Topics Smoking status: Never Smoker Smokeless status: Never Used Alcohol use: No Comment: admits to periods of excessive ETOH use- states that she currently cannot afford ETOH. Drug use: No Sexual activity: No Comment: mirena Review of Symptoms REVIEW OF SYSTEMS GENERAL: No weight loss, malaise or fevers NECK: Negative for lumps, goiter, pain and significant neck swelling RESPIRATORY: Negative for cough, hemoptysis, wheezing, COPD, dyspnea or shortness of breath CARDIOVASCULAR: Negative for chest pain, leg swelling, hypertension, CHF or palpitations GI: No nausea, vomiting, or diarrhea SKIN: Negative for lesions, rash, and itching EXAM: BP 108/78 Pulse 90 Resp 14 Ht 161.9 cm (5' 3.75) Wt 117 kg (258 lb) BMI 44.63 kg/m2 General Appearance: Well appearing, alert, in no acute distress, well-hydrated, well nourished.. Skin: Skin color, texture, turgor normal, no suspicious rashes or lesions. Neck: Supple, no adenopathy; thyroid symmetric, normal size, no bruits. Lungs: Lungs clear to auscultation. No wheezing, rhonchi, rales. Heart: RRR without murmur, gallop, or rubs. No ectopy. Abdomen: Normal abdominal exam, Abdomen soft, non-tender. Bowel sounds normal. No masses, organomegaly. Extremities: No deformities, edema, skin discoloration, clubbing or cyanosis. Good capillary refill. . Health Maintenance List URINE ALBUMIN CREATININE RATIO due on 03/25/2017 LDL due on 03/25/2017 DILATED RETINAL EXAM due on 06/10/2017 HBA1C due on 08/20/2017 DIABETIC FOOT EXAM due on 02/18/2018 MAMMOGRAM due on 06/01/2018 TETANUS due on 10/22/2021 PAP EVERY 5 YEARS due on 05/26/2022 HPV EVERY 5 YEARS due on 05/26/2022 ONE PNEUMOVAX PRIOR TO AGE 65 Completed INFLUENZA Completed Data reviewed Component Latest Ref Rng AND Units 11/02/2016 02/17/2017 WBC 4.40 - 9.70 thou/cmm 8.31 RBC 3.79 - 4.93 mil/cmm 4.36 HGB 11.7 - 14.7 g/dL 13.9 Hematocrit 34.7 - 43.3 % 41.2 MCV 79.4 - 94.8 fl 94.5 MCH 25.6 - 32.2 pg 31.9 MCHC 32.2 - 35.5 % 33.7 RDW 11.7 - 14.4 % 13.2 RDW-SD 36.4 - 46.3 fl 46.0 Platelet Count 150 - 370 thou/cmm 262 MPV 9.4 - 12.3 fl 8.7 (L) Seg Neutrophil % 70.7 Immature Grans % 1.00 Lymphocyte % 18.2 Monocyte % 9.0 Eosinophil % 0.7 Basophil % 0.4 Seg. Neut. # 1.56 - 6.13 thou/cmm 5.88 Immature Grans # 0.00 - 0.05 thou/cmm 0.08 (H) Lymphocyte # 1.18 - 3.74 thou/cmm 1.51 Monocyte # 0.24 - 0.36 thou/cmm 0.75 (H) Eosinophil # 0.04 - 0.36 thou/cmm 0.06 Basophil # 0.01 - 0.08 thou/cmm 0.03 Sodium 136 - 145 mEq/L 138 Potassium 3.5 - 5.1 mEq/L 3.5 Chloride 98 - 107 mEq/L 101 CO2 21 - 32 mEq/L 28 Glucose 70 - 99 mg/dL 131 (H) BUN 7 - 18 mg/dL 8 Creatinine 0.51 - 0.95 mg/dL 0.74 Calcium 8.5 - 10.1 mg/dL 9.2 Anion Gap 8 - 16 13 Hemoglobin A1C 4.3 - 5.6 % 5.6 Estimated Average Glucose mg/dL 114 ASSESSMENT/PLAN: 1. Major depressive disorder, recurrent, severe with psychotic features (HCC) - ICD9: 296.34, ICD10: F33.3 (primary diagnosis) Patient to continue regimen per psychiatry and follow up with counseling. Feels safe going home and outpatient case manager agrees. 2. Undifferentiated schizophrenia (HCC) - ICD9: 295.90, ICD10: F20.3 See above. 3. PTSD (post-traumatic stress disorder) - ICD9: 309.81, ICD10: F43.10 See above 4. Mixed hyperlipidemia - ICD9: 272.2, ICD10: E78.2 - to be determined upon return of lab results - Encouraged following a low fat, low cholesterol diet. - Discussed the benefits of regular aerobic exercise and weight loss. - LIPID PANEL BASIC 5. Gastroesophageal reflux disease, esophagitis presence not specified - ICD9: 530.81, ICD10: K21.9 - Continue treatment with Protonix QD 6. Essential hypertension - ICD9: 401.9, ICD10: I10 - good control - Continue current medication(s) - Encouraged dietary sodium restriction/DASH diet - Recommended regular aerobic exercise. - Reviewed risks of HTN and principles of treatment - Goal of BP <140/90 7. Uncomplicated asthma, unspecified asthma severity, unspecified whether persistent - ICD9: 493.90, ICD10: J45.909 Continue albuterol PRN. 8. Type 2 diabetes mellitus without complication, without long-term current use of insulin (HCC) - ICD9: 250.00, ICD10: E11.9 The patient is new to me. - Check HgA1C, fasting lipid panel and CMP - Encouraged regular aerobic exercise and weight loss - Daily Asprin therapy recommended - Discussed diabetic education issues of diet with patient. - HGB A1C - COMP METABOLIC PANEL - CBC 9. Sleep apnea, unspecified type - ICD9: 780.57, ICD10: G47.30 Will discuss further at future visit. 10. Diabetic gastroparesis (HCC) - ICD9: 250.60, 536.3, ICD10: E11.43, K31.84 - TOPIRAMATE 100 MG TABLET I spent 40 minutes in the visit, with more than 50% of the total xdtm-aa-bxns time of the visit in counseling / coordination of care. Lyn Velázquez MD CNOV Observed: 01/06/2018 Status: COMPLETED Source: [place] 2:00 PM [facility] REPOSITORY Office Visit (FAMPWS) ALICJA SANDHU ([id number]) 1975 F Date Time Provider Department 01/06/18 2:00 PM LYN VELÁZQUEZ) FAMPWS During your visit today, we recorded the following information about you: Pulse Respiration Blood pressure Weight 90/minute 14/minute 108/78 117 kg Height 1.619 m Lyn Velázquez MD 01/08/2018 5:21 PM Signed Chief Complaint Patient presents with: [facility] HPI Alicja Sandhu is a 42 year old female who presents here today for establish [facility] visit. Here today with outpatient case manager from [facility]. Previously seeing Dr. Gabriel and last OV was over a year ago. Seeing Dr. Shabazz prior to that. Reviewed records from [facility] ED prior to appointment and she was last seen on 12/07 for suicidal ideation. Patient was pink slipped and admitted for 2 days after transfer to [facility]. While inpatient, patient had adjustments to her regimen by her psychiatrist Dr. Cabrera and has been following with his office every 3 months and counseling on a weekly basis. Brought in med list today which is up to date. Patient states that since she has been discharged she has been diagnosed with dissociative identity disorder and over the last week has had more suicidal thoughts. Currently staying at the [facility] which is staffed 24 hours and does not have access to her own medications. Feels safe to go home today and will discuss this with her counselor next week. territory business manager agrees with this. Patient has IUD in place and follows up with Dr. Cevallos, but cannot say when last appointment was or when she had Mirena placed. Discussed following up with [employer] which outpatient case manager will help with. Has history of DM type II, but has been controlled in the past with diet alone. Not on medication at this time. Denies worsening symptoms. Will need to obtain labs. Past medical history, appointments, medications, allergies reviewed. Previous Medical History PAST MEDICAL HISTORY Diagnosis Date - Dissociative identity disorder - EXTRINSIC ASTHMA UNSPECIFIED 09/01/2005 - GERD (gastroesophageal reflux disease) - HTN (hypertension) - Hyperlipidemia - IBS (irritable bowel syndrome) - Morbid obesity (HCC) - Other convulsions Neurology Dr. Casanova - Personal history of allergy, other than to medicinal agents, presenting hazards to health - PTSD (post-traumatic stress disorder) - SLEEP APNEA NOS 09/01/2005 not on CPAP, has lost significant amount weight since diagnosis - Suicidal thoughts 11/23/2009 Hospitalized at [facility] for Suicidal Thoughts - Suicidal thoughts February 2010 Hospitalized at [facility] in [place] - Type II or unspecified type diabetes mellitus without mention of complication, uncontrolled - Unspecified schizophrenia Schizophrenia. Seeing Dr. Cabrera Previous Surgical History PAST SURGICAL HISTORY Procedure Laterality Date - BREAST BIOPSY W/STEREOTACTIC GUIDANCE 09-19-14 LEFT STEREO - BREAST BIOPSY W/ULTRASOUND GUIDANCE 07/31/14 U/S needle core medial left breast - DANDamp;C, DIAG AND/OR THERAPEUTIC Dilation ANDamp; curettage - DANDamp;C, DIAG AND/OR THERAPEUTIC - EGD W/O OR W/BRUSH/WASH high school EGD - EGD W/O OR W/BRUSH/WASH 03/05/2015 EGD - HYSTEROSCOPY - HYSTEROSCOPY 06/29/2012 Dr Cevallos - MIRENA IUD - PULMONARY FUNCTION TEST 12/29/04 Family History FAMILY HISTORY Problem Relation Age of Onset - Hypertension Mother - Heart Father a fib - Thyroid Sister - Heart Maternal Grandmother - Diabetes Paternal Grandmother - Stroke Paternal Grandmother - Breast Cancer Paternal Grandmother - Hyperlipidemia Paternal Grandfather - Breast Cancer Other P great grandmother - Breast Cancer Paternal Aunt Patient Allergies ALLERGIES Allergen Reactions - Lovastatin Swelling Severe Leg Edema - Advil [Ibuprofen] Other: See Comments Lip and tongue swelling- tolerated 2011 without adverse effect - Ambien [Zolpidem Ta* Mental Status Change confusion; hallucinations; took more than was supposed to in this state - Asa [Salicylates] Rash - Cogentin [Benztropi* Intolerance - Egg Vomiting - Glucophage [Metform* Vomiting - Woodworth, Woodworth Oil - Penicillins Rash - Septra [Sulfamethox* Rash - Tegretol [Carbamaze* Intolerance - Trazodone GI Upset nausea and vomiting - Tylenol [Acetaminop* Rash Current Medications Current Outpatient Prescriptions on File Prior to Visit: topiramate (TOPAMAX) 100 mg tablet Take 1 tablet by mouth daily at bedtime. Take one 100 mg and one 25 mg for a total of 125 mg daily at HS topiramate (TOPAMAX) 25 mg tablet Take 1 tablet by mouth daily at bedtime. Take one 100 mg and one 25 mg for a total of 125 mg daily at HS pantoprazole DR (PROTONIX) 40 mg tablet Take 1 tablet by mouth once daily. before breakfast prazosin (MINIPRESS) 5 mg cap Take 1 capsule by mouth twice daily. PTSD ziprasidone (GEODON) 20 mg capsule Take 1 capsule by mouth twice daily with meals. for depression cetirizine (ZYRTEC) 10 mg tablet Take 1 tablet by mouth once daily. for allergies dicyclomine (BENTYL) 10 mg capsule Take 1 capsule by mouth three times daily before meals and at bedtime. for ibs lisinopril (ZESTRIL, PRINIVIL) 10 mg tablet Take 1 tablet by mouth once daily. multivitamin tablet Take 1 tablet by mouth once daily. OXcarbazepine (TRILEPTAL) 300 mg tablet Take 1 tablet by mouth twice daily. take 300 mg a.m., take 600 mg p.m glucose (DEX4 GLUCOSE) 4 gram chewable tablet Take 4 tablets by mouth as needed for Low Blood Sugar. hydrOXYzine HCl (ATARAX) 50 mg tablet Take 1 tablet by mouth every 6 hours as needed for Itching/Rash. or anxiety loperamide (ANTI-DIARRHEAL) 2 mg cap(s) Take 1 capsule by mouth four times daily as needed for Diarrhea. aluminum-magnesium hydroxide-simethicone (MAALOX,MYLANTA,MAG- AL PLUS) 200-200-20 mg/5 mL suspension Take 10 mL by mouth every 6 hours as needed (for indigestion). guaiFENesin (MUCINEX) 600 mg 12 hr tablet Take 1 tablet by mouth twice daily as needed for Cold/Allergy Symptoms. albuterol HFA (PROAIR HFA) 90 mcg/actuation inhaler Inhale 2 Puffs as instructed every 4 hours as needed for Wheezing/Shortness of Breath. loratadine (CLARITIN) 10 mg tablet TAKE 1 TABLET DAILY blood sugar diagnostic (FREESTYLE LITE STRIPS) test strip TEST BLOOD SUGARS 6 TIMES DAILY Dx 250.00 Lancets (FREESTYLE LANCETS) lancets Use as instructed 3-4 times daily No current facility-administered medications on file prior to visit. Social History Social History Marital status: Single Spouse name: Years of education: 12 Number of children: 0 Occupational History Occupation Employer Comment Unemployed Social History Main Topics Smoking status: Never Smoker Smokeless status: Never Used Alcohol use: No Comment: admits to periods of excessive ETOH use- states that she currently cannot afford ETOH. Drug use: No Sexual activity: No Comment: mirena Review of Symptoms REVIEW OF SYSTEMS GENERAL: No weight loss, malaise or fevers NECK: Negative for lumps, goiter, pain and significant neck swelling RESPIRATORY: Negative for cough, hemoptysis, wheezing, COPD, dyspnea or shortness of breath CARDIOVASCULAR: Negative for chest pain, leg swelling, hypertension, CHF or palpitations GI: No nausea, vomiting, or diarrhea SKIN: Negative for lesions, rash, and itching EXAM: BP 108/78 Pulse 90 Resp 14 Ht 161.9 cm (5' 3.75ANDquot;) Wt 117 kg (258 lb) BMI 44.63 kg/m2 General Appearance: Well appearing, alert, in no acute distress, well-hydrated, well nourished.. Skin: Skin color, texture, turgor normal, no suspicious rashes or lesions. Neck: Supple, no adenopathy; thyroid symmetric, normal size, no bruits. Lungs: Lungs clear to auscultation. No wheezing, rhonchi, rales. Heart: RRR without murmur, gallop, or rubs. No ectopy. Abdomen: Normal abdominal exam, Abdomen soft, non-tender. Bowel sounds normal. No masses, organomegaly. Extremities: No deformities, edema, skin discoloration, clubbing or cyanosis. Good capillary refill. . Health Maintenance List URINE ALBUMIN CREATININE RATIO due on 03/25/2017 LDL due on 03/25/2017 DILATED RETINAL EXAM due on 06/10/2017 HBA1C due on 08/20/2017 DIABETIC FOOT EXAM due on 02/18/2018 MAMMOGRAM due on 06/01/2018 TETANUS due on 10/22/2021 PAP EVERY 5 YEARS due on 05/26/2022 HPV EVERY 5 YEARS due on 05/26/2022 ONE PNEUMOVAX PRIOR TO AGE 65 Completed INFLUENZA Completed Data reviewed Component Latest Ref Rng ANDamp; Units 11/02/2016 02/17/2017 WBC 4.40 - 9.70 thou/cmm 8.31 RBC 3.79 - 4.93 mil/cmm 4.36 HGB 11.7 - 14.7 g/dL 13.9 Hematocrit 34.7 - 43.3 % 41.2 MCV 79.4 - 94.8 fl 94.5 MCH 25.6 - 32.2 pg 31.9 MCHC 32.2 - 35.5 % 33.7 RDW 11.7 - 14.4 % 13.2 RDW-SD 36.4 - 46.3 fl 46.0 Platelet Count 150 - 370 thou/cmm 262 MPV 9.4 - 12.3 fl 8.7 (L) Seg Neutrophil % 70.7 Immature Grans % 1.00 Lymphocyte % 18.2 Monocyte % 9.0 Eosinophil % 0.7 Basophil % 0.4 Seg. Neut. # 1.56 - 6.13 thou/cmm 5.88 Immature Grans # 0.00 - 0.05 thou/cmm 0.08 (H) Lymphocyte # 1.18 - 3.74 thou/cmm 1.51 Monocyte # 0.24 - 0.36 thou/cmm 0.75 (H) Eosinophil # 0.04 - 0.36 thou/cmm 0.06 Basophil # 0.01 - 0.08 thou/cmm 0.03 Sodium 136 - 145 mEq/L 138 Potassium 3.5 - 5.1 mEq/L 3.5 Chloride 98 - 107 mEq/L 101 CO2 21 - 32 mEq/L 28 Glucose 70 - 99 mg/dL 131 (H) BUN 7 - 18 mg/dL 8 Creatinine 0.51 - 0.95 mg/dL 0.74 Calcium 8.5 - 10.1 mg/dL 9.2 Anion Gap 8 - 16 13 Hemoglobin A1C 4.3 - 5.6 % 5.6 Estimated Average Glucose mg/dL 114 ASSESSMENT/PLAN: 1. Major depressive disorder, recurrent, severe with psychotic features (HCC) - ICD9: 296.34, ICD10: F33.3 (primary diagnosis) Patient to continue regimen per psychiatry and follow up with counseling. Feels safe going home and outpatient case manager agrees. 2. Undifferentiated schizophrenia (HCC) - ICD9: 295.90, ICD10: F20.3 See above. 3. PTSD (post-traumatic stress disorder) - ICD9: 309.81, ICD10: F43.10 See above 4. Mixed hyperlipidemia - ICD9: 272.2, ICD10: E78.2 - to be determined upon return of lab results - Encouraged following a low fat, low cholesterol diet. - Discussed the benefits of regular aerobic exercise and weight loss. - LIPID PANEL BASIC 5. Gastroesophageal reflux disease, esophagitis presence not specified - ICD9: 530.81, ICD10: K21.9 - Continue treatment with Protonix QD 6. Essential hypertension - ICD9: 401.9, ICD10: I10 - good control - Continue current medication(s) - Encouraged dietary sodium restriction/DASH diet - Recommended regular aerobic exercise. - Reviewed risks of HTN and principles of treatment - Goal of BP ANDlt;140/90 7. Uncomplicated asthma, unspecified asthma severity, unspecified whether persistent - ICD9: 493.90, ICD10: J45.909 Continue albuterol PRN. 8. Type 2 diabetes mellitus without complication, without long-term current use of insulin (HCC) - ICD9: 250.00, ICD10: E11.9 The patient is new to me. - Check HgA1C, fasting lipid panel and CMP - Encouraged regular aerobic exercise and weight loss - Daily Asprin therapy recommended - Discussed diabetic education issues of diet with patient. - HGB A1C - COMP METABOLIC PANEL - CBC 9. Sleep apnea, unspecified type - ICD9: 780.57, ICD10: G47.30 Will discuss further at future visit. 10. Diabetic gastroparesis (HCC) - ICD9: 250.60, 536.3, ICD10: E11.43, K31.84 - TOPIRAMATE 100 MG TABLET I spent 40 minutes in the visit, with more than 50% of the total mmim-ew-rbmp time of the visit in counseling / coordination of care. Lyn Velázquez MD Referring Provider: SELF [[id number]] Allergies As of Date: 01/06/2018 Noted Allergy Reaction LOVASTATIN 06/09/2005 7 - Swelling Comments: Severe Leg Edema ADVIL (IBUPROFEN) 07/13/2006 14 - Other: See Comments Comments: Lip and tongue swelling- tolerated 2011 without adverse effect AMBIEN (ZOLPIDEM TARTRATE) 05/18/2012 1 - Mental Status Change Comments: confusion; hallucinations; took more than was supposed to in this state ASA (SALICYLATES) 06/09/2005 2 - Rash COGENTIN (BENZTROPINE MESYLATE) 09/21/2005 5 - Intolerance EGG 09/21/2005 11 - Vomiting GLUCOPHAGE (METFORMIN HCL) 09/21/2005 11 - Vomiting ORANGE, ORANGE OIL 09/21/2005 PENICILLINS 06/09/2005 2 - Rash SEPTRA (SULFAMETHOXAZOLE-TRIMETHO*06/09/2005 2 - Rash TEGRETOL (CARBAMAZEPINE) 06/09/2005 5 - Intolerance TRAZODONE 05/18/2012 8 - GI Upset Comments: nausea and vomiting TYLENOL (ACETAMINOPHEN) 06/09/2005 2 - Rash Date Reviewed: 01/06/2018 Reviewed by: Nawaf Nogueira Ma - Fully Assessed Reason for Visit: Establish Care [42] Primary Visit Diagnosis:Major depressive disorder, recurrent, severe with psychotic features (HCC) [F33.3] Other Visit Diagnoses:Undifferentiated schizophrenia (HCC) [F20.3] PTSD (post-traumatic stress disorder) [F43.10] Mixed hyperlipidemia [E78.2] Gastroesophageal reflux disease, esophagitis presence not specified [K21.9] Essential hypertension [I10] Uncomplicated asthma, unspecified asthma severity, unspecified whether persistent [J45.909] Type 2 diabetes mellitus without complication, without long-term current use of insulin (HCC) [E11.9] Sleep apnea, unspecified type [G47.30] Diabetic gastroparesis (HCC) [E11.43, K31.84] Order(s):prazosin (MINIPRESS) 5 mg capTake 1 capsule by mouth daily at bedtime. PTSDDisp: Rfl: topiramate (TOPAMAX) 100 mg tabletTake 1 tablet by mouth twice daily.Disp: Rfl: HGB A1C [[id number]] Order #: [id number] FUTURE COMP METABOLIC PANEL [SQCMP] Order #: [id number] FUTURE LIPID PANEL BASIC [SQLIPB] Order #: [id number] FUTURE CBC [SQCBC] Order #: [id number] FUTURE loperamide (ANTI-DIARRHEAL) 2 mg cap(s)Take 1 capsule by mouth three times daily as needed for Diarrhea.Disp: 60 capsuleRfl: 0 Prescriptions as of 01/06/2018 Sig: SERTRALINE 50 MG TABLET Take 50 mg by mouth once frandy* MIRTAZAPINE 15 MG TABLET Take 15 mg by mouth daily at * PRAZOSIN 5 MG CAPSULE Take 1 capsule by mouth daily* TOPIRAMATE 100 MG TABLET Take 1 tablet by mouth twice * PANTOPRAZOLE 40 MG TABLET,DEL* Take 1 tablet by mouth once d* CETIRIZINE 10 MG TABLET Take 1 tablet by mouth once d* DICYCLOMINE 10 MG CAPSULE Take 1 capsule by mouth three* MULTIVITAMIN TABLET Take 1 tablet by mouth once d* GLUCOSE 4 GRAM CHEWABLE TABLET Take 4 tablets by mouth as ne* HYDROXYZINE HCL 50 MG TABLET Take 1 tablet by mouth every * ALBUTEROL SULFATE HFA 90 MCG/* Inhale 2 Puffs as instructed * LOPERAMIDE 2 MG CAPSULE Take 1 capsule by mouth three* ZIPRASIDONE 20 MG CAPSULE Take 1 capsule by mouth twice* Patient not taking: Reported on 01/06/2018 LISINOPRIL 10 MG TABLET Take 1 tablet by mouth once d* Patient not taking: Reported on 01/06/2018 OXCARBAZEPINE 300 MG TABLET Take 1 tablet by mouth twice * Patient not taking: Reported on 01/06/2018 ALUMINUM-MAG HYDROXIDE-SIMETH* Take 10 mL by mouth every 6 h* Patient not taking: Reported on 01/06/2018 LORATADINE 10 MG TABLET TAKE 1 TABLET DAILY BLOOD SUGAR DIAGNOSTIC STRIPS TEST BLOOD SUGARS 6 TIMES GENE* Patient not taking: Reported on 01/06/2018 LANCETS Use as instructed 3-4 times d* Patient not taking: Reported on 01/06/2018 More... Problem List As Of Date 01/06/2018 Noted Resolved EXTRINSIC ASTHMA UNSPECIFIED [J45.909] INVALID FOR* OBESITY NOS [E66.9] INVALID FOR* More... Sleep apnea [G47.30] INVALID FOR* More... CHRONIC RHINITIS [J31.0] MIXED HYPERLIPIDEMIA [E78.2] INVALID FOR* More... Diabetes mellitus (HCC) [E11.9] INVALID FOR* More... Esophageal reflux [K21.9] INVALID FOR*01/06/2018 INSOMNIA NOS [G47.00] INVALID FOR* Routine general medical examination at a health*INVALID FOR*10/07/2015 Hematuria [599.7] INVALID FOR* More... Schizophrenia (HCC) [F20.9] INVALID FOR* More... GERD (Gastroesophageal Reflux Disease) [K21.9] Unspecified pruritic disorder [L29.9] INVALID FOR* Vaginitis and vulvovaginitis, unspecified [N76.*INVALID FOR* Other tenosynovitis of hand and wrist [M65.849,*INVALID FOR* Iron deficiency [E61.1] INVALID FOR* Zinc deficiency [E60] INVALID FOR* Vitamin B6 deficiency [E53.1] INVALID FOR* Chronic diarrhea [K52.9] INVALID FOR* Paresthesia [R20.2] INVALID FOR* Abnormal mammogram, unspecified [R92.8] INVALID FOR* PTSD (post-traumatic stress disorder) [F43.10] INVALID FOR* Asthma [J45.909] INVALID FOR* More... HTN (hypertension) [I10] INVALID FOR* More... Obesity (BMI 35.0-39.9 without comorbidity) [E6*INVALID FOR* Disturbance in sleep behavior [G47.9] INVALID FOR* Major depressive disorder, recurrent, severe wi*INVALID FOR* More... Prescriptions ordered this encounter Disp Refills Start End PRAZOSIN 5 MG CAPSULE 01/06/2018 Class: Med Update Route: ORAL Sig: Take 1 capsule by mouth daily at bedtime. PTSD TOPIRAMATE 25 MG TABLET 30 t* 2 01/06/2018 01/06/2018 Class: Med Update Route: ORAL Sig: Take 1 tablet by mouth daily at bedtime. Take one 100 mg and one 25 mg for a total of 125 mg daily at HS TOPIRAMATE 100 MG TABLET 01/06/2018 Class: Med Update Route: ORAL Sig: Take 1 tablet by mouth twice daily. LOPERAMIDE 2 MG CAPSULE 60 c* 0 01/06/2018 Route: ORAL Sig: Take 1 capsule by mouth three times daily as needed for Diarrhea. Medications Discontinued During This Encounter topiramate (TOPAMAX) 25 mg tablet 30 t* 2 11/18/2017 01/06/2018 Route: ORAL Sig: Take 1 tablet by mouth daily at bedtime. Take one 100 mg and one 25 mg for a total of 125 mg daily at HS Patient not taking: Reported on 01/06/2018 Disc: Reason for discontinue is not on file. prazosin (MINIPRESS) 5 mg cap 30 c* 2 11/18/2017 01/06/2018 Route: ORAL Sig: Take 1 capsule by mouth twice daily. PTSD Disc: Reason for discontinue is not on file. topiramate (TOPAMAX) 25 mg tablet 30 t* 2 01/06/2018 01/06/2018 Class: Med Update Route: ORAL Sig: Take 1 tablet by mouth daily at bedtime. Take one 100 mg and one 25 mg for a total of 125 mg daily at HS Disc: Reason for discontinue is not on file. topiramate (TOPAMAX) 100 mg tablet 30 t* 2 11/18/2017 01/06/2018 Route: ORAL Sig: Take 1 tablet by mouth daily at bedtime. Take one 100 mg and one 25 mg for a total of 125 mg daily at HS Patient taking differently: Take 100 mg by mouth twice daily. Take one 100 mg and one 25 mg for a total of 125 mg daily at HS Disc: Reason for discontinue is not on file. loperamide (ANTI-DIARRHEAL) 2 mg cap* 30 c* 2 11/18/2017 01/06/2018 Route: ORAL Sig: Take 1 capsule by mouth four times daily as needed for Diarrhea. Patient not taking: Reported on 01/06/2018 Disc: Reason for discontinue is not on file. guaiFENesin (MUCINEX) 600 mg 12 hr t* 30 t* 2 11/18/2017 01/08/2018 Route: ORAL Sig: Take 1 tablet by mouth twice daily as needed for Cold/Allergy Symptoms. Patient not taking: Reported on 01/06/2018 Disc: Reason for discontinue is not on file. Disposition: Return in about 2 months (around 03/08/2018). Follow-up and Disposition History Recorded Encounter Status:Closed by LYN VELÁZQUEZ MD on 01/08/18 12 LEAD ELECTROCARDIOGRAM Observed: 12/09/2017 Status: F Source: [place] 1:24 PM [facility] Cardiovascular Services [address] [place] [address] 12 Lead EKG 12/07/17 [id number] MR#: [id number] Acct: [id number] Name: ALICJA SANDHU Rep #: [id number] : 1975 42 From: Drake French MD Attending Dr: Status: DEP ER Ordering Dr: Luisito Bird MD Date: 12/07/17 Location: ED Sex: F C Admitted: Test Reason : Blood Pressure : / mmHG Vent. Rate : 072 BPM Atrial Rate : 072 BPM P-R Int : 172 ms QRS Dur : 088 ms QT Int : 402 ms P-R-T Axes : 048 052 037 degrees QTc Int : 440 ms Normal sinus rhythm Normal ECG Confirmed by RAFITA COHEN, DRAKE ([id number]), scientific editor PRINCE STAHL ([id number]) on 12/09/2017 1:24:25 PM Referred By: ALLY Confirmed By:DRAKE FRENCH MD 12/09/17 1324 Date Drake French MD CC: Guillermo Velázquez MD; Luisito Bird MD Signed LIPID Collected: 12/09/2017 Status: F Source: [place] [employer] 7:39 AM [facility] REPOSITORY TYPE CODE TESTS RESULT OUT OF REFERENCE UNITS RANGE LAB CHOL(LOINC 50-199 mg/dL ) Cholesterol High 205 Result Comment: Cholesterol Reference Interval: Less than 200 Desirable 200-239 Borderline high risk 240 and above High risk LAB TRIG(LOINC) 3-149 mg/dL Triglycerides High 338 Result Comment: Triglyceride Reference Interval: Less than 150 Normal 150-199 Borderline high risk 200-499 High risk 500 or higher Very high risk LAB HD(LOINC) 40-59 mg/dL HDL Low Cholesterol 31 Result Comment: HDL Reference Interval: Less than 40 Low - high risk 60 or above Optimal/lowers risk LAB LDL(LOINC) 0-129 mg/dL LDL Cholesterol 106 Result Comment: LDL is a calculated result and requires a 12-hr fast. LDL Reference Interval: Less than 100 Optimal 100-129 Near or above optimal 130-159 Borderline high risk 160-189 High risk 190 and above Very high risk Performed By: #### LIPID, A1C #### [facility] [address] [place] [address] A1C Collected: 12/09/2017 Status: F Source: [facility] 7:39 AM [facility] REPOSITORY TYPE CODE TESTS RESULT OUT OF RANGE REFERENCE UNITS LAB A1C(LOINC) 4.0-6.0 % High Hgb A1c 6.6 Performed By: #### LIPID, A1C #### [facility] [address] [place] [address] EMERGENCY DEPARTMENT Observed: 12/08/2017 Status: F Source: [place] SUMMARY 4:22 AM [facility] [place] [place] Medical Records Department [address] [place] [address] Emergency Department Summary 12/07/17 [id number] MR#: [id number] Acct: [id number] Name: ALICJA SANDHU Rep #: [id number] : 1975 42 From: Luisito Bird MD PCP: Guillermo Velázquez MD Status: DEP ER - ER Visit Summary Date of Service: 12/07/17 Chief Complaint: [] Suicidal ideation History of Present Illness: The patient is a 42 F presents with suicidal thoughts for the last 7 days gradual onset intermittent. Situational factors are making it worse. She appears depressed and worthless. She has not been sleeping secondary to stress. She took some sleeping pills last night and this morning in order to kill herself. Comes in for further evaluation. His done this in the past. Physical Examination: [] Vital signs reviewed General: Well-nourished well-developed Head: Normocephalic atraumatic Eyes: Pupils equal round and reactive to light extraocular movements intact ENT: TMs clear no hemotympanum no trauma Neck: Nontender full range of motion Cardiovascular: Regular rate rhythm no murmurs normal S1-S2 Respiratory: No distress clear to auscultation bilaterally chest nontender Abdomen: Soft nontender nondistended normal bowel sounds no masses Back: Nontender no CVA tenderness Extremities: Nontender active range of motion 4 extremities no trauma Skin: Normal color no trauma Psychiatry: Positive depression and suicidal thoughts Neuro alert oriented cranial nerves II through XII intact normal strength sensation reflexes Test Results: [] Tox CBC chemistry normal. Patient will be seen by crisis. Will be pink slipped and admitted. Emergency Department Course and Treatment: [] Treatment Plan: [] Disposition: [] Impression: [] Depression with suicidal ideation. This note was generated with [employer] [employer] software. It may contain incorrect words, spelling, and punctuation that were not noted in review of the chart prior to signing ED Disposition - Plan for ED Patient: Chief Complaint: Suicidal Referrals: Guillermo Velázquez MD [Primary Care Provider] - What to do if you have Problems For any increased pain, shortness of breath, bleeding, nausea or vomiting, chest pain, or any unexpected problems, contact your Primary Care Provider. Call [facility] ([phone]) or report to the closest Emergency Room. Call 911 if necessary. 12/08/17 0422 <Electronically signed by Luisito Bird MD> Date Luisito Bird MD Cosigner Signature (If Indicated): Date CC: Guillermo Velázquez MD CBC W/DIFF, AUTOMATED Collected: 12/07/2017 Status: F Source: [place] 9:25 PM [facility] TYPE CODE TESTS RESULT OUT OF RANGE REFERENCE UNITS LAB L100.1000 4.4-11.0 K/mm3 Normal WBC 10.0 LAB L100.1200 4.2-5.4 M/mm3 Normal RBC 4.32 LAB L100.1300 12.0-15.0 g/dl Normal HGB 13.5 LAB L100.1400 37-47 % Normal HCT 40.4 LAB L100.1500 81-99 fL Normal MCV 93.5 LAB L100.1600 27.0-32.0 pg Normal MCH 31.3 LAB L100.1700 32-36 g/gl Normal MCHC 33.4 LAB L100.1810 11.6-14.6 % Normal RDW CV 13.6 LAB L100.1820 35.1-43.9 fl High RDW SD 46.9 LAB L100.1900 150-450 K/mm3 Normal PLT 278 LAB L100.2000 6.2-12.0 fl Normal MPV 9.0 LAB L100.2100 47-70 % High NEUT% 72.1 LAB L100.2200 19-41 % Normal LY% 19.3 LAB L100.2300 0-10 % Normal MONO% 6.4 LAB L100.2400 0-5 % Normal EO% 1.0 LAB L100.2500 0-1 % Normal BASO% 0.3 LAB L100.2550 0.0-0.9 % Normal IM GRAN % 0.900 Result Comment: IG% - Immature Granulocytes (promyelocytes, myelocytes and metamyelocytes) > 1% indicates that a LEFT SHIFT is Present. LAB L100.2620 2.0-7.7 X10 3/uL Normal Absolute Neut 7.2 LAB L100.2720 0.83-4.51 X10 3/ul Normal Absolute Lymph 1.92 Performed By: #### L100.0100 #### [facility] [address] [place], [address] BASIC METABOLIC Collected: 12/07/2017 Status: F Source: [place] PROFILE (BMP) 9:25 PM [facility] [place] TYPE CODE TESTS RESULT OUT OF RANGE REFERENCE UNITS LAB L501.0100 74-106 mg/dL High GLU 150 Result Comment: Fasting Glucose result greater than or equal to 126 mg/dL suggests DIABETES MELLITUS per A.D.A. criteria. Please note revised GLUCOSE reference range effective 2017. LAB L501.1000 7-18 mg/dL Normal BUN 10 LAB L501.1100 0.55-1.02 mg/dL Normal CREAT,SERUM 0.92 Result Comment: The validity of the calculated GFR AND GFRAA in patients over 70 years has not been determined. Clinical correlation is essential. LAB L501.1110 >60 mL/min Normal EST GFR 71 Result Comment: Non- GFR Calc LAB L501.1115 >60 mL/min Normal EST GFR - AA 86 Result Comment: GFR Calc LAB L501.1255 ml/min Normal Estimated CRCL 68.09 LAB L501.1300 10-20 RATIO Normal BUN/CRE 10.9 LAB L501.2200 8.5-10 mg/dL Normal .1 CA 8.7 LAB L501.5300 136-14 mmol/L Normal 5 NA 140 LAB L501.5600 3.5-5. mmol/L Normal 1 K 3.7 LAB L501.5900 98-107 mmol/L Normal CL 104 LAB L501.6100 21.0-3 mmol/L Normal 2.0 CO2 25.0 LAB L501.6200 5-15 Normal GAP 11 Performed By: #### L500.2500 #### [facility] [address] [place], [place], [address] ,SERUM,HCG QUALI. Collected: Status: F Source: [place] 12/07/2017 9:25 PM [facility] [place] TYPE CODE TESTS RESULT OUT OF REFERENCE UNITS RANGE LAB L700.6700 =>Qualitative mIU/mL Normal HCG Qual < 1 triggr LAB L700.7000 0-9 Nonpreg Negative Normal HCGSQUAL NEGATIVE Performed By: #### L700.6800 #### [facility] [address] [place], [place], [address] ALCOHOL, BLOOD Collected: 12/07/2017 Status: F Source: [place] (MEDICAL)-SERUM 9:25 PM [facility] [place] TYPE CODE TESTS RESULT OUT OF RANGE REFERENCE UNITS LAB L501.9100 mg/dL Normal SERUM 9.0 ETOH Result Comment: The serum:whole blood ethanol ratio is approximately 1.14 and varies slightly with hematocrit. Medical Alcohol reference interval and critical value in non-tolerant individuals; 50 - 100 Impairment 100 Intoxication 100 - 250 Severe Poisoning 250 - 400 Deep/possible fatal coma Performed By: #### L501.9100 #### [facility] [address] [place], [place], [id number] URINE DRUG SCREEN Collected: 12/07/2017 Status: F Source: [place] (VISTA) 9:05 PM [facility] [place] TYPE CODE TESTS RESULT OUT OF RANGE REFERENCE UNITS LAB L505.0075 TO BE Normal CONFIRMED Result Comment: CONFIRMATORY TESTING FOR ALL POSITIVE URINE DRUG SCREEN RESULTS WILL ONLY BE SENT OUT UPON PHYSICIAN ORDER. VISTA Urine Drug Screen methods provide only preliminary analytical test results. A more specific alternate chemical method must be used in order to obtain a confirmed analytical result. Gas chromatography/mass spectrometery (GC/MS) is the preferred confirmatory method. Clinical consideration and professional judgement should be applied to any drug of abuse test result, particularly when preliminary positive results are used. URINE TCA TESTING MUST BE ORDERED SEPARATELY. USE TEST MNEMONIC: [facility] LAB L505.5005 VISTA UDS PH 6 Normal LAB L505.5015 <1000 ng/mL AMPHETAMINES Normal NEGATIVE LAB L505.5025 < 200 ng/mL BARBITIURATES Normal NEGATIVE LAB L505.5035 < 200 ng/mL BENZODIAZIPINE Normal NEGATIVE LAB L505.5045 < 300 ng/mL COCAINE Normal NEGATIVE LAB L505.5055 < 500 ng/mL ECSTACY Normal NEGATIVE LAB L505.5065 < 300 ng/mL METHADONE Normal NEGATIVE LAB L505.5075 < 300 ng/mL OPIATES Normal NEGATIVE LAB L505.5085 < 25 ng/mL PCP Normal NEGATIVE LAB L505.5095 < 50 ng/mL THC Normal NEGATIVE Performed By: #### L505.5000 #### [facility] [address] [place], [place], [address] URINALYSIS, COMPLETE Collected: 12/07/2017 Status: F Source: [place] 9:05 PM [facility] [place] Order Comment: Order Date: 12/08/17 How was Urine Obtained? CLEAN CATCH TYPE CODE TESTS RESULT OUT OF RANGE REFERENCE UNITS LAB L400.3000 Yellow COLOR Normal Yellow LAB L400.3050 Clear Normal CLARITY Sl. Cloudy LAB L400.3200 Normal mg/dl High 50 GLUCOSE, UR LAB L400.3300 Negative mg/dL Normal BILIRUBIN URINE Negative LAB L400.3400 Negative mg/dl Normal KETONE UR Negative LAB L400.3465 1.002-1.030 Normal SP.GR. DIPSTX 1.010 LAB L400.3550 5.0 - 8.0 pH UR Normal 6.5 LAB L400.3600 Negative mg/dl PROT Normal DIPSTX Negative LAB L400.3700 Normal mg/dl Normal UROBILI Normal LAB L400.3750 Negative Normal NITRITE UR Negative LAB L400.3780 Negative /ul Normal OCCULT BLOOD-UR Negative LAB L400.3800 Negative /ul High LEUK 25 ESTERASE LAB L400.4050 0-5 /hpf WBC Normal 5-10 SEEN LAB L400.4100 0-5 /hpf 0 Normal RBC-UA SEEN LAB L400.4150 5-10 /hpf SQUAM Normal EPI 5-10 SEEN LAB L400.4300 None Seen /hpf 2+ Normal BACTERIA LAB L400.4350 <or=2+ /hpf 0 Normal MUCUS, URINE SEEN Performed By: #### L400.0001 #### [facility] [address] [place], [address] PROGRESS Observed: 12/01/2017 Status: COMPLETED Source: [place] 2:04 PM [facility] REPOSITORY HNO ID: [id number] Author: Nghia Darling Service: (none) Author Type: Psychologist Type: Progress Notes Filed: 12/01/2017 2:09 PM Note Text: [facility] Progress Note Alicja Reece Phoebe 12/01/2017 [id number] Provider: Nghia Darling, PHD CPT Code: 70017 Psychotherapy 38-52 minutes Time: Approximately 50 minutes was spent in therapy. Parties Present: Patient Patient Presentation/Concerns: distress Pt is at [facility] until she can find an apartment where she can have access to clothes washing Pt mood fairly easily good in spite of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 or bending over has been associated with some shortness of breath. She describes it as sharp substernal pain. She denies any history of coronary disease she does have a history of hypertension and diabetes she is a non-smoker no premature family history. She denies any DVT or PE risk factors. She has never had a stress test. Physical Examination: Vital signs are within normal limits, patient is afebrile. General: Patient is well-nourished well-developed and in no acute distress. Head: Normocephalic, atraumatic Eyes: Pupils equal round and reactive bilaterally, extra occular motion intact bialterally ENT: Moist mucous membranes Neck: Supple, no lymphadenopathy, no JVD, no meningismus CVS: Heart regular rate and rhythm, no murmurs, rubs or gallops, radial pulses 2+ bilaterally Resp: Respirations nondistressed, lung sounds clear bilaterally Abdomen: Soft, nontender, nondistended, no palpable masses, normal bowel sounds Back: Nontender Extremities: Nontender, atraumatic, active full range of motion, no peripheral edema Skin: warm, no rashes, no petechia Neuro: Alert and oriented x 4, CN 2-12 intact, no lateralizing neurological defecits Psyc: Normal affect Test Results: EKG shows sinus rate [address] segments normal T waves. CBC chemistry troponin negative. Chest x-ray shows chronic changes. Emergency Department Course and Treatment: Patient presented secondary chest pain. This sounds rather atypical, and it has been going on continuously since yesterday. His workup was found to be negative as noted above. Her heart score is low risk. Again I believe the patient cannot receive an outpatient stress test does not require admission. Patient was informed of this and she was discharged. Disposition: Discharge Impression: 1. Anxiety This note was generated with Mobile [employer] dictation software. It may contain incorrect words, spelling, and punctuation that were not noted in review of the chart prior to signing ED Disposition - Plan for ED Patient: Disposition: Home or Assisted Living Chief Complaint: Shortness of Breath Diagnosis: Anxiety Instructions: ED Stress React Referrals: Vannesa Guzman MD [Primary Care Provider] - What to do if you have Problems For any increased pain, shortness of breath, bleeding, nausea or vomiting, chest pain, or any unexpected problems, contact your Primary Care Provider. Call [facility] ([phone]) or report to the closest Emergency Room. Call 911 if necessary. 11/11/17 1812 <Electronically signed by Kevin Torres MD> Date Kevin Torres MD Cosigner Signature (If Indicated): Date CC: Vannesa Guzman MD CBC W/DIFF, AUTOMATED Collected: 11/11/2017 Status: F Source: [place] 10:33 AM [facility] TYPE CODE TESTS RESULT OUT OF RANGE REFERENCE UNITS LAB L100.1000 4.4-11.0 K/mm3 Normal WBC 10.3 LAB L100.1200 4.2-5.4 M/mm3 Low RBC 4.09 LAB L100.1300 12.0-15.0 g/dl Normal HGB 12.8 LAB L100.1400 37-47 % Normal HCT 38.0 LAB L100.1500 81-99 fL Normal MCV 92.9 LAB L100.1600 27.0-32.0 pg Normal MCH 31.3 LAB L100.1700 32-36 g/gl Normal MCHC 33.7 LAB L100.1810 11.6-14.6 % Normal RDW CV 13.6 LAB L100.1820 35.1-43.9 fl High RDW SD 46.4 LAB L100.1900 150-450 K/mm3 Normal PLT 224 LAB L100.2000 6.2-12.0 fl Normal MPV 8.6 LAB L100.2100 47-70 % High NEUT% 76.4 LAB L100.2200 19-41 % Low LY% 15.0 LAB L100.2300 0-10 % Normal MONO% 6.8 LAB L100.2400 0-5 % Normal EO% 0.5 LAB L100.2500 0-1 % Normal BASO% 0.2 LAB L100.2550 0.0-0.9 % High IM GRAN % 1.100 Result Comment: IG% - Immature Granulocytes (promyelocytes, myelocytes and metamyelocytes) > 1% indicates that a LEFT SHIFT is Present. LAB L100.2620 2.0-7.7 X10 3/uL High Absolute Neut 7.9 LAB L100.2720 0.83-4.51 X10 3/ul Normal Absolute Lymph 1.55 Performed By: #### L100.0100 #### [facility] [address] [place], [place], [address] BASIC METABOLIC Collected: 11/11/2017 Status: F Source: [place] PROFILE ([facility]) 10:33 AM [facility] Order Comment: 'TROP' Serial specimen #1, #2, #3, or #4: 1 TYPE CODE TESTS RESULT OUT OF RANGE REFERENCE UNITS LAB L501.0100 70-110 mg/dL High GLU 145 Result Comment: Fasting Glucose result greater than or equal to 126 mg/dL suggests DIABETES MELLITUS per A.D.A. criteria. LAB L501.1000 7-18 mg/dL Low BUN 5 LAB L501.1100 0.55-1.02 mg/dL Normal CREAT,SERUM 0.70 Result Comment: The validity of the calculated GFR AND GFRAA in patients over 70 years has not been determined. Clinical correlation is essential. LAB L501.1110 >60 mL/min Normal EST GFR 98 Result Comment: Non- GFR Calc LAB L501.1115 >60 mL/min Normal EST GFR - AA 118 Result Comment: GFR Calc LAB L501.1255 ml/min Normal Estimated CRCL 90.41 LAB L501.1300 10-20 RATIO Low BUN/CRE 7.2 LAB L501.2200 8.5-10 mg/dL Low .1 CA 8.4 LAB L501.5300 136-14 mmol/L Low 5 NA 134 LAB L501.5600 3.5-5. mmol/L Normal 1 K 3.5 LAB L501.5900 98-107 mmol/L Normal CL 100 LAB L501.6100 21.0-3 mmol/L Normal 2.0 CO2 26.0 LAB L501.6200 5-15 Normal GAP 8 Performed By: #### L500.2500, L501.4010 #### [facility] [address] [place], [address] TROPONIN-I Collected: 11/11/2017 Status: F Source: [place] 10:33 AM [facility] Order Comment: 'TROP' Serial specimen #1, #2, #3, or #4: 1 TYPE CODE TESTS RESULT OUT OF RANGE REFERENCE UNITS LAB L501.4010 <0.06 ng/mL Normal < 0.02 TROPONIN-I Result Comment: TROPONIN-I EXPECTED VALUES <0.05 NEGATIVE 0.06 - 0.59 AT RISK OF HI > OR = 0.60 SUGGEST HI Performed By: #### L500.2500, L501.4010 #### [facility] [address] [place], [address] CHEST 1 VIEW Observed: 11/11/2017 Status: F Source: [place] (PORTABLE) 10:19 AM [facility] Imaging Services [address] [place] [id number] Chest 1 View (Portable) MR#: [id number] Acct: [id number] Name: ALICJA SANDHU Rep #: [id number] : 1975 F 41 From: Roe Thomason MD PCP: Vannesa Guzman MD Status: REG ER Study: Chest 1 View (Portable) Date of Exam: 11/11/17 Exam# [id number] Ordering Dr: Kevin Torres MD STUDY: X-RAY CHEST REASON FOR EXAM: Female, 41 years old. Chest pain. Anxiety TECHNIQUE: Single AP portable view of the chest. COMPARISON: January 07, 2017 FINDINGS: The lungs are clear and expanded. There is no demonstrated pleural abnormality. Normal size heart. Normal mediastinum and getachew. Normal visualized pulmonary arteries. Normal visualized aortic arch and descending thoracic aorta. There are diffuse degenerative changes of the visualized thoracic spine. Normal visualized ribs, clavicles, and shoulders. There is no demonstrated abnormality of the visualized soft tissue structures of the upper abdomen. RAD/Chest 1 View (Portable) IMPRESSION: Degenerative changes, as described above. No demonstrated acute cardiopulmonary process. Electronically Signed: Roe Thomason MD at 10:44 EST , Service support , CC: Vannesa Guzman MD; Kevin Torres Financial Management Analyst: Signed PROGRESS Observed: 10/31/2017 Status: COMPLETED Source: [place] 11:40 AM [facility] [place] REPOSITORY HNO ID: [id number] Author: Nghia Darling Service: (none) Author Type: Psychologist Type: Progress Notes Filed: 10/31/2017 11:55 AM Note Text: [facility] Progress Note Alicja Sandhu 10/31/2017 [id number] Provider: Nghia Darling, PHD CPT Code: 02770 Psychotherapy 38-52 minutes Time: Approximately 50 minutes was spent in therapy. Parties Present: Patient Patient Presentation/Concerns: pt agitated She is very frustrated and anxious that staff where she lives talk negatively about residents in ear shot she fears if she is to vocal there will be retribution This is so difficult that she wants to run away to another place RIGHT NOW but doesnt want to have to do what it takes to move so feels trapped She is seeing Dr Cabrera on Tuesday for an INITIAL VISIT and at the end of this month will attend a 4 week IOP at [facility] which generally has a good reputation with participants and also a report of good feedback about the Psychiatrist Consequently... she might get 2 new consults re her meds.... the biggest concern seems her Depression not being managed nightmares and some of the hallucinations and intrusive thoughts seem better w meds but not particularly Fixed MOOD: She reports moods from angry/agitated and cussing people out to depressed and sleeping a lot and some SUICIDAL THOUGHTS w/o plan Mental Status: Mood: variable, depressed, irritable, angry Affect: mood-congruent Thoughts/Associations:goal directed Suicidal/Homicidal Ideation: thoughts that life is not worth it Other Observations: None Therapy Focus Self-care, Stress management, Mood/affect regulation, Interpersonal and Coping with chronic illness MEDICATIONS: Per medical record: Current Outpatient Prescriptions: topiramate (TOPAMAX) 100 mg tablet Take 1 tablet by mouth twice daily. tiZANidine (ZANAFLEX) 4 mg tablet TAKE 1 TABLET BY MOUTH TWICE A DAY loratadine (CLARITIN) 10 mg tablet TAKE 1 TABLET DAILY dicyclomine (BENTYL) 10 mg capsule Take 1 capsule by mouth three times daily before meals and at bedtime enalapril (VASOTEC) 2.5 mg tablet Take 0.5 tablets by mouth once daily. Multivitamins-Iron tab Take 1 tablet by mouth once daily. esomeprazole (NEXIUM) 40 mg capsule Take 1 capsule by mouth DAILY (6 AM). DULoxetine (CYMBALTA) 30 mg capsule Take 2 capsules by mouth once daily. Indications: FIBROMYALGIA hydrOXYzine pamoate (VISTARIL) 25 mg capsule albuterol HFA (PROAIR HFA) 90 mcg/actuation inhaler Inhale 2 Puffs as instructed every 4 hours as needed. glucose (DEX4 GLUCOSE) 4 gram chewable tablet Take 4 tablets by mouth as needed for Low Blood Sugar. OXcarbazepine (TRILEPTAL) 300 mg tablet Take by mouth. 300 mg a.m. 600 mg p.m blood sugar diagnostic (FREESTYLE LITE STRIPS) test strip TEST BLOOD SUGARS 6 TIMES DAILY Dx 250.00 Lancets (FREESTYLE LANCETS) lancets Use as instructed 3-4 times daily No current facility-administered medications for this visit. Psychiatric Medication Issues: see med notes DIAGNOSIS: Berg[place] I: Schizophrenia Undifferentiated Type PTSD Mixed Depression: Depression and Anxiety Sleep problem (insomnia currently) r/o Cyclothymic ?? Bergen II : Deferred Bergen III : See medical history Bergen IV: Problems related to the social environment Bergen V: GAF 40-31 Some impairment in reality testing or communication or major impairment in several areas Treatment Modality/Interventions: Cognitive Behavioral Reassurance/Supportive Problem solving TREATMENT ASSESSMENT/PROGRESS: . Progressing satisfactorily. TREATMENT PLAN/GOALS: Continue in therapy focusing on self- care, stress management, affect management, anxiety management and anger management. Next appointment: as scheduled Nghia Darling PHD ALLERGIES ALLERGIES DATE TYPE / NAME / CODE REACTION SEVERITY SOURCE CODE 09/13/2018 Drug benztropine Other Unknown [place] Allergy/41 mesylate/[id number] [facility] [id number]( (RXNORM) [facility]) Repository 09/13/2018 Drug Penicillins/[id number] Anaphylaxis Unknown [place] Allergy/41 476(RXNORM) [facility] 1459046([facility]) Repository 09/13/2018 Drug aspirin/[id number]( Anaphylaxis Unknown [place] Allergy/41 RXNORM) [facility] [id number]([facility]) Repository 09/13/2018 Drug acetaminophen/F0060 Anaphylaxis Unknown [place] Allergy/41 45141(RXNORM) [facility] [id number]([facility]) Repository 09/13/2018 Drug carbamazepine/F0060 Rash Unknown [place] Allergy/41 79349(RXNORM) [facility] [id number]([facility]) Repository 09/13/2018 Drug ibuprofen/[id number] Anaphylaxis Unknown [place] Allergy/41 7(RXNORM) [facility] [id number]([facility]) Repository 09/13/2018 Drug neomycin/[id number] Swelling Unknown [place] Allergy/41 (RXNORM) [facility] [id number]([facility]) Repository 09/13/2018 Drug bacitracin/[id number] Swelling Unknown [place] Allergy/41 98(RXNORM) [facility] 5665327([facility]) Repository 09/13/2018 Drug sulfamethoxazole/F0 Anaphylaxis Unknown [place] Allergy/41 [id number](RXNORM) Community 6706874([facility]) Repository 09/13/2018 Drug trimethoprim/I52268 Anaphylaxis Unknown [place] Allergy/41 2873(RXNORM) Community 6166773([facility]) Repository 09/13/2018 Drug trazodone/[id number] Vomiting Unknown [place] Allergy/41 0(RXNORM) Community 2247513([facility]) Repository 09/13/2018 Drug polymyxin Swelling Unknown [place] Allergy/41 B/[id number](RXNORM Community [id number]([facility]) Repository 09/13/2018 Drug egg/[id number](RXNO Other Unknown [place] Allergy/41 RM) Community 3852082([facility]) Repository 05/18/2012 DRUG ZOLPIDEM TARTRATE Mental Chg [place] INGREDI/41 Clinic Main [id number]([facility]) Repository 05/18/2012 DRUG TRAZODONE GI UPSET [place] INGREDI/41 Clinic Main [id number]([facility]) Repository 07/13/2006 DRUG IBUPROFEN OTHER: SEE C [place] INGREDI/41 Clinic Main [id number]([facility]) Repository 09/21/2005 DRUG BENZTROPINE INTOLERANCE [place] INGREDI/41 MESYLATE Clinic Main [id number]( [facility]) Repository 09/21/2005 DRUG EGG Vomiting [place] INGREDI/41 Clinic Main [id number]([facility]) Repository 09/21/2005 DRUG METFORMIN HCL Vomiting [place] INGREDI/41 Clinic Main 0662451([facility]) Repository 09/21/2005 Food/95648 ORANGE, ORANGE OIL [place] 1000([facility] Main D CT) [place] Repository 06/09/2005 DRUG LOVASTATIN SWELLING High [place] INGREDI/41 Clinic Main [id number]( [facility]) Repository 06/09/2005 Drug SALICYLATES RASH [place] Class/4195 Clinic Main 72393([facility] [place] ED [facility]) Repository 06/09/2005 Drug PENICILLINS [place] Class/4195 Clinic Main 40770([facility] ED [facility]) Repository 06/09/2005 DRUG/43192 SULFAMETHOXAZOLE-TR RASH [place] 1003([facility] IMETHOPRIM Clinic Main D CT) [place] Repository 06/09/2005 DRUG CARBAMAZEPINE INTOLERANCE [address] Main [id number]([facility]) Repository 06/09/2005 DRUG ACETAMINOPHEN RASH [address] Main [id number]([facility] OME [facility]) Repository ENCOUNTERS ENCOUNTERS ADMIT/DISCHARGE ACCOUNT NUMBER ADMITTING ENCOUNTER LOCATION SOURCE CLASS 09/13/2018/09/13/20 [id number] Emergency [address] ding:ED Repository 09/13/2018 [id number] Ambulatory [facility] ding:LAB.FUT Repository URE 09/11/2018 [id number] Ambulatory [place] [facility] Hospital ding:LAB Repository 08/24/2018/08/25/20 [id number] Emergency [address] ding:ED Repository 08/22/2018/08/22/20 [id number] Ambulatory BMSBuilding: [place] 18 [facility] Repository 08/11/2018/08/17/[id number] Kane Inpatient [place] [address] Sulema Berg. Encounter lding:[address] and Psych/Adult Hazel CloRoom: Hospitals [facility] Repository 3302Bed: [facility] [id number] 08/04/2018/08/04/20 [id number] Ambulatory BMSBuilding: [place] 18 [facility] Repository 07/06/2018 [id number] Ambulatory BMSBuilding: [place] BMS.[facility] Repository 07/05/2018/07/06/20 [id number] Emergency [address] ding:ED Repository 04/12/2018/04/13/20 [id number] Ambulatory BMSBuilding: [place] 18 [facility] Repository 04/10/2018/04/13/20 [id number] Tc, Inpatient [place] 18 [facility] ding:ICURoom Repository : CRC01Sfj: 1 04/10/2018 [id number] Tc Ambulatory BMSBuilding: [place] Drake BMS.[facility] Repository 04/10/2018 [id number] Tc Ambulatory BMSBuilding: [place] [facility] BMS.[facility] Repository 04/10/2018 [id number] Tc, Ambulatory BMSBuilding: [place] Drake BMS.[facility] Repository 04/10/2018/04/13/20 [id number] Ambulatory BMSBuilding: [place] 18 [facility] Repository 04/10/2018 [id number] Ambulatory BMSBuilding: [place] BMS.[facility] Repository 04/05/2018/04/05/20 [id number] Ambulatory BMSBuilding: [place] 18 BMS.[facility] Repository 03/25/2018/03/25/20 [id number] Emergency [address] ding:ED Repository 03/25/2018 [id number] Ambulatory BMSBuilding: [place] [facility] Repository 03/21/2018/03/21/20 [id number] Ambulatory BMSBuilding: [place] 18 BMS.[facility] Repository 02/20/2018 [id number] Ambulatory BMSBuilding: [place] BMS.[facility] Repository 02/09/2018/02/11/20 [id number] Ambulatory [address] Repository 02/01/2018/02/02/20 [id number] Ambulatory [address] Repository 02/01/2018/02/02/20 [id number] Ambulatory [address] Repository 01/17/2018/01/18/20 [id number] Emergency [address] ding:ED Repository 01/06/2018/01/10/20 [id number] Ambulatory [address] Repository 12/08/2017/12/09/19 [id number] CARTER COHEN, Ambulatory PBuilding:SAM Strickland YRoom: [facility] 6588Bed: A [facility] Repository 12/07/2017/12/08/19 [id number] Emergency [address] ding:ED Repository 12/01/2017/12/02/19 [id number] Ambulatory [address] Repository 11/28/2017/11/28/19 [id number] Emergency [address] ding:ED Repository 11/27/2017 [id number] Ambulatory [facility] ding:BHIOP Repository 11/18/2017/11/22/19 [id number] Ambulatory [address] Repository 11/11/2017/11/11/19 [id number] Emergency [address] ding:ED Repository 11/07/2017/11/16/19 [id number] Ambulatory [address] ding:BHIOP Repository 10/31/2017/11/01/19 [id number] Ambulatory [address] Repository PAYERS PAYERS ENCOUNTER GUARANTOR PAYER SUBSCRIBER SOURCE 09/13/2018 ALICJA Reece Primary ALICJA Albrecht [id number] JOAQUIN Insurance:CARESOURCEP DEEPAKVNGDOB: Community [facility] Number: [id number] Health Care Facility [address]Veq: [id number] Repository Date:2018-09-13P O () [address]ATTN: [place] [address]JQ: 09/13/2018 Secondary NOT GIVENUNK [place] Insurance:SELF PAY [facility] Number: Effective Repository Date:2018-09-13 09/13/2018 ALICJA Reece Primary ALICJA Albrecht [id number] JOAQUIN Insurance:CARESOURCEP KUNKVNGDOB: [facility] LNAPT [facility] Number: [id number] Health Care Facility [address]Oac: [id number] Repository Date:2018-09-11P O () [address]ATTN: [place] [address]HM: 09/13/2018 Secondary NOT GIVENUNK [place] Insurance:SELF PAY [facility] Number: Effective Repository Date:2018-09-11 09/11/2018 ALICJA Reece Primary ALICJA Albrecht [id number] JOAQUIN Insurance:CARESOURCEP PHOEBEDOB: [facility] LNAPT [address] [place] [address] [facility] Number: [id number] Health Care Facility [address]Snr: [id number] Repository Date:2018-09-11P O () [address]ATTN: [place] [address]GA: 09/11/2018 Secondary NOT GIVENUNK [place] Insurance:SELF PAY [facility] Number: Effective Repository Date:2018-09-11 08/24/2018 ALICJA L Primary ALICJA L [place] [id number] JOAQUIN Insurance:CARESOURCEP DEEPAKVNGDOB: [address] Number: [id number] Health Care Facility [address]Ptl: [id number] Repository Date:2018-08-24P O () [address]ATTN: [place] [address]LZ: 08/24/2018 Secondary NOT GIVENUNK [place] Insurance:SELF PAY [facility] Number: Effective Repository Date:2018-08-24 08/22/2018 ALICJA L Primary ALICJA L [place] [id number] JOAQUIN Insurance:CARESOURCEP PHOEBEDOB: [address] Number: [id number] Health Care Facility [address]Hyn: [id number] Repository Date:2018-08-02P O () [address]ATTN: [place] [address]GZ: 08/22/2018 Secondary NOT GIVENUNK [place] Insurance:SELF PAY [facility] Number: Effective Repository Date:2018-08-22 08/11/2018 Primary ALICJA L [facility] Insurance:CareSourceP JAYAB: [place] Number: [id number] [id number] [address] Repository Date:[facility] [place], [place] Name:[facility] [address]Ivr: [phone], [place] [phone] (HP) [address]ZU: 08/04/2018 ALICJA L Primary ALICJA L [place] [id number] JOAQUIN Insurance:CARESOURCEP KUNKVNGDOB: [address] Number: [id number] Health Care Facility [address]Vpb: [id number] Repository Date:2018-08-04P O (HP) [address]ATTN: [place] [address]LP: 08/04/2018 Secondary NOT GIVENUNK [place] Insurance:SELF PAY [facility] Number: Effective Repository Date:2018-08-04 07/06/2018 ALICJA L Primary ALICJA Albrecht [id number] JOAQUIN Insurance:CARESOURCEP PHOEBEDOB: [address] Number: [id number] Health Care Facility [address]Rjc: [id number] Repository Date:2018-04-05P O (HP) [address]ATTN: [place] [address]WQ: 07/06/2018 Secondary NOT GIVENUNK [place] Insurance:SELF PAY [facility] Number: Effective Repository Date:2018-04-05 07/05/2018 ALICJA L Primary ALICJA L [place] [id number] JOAQUIN Insurance:CARESOURCEP PHOEBEDOB: [address] Number: [id number] Health Care Facility [address]Rtw: [id number] Repository Date:2018-07-05P O () [address]ATTN: [place] [address]ZK: 07/05/2018 Secondary NOT GIVENUNK [place] Insurance:SELF PAY [facility] Number: Effective Repository Date:2018-07-05 04/12/2018 ALICJA L Primary ALICJA L [place] [id number] JOAQUIN Insurance:CARESOURCEP PHOEBEDOB: [facility] Number: [id number] [id number] Repository [address]Muu: [phone]) Date:2018-04-10P O [phone] (HP) [address]ATTN: [place] [address]VW: 04/12/2018 Secondary NOT GIVENUNK [place] Insurance:SELF PAY [facility] Number: Effective Repository Date:2018-04-12 04/10/2018 ALICJA L Primary ALICJA Albrecht [id number] JO[place]QU[place] Insurance:CARESOURCEP DEEPATZDOB: [facility] Number: [id number] [id number] Repository [address]Pck: [phone]) Date:2018-04-10P O [phone] () [address]ATTN: [place]S [place] [address]IB: 04/10/2018 Secondary NOT GIVENUNK [place] Insurance:SELF PAY [facility] Number: Effective Repository Date:2018-04-10 04/10/2018 ALICJA L Primary ALICJA Albrecht [id number] JOAQUIN Insurance:CARESOURCEP PHOEBEDOB: [facility] Number: [id number] [id number] Repository [address]Agx: ([phone]) Date:2018-04-10P O [phone] () [address]ATTN: [place] [address]VK: 04/10/2018 Secondary NOT GIVENUNK [place] Insurance:SELF PAY [facility] Number: Effective Repository Date:2018-04-10 04/10/2018 ALICJA L Primary ALICJA L [place] [id number] JOAQUIN Insurance:CARESOURCEP KUNKVNGDOB: [facility] Number: [id number] [id number] Repository [address]Ffj: ([phone]) Date:2018-04-10P O [phone] () [address]ATTN: [place] [address]VP: 04/10/2018 Secondary NOT GIVENUNK [place] Insurance:SELF PAY [facility] Number: Effective Repository Date:2018-04-10 04/10/2018 ALICJA L Primary ALICJA L [place] [id number] JO[place]QU[place] Insurance:CARESOURCEP KUNTZDOB: [facility] LANEAPT olicy Number: [id number] [id number] Repository [address]Puo: ([phone]) Date:2018-04-10 O [phone] () [address]ATTN: [place] [address]UQ: 04/10/2018 Secondary NOT GIVENUNK [place] Insurance:SELF PAY [facility] Number: Effective Repository Date:2018-04-10 04/10/2018 ALICJA L Primary ALICJA L [place] [id number] JO[place]QU[place] Insurance:CARESOURCEP KUNTZDOB: [facility] LANEAPT olicy Number: [id number] [id number] Repository [address]Tce: ([phone]) Date:2018-04-10P O [phone] () [address]ATTN: [place] [address]US: 04/10/2018 Secondary NOT GIVENUNK [place] Insurance:SELF PAY [facility] Number: Effective Repository Date:2018-04-10 04/10/2018 ALICJA L Primary ALICJA L [place] [id number] JOAQUIN Insurance:CARESOURCEP KUNTZDOB: [facility] LANEAPT olicy Number: [id number] [id number] Repository [address]Jah: ([phone]) Date:2018-04-10 O [phone] () [address]ATTN: [place] [address]RQ: 04/10/2018 Secondary NOT GIVENUNK [place] Insurance:SELF PAY [facility] Number: Effective Repository Date:2018-04-10 04/05/2018 ALICJA L Primary ALICJA L [place] [id number] JOAQUIN Insurance:CARESOURCEP KUNTZDOB: [facility] LANEAPT olicy Number: [id number] [id number] Repository [address]Kxe: ([phone]) Date:2018-03-14 O [phone] () [address]ATTN: [place] [address]OR: 04/05/2018 Secondary NOT GIVENUNK [place] Insurance:SELF PAY [facility] Number: Effective Repository Date:2018-04-05 03/25/2018 ALICJA L Primary ALICJA Reece [place] [id number] JOAQUIN Insurance:CARESOURCEP KUNTZDOB: Community LANEAPT olicy Number: [id number] [id number] Repository [address]Dkb: [phone]) Date:2018-03-25 O [phone] () [address]ATTN: [place] [address]DY: 03/25/2018 Secondary NOT GIVENUNK [place] Insurance:SELF PAY [facility] Number: Effective Repository Date:2018-03-25 03/25/2018 ALICJA L Primary ALICJA L [place] [id number] JO[place]QU[place] Insurance:CARESOURCEP KUNTZDOB: [facility] LANEAPT olicy Number: [id number] [id number] Repository [address]Uve: ([phone]) Date:2018-03-25 O [phone] () [address]ATTN: [place] [address]BZ: 03/25/2018 Secondary NOT GIVENUNK [place] Insurance:SELF PAY [facility] Number: Effective Repository Date:2018-03-25 03/21/2018 ALICJA L Primary ALICJA L [place] [id number] JO[place]QU[place] Insurance:CARESOURCEP KUNKVNGDOB: [facility] LANEAPT olicy Number: [id number] [id number] Repository [address]Awv: ([phone]) Date:2018-04-03 O [phone] () [address]ATTN: [place] [address]OU: 03/21/2018 Secondary NOT GIVENUNK [place] Insurance:SELF PAY [facility] Number: Effective Repository Date:2018-04-03 02/20/2018 ALICJA L Primary ALICJA Albrecht [id number] SPINK Insurance:[facility]: [facility] Number: [id number] Hospital [address]Uwk: [phone] [id number] Repository [phone] () Date:2018-02-09P [address]ATTN: [place] [address]EM: 02/20/2018 Secondary NOT GIVENUNK [place] Insurance:SELF PAY [facility] Number: Effective Repository Date:2018-02-09 01/17/2018 ALICJA L Primary ALICJA Albrecht [id number] SPINK Insurance:[facility]: [facility] Number: [id number] Hospital [address]Qys: 330 [id number] Repository [phone] () Date:2018-01-17P O [address]ATTN: [place] [address]OT: 01/17/2018 Secondary NOT GIVENUNK [place] Insurance:SELF PAY [facility] Number: Effective Repository Date:2018-01-17 12/08/2017 ALICJA L Primary [facility]ece [facility]:MEDICAID OF KUNTZDOB: [facility] Number: [id number] Repository [facility], [id number] [place], [place] [address]Btu: Date:2017-04-30 [place] [address]Vsu: [id number] () Name:GIL AGUIRREDARLIN Orantes ()Tel: [phone], [place] [phone] () [address]NG: 12/07/2017 ALICJA L Primary ALICJA Albrecht [id number] SP[place] Insurance:MEDICAIDPol KUNTZDOB: [facility] Number: [id number] Hospital [address]Wvj: [phone]) [id number] Repository [phone] () Date:2017-12-07 12/07/2017 Secondary NOT GIVENUNK [place] Insurance:SELF PAY [facility] Number: Effective Repository Date:2017-12-07 11/28/2017 ALICJA L Primary ALICJA Albrecht [id number] SP[place] [facility] [place] icy Number: [id number] Hospital [address]Zli: 330 [id number] Repository [phone] () Date:2017-11-28 11/28/2017 Secondary NOT GIVENUNK [place] Insurance:SELF PAY [facility] Number: Effective Repository Date:2017-11-28 11/27/2017 ALICJA L Primary ALICJA Albrecht [id number] S Insurance:MEDICAIDPol [facility] Community [facility] icy Number: [id number] [id number] Repository [address]Eeo: [phone]) Date:2017-11-04 [phone] () 11/27/2017 Secondary NOT GIVENUNK [place] Insurance:SELF PAY [facility] Number: Effective Repository Date:2017-11-17 11/11/2017 Alicja L Primary Alicja Albrecht [id number] S Insurance:MEDICAIDPol [facility] RextzDOB: [facility] [address] [facility] Number: [id number] [id number] Repository [address]Fhh: ([phone]) Date:2017-11-11 [phone] () 11/11/2017 Secondary NOT GIVENUNK [place] Insurance:SELF PAY [facility] Number: Effective Repository Date:2017-11-11 11/07/2017 Alicja L Primary Alicja Albrecht [id number] S Insurance:MEDICAIDPol KuntzB: [employer] StA[address] Number: [id number] [id number] Repository [address]Ezv: ([phone]) Date:2017-11-04 [phone] () 11/07/2017 Secondary NOT GIVENUNK [place] Insurance:SELF PAY [facility] Number: Effective Repository Date:2017-11-04
== END ==
PROVIDERS: Family Provider Internal Medicine; PCP Internal Medicine; Referring Provider Nurse Practitioner; Visit Provider Nurse Practitioner
DX: E11.9 Type 2 diabetes mellitus without complications (principal)
CPT/HCPCS: 36415; 82043; 82570

== ENCOUNTER 2018-09-13 15:25 | Emergency (ER) | payer MEDICAID, SELFPAY ==
[2018-09-13 15:26] VITALS: BP 159/91; PULSE 91; RESP 18; TEMP 36.7; O2SAT 97; BMI 44.9
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
[2018-09-13 16:27] VITALS: RESP 16
--- OUTSIDE RECORDS SUMMARY | 2018-11-09 02:27 | XMS RPT_ITS ---
:1975 Author Organization OHIP Support Name Relationship Address Phone D Unavailable Unavailable Unavailable PHOEBE, JOSE Unavailable [address] + [place] [address] LOHNEF, JOSE Unavailable [address] [place] [address] D Unavailable Unavailable Unavailable PHOEBE, JOSE Unavailable [address] + [place] [address] LOHNEF, JOSE Unavailable [address] + [address] [place] [address] D Unavailable Unavailable Unavailable PHOEBE, JOSE Unavailable [address] + [place] [address] LOHNEF, JOSE Unavailable [address] + [address] [place] [address] D Unavailable Unavailable Unavailable PHOEBE, JOSE Unavailable [address] + [place] [address] LOHNEF, JOSE Unavailable [address] + [address] [place] [address] D Unavailable Unavailable Unavailable PHOEBE, JOSE Unavailable [address] + [place] [address] LOHNEF, JOSE Unavailable [address] + [address] [place] [address] PHOEBE, JOSE Unavailable [address] + [place] [address] D Unavailable Unavailable Unavailable PHOEBE, JOSE Unavailable [address] + [place] [address] LOHNEF, JOSE Unavailable [address] + [address] [place] [address] D Unavailable Unavailable Unavailable PHOEBE, JOSE Unavailable [address] + [place] [address] LOHNEF, JOSE Unavailable Unavailable + D Unavailable Unavailable Unavailable PHOEBE, JOSE Unavailable [address] + [place] [address] LOHNEF, JOSE Unavailable Unavailable + D Unavailable Unavailable Unavailable PHOEBE, JOSE Unavailable [address] + [place] [address] LOHNEF, JOSE Unavailable [address] [place] [address] D Unavailable Unavailable Unavailable PHOEBE, JOSE Unavailable [address] + [place] [address] LOHNEF, JOSE Unavailable [address] [place] [address] D Unavailable Unavailable Unavailable PHOEBE, GILDARDO/JOSE Unavailable [address] + [place] [address] LOHNEF, JOSE Unavailable [address] + [address] [place] [address] D Unavailable Unavailable Unavailable PHOEBE, JOSE Unavailable [address] + [place] [address] LOHNEF, JOSE Unavailable [address] [place] [address] D Unavailable Unavailable Unavailable PHOEBE, JOSE Unavailable [address] + [place] [address] LOHNEF, JOSE Unavailable [address] [place] [address] D Unavailable Unavailable Unavailable PHOEBE, JOSE Unavailable [address] + [place] [address] LOHNEF, JOSE Unavailable [address] [place] [address] D Unavailable Unavailable Unavailable PHOEBE, GILDARDO/JOSE Unavailable [address] + [place] [address] LOHNEF, JOSE Unavailable [address] + [address] [place] [address] D Unavailable Unavailable Unavailable GILDARDO SANDHU/JOSE Unavailable [address] + [place] [address] LOHNEF, JOSE Unavailable [address] + [address] [place] [address] D Unavailable Unavailable Unavailable PHOEBE, JOSE Unavailable [address] + [place] [address] LOHNEF, JOSE Unavailable [address] [place] [address] D Unavailable Unavailable Unavailable PHOEBE, JOSE Unavailable [address] + [place] [address] LOHNEF, JOSE Unavailable [address] [place] [address] D Unavailable Unavailable Unavailable PHOEBE, GILDARDO/JOSE Unavailable [address] + [place] [address] LOHNEF, JOSE Unavailable [address] + [address] [place] [address] D Unavailable Unavailable Unavailable PHOEBEGILDARDO/JOSE Unavailable [address] [phone] [place] [address] D Unavailable Unavailable Unavailable PHOEBE, GILDARDO/JOSE Unavailable [address] [phone] [place] [address] PHOEBE, JOSE Unavailable Unavailable + ~(330 PHOEBE, JOSE Unavailable Unavailable + ~(330 PHOEBE, JOSE Unavailable Unavailable + D Unavailable Unavailable Unavailable PHOEBE, GILDARDO/JOSE Unavailable [address] [phone] [place] [address] D Unavailable Unavailable Unavailable D Unavailable Unavailable Unavailable PHOEBE, GILDARDO/JOSE Unavailable [address] [phone] [place] [address] D Unavailable Unavailable Unavailable PHOEBE, GILDARDO/JOSE Unavailable [address] [phone] [place] [address] KEN MURPHY Unavailable . + [place] [address] D Unavailable Unavailable Unavailable GILDARDO SANDHU/JOSE Unavailable [address] [phone] [place] [address] KEN MURPHY Unavailable . + [place] [address] D Unavailable Unavailable Unavailable GILDARDO SANDHU/JOSE Unavailable [address] + [place] [address] KEN MURPHY Unavailable . + [place] [address] Care Team Providers Name Role Phone CARTER COHEN, CHRISTY Strickland Admitting Unavailable CHRISTY CABRERA MD Attending Unavailable MIRIAM MURILLO, DR. FRANCISCA Birch Primary Care Unavailable NGHIA DARLING Attending Unavailable OLEGHE, EFEWONGBE B Referring Unavailable CHAYO DAMON (CHARGER TESTER) Attending Unavailable NGHIA DARLING Attending Unavailable OLEGHE, EFEWONGBE B Referring Unavailable LYN VELÁZQUEZ () Attending Unavailable LYN VELÁZQUEZ () Referring Unavailable MELISSA WEISS (KOSHER SEALER) Attending Unavailable KATHLEEN CHAPMAN (PA) Referring Unavailable Dr. Sulema Chavez Admitting Unavailable Dr. Sulema Chavez Attending Unavailable CHANO WALLS Attending Unavailable TALNCONE CHANO Referring Unavailable Oleghe, Efewongbe Primary Care Unavailable Oleghe, Efewongbe Primary Care Unavailable Kevin Torres Attending Unavailable LINOONECHANO Attending Unavailable LINOONE CHANO Referring Unavailable Oleghe, Efewongbe Primary Care Unavailable Viridiana Stark Attending Unavailable Bursley, Guillermo Primary Care Unavailable Bursley, Guillermo Primary Care Unavailable Luisito Bird Attending Unavailable Bursley, Guillermo Primary Care Unavailable Karsten Delacruz Attending Unavailable Bernarda Matos NP-C Attending Unavailable Eber, Guillermo Referring Unavailable Viridiana Stark Attending Unavailable Swihart CARPENTER STREETCAR, Keren Primary Care Unavailable Dick Darling Attending Unavailable Swiumberto STACY, Keren Referring Unavailable Swihart CARPENTER STREETCAR, Keren Primary Care Unavailable Bernarda Matos NP-C Attending Unavailable Bursley, Guillermo Referring Unavailable Swihart CARPENTER STREETCAR, Keren Primary Care Unavailable Swihart CARPENTER STREETCAR, Keren Primary Care Unavailable Montez, Drake Admitting Unavailable Patrick, Marcelino Consulting Unavailable Paintsil, [place] Attending Unavailable Montez, Drake Attending Unavailable Swihart CARPENTER STREETCAR, Keren Primary Care Unavailable Montez, Drake Admitting Unavailable Paintsil, [place] Attending Unavailable Swihart CARPENTER STREETCAR, Keren Primary Care Unavailable Patrick, Marcelino Consulting Unavailable Paintsil, [place] Consulting Unavailable Montez, Drake Admitting Unavailable Paintsil, [place] Attending Unavailable Swihart CARPENTER STREETCAR, Keren Primary Care Unavailable Patrick, Marcelino Consulting Unavailable Paintsil, [place] Consulting Unavailable Montez, Drake Admitting Unavailable Paint[place], [place] Attending Unavailable Swihart CARPENTER STREETCAR, Keren Primary Care Unavailable Patrick, Marcelino Consulting Unavailable Paintsil, [place] Consulting Unavailable Patrick, Marcelino Attending Unavailable Drake Montez Referring Unavailable Ernst Chavez Attending Unavailable Viridiana Stark Referring Unavailable Arsalan Sprague Attending Unavailable Paint[place], [place] Referring Unavailable Sean Felix Attending Unavailable Romeo, Janie Primary Care Unavailable Bernarda Matos BASIN TENDER-C Attending Unavailable Christy Graham BASIN TENDER-C Attending Unavailable Romeo, Janie Referring Unavailable Shook, Bernarda Zarate BASIN TENDER-C Attending Unavailable Romeo, Janie Referring Unavailable Romeo, Janie Primary Care Unavailable Live Hassan Attending Unavailable Bernarda Matos BASIN TENDER-C Attending Unavailable Shochristiano, Bernarda Zarate BASIN TENDER-C Referring Unavailable Romeo, Janie Primary Care Unavailable Bernarda Matos BASIN TENDER-C Attending Unavailable Romeo, Janie Primary Care Unavailable Bernarda Matos BASIN TENDER-C Referring Unavailable Romeo, Janie Primary Care Unavailable Alex Yun Attending Unavailable PROBLEMS PROBLEMS DATE TYPE CONDITION / CODE ATTENDING STATUS SOURCE 08/22/2018 Unknown E11.9 - Type 2 Bernarda Matos Active [place] diabetes mellitus J BASIN TENDER-C Community without complications Hospital / E11.9(ICD-10) Repository 05/25/2018 Unknown R94.31 - Abnormal [place], [place] Active [place] electrocardiogram Community [ECG] [EKG] / Hospital R94.31(ICD-10) Repository 05/25/2018 Unknown I10 - Essential Celestine, Arsalan Active [place] (primary) hypertension Community / I10(ICD-10) Hospital Repository 04/17/2018 Unknown T45.0X1A - Poisoning [place], [place] Active [place] by antiallergic and Community antiemetic drugs, Hospital accidental Repository (unintentional), initial encounter / T45.0X1A(ICD-10) 04/05/2018 Unknown R52 - Pain, Bernarda Matos Active [place] unspecified / J BASIN TENDER-C [facility] R52(ICD-10) Hospital Repository 05/11/2018 Unknown R00.2 - Palpitations / Ernst Chavez Active [place] R00.2(ICD-10) [facility] Hospital Repository 11/08/2008 Active Mixed hyperlipidemia / NA Active [facility] E78.2(ICD-10) Clinic Main [place] Repository 02/01/2018 Active Type 2 diabetes NA Active [facility] mellitus without Clinic Main complications / [place] E11.9(ICD-10) Repository PROCEDURES PROCEDURES No Procedure Records FoundRESULTS RESULTS EMERGENCY DEPARTMENT Observed: 09/13/2018 Status: F Source: [place] SUMMARY 11:12 PM [facility] REPOSITORY [facility] Medical Records Department [address] [place] [address] Emergency Department Summary 09/13/18 1601 MR#: [id number] Acct: [id number] Name: ALICJA SANDHU Rep #: [id number] : 1975 42 From: Alex Yun MD PCP: Janie Walters MD Status: DEP ER - ER Visit Summary Date of Service: 09/13/18 Chief Complaint: Seizure History of Present Illness: The patient is a [address] Walters and her psycologist is Dr. Cabrera from [place]. She reports that since overdosing on Benadryl [...] accompanied by a postictal episode. Patient and block and case maker reported that she has had 3 different [...] 2. PTSD. This note was generated with Soundstacheation software. It may contain incorrect words, spelling, [...] problems, contact your Primary Care Provider. Call [facility] ([phone]) or report to the closest Emergency Room. Call 911 if necessary. 09/13/18 2312 <Electronically signed by Alex Yun MD> Date Alex Yun MD Cosigner Signature (If Indicated): Date CC: Janie Walters MD MICROALB:CREAT Collected: 09/13/2018 Status: F Source: [facility] UR 8:32 AM [facility] REPOSITORY TYPE CODE TESTS RESULT OUT OF RANGE REFERENCE UNITS LAB L501.1200 NO RANGE EST. mg/dL Normal UR CREAT 82.50 LAB L502.0500 NO RANGE EST. mg/L Normal 7.7 MICROALBUMIN ,UR LAB L502.0600 <30 mg/g CRE mg/g CRE Normal 9.4 MALB:CREAT Performed By: #### L502.0250 #### [facility] [address] [facility]. [place], [place], [address] HEMOGLOBIN A1C Collected: 09/11/2018 Status: F Source: [place] 8:40 AM [facility] REPOSITORY TYPE CODE TESTS RESULT OUT OF RANGE REFERENCE UNITS LAB L501.9985 4.2-6.3 % High HGB A1C 7.4 Performed By: #### L501.9985 #### [facility] [address] [facility] [place] [place], [address] COMPREHENSIVE METABOLIC Collected: 09/11/2018 Status: F Source: [place] PROFIL 8:40 AM [facility] REPOSITORY TYPE CODE TESTS RESULT [...] Performed By: #### L500.4050, L500.4100, L501.9520 #### [facility] [address] [place], [address] LIPID PROFILE Collected: 09/11/2018 Status: F Source: [place] 8:40 AM [facility] REPOSITORY TYPE CODE TESTS RESULT [...] Performed By: #### L500.4050, L500.4100, L501.9520 #### [facility] [address] [place], [address] THYROID STIM HORMONE Collected: 09/11/2018 Status: F Source: [place] (TSH) 8:40 AM [facility] REPOSITORY TYPE CODE TESTS RESULT OUT OF RANGE REFERENCE UNITS LAB L501.9520 0.358-3.74 uIU/mL Normal TSH 1.60 Performed By: #### L500.4050, L500.4100, L501.9520 #### [facility] [address] [place], [address] EMERGENCY DEPARTMENT Observed: 08/24/2018 Status: F Source: [place] SUMMARY 9:57 PM [facility] REPOSITORY [facility] Medical Records Department [address] [place] [address] Emergency Department Summary 08/24/18 1712 MR#: [id number] Acct: [id number] Name: ALICJA SANDHU Rep #: [id number] : 1975 42 From: Live Hassan MD PCP: Janie Walters MD Status: REG ER - ER Visit Summary Date of Service: 08/24/18 Chief Complaint: Suicidal thoughts History of Present Illness: The patient is a 42 F who states that she is suicidal. She feels that everybody has been bullying her. This includes people on the bus, manager of business and people in the [employer]. She believes people in the [employer] are pain people often bully her. She [...] ideation, paranoia This note was generated with Clixtr dictation software. It may contain incorrect words, [...] your Primary Care Provider. Call [facility] ([phone]) or report to the closest Emergency Room. Call 911 if necessary. 08/24/18 2156 <Electronically signed by Live Hassan MD> Date Live Hassan MD Cosigner Signature (If Indicated): Date CC: Janie Walters MD URINE DRUG SCREEN Collected: 08/24/2018 Status: F Source: [place] (VISTA) 6:40 PM [facility] REPOSITORY Order Comment: List of Drugs Taken [...] Normal NEGATIVE Performed By: #### L505.5000 #### [facility] [address] [facility]. [place], [place], [address] ALCOHOL, BLOOD Collected: 08/24/2018 Status: F Source: [place] (MEDICAL)-SERUM 5:55 PM [facility] REPOSITORY TYPE CODE TESTS RESULT [...] fatal coma Performed By: #### L501.9100 #### [facility] [address] [facility] [place], [place], [address] CBC W/DIFF, AUTOMATED Collected: 08/24/2018 Status: F Source: [place] 5:15 PM [facility] REPOSITORY TYPE CODE TESTS RESULT [...] Lymph 1.89 Performed By: #### L100.0100 #### [facility] [address] [place], [place], [address] BASIC METABOLIC Collected: 08/24/2018 Status: F Source: [place] PROFILE (BMP) 5:15 PM [facility] REPOSITORY TYPE CODE TESTS RESULT [...] GAP 8 Performed By: #### L500.2500 #### [facility] [address] [facility]. [place], [place], [address] ,SERUM,HCG QUALI. Collected: Status: F Source: [place] 08/24/2018 5:15 PM [facility] REPOSITORY TYPE CODE TESTS RESULT OUT OF REFERENCE UNITS RANGE LAB L700.7000 0-9 Nonpreg Negative Normal HCGSQUAL NEGATIVE LAB L700.6700 =>Qualitative mIU/mL Normal HCG Qual < 1 triggr Performed By: #### L700.6800 #### [facility] [address] [facility], [place], [address] ENDOCRINOLOGY VISIT Observed: 08/23/2018 Status: F Source: [place] REPORT 12:08 PM [facility] REPOSITORY [facility] [address] [place] [address]. [address] [place], [place] [address] OFFICE VISIT Date of Service: 08/22/18 MR#: [id number] Acct: [id number] Name: ALICJA SANDHU Rep #: [id number] : 1975 Provider: Bernarda Matos NP Age/Sex: 42/F Location: [facility] [place] Status: Signed HPI History of present illness [...] (Verified 08/22/18 09:18) Anaphylaxis bacitracin [From Neosporin (rik-uex-gyhrh)] Adverse Reaction (Verified 08/22/18 09:18) Swelling neomycin [From Neosporin (hxk-yaa-sphmv)] Adverse Reaction (Verified 08/22/18 09:18) Swelling polymyxin B [From Neosporin (bdv-ghx-qkvry)] Adverse Reaction (Verified 08/22/18 09:18) Swelling trazodone [...] blood sugars : low : high : [facility] Medical History Abnormal bruising (Acute) Anxiety disorder [...] CC: ELECTROLYTES Collected: 08/13/2018 Status: F Source: [facility] 9:13 AM [facility] REPOSITORY TYPE CODE TESTS RESULT OUT OF RANGE REFERENCE UNITS LAB NA 135-145 mmol/L Normal Sodium 137 LAB K 3.5-5.1 mmol/L Normal Potassium 3.7 LAB CL 98-108 mmol/L Normal Chloride 101 LAB CO2 21-32 mmol/L CO2 Normal 28 Performed By: #### LYTES #### Unless otherwise noted, all testing performed by [facility] [address] [place], [place] [address] CLIA: [id number] [employer]: Kathleen Pepper M.D. URINALYSIS, ROUTINE Collected: 08/12/2018 Status: F Source: [facility] 8:47 AM [facility] REPOSITORY TYPE CODE TESTS RESULT OUT OF RANGE REFERENCE UNITS LAB COLOR Normal Color, Urine Yellow LAB CHAUR Normal Character Hazy LAB SPGRUR 1.003-1.029 Normal Specific 1.009 Ha[place],Urine LAB PHUR 4.5-8.0 Normal pH,Urine 5.0 LAB [...] Unless otherwise noted, all testing performed by [address] [place]. [place] [address] CLIA: [id number] [employer]: Kathleen Pepper M.D. CBC WITH DIFF Collected: 08/12/2018 Status: F Source: [facility] 7:31 AM [facility] REPOSITORY TYPE CODE TESTS RESULT [...] Unless otherwise noted, all testing performed by [address] [place], [place] [address] CLIA: [id number] [employer]: Kathleen Pepper M.D. TSH Collected: 08/12/2018 Status: F Source: [facility] 7:31 [facility] REPOSITORY TYPE CODE TESTS RESULT OUT OF RANGE REFERENCE UNITS LAB TSH 0.270-4.200 uIU/mL Normal TSH 2.06 Result Comment: Samples from patients routinely receiving high dose biotin therapy (100-300 mg/day) may show falsely decreased results. Please correlate clinically. Please note reference range change as of 08/08/18. Performed By: #### CBCDIF, CMET, TSH, LIPID #### Unless otherwise noted, all testing performed by [address] [address] CLIA: [id number] [employer]: Kathleen Pepper M.D. COMPREHENSIVE METABOLIC Collected: 08/12/2018 Status: F Source: [facility] 7:31 [facility] REPOSITORY TYPE CODE TESTS RESULT [...] used with caution. LAB eGFRB ml/min/1.73sq.m eGFR, -[place] >=60 Result Comment: GFR Calc LAB CALCM [...] Unless otherwise noted, all testing performed by [place] [address] CLIA: [id number] [employer]: Kathleen Pepper M.D. LIPID PANEL Collected: 08/12/2018 Status: F Source: [facility] 7:31 AM [facility] REPOSITORY TYPE CODE TESTS RESULT [...] Unless otherwise noted, all testing performed by [place] [address] CLIA: [id number] [employer]: Kathleen Pepper M.D. DRUGS OF ABUSE, Collected: 08/11/2018 Status: F Source: [facility] URINE 5:08 PM [facility] REPOSITORY TYPE CODE TESTS RESULT [...] Unless otherwise noted, all testing performed by [place] [address] CLIA: [id number] [employer]: Kathleen Pepper M.D. ALCOHOL, MEDICAL Collected: 08/11/2018 Status: F Source: [facility] 4:20 PM [facility] REPOSITORY TYPE CODE TESTS RESULT OUT OF RANGE REFERENCE UNITS LAB ALCMD G% Normal Alcohol Negative [Medical] Performed By: #### ALC #### Unless otherwise noted, all testing performed by [place] [address] CLIA: [id number] [employer]: Kathleen Pepper M.D. URGENT CARE VISIT Observed: 08/04/2018 Status: F Source: [place] REPORT 2:44 PM [facility] REPOSITORY [facility] [address] [place] [address] OFFICE VISIT Date of Service: 08/04/18 MR#: [id number] Acct: [id number] Name: ALICJA SANDHU Rep #: [id number] : 1975 Provider: Christy Graham NP Age/Sex: 42/F Location: [facility] [place] Status: Signed Intake Vital Signs08/04/18 Height 5 [...] (Verified 08/04/18 11:12) Anaphylaxis bacitracin [From Neosporin (yvp-ceu-vhayf)] Adverse Reaction (Verified 08/04/18 11:12) Swelling neomycin [From Neosporin (mwo-tmf-jagnf)] Adverse Reaction (Verified 08/04/18 11:12) Swelling polymyxin B [From Neosporin (tue-fmo-jgjoc)] Adverse Reaction (Verified 08/04/18 11:12) Swelling trazodone [...] oriented x3 Limitations: mental status not altered [facility] Head: normal to inspection Ears: hearing grossly [...] EMERGENCY DEPARTMENT Observed: 07/05/2018 Status: F Source: [place] SUMMARY 4:22 PM [facility] REPOSITORY [facility] Medical Records Department [address] [place] [address] Emergency Department Summary 07/05/18 1619 MR#: [id number] Acct: [id number] Name: ALICJA SANDHU Shanell Rep #: [id number] : 1975 42 From: Sean Felix DO [...] Suicidal ideation] This note was generated with Clixtr dictation software. It may contain incorrect words, [...] problems, contact your Primary Care Provider. Call [facility] ([phone]) or report to the closest Emergency Room. Call 911 if necessary. 07/05/18 0561 <Electronically signed by Sean Felix DO> Date Sean Felix DO Jorgeignfermin Signature (If Indicated): Date CC: Janie Walters MD URINE DRUG SCREEN Collected: 07/05/2018 Status: F Source: [place] (VISTA) 11:15 AM [facility] REPOSITORY TYPE CODE TESTS RESULT [...] Normal NEGATIVE Performed By: #### L505.5000 #### [facility] [address] [place], [address] URINALYSIS, COMPLETE Collected: 07/05/2018 Status: F Source: [place] 11:15 AM [facility] REPOSITORY Order Comment: Has pt arrived? Y [...] URINE SEEN Performed By: #### L400.0001 #### [facility] [address] [place], [address] CBC W/DIFF, AUTOMATED Collected: 07/05/2018 Status: F Source: [place] 10:20 AM [facility] REPOSITORY TYPE CODE TESTS RESULT [...] Lymph 1.47 Performed By: #### L100.0100 #### [facility] [address] [place], [place], [address] ALCOHOL, BLOOD Collected: 07/05/2018 Status: F Source: [place] (MEDICAL)-SERUM 10:20 AM [facility] REPOSITORY TYPE CODE TESTS RESULT [...] fatal coma Performed By: #### L501.9100 #### [facility] [address] [place], [place], [address] BASIC METABOLIC Collected: 07/05/2018 Status: F Source: [place] PROFILE (BMP) 10:20 AM [facility] REPOSITORY TYPE CODE TESTS RESULT [...] GAP 9 Performed By: #### L500.2500 #### [facility] [address] [facility] [place] [place], [address] ,SERUM,HCG QUALI. Collected: Status: F Source: [place] 07/05/2018 10:20 AM [facility] REPOSITORY TYPE CODE TESTS RESULT OUT OF REFERENCE UNITS RANGE LAB L700.6700 =>Qualitative mIU/mL Normal HCG Qual < 1 triggr LAB L700.7000 0-9 Nonpreg Negative Normal HCGSQUAL NEGATIVE Performed By: #### L700.6800 #### [facility] [address], [address] CNCO Observed: 06/07/2018 Status: COMPLETED Source: [place] 12:00 AM [facility] REPOSITORY Letter [facility] [address] [place] [address] Office: [phone] Lyn Velázquez MD REQUEST FOR EYE EXAM FINDINGS November 05, 2016 Dear eye career professional, Thank you for coordinating eye care for [...] Comments: Patient is to return: Letter Text [facility] Lyn Velázquez M.D. [address] [place] [address] Dear Alicja Sandhu Your health care is [...] LEAD ELECTROCARDIOGRAM Observed: 05/02/2018 Status: F Source: [place] 2:51 PM [facility] REPOSITORY [facility] Cardiovascular Services [address] [place] [address] 12 Lead EKG 03/25/18 0425 MR#: [id number] Acct: [id number] Name: ALICJA SANDHU Rep #: [id number] : 1975 42 From: Arsalan Sprague MD [...] ECG Reconfirmed by ARSALAN SPRAGUE MD ([id number]), publishing editor PRINCE STAHL ([id number]) on 05/02/2018 2:50:54 PM Referred By: LENNY Confirmed By:ARSALAN SPRAGUE MD 05/02/18 1451 Date Arsalan Sprague MD CC: Viridiana Stark MD; Keren STACY Signed 12 LEAD ELECTROCARDIOGRAM Observed: 04/14/2018 Status: F Source: [place] 10:08 AM [facility] REPOSITORY [facility] Cardiovascular Services [address] [place] [address]67 12 Lead EKG 04/11/18 0629 MR#: [id number] Acct: [id number] Name: ALICJA SANDHU Rep #: [id number] : 1975 42 From: Arsalan Sprague MD [...] available Confirmed by ARSALAN SPRAGUE MD ([id number]), publishing editor SHAE DORAN ([id number]) on 04/14/2018 10:07:44 AM Referred By: MARCELINO ALAN Confirmed By:ARSALAN SPRAGUE MD 04/14/18 1007 Date Arsalan Sprague MD CC: Clarisse Camarena MD; Marcelino Alan MD; Keren STACY Signed 12 LEAD ELECTROCARDIOGRAM Observed: 04/14/2018 Status: F Source: [place] 9:45 AM [facility] Cardiovascular Services [address] [place] [address] 12 Lead EKG 04/12/18 0533 MR#: [id number] Acct: [id number] Name: ALICJA SANDHU Shanell Rep #: [id number] : 1975 42 From: Arsalan Sprague MD [...] ECG Confirmed by ARSALAN SPRAGUE MD ([id number]), publishing editor SHEA DORAN ([id number]) on 04/14/2018 9:44:57 AM Referred By: APAINT Confirmed By:ARSALAN SPRAGUE MD 04/14/18 0945 Date Arsalan Sprague MD CC: Clarisse Camarena MD; Marcelino Alan MD; Keren STACY Signed DISCHARGE SUMMARY Observed: 04/13/2018 Status: F Source: [place] 6:38 PM [facility] Medical Records Department [address] [place] [address] Discharge Summary 04/13/18 1830 MR#: [id number] Acct: [id number] Name: PHOEBEALICJA Shanell Rep #: [id number] : 1975 42 From: Clarisse Camarena MD [...] after meals. Is set up with counselor, social media developer and psychiatrist. Looks and feels happy and [...] Emmett Delatorre MD at 9:48 EDT Tel [phone], Service support , Critical care Operations: None [...] voices today, follows with outpatient psychiatrist, counselor, social media developer. Started on risperidone, continued on sertraline, Remeron. [...] 04/13/18 Insulin Lispro [Humalog KwikPen] See Protocol [place] [facility] insuln.pen 04/13/18 Magnesium Hydroxide [Milk Of [...] applicable Code Visit Inpatient E AND M: 65802 Disch Hosp 04/13/18 1838 <Electronically signed by Clarisse Camarena MD> Date Clarisse Camarena MD Cosigner Signature (if applicable): Date CC: Clarisse Camarena MD; Keren STACY Signed DISCHARGE INSTRUCTION Observed: 04/13/2018 Status: F Source: [place] 6:30 PM [facility] REPOSITORY [facility] Medical Records Department [address] [facility] [place] [address] Instructions for Home/Discharge Instructions 04/13/18 1828 MR#: [id number] Acct: [id number] Name: ALICJA SANDHU Shanell Rep #: [id number] : 1975 42 From: Clarisse Camarena MD [...] (Verified 04/10/18 20:55) Anaphylaxis bacitracin [From Neosporin (ryw-cxq-gxkkf)] Adverse Reaction (Verified 04/10/18 20:55) Swelling neomycin [From Neosporin (uqx-gvh-seutm)] Adverse Reaction (Verified 04/05/18 13:31) Swelling polymyxin B [From Neosporin (mua-fje-vpedt)] Adverse Reaction (Verified 04/05/18 13:31) Swelling trazodone [...] 04/13/2018 Status: F Source: [place] 5:44 PM [facility] REPOSITORY TYPE CODE TESTS RESULT OUT OF REFERENCE UNITS RANGE LAB L501.080 70-110 mg/dL High BEDSIDE GLU 148 Result Comment: MANAGEMENT OF PATIENT CARE PER NURSING PROTOCOL Performed By: #### L501.080 #### [facility] Laboratory Point of Care [address] [facility] [place] [address] 12 LEAD ELECTROCARDIOGRAM Observed: 04/13/2018 Status: F Source: [place] 4:01 PM [facility] REPOSITORY [facility] Cardiovascular Services [address] [place] [address] 12 Lead EKG 04/10/188 MR#: [id number] Acct: [id number] Name: ALICJA SANDHU Rep #: [id number] : 1975 42 From: Arsalan Sprague MD [...] ECG Confirmed by ARSALAN SPRAGUE MD ([id number]), publishing editor SHAE DORAN ([id number]) on 04/13/2018 4:01:11 PM Referred By: GARY Confirmed By:ARSALAN SPRAGUE MD 04/13/18 1600 Date Arsalan Sprague MD CC: Clarisse Camarena MD; Ernst Mckinnon MD; Keren STACY Signed BEDSIDE GLUCOSE Collected: 04/13/2018 Status: F Source: [place] 1:04 PM [facility] REPOSITORY TYPE CODE TESTS RESULT OUT OF REFERENCE UNITS RANGE LAB L501.080 70-110 mg/dL High BEDSIDE GLU 201 Result Comment: MANAGEMENT OF PATIENT CARE PER NURSING PROTOCOL Performed By: #### L501.080 #### [facility] Point of Care [address] [place] [address] BEDSIDE GLUCOSE Collected: 04/13/2018 Status: F Source: [place] 9:23 AM [facility] REPOSITORY TYPE CODE TESTS RESULT OUT OF REFERENCE UNITS RANGE LAB L501.080 70-110 mg/dL High BEDSIDE GLU 143 Result Comment: MANAGEMENT OF PATIENT CARE PER NURSING PROTOCOL Performed By: #### L501.080 #### [facility] Point of Care [address] [place] [address] BEDSIDE GLUCOSE Collected: 04/12/2018 Status: F Source: [place] 9:13 PM [facility] REPOSITORY TYPE CODE TESTS RESULT OUT OF REFERENCE UNITS RANGE LAB L501.080 70-110 mg/dL High BEDSIDE GLU 175 Result Comment: Dr Orders Followed MANAGEMENT OF PATIENT CARE PER NURSING PROTOCOL Performed By: #### L501.080 #### [facility] Point of Care [address] [place] [address] BEDSIDE GLUCOSE Collected: 04/12/2018 Status: F Source: [place] 5:55 PM [facility] REPOSITORY TYPE CODE TESTS RESULT OUT OF REFERENCE UNITS RANGE LAB L501.080 70-110 mg/dL High BEDSIDE GLU 131 Result Comment: MANAGEMENT OF PATIENT CARE PER NURSING PROTOCOL Performed By: #### L501.080 #### [facility] Point of Care [address] [place] [address] BEDSIDE GLUCOSE Collected: 04/12/2018 Status: F Source: [place] 10:37 AM [facility] REPOSITORY TYPE CODE TESTS RESULT OUT OF REFERENCE UNITS RANGE LAB L501.080 70-110 mg/dL High BEDSIDE GLU 153 Result Comment: MANAGEMENT OF PATIENT CARE PER NURSING PROTOCOL Performed By: #### L501.080 #### [facility] Point of Care [address] [place] [address] BLOOD GASES BY CPS Collected: 04/12/2018 Status: F Source: [place] 6:25 AM [facility] REPOSITORY TYPE CODE TESTS RESULT [...] ISTAT 89 Performed By: #### L9000.0800 #### [facility] Point of Care [address] [place] [address] BEDSIDE GLUCOSE Collected: 04/12/2018 Status: F Source: [place] 6:10 AM [facility] REPOSITORY TYPE CODE TESTS RESULT OUT OF REFERENCE UNITS RANGE LAB L501.080 70-110 mg/dL High BEDSIDE GLU 135 Result Comment: MANAGEMENT OF PATIENT CARE PER NURSING PROTOCOL Performed By: #### L501.080 #### [facility] Point of Care [address] [place] [address] CONSULTATION Observed: 04/12/2018 Status: F Source: [place] 5:30 AM [facility] Medical Records Department [address] [place] [address] Consultation 04/11/18 0648 MR#: [id number] Acct: [id number] Name: ALICJA SANDHU Rep #: [id number] : 1975 42 From: Macrelino Alan MD PCP: Keren Hooker Status: ADM [...] after meals. Is set up with counselor, social media developer and psychiatrist. Looks and feels happy and she verbally confirms this. Reviewed labs, medications Reason for Consult Date of Consultation: 04/11/18 Reason for Consultation: Benadryl overdose History of Present Illness: The patient is a 42 year old F, with past medical history listed below, who presented to [facility] on 04/10/2018 following an overdose of 12 g of Benadryl. Patient was pink slipped by [place] police and history was somewhat questionable. Time [...] after meals. Is set up with counselor, social media developer and psychiatrist. Looks and feels happy and [...] (Verified 04/10/18 20:55) Anaphylaxis bacitracin [From Neosporin (gwi-dmf-kjzrr)] Adverse Reaction (Verified 04/10/18 20:55) Swelling neomycin [From Neosporin (juj-rbv-qweil)] Adverse Reaction (Verified 04/05/18 13:31) Swelling polymyxin B [From Neosporin (ken-gmq-lmlgp)] Adverse Reaction (Verified 04/05/18 13:31) Swelling trazodone [...] AM to 6:30 AM) Code Visit 9xxxx: 99778 Critical care first hour 04/12/18 0830 <Electronically signed by Marcelino Alan MD> Date Marcelino Alan MD Cosigner Signature (if applicable): Date CC: Marcelino Alan MD; Keren STACY Signed CBC W/DIFF, AUTOMATED Collected: 04/12/2018 Status: F Source: [place] 4:05 AM [facility] REPOSITORY TYPE CODE TESTS RESULT [...] Lymph 2.15 Performed By: #### L100.0100 #### [facility] [place], [address] BEDSIDE GLUCOSE Collected: 04/11/2018 Status: F Source: [place] 11:58 PM [facility] REPOSITORY TYPE CODE TESTS RESULT OUT OF RANGE REFERENCE UNITS LAB L501.080 70-110 mg/dL Normal BEDSIDE GLU 105 Result Comment: MANAGEMENT OF PATIENT CARE PER NURSING PROTOCOL Performed By: #### L501.080 #### [facility] Point of Care [address] [place], [place] [address] BEDSIDE GLUCOSE Collected: 04/11/2018 Status: F Source: [place] 6:09 PM [facility] REPOSITORY TYPE CODE TESTS RESULT OUT OF RANGE REFERENCE UNITS LAB L501.080 70-110 mg/dL Normal BEDSIDE GLU 77 Result Comment: MANAGEMENT OF PATIENT CARE PER NURSING PROTOCOL Performed By: #### L501.080 #### [facility] Point of Care [address] [place], [place] [address] BEDSIDE GLUCOSE Collected: 04/11/2018 Status: F Source: [place] 11:25 AM [facility] REPOSITORY TYPE CODE TESTS RESULT OUT OF RANGE REFERENCE UNITS LAB L501.080 70-110 mg/dL Normal BEDSIDE GLU 82 Result Comment: MANAGEMENT OF PATIENT CARE PER NURSING PROTOCOL Performed By: #### L501.080 #### [facility] Point of Care [address] [place] [address] ,URINE Collected: 04/11/2018 Status: F Source: [place] 9:00 AM [facility] REPOSITORY TYPE CODE TESTS RESULT OUT OF REFERENCE UNITS RANGE LAB L400.8000 Negative Normal HCGUQUAL Negative Result Comment: Very dilute urine specimens, as indicated by a low specific gravity, may not contain parts representative levels of hCG. If is still suspected, a first morning urine specimen should be collected 48 hours later and tested. Performed By: #### L400.7600 #### [facility] [address] [place], [place], [address] CBC-COMPLETE BLOOD CNT Collected: 04/11/2018 Status: F Source: [place] NO DIFF 4:15 AM [facility] REPOSITORY TYPE CODE TESTS RESULT [...] MPV 8.8 Performed By: #### L100.0500 #### [facility] [address] [place], [address] COMPREHENSIVE METABOLIC Collected: 04/11/2018 Status: F Source: [facility] 4:15 AM [facility] REPOSITORY TYPE CODE TESTS RESULT [...] Normal 9 Performed By: #### L500.4050 #### [facility] [address] [place], [address] HEMOGLOBIN A1C Collected: 04/11/2018 Status: F Source: [place] 4:15 AM [facility] REPOSITORY Order Comment: Comments: as add on test TYPE CODE TESTS RESULT OUT OF RANGE REFERENCE UNITS LAB L501.9985 4.2-6.3 % High HGB A1C 7.4 Performed By: #### L501.9985 #### [facility] [address] [place], [address] BLOOD GASES BY CPS Collected: 04/11/2018 Status: F Source: [place] 3:02 AM [facility] REPOSITORY TYPE CODE TESTS RESULT [...] ISTAT 97 Performed By: #### L9000.0800 #### [facility] Point of Care [address] [place] [address] EMERGENCY DEPARTMENT Observed: 04/11/2018 Status: F Source: [place] SUMMARY 12:17 AM [facility] REPOSITORY [facility] Medical Records Department [address] [place] [address] Emergency Department Summary 04/10/18 2312 MR#: [id number] Acct: [id number] Name: ALICJA SANDHU Rep #: [id number] : 1975 42 From: Ernst Mckinnon MD [...] suicidal attempts. She was pink slipped by [place] police. Physical Examination: Blood pressure 183/107. Heart [...] with Versed. Patient was discussed with the helpdesk analyst and the hospitalist and will be admitted to the ICU for further monitoring and care. Treatment Plan: Above Disposition: Admission Impression: 1. Overdose on Benadryl 2. Acute respiratory failure This note was generated with [employer] dictation software. It may contain incorrect words, spelling, and punctuation that were not noted in review of the chart prior to signing ED Disposition - Plan for ED Patient: Chief Complaint: Overdose What to do if you have Problems For any increased pain, shortness of breath, bleeding, nausea or vomiting, chest pain, or any unexpected problems, contact your Primary Care Provider. Call [facility] ([phone]) or report to the closest Emergency Room. Call 911 if necessary. 04/11/18 0017 <Electronically signed by Ernst Mckinnon MD> Date Ernst Mckinnon MD Cosigner Signature (If Indicated): Date CC: Keren Lawrence [employer] Collected: 04/11/2018 Status: F Source: [place] DNA BY PCR 12:10 AM [facility] REPOSITORY TYPE CODE TESTS RESULT OUT OF RANGE REFERENCE UNITS LAB L8200.1100 Negative Normal MRSA Negative RESULT Performed By: #### L8200.1000 #### [facility] [address] [place], [address] CHEST 1 VIEW Observed: 04/11/2018 Status: F Source: [place] (PORTABLE) 12:06 AM [facility] REPOSITORY [facility] Imaging Services [address] [place] [address] Chest 1 View (Portable) MR#: [id number] Acct: [id number] Name: ALICJA SANDHU Rep #: [id number] : 1975 F 42 From: Emmett Delatorre MD PCP: Keren Hooker Status: ADM IN Study: Chest 1 View (Portable) Date of Exam: 04/11/18 Exam# [id number] Ordering Dr: Drake Montez MD STUDY: X-RAY [...] Emmett Delatorre MD at 9:48 EDT Tel [phone], Service support , CC: Keren STACY; Drake Montez MD Surgical Attendant: Signed HISTORY AND PHYSICAL Observed: 04/10/2018 Status: F Source: [place] EXAM 10:46 PM [facility] REPOSITORY [facility] Medical Records Department [address] [place] [address] History and Physical 04/10/182234 MR#: [id number] Acct: [id number] Name: ALICJA SANDHU Rep #: [id number] : 1975 42 From: Drake Montez MD [...] after meals. Is set up with counselor, social media developer and psychiatrist. Looks and feels happy and [...] be consulted when she is extubated. [place] slip was written by Trena BURGESS. Past Medical History Past Medical History (Chronic Problems): Chronic Problems (Last Reviewed 04/05/18 @ 13:34 by Rosenda Tinajero) Diabetes type 2, controlled (Chronic) Now has an apartment. Feels she is doing well. Provided with a meter and strips. Enc to check before and after meals. Is set up with counselor, social media developer and psychiatrist. Looks and feels happy and [...] (Verified 04/10/18 20:55) Anaphylaxis bacitracin [From Neosporin (wbw-ety-moyup)] Adverse Reaction (Verified 04/10/18 20:55) Swelling neomycin [From Neosporin (xcj-jma-suwks)] Adverse Reaction (Verified 04/05/18 13:31) Swelling polymyxin B [From Neosporin (gbx-pas-sebvd)] Adverse Reaction (Verified 04/05/18 13:31) Swelling trazodone [...] prophylaxis Code Visit Inpatient E AND M: 48994 Init Hosp L3 04/10/18 1966 <Electronically signed by Drake Montez MD> Date Drake Montez MD Cosigner Signature: Date (if applicable) CC: Keren STACY; Drake Montez MD Signed CHEST 1 VIEW Observed: 04/10/2018 Status: F Source: [place] (PORTABLE) 10:29 PM [facility] REPOSITORY [facility] Imaging Services [address] [place] [address] Chest 1 View (Portable) MR#: [id number] Acct: [id number] Name: ALICJA SANDHU Rep #: [id number] : 1975 F 42 From: Doug Holly MD PCP: Keren Hooker Status: ADM IN Study: Chest 1 View (Portable) Date of Exam: 04/10/18 Exam# [id number] Ordering Dr: Ernst Mckinnon MD STUDY: X-RAY [...] (Portable) CC: Ernst Mckinnon MD; Keren STACY Surgical Attendant: Signed URINALYSIS, COMPLETE Collected: 04/10/2018 Status: F Source: [place] 10:11 PM [facility] REPOSITORY Order Comment: How was Urine Obtained? [...] URINE SEEN Performed By: #### L400.0001 #### [facility] [address] [place], [address] URINE DRUG SCREEN Collected: 04/10/2018 Status: F Source: [place] (VISTA) 10:05 PM [facility] REPOSITORY TYPE CODE TESTS RESULT [...] Normal NEGATIVE Performed By: #### L505.5000 #### [facility] [address] [place], [address] CBC W/DIFF, AUTOMATED Collected: 04/10/2018 Status: F Source: [place] 9:00 PM [facility] REPOSITORY TYPE CODE TESTS RESULT [...] Lymph 2.23 Performed By: #### L100.0100 #### [facility] [address] [place], [address] ,SERUM,HCG QUALI. Collected: Status: F Source: [place] 04/10/2018 9:00 PM [facility] REPOSITORY TYPE CODE TESTS RESULT OUT OF REFERENCE UNITS RANGE LAB L700.7000 0-9 Nonpreg Negative Normal HCGSQUAL NEGATIVE LAB L700.6700 =>Qualitative mIU/mL Normal HCG Qual < 1 triggr Performed By: #### L700.6800 #### [facility] [address] [place], [place], [address] COMPREHENSIVE METABOLIC Collected: 04/10/2018 Status: F Source: [place] [facility] 9:00 PM [facility] REPOSITORY TYPE CODE TESTS RESULT [...] GAP 11 Performed By: #### L500.4050 #### [facility] [address] [place], [address] CPK TOTAL, CREATINE Collected: 04/10/2018 Status: F Source: [place] KINASE 9:00 PM [facility] REPOSITORY TYPE CODE TESTS RESULT OUT OF RANGE REFERENCE UNITS LAB L501.3620 26-192 U/L Normal CPK TOTAL 161 Result Comment: Moderate Hemolysis, Result may be falsely increased. Performed By: #### L501.3620, L501.4010 #### [facility] [address] [place], [address] TROPONIN-I Collected: 04/10/2018 Status: F Source: [place] 9:00 PM [facility] REPOSITORY TYPE CODE TESTS RESULT OUT OF RANGE REFERENCE UNITS LAB L501.4010 <0.045 ng/mL Normal < 0.015 TROPONIN-I Result Comment: TROPONIN-I EXPECTED VALUES <0.045 Negative 0.045 - 0.590 Consistent with Cardiac Damage > OR = 0.600 Critical Value Not every elevated troponin is indicative of LA. These values should be used with clinical judgement in examining the patient's clinical picture for diagnosis. To establish a diagnosis of LA versus myocardial injury, there must be a demonstrated rise and/or fall in the troponin values, in addition to ischemic symptoms, EKG changes, new regional wall motion abnormality, and/or angiographical evidence. PLEASE NOTE: REFERENCE RANGES EDITED 18 Performed By: #### L501.3620, L501.4010 #### [facility] [address] [place], [address] ALCOHOL, BLOOD Collected: 04/10/2018 Status: F Source: [place] (MEDICAL)-SERUM 9:00 PM [facility] REPOSITORY TYPE CODE TESTS RESULT [...] fatal coma Performed By: #### L501.9100 #### [facility] [address] [place], [place], [address] SALICYLATE Collected: 04/10/2018 Status: F Source: [place] 9:00 PM [facility] REPOSITORY TYPE CODE TESTS RESULT OUT OF REFERENCE UNITS RANGE LAB L501.8300 2.8-20.0 mg/dL Low SALICYLATE < 1.7 Performed By: #### L501.8300, L501.8400 #### [facility] [address] [place], [address] ACETAMINOPHEN (TYLENOL) Collected: 04/10/2018 Status: F Source: [place] LEVEL 9:00 PM [facility] REPOSITORY TYPE CODE TESTS RESULT OUT OF REFERENCE UNITS RANGE LAB L501.8400 10.0-30.0 ug/mL ACETAMINOPHEN Low < 2.0 Performed By: #### L501.8300, L501.8400 #### [facility] [address] [place], [place], [address] ENDOCRINOLOGY VISIT Observed: 04/08/2018 Status: F Source: [place] REPORT 10:46 AM [facility] REPOSITORY [facility] [address] [place], [place] [address] OFFICE VISIT Date of Service: 04/05/18 MR#: [id number] Acct: [id number] Name: ALICJA SANDHU Rep #: [id number] : 1975 Provider: Bernarda Matos NP Age/Sex: 42/F Location: [facility] Status: Signed HPI History of present illness Alicja Sandhu is a 42 year old female who presents today for diabetes type 2 controlled. Diagnnosed in 2006. Currently she does not have ameter for slef monitoringg of BG but recently A1c notes she is controlled. She presents today with her social media developer Pat. At time of visit: -Pt denies [...] Pressure Position Sitting Intake Visit Reasons: f/u Vice Principal Required: No Accompanied by: Friend Is patient [...] (Verified 04/05/18 13:31) Anaphylaxis bacitracin [From Neosporin (ttz-djq-zdrti)] Adverse Reaction (Verified 04/05/18 13:31) Swelling neomycin [From Neosporin (zlb-gkj-ajpae)] Adverse Reaction (Verified 04/05/18 13:31) Swelling polymyxin B [From Neosporin (hsy-mhm-ggoop)] Adverse Reaction (Verified 04/05/18 13:31) Swelling trazodone [...] blood sugars : low : high : [facility] Medical History Anxiety disorder (Acute) Asthma (Acute) [...] current use of insulin E11.9 Diabetes mellitus manager terminal insulin use: without mcfp use Diabetes mellitus complication status: without complication 04/08/18 1046 <Electronically signed by Bernarda MATTHEW> Date Bernarda MATTHEW Cosigner Signature: Date (if applicable) CC: DOWNTIME REPORT Observed: 04/05/2018 Status: F Source: [place] 1:33 PM [facility] Medical Records Department [address] [place] [address] Downtime Report MR#: [id number] Acct: [id number] Name: ALICJA SANDHU Rep #: [id number] : 1975 42 From: Andrea Stahl MD PCP: Keren Hooker Status: DEP ER This patient was seen during an EMR downtime March 20, 2018 - March 27, 2018. This patient may have a combination of paper and electronic documentation or all paper documentation. All documentation is viewable within the e-chart portion of [employer] for each patient visit. CHEST 1 VIEW Observed: 03/26/2018 Status: F Source: [place] (PORTABLE) 3:33 PM [facility] Imaging Services [address] [place] [address] Chest 1 View (Portable) MR#: [id number] Acct: [id number] Name: ALICJA SANDHU Rep #: [id number] : 1975 F 42 From: Carolina Stahl MD PCP: Keren Hooker Status: REG ER Study: Chest 1 View (Portable) Date of Exam: 03/25/18 Exam# [id number] Ordering Dr: Viridiana Stark MD STUDY: X-RAY [...] , CC: Viridiana Stark MD; Keren STACY Surgical Attendant: Signed URINALYSIS, COMPLETE Collected: 03/25/2018 Status: F Source: [place] 6:00 AM [facility] REPOSITORY Order Comment: RESULT(S) PREVIOUSLY REPORTED ON [...] URINE SEEN Performed By: #### L400.0001 #### [facility] [address] [place], [place], [address] URINE DRUG SCREEN Collected: 03/25/2018 Status: F Source: [place] (VISTA) 5:04 AM [facility] REPOSITORY Order Comment: List of Drugs Taken [...] Normal NEGATIVE Performed By: #### L505.5000 #### [facility] [place], [address] ALCOHOL, BLOOD Collected: 03/25/2018 Status: F Source: [place] (MEDICAL)-SERUM 5:04 AM [facility] REPOSITORY Order Comment: RESULT(S) PREVIOUSLY REPORTED ON [...] fatal coma Performed By: #### L501.9100 #### [facility] [address] [place], [address] BASIC METABOLIC Collected: 03/25/2018 Status: F Source: TRENA PROFILE ([facility]) 5:04 AM [facility] REPOSITORY Order Comment: RESULT(S) PREVIOUSLY REPORTED ON [...] 11 Performed By: #### L500.2500, L501.4010 #### [facility] [address] [place], [place], [address] TROPONIN-I Collected: 03/25/2018 Status: F Source: [place] 5:04 AM [facility] REPOSITORY Order Comment: RESULT(S) PREVIOUSLY REPORTED ON [...] Not every elevated troponin is indicative of LA. These values should be used with clinical judgement in examining the patient's clinical picture for diagnosis. To establish a diagnosis of LA versus myocardial injury, there must be a demonstrated rise and/or fall in the troponin values, in addition to ischemic symptoms, EKG changes, new regional wall motion abnormality, and/or angiographical evidence. PLEASE NOTE: REFERENCE RANGES EDITED 18 Performed By: #### L500.2500, L501.4010 #### [facility] [address] [place], [address] CBC W/DIFF, AUTOMATED Collected: 03/25/2018 Status: F Source: [place] 5:04 AM [facility] REPOSITORY Order Comment: RESULT(S) PREVIOUSLY REPORTED ON [...] Lymph 1.80 Performed By: #### L100.0100 #### [facility] [address] [place], [address] CNOV Observed: 02/09/2018 Status: COMPLETED Source: [place] 11:00 AM [facility] REPOSITORY [facility] ALICJA SANDHU ([id number]) 1975 F Date Time Provider Department 02/09/18 11:00 AM [facility] During your visit today, we recorded [...] diagnosis - Suicidal thoughts 11/23/2009 Hospitalized at [facility] - Suicidal thoughts February 2010 Hospitalized at [facility] in [place] - Type II or unspecified type diabetes mellitus without mention of complication, uncontrolled - Unspecified schizophrenia Schizophrenia. Seeing Dr. Cabrera ALLERGIES Lovastatin; Advil [Ibuprofen]; Ambien [Zolpidem Tartrate]; Asa [Salicylates]; Cogentin [Benztropine Mesylate]; Egg; Glucophage [Metformin Hcl]; Poquoson, Poquoson Oil; Penicillins; Septra [Sulfamethoxazole-Trimethoprim]; Tegretol [Carbamazepine]; Trazodone; [...] - CONSULT TO PHYSICAL THERAPY Melissa Weiss, TRAFFIC OPERATIONS MANAGER.KOSHER SEALER Prescription instructions reviewed with patient as applicable. Patient advised if symptoms do not improve or if symptoms worsen sooner, to contact their primary care physician. Potential red flag symptoms discussed with the patient. Reviewed appropriate action plan to take if red flag symptoms occur. Patient agreeable to treatment plan. Referring Provider: KATHLEEN CHAPMAN ([facility]) [[id number]] Allergies As of Date: 02/09/2018 Noted Allergy [...] CONSULT TO PHYSICAL THERAPY [9032] Order #: [id number]: 1 Prescriptions as of 02/09/2018 Sig: TIZANIDINE [...] 02/09/18 PROGRESS Observed: 02/09/2018 Status: COMPLETED Source: [place] 10:38 AM [facility] REPOS[facility] HNO ID: [id number] Author: Melissa Carias) Podlogar Service: (none) Author [...] diagnosis - Suicidal thoughts 11/23/2009 Hospitalized at [facility] - Suicidal thoughts February 2010 Hospitalized at [facility] in [place] - Type II or unspecified type diabetes mellitus without mention of complication, uncontrolled - Unspecified schizophrenia Schizophrenia. Seeing Dr. Cabrera ALLERGIES Lovastatin; Advil [Ibuprofen]; Ambien [Zolpidem Tartrate]; Asa [Salicylates]; Cogentin [Benztropine Mesylate]; Egg; Glucophage [Metformin Hcl]; Poquoson, Poquoson Oil; Penicillins; Septra [Sulfamethoxazole-Trimethoprim]; Tegretol [Carbamazepine]; Trazodone; [...] - CONSULT TO PHYSICAL THERAPY Melissa Weiss, DC.KOSHER SEALER Prescription instructions reviewed with patient as applicable. Patient advised if symptoms do not improve or if symptoms worsen sooner, to contact their primary care physician. Potential red flag symptoms discussed with the patient. Reviewed appropriate action plan to take if red flag symptoms occur. Patient agreeable to treatment plan. PROGRESS Observed: 02/01/2018 Status: COMPLETED Source: [place] 11:24 AM [facility] REPOSITORY HNO ID: [id number] Author: Kathleen (Pilot Boat Captain) Service: (none) Author Type: Nurse Practitioner Type: [...] diagnosis - Suicidal thoughts 11/23/2009 Hospitalized at [facility] - Suicidal thoughts February 2010 Hospitalized at [facility] in [place] - Type II or unspecified type diabetes [...] Cogentin [Benztropine Mesylate]; Egg; Glucophage [Metformin Hcl]; Poquoson, Poquoson Oil; Penicillins; Septra [Sulfamethoxazole-Trimethoprim]; Tegretol [Carbamazepine]; Trazodone; [...] Patient agreeable to treatment plan. Kathleen Chapman APRN.KOSHER SEALER CBC Collected: 02/01/2018 Status: F Source: [place] 10:36 AM [facility] REPOSITORY TYPE CODE TESTS RESULT [...] By: #### CBC, CMP, LIPB, HBA1C #### [facility] [address] [place], [place] [address] COMP METABOLIC PANEL Collected: 02/01/2018 Status: F Source: [place] 10:36 AM [facility] REPOSITORY TYPE CODE TESTS RESULT OUT OF REFERENCE UNITS RANGE LAB TP 6.3-8.0 g/dL Protein, Total 7.7 LAB ALB 3.9-4.9 g/dL Albumin 4.4 LAB CA 8.5-10.2 mg/dL Calcium, Total 9.2 LAB TBIL 0.2-1.3 mg/dL Bilirubin, Total 0.3 LAB ALKP 32-117 U/L Alkaline Phosphatase 98 LAB AST 13-35 U/L AST 23 LAB GLU 74-99 mg/dL Glucose High 138 Result Comment: The [place] Diabetes Association (ADA) provides guidance for cutoff [...] Standards of Medical Care in Diabetes 2016, [place] Diabetes Association. Diabetes Care. 2016.39(Suppl 1). LAB [...] By: #### CBC, CMP, LIPB, HBA1C #### [facility] [address] [place], [place] [address] LIPID PANEL, BASIC Collected: 02/01/2018 Status: F Source: [place] 10:36 AM [facility] REPOSITORY TYPE CODE TESTS RESULT [...] Desk Reference: National Heart, Lung, and Blood [place]. National Institutes of Health. 2001: NIH Publication No. 01-3305. 2. An International Atherosclerosis Society position paper: global recommendations for the management of dyslipidemia: executive summary, Atherosclerosis. 2014: 232(2):410-413. Performed By: #### CBC, CMP, LIPB, HBA1C #### [facility] [address] [place], [place] [address] HEMOGLOBIN A1C Collected: 02/01/2018 Status: F Source: [place] 10:36 AM [facility] REPOSITORY TYPE CODE TESTS RESULT OUT OF REFERENCE UNITS RANGE LAB HGBA1C 4.3-5.6 % High Hemoglobin A1c 6.5 LAB HBA0 mg/dL Est. Average Glucose 140 Result Comment: eAG: (Estimated average glucose) is a calculated value from HgbA1c and is parts representative of the average blood glucose level in the last 2-3 month period. Performed By: #### CBC, CMP, LIPB, HBA1C #### [facility] [address], [place] [address] CNOV Observed: 02/01/2018 Status: COMPLETED Source: [place] 9:30 AM [facility] REPOSITORY Office Visit ([facility]) ALICJA SANDHU ([id number]) 1975 F Date Time Provider Department 02/01/18 [...] diagnosis - Suicidal thoughts 11/23/2009 Hospitalized at [facility] - Suicidal thoughts February 2010 Hospitalized at [facility] in [place] - Type II or unspecified type diabetes [...] Cogentin [Benztropine Mesylate]; Egg; Glucophage [Metformin Hcl]; Poquoson, Poquoson Oil; Penicillins; Septra [Sulfamethoxazole-Trimethoprim]; Tegretol [Carbamazepine]; Trazodone; [...] Patient agreeable to treatment plan. Kathleen Chapman APRN.KOSHER SEALER Referring Provider: SELF [[id number]] Allergies As of [...] FOR* Routine general medical examination at a [facility]*INVALID FOR*10/07/2015 Hematuria [599.7] INVALID FOR* More... Schizophrenia [...] EMERGENCY DEPARTMENT Observed: 01/17/2018 Status: F Source: [place] SUMMARY 10:16 PM [facility] REPOSITORY [facility] Medical Records Department [address] [place] [address] Emergency Department Summary 01/17/18 2208 MR#: [id number] Acct: [id number] Name: ALICJA SANDHU Rep #: [id number] : 1975 42 From: Karsten Delacruz MD PCP: Guillermo Velázquez MD Status: REG ER - ER Visit Summary Date of Service: 01/17/18 Chief Complaint: Weak and sleeping more History of Present Illness: The patient is a 42 F who presents with fatigue, weakness and sleeping more. She is homeless residing in a [facility]. She denies fever, chills night sweats. She [...] She is presently homeless residing in a [facility]. Physical Examination: Vital signs are normal. She [...] will be discharged to return to the [facility] Disposition: Discharged to [facility] in stable condition Impression: Generalized weakness and fatigue unknown etiology History of psychosis and hallucination Obesity Hyperglycemia in a nondiabetic This note was generated with Soundstacheation software. It may contain incorrect words, spelling, [...] your Primary Care Provider. Call [facility] ([phone]) or report to the closest Emergency Room. Call 911 if necessary. 01/17/18 8153 <Electronically signed by Karsten Delacruz MD> Date Karsten Delacruz MD Cosigner Signature (If Indicated): Date CC: Guillermo Velázquez MD BLOOD GASES BY [facility] Collected: 01/17/2018 Status: F Source: [place] 8:40 PM [facility] REPOSITORY TYPE CODE TESTS RESULT [...] ISTAT 92 Performed By: #### L9000.0800 #### [facility] Point of Care [address] [place], [place] [address] CBC W/DIFF, AUTOMATED Collected: 01/17/2018 Status: F Source: [place] 8:12 PM [facility] REPOSITORY TYPE CODE TESTS RESULT [...] Lymph 2.25 Performed By: #### L100.0100 #### [facility] [address] [place], [address] BASIC METABOLIC Collected: 01/17/2018 Status: F Source: [place] PROFILE ([facility]) 8:12 PM [facility] REPOSITORY TYPE CODE TESTS RESULT [...] 7 Performed By: #### L500.2500, L501.9520 #### [facility] [address] [place], [address] THYROID STIM HORMONE Collected: 01/17/2018 Status: F Source: [place] (TSH) 8:12 PM [facility] REPOSITORY TYPE CODE TESTS RESULT OUT OF RANGE REFERENCE UNITS LAB L501.9520 0.358-3.74 uIU/mL Normal TSH 0.93 Performed By: #### L500.2500, L501.9520 #### [facility] [address] [place], [address] PROGRESS Observed: 01/06/2018 Status: COMPLETED Source: [place] 2:06 PM [facility] REPOSITORY HNO ID: [id number] Author: Lyn Carlos) Eber Service: (none) Author Type: Physician Type: Progress Notes Filed: 01/08/2018 5:21 PM Note Text: Chief Complaint Patient presents with: Establish Care HPI Alicja Sandhu is a 42 year old female who presents here today for establish care visit. Here today with block and case maker from [facility]. Previously seeing Dr. Gabriel and last OV was over a year ago. Seeing Dr. Shabazz prior to that. Reviewed records from [facility] ED prior to appointment and she was last seen on 12/07 for suicidal ideation. Patient was pink slipped and admitted for 2 days after transfer to [facility]. While inpatient, patient had adjustments to [...] more suicidal thoughts. Currently staying at the [facility] which is staffed 24 hours and does not have access to her own medications. Feels safe to go home today and will discuss this with her counselor next week. corporate travel manager agrees with this. Patient has IUD in place and follows up with Dr. Cevallos, but cannot say when last appointment was or when she had Mirena placed. Discussed following up with [facility] which block and case maker will help with. Has history of DM [...] diagnosis - Suicidal thoughts 11/23/2009 Hospitalized at [facility] - Suicidal thoughts February 2010 Hospitalized at [facility] in [place] - Type II or unspecified type diabetes [...] Egg Vomiting - Glucophage [Metform* Vomiting - Poquoson, Poquoson Oil - Penicillins Rash - Septra [Sulfamethox* [...] with counseling. Feels safe going home and block and case maker agrees. 2. Undifferentiated schizophrenia (HCC) - ICD9: [...] with more than 50% of the total zqoo-yk-wlgg time of the visit in counseling / coordination of care. Lyn Velázquez MD CNOV Observed: 01/06/2018 Status: COMPLETED Source: [place] 2:00 PM [facility] REPOSITORY Office Visit (FAMPWS) ALICJA SANDHU ([id number]) 1975 F Date Time Provider Department 01/06/18 2:00 PM LYN VELÁZQUEZ) FAMPWS During your visit today, we recorded the following information about you: Pulse Respiration Blood pressure Weight 90/minute 14/minute 108/78 117 kg Height 1.619 m Lyn Velázquez MD 01/08/2018 5:21 PM Signed Chief Complaint Patient presents with: [facility] HPI Alicja Sandhu is a 42 year old female who presents here today for establish [facility] visit. Here today with block and case maker from [facility]. Previously seeing Dr. Gabriel and last OV was over a year ago. Seeing Dr. Shabazz prior to that. Reviewed records from [facility] ED prior to appointment and she was last seen on 12/07 for suicidal ideation. Patient was pink slipped and admitted for 2 days after transfer to [facility]. While inpatient, patient had adjustments to [...] more suicidal thoughts. Currently staying at the [facility] which is staffed 24 hours and does not have access to her own medications. Feels safe to go home today and will discuss this with her counselor next week. corporate travel manager agrees with this. Patient has IUD in place and follows up with Dr. Cevallos, but cannot say when last appointment was or when she had Mirena placed. Discussed following up with [facility] which block and case maker will help with. Has history of DM [...] diagnosis - Suicidal thoughts 11/23/2009 Hospitalized at [facility] - Suicidal thoughts February 2010 Hospitalized at [facility] in [place] - Type II or unspecified type diabetes [...] Egg Vomiting - Glucophage [Metform* Vomiting - Poquoson, Poquoson Oil - Penicillins Rash - Septra [Sulfamethox* [...] with counseling. Feels safe going home and block and case maker agrees. 2. Undifferentiated schizophrenia (HCC) - ICD9: [...] with more than 50% of the total qlht-rh-jvgu time of the visit in counseling / [...] by mouth twice daily.Disp: Rfl: HGB A1C [VARJO4G] Order #: [id number] FUTURE COMP METABOLIC PANEL [SQCMP] Order #: [id number] FUTURE LIPID PANEL BASIC [SQLIPB] Order #: [id number] FUTURE CBC [SQCBC] Order #: [id number] FUTURE loperamide (ANTI-DIARRHEAL) 2 mg cap(s)Take 1 [...] LEAD ELECTROCARDIOGRAM Observed: 12/09/2017 Status: F Source: [place] 1:24 PM [facility] REPOSITORY [facility] Cardiovascular Services [address] [place] [address] 12 Lead EKG 12/07/17 9517 MR#: [id number] Acct: [id number] Name: ALICJA SANDHU Rep #: [id number] : 1975 42 From: Drake French MD [...] Normal ECG Confirmed by RAFITA COHEN, DRAKE ([id number]), publishing editor PRINCE STAHL ([id number]) on 12/09/2017 1:24:25 PM Referred By: ALLY Confirmed By:DRAKE FRENCH MD 12/09/17 1324 Date Drake French MD CC: Guillermo Velázquez MD; Luisito Bird MD Signed LIPID Collected: 12/09/2017 Status: F Source: [place] 7:39 AM [facility] REPOSITORY TYPE CODE TESTS RESULT [...] above Very high risk Performed By: #### A1C, LIPID #### [facility] [address] [place] [address] A1C Collected: 12/09/2017 Status: F Source: [facility] 7:39 AM [facility] REPOSITORY TYPE CODE TESTS RESULT OUT OF RANGE REFERENCE UNITS LAB A1C(LOINC) 4.0-6.0 % High Hgb A1c 6.6 Performed By: #### A1C, LIPID #### [facility] [address] [place] [address] EMERGENCY DEPARTMENT Observed: 12/08/2017 Status: F Source: [place] SUMMARY 4:22 AM [facility] REPOSITORY [facility] Medical Records Department [address] [place] [address] Emergency Department Summary 12/07/17 2207 MR#: [id number] Acct: [id number] Name: ALICJA SANDHU Rep #: [id number] : 1975 42 From: Luisito Bird MD [...] suicidal ideation. This note was generated with Soundstacheation software. It may contain incorrect words, spelling, [...] your Primary Care Provider. Call [facility] ([phone]) or report to the closest Emergency Room. Call 911 if necessary. 12/08/17 0422 <Electronically signed by Luisito Bird MD> Date Luisito Bird MD Cosigner Signature (If Indicated): Date CC: Guillermo Velázquez MD CBC W/DIFF, AUTOMATED Collected: 12/07/2017 Status: F Source: [place] 9:25 PM [facility] REPOSITORY TYPE CODE TESTS RESULT [...] Lymph 1.92 Performed By: #### L100.0100 #### [facility] [address] [place], [address] BASIC METABOLIC Collected: 12/07/2017 Status: F Source: [place] PROFILE (BMP) 9:25 PM [facility] REPOSITORY TYPE CODE TESTS RESULT [...] GAP 11 Performed By: #### L500.2500 #### [facility] [address] [facility] [place], [place], [address] ,SERUM,HCG QUALI. Collected: Status: F Source: [place] 12/07/2017 9:25 PM [facility] REPOSITORY TYPE CODE TESTS RESULT OUT OF REFERENCE UNITS RANGE LAB L700.6700 =>Qualitative mIU/mL Normal HCG Qual < 1 triggr LAB L700.7000 0-9 Nonpreg Negative Normal HCGSQUAL NEGATIVE Performed By: #### L700.6800 #### [facility] [address] [facility] [place], [place], [address] ALCOHOL, BLOOD Collected: 12/07/2017 Status: F Source: [place] (MEDICAL)-SERUM 9:25 PM [facility] REPOSITORY TYPE CODE TESTS RESULT [...] fatal coma Performed By: #### L501.9100 #### [facility] [address] [facility] [place], [place], [address] URINE DRUG SCREEN Collected: 12/07/2017 Status: F Source: [place] (VISTA) 9:05 PM [facility] REPOSITORY TYPE CODE TESTS RESULT [...] Normal NEGATIVE Performed By: #### L505.5000 #### [facility] [address] [place], [place], [address] URINALYSIS, COMPLETE Collected: 12/07/2017 Status: F Source: [place] 9:05 PM [facility] REPOSITORY Order Comment: Order Date: 12/08/17 How [...] URINE SEEN Performed By: #### L400.0001 #### [facility] [address] [place], [address] PROGRESS Observed: 12/01/2017 Status: COMPLETED Source: [place] 2:04 PM [facility] REPOSITORY HNO ID: [id number] Author: Nghia Darling Service: (none) Author Type: Psychologist Type: Progress Notes Filed: 12/01/2017 2:09 PM Note Text: [facility] Progress Note Alicja Reece Pheobe 12/01/2017 [id number] Provider: Nghia Darling, PHD CPT Code: 10097 Psychotherapy 38-52 minutes Time: Approximately 50 minutes [...] Issues: No change from previous appointment DIAGNOSIS: Omro I: Schizophrenia Undifferentiated Type PTSD Mixed Depression: Depression and Anxiety Sleep problem (insomnia currently) r/o Cyclothymic ?? Omro II : Deferred Omro III : See medical history Omro IV: Problems related to the social environment Omro V: GAF 40-31 Some impairment in reality testing or communication or major impairment in several areas Treatment Modality/Interventions: Cognitive Behavioral Reassurance/Supportive Problem solving TREATMENT ASSESSMENT/PROGRESS: . Progressing satisfactorily. TREATMENT PLAN/GOALS: Continue in therapy focusing on self- care, stress management, affect management and anxiety management. Next appointment: as scheduled Nghia Darling, PHD 12 LEAD ELECTROCARDIOGRAM Observed: 11/29/2017 Status: F Source: [place] 1:46 PM [facility] REPOSITORY [facility] Cardiovascular Services [facility] [place] [address] [place] [address] 12 Lead EKG 02/12/18 2049 MR#: [id number] Acct: [id number] Name: ALICJA SANDHU Rep #: [id number] : 1975 42 From: Arsalan Sprague MD [...] ECG Confirmed by CELESTINE COHEN, ARSALAN ([id number]), publishing editor PRINCE STAHL ([id number]) on 11/29/2017 1:46:21 PM Referred By: LENNY Confirmed By:ARSALAN SPRAGUE MD 11/29/17 1346 Date Arsalan Sprague MD CC: Guillermo Velázquez MD; Viridiana Stark MD Signed EMERGENCY DEPARTMENT Observed: 11/29/2017 Status: F Source: [place] SUMMARY 2:34 AM [facility] REPOSITORY [facility] Medical Records Department [address] [place] [address] Emergency Department Summary 11/28/17 2244 MR#: [id number] Acct: [id number] Name: ALICJA SANDHU Rep #: [id number] : 1975 42 From: Viridiana Stark MD [...] Course and Treatment: 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 Patient is treated with 40 mEq of potassium chloride. She be given a 5 day course of potassium at home. Repeat blood pressure at time of discharge is 117/96. Treatment Plan: [] Disposition: Discharge Impression: 1. Atypical chest pain 2. Hypokalemia This note was generated with Clixtr dictation software. It may contain incorrect words, [...] your Primary Care Provider. Call [facility] ([phone]) or report to the closest Emergency Room. Call 911 if necessary. 11/29/17 0234 <Electronically signed by Viridiana Stark MD> Date Viridiana Stark MD Cosigner Signature (If Indicated): Date CC: Guillermo Velázquez MD DISCHARGE INSTRUCTION Observed: 11/28/2017 Status: F Source: [place] 10:46 PM [facility] REPOSITORY [facility] Medical Records Department [address] [place] [address] Discharge Instruction 11/28/174 MR#: [id number] Acct: [id number] Name: ALICJA SANDHU Rep #: [id number] : 1975 42 From: Viridiana Stark MD [...] your Primary Care Provider. Call [facility] ([phone]) or report to the closest Emergency Room. Call 911 if necessary. 11/28/172245 <Electronically signed by Viridiana Stark MD> Date Viridiana Stark MD Cosigner Signature (If Indicated): Date CC: Guillermo Velázquez MD CBC W/DIFF, AUTOMATED Collected: 11/28/2017 Status: F Source: [place] 9:07 PM [facility] REPOSITORY TYPE CODE TESTS RESULT [...] Lymph 1.80 Performed By: #### L100.0100 #### [facility] [address] [facility] [place], [place], [address] D-DIMER QUANTITATIVE Collected: 11/28/2017 Status: F Source: [place] (DVT/PE) 9:07 PM [facility] REPOSITORY TYPE CODE TESTS RESULT OUT OF RANGE REFERENCE UNITS LAB L300.8000 0.27-0.49 FEU/ug/m Low D-DIMER < 0.27 QUANT Result Comment: NORMAL D-Dimer level (<0.50) indicates no DVT or PE. Performed By: #### L300.8000 #### [facility] [address] [facility] [place], [place], [address] BASIC METABOLIC Collected: 11/28/2017 Status: F Source: [place] PROFILE (BMP) 9:07 PM [facility] REPOSITORY Order Comment: 'TROP' Serial specimen #1, [...] 11 Performed By: #### L500.2500, L501.4010 #### [facility] [address] [place], [place], [address] TROPONIN-I Collected: 11/28/2017 Status: F Source: [place] 9:07 PM [facility] REPOSITORY Order Comment: 'TROP' Serial specimen #1, #2, #3, or #4: 1 TYPE CODE TESTS RESULT OUT OF RANGE REFERENCE UNITS LAB L501.4010 <0.06 ng/mL Normal < 0.02 TROPONIN-I Result Comment: TROPONIN-I EXPECTED VALUES <0.05 NEGATIVE 0.06 - 0.59 AT RISK OF LA > OR = 0.60 SUGGEST LA Performed By: #### L500.2500, L501.4010 #### [facility] [address] [place], [address] CHEST 1 VIEW Observed: 11/28/2017 Status: F Source: [place] (PORTABLE) 8:32 PM [facility] HOSPITAL REPOSITORY [facility] Imaging Services [address] [place] [address] Chest 1 View (Portable) MR#: [id number] Acct: [id number] Name: ALICJA SANDHU Rep #: [id number] : 1975 F 42 From: Gama Mejia MD PCP: Guillermo Velázquez MD Status: REG ER Study: Chest 1 View (Portable) Date of Exam: 11/28/17 Exam# [id number] Ordering Dr: Viridiana Stark MD STUDY: X-RAY [...] CC: Guillermo Velázquez MD; Viridiana Stark MD Surgical Attendant: Signed PROGRESS Observed: 11/18/2017 Status: COMPLETED Source: [place] 10:57 AM [facility] REPOSITORY HNO ID: [id number] Author: Chayo (Rehab/Pre Vocational Counselor) Damon, CHARGER TESTER Service: (none) Author Type: Nurse Specialist Type: [...] refill of medications. She's been residing at [facility][note 3]. She reports admission byJOHANNA Matos. She reports [...] reports should like to be released to [facility]. She would like to manage her own medications. Refills through [facility] requested. Telephone call placed to [facility]. They report that she is on several psychiatric medications. She reports that patients being followed at counseling Center. Telephone call to block and case maker Pratima Bustamante [phone]. She reports self admission to [facility] with sign off per JOHANNA Matos for admission. She reports she will be residing at the [address] [place] [address]. They will be managing her meds. Her block and case maker please this will be a better situation for her. She'll bring a form and MAR later today. Request [facility] for refills. No recent hospital or ED [...] 09/01/2005 - Suicidal thoughts 11/23/2009 Hospitalized at [facility] Thoughts - Suicidal thoughts February 2010 Hospitalized at [facility] in [place] - Type II or unspecified type diabetes [...] Egg Vomiting - Glucophage [Metform* Vomiting - [place], [place] Oil - Penicillins Rash - Septra [Sulfamethox* [...] (g/dL) Date Value 08/13/2016 Test sent to [facility]. Albumin (g/dL) Date Value 08/13/2016 Test sent to [facility]. Bilirubin, Total (mg/dL) Date Value 08/13/2016 Test sent to [facility]. Alkaline Phosphatase (U/L) Date Value 08/13/2016 Test sent to [facility]. AST (U/L) Date Value 08/13/2016 Test sent to [facility]. ALT (U/L) Date Value 08/13/2016 Test sent to [facility]. Hemoglobin (g/dL) Date Value 03/25/2016 13.9 HGB [...] (H) 4.3 - 5.6 % Final Comment: [place] [employer] guidelines indicate that patients with HgbA1c in the range 5.7-6.4% are at increased risk for development of diabetes, and intervention by lifestyle modification may be beneficial. HgbA1c greater or equal to 6.5% is considered diagnostic of diabetes. 03/25/2016 6.0 (H) 4.3 - 5.6 % Final Comment: [place] [employer] guidelines indicate that patients with HgbA1c in the range 5.7-6.4% are at increased risk for development of diabetes, and intervention by lifestyle modification may be beneficial. HgbA1c greater or equal to 6.5% is considered diagnostic of diabetes. 10/03/2015 5.3 4.3 - 5.6 % Final 04/11/2015 5.8 4.0 - 6.0 % Final Comment: [place] [employer] guidelines indicate that patients with HgbA1c in the range 5.7-6.4% are at increased risk for development of diabetes, and intervention by lifestyle modification may be beneficial. HgbA1c greater or equal to 6.5% is considered diagnostic of diabetes. Ejection Fraction - Result: 60 % Date: 11/23/2004 Time: 09:56:00 IMPRESSION: Ms. Sandhu is a 41 year old requesting transfer to [address] [place] [address]. After my examination and review of data, I make the following recommendations. PLAN AND RECOMMENDATIONS: 1. Major depressive disorder, recurrent, severe with psychotic features (HCC) - ICD9: 296.34, ICD10: F33.3 corporate travel manager to bring form, MAR. Will then send refills to [facility]. Advised to go to ER if develops chest pain, shortness of breath, or severe worsening of symptoms. Discussed risks, benefits, alternatives, and potential side effects of medications. Ms. Sandhu expressed understanding and agreed with the plan. LEEANNA Ahmadi 12 LEAD ELECTROCARDIOGRAM Observed: 11/15/2017 Status: F Source: [place] 9:47 AM [facility] Cardiovascular Services [address] [place] [address]65 12 Lead EKG 11/11/17 1014 MR#: [id number] Acct: [id number] Name: ALICJA SANDHU Rep #: [id number] : 1975 41 From: Ernst Chavez MD [...] Normal ECG Confirmed by ERNST CHAVEZ ([id number]), publishing editor PRINCE STAHL ([id number]) on 11/15/2017 9:47:31 AM Referred By: Chano Walls Confirmed By:ERNST CHAVEZ 11/15/17 0947 Date Ernst Chavez MD CC: Vannesa Guzman MD Signed EMERGENCY DEPARTMENT Observed: 11/11/2017 Status: F Source: [place] SUMMARY 6:12 PM [facility] REPOSITORY [facility] Medical Records Department [address] [place] [address] Emergency Department Summary 11/11/17 1115 MR#: [id number] Acct: [id number] Name: ALICJA SANDHU Rep #: [id number] : 1975 41 From: Kevin Torres MD [...] 1. Anxiety This note was generated with Clixtr dictation software. It may contain incorrect words, [...] your Primary Care Provider. Call [facility] ([phone]) or report to the closest Emergency Room. Call 911 if necessary. 11/11/17 1812 <Electronically signed by Kevin Torres MD> Date Kevin Torres MD Cosigner Signature (If Indicated): Date CC: Vannesa Guzman MD CBC W/DIFF, AUTOMATED Collected: 11/11/2017 Status: F Source: [place] 10:33 AM [facility] REPOSITORY TYPE CODE TESTS RESULT [...] Lymph 1.55 Performed By: #### L100.0100 #### [facility] [address] [place], [place], [address] BASIC METABOLIC Collected: 11/11/2017 Status: F Source: [place] PROFILE ([facility]) 10:33 AM [facility] REPOSITORY Order Comment: 'TROP' Serial specimen #1, [...] 8 Performed By: #### L500.2500, L501.4010 #### [facility] [address] [place], [address] TROPONIN-I Collected: 11/11/2017 Status: F Source: [place] 10:33 AM [facility] REPOSITORY Order Comment: 'TROP' Serial specimen #1, #2, #3, or #4: 1 TYPE CODE TESTS RESULT OUT OF RANGE REFERENCE UNITS LAB L501.4010 <0.06 ng/mL Normal < 0.02 TROPONIN-I Result Comment: TROPONIN-I EXPECTED VALUES <0.05 NEGATIVE 0.06 - 0.59 AT RISK OF LA > OR = 0.60 SUGGEST LA Performed By: #### L500.2500, L501.4010 #### [facility] [address] [place], [address] CHEST 1 VIEW Observed: 11/11/2017 Status: F Source: [place] (PORTABLE) 10:19 AM [facility] REPOSITORY [facility] Imaging Services [address] [place] [address] Chest 1 View (Portable) MR#: [id number] Acct: [id number] Name: ALICJA SANDHU Rep #: [id number] : 1975 F 41 From: Roe Thomason MD PCP: Vannesa Guzman MD Status: REG ER Study: Chest 1 View (Portable) Date of Exam: 11/11/17 Exam# [id number] Ordering Dr: Kevin Torres MD STUDY: X-RAY [...] EST , Service support , CC: Vannesa Gumzan MD; Kevin Torres Surgical Attendant: Signed PROGRESS Observed: 10/31/2017 Status: COMPLETED Source: [place] 11:40 AM [facility] [place] REPOSITORY HNO ID: [id number] Author: Nghia Darling Service: (none) Author Type: Psychologist Type: Progress Notes Filed: 10/31/2017 11:55 AM Note Text: [facility] for [facility]al [facility] Progress Note Alicja Sandhu 10/31/2017 [id number] Provider: Nghia Darling, PHD CPT Code: 81435 Psychotherapy 38-52 minutes Time: Approximately 50 minutes [...] will attend a 4 week IOP at [facility] which generally has a good reputation with [...] Psychiatric Medication Issues: see med notes DIAGNOSIS: Omro I: Schizophrenia Undifferentiated Type PTSD Mixed Depression: Depression and Anxiety Sleep problem (insomnia currently) r/o Cyclothymic ?? Omro II : Deferred Omro III : See medical history Omro IV: Problems related to the social environment Omro V: GAF 40-31 Some impairment in reality [...] SOURCE CODE 09/13/2018 Drug benztropine Other Unknown [place] Allergy/41 mesylate/[id number] [facility] 9978031( (RXNORM) [facility]) Repository 09/13/2018 Drug Penicillins/N758137 Anaphylaxis Unknown [place] Allergy/41 476(RXNORM) [facility] 8266574([facility]) Repository 09/13/2018 Drug aspirin/R582961925( Anaphylaxis Unknown [place] Allergy/41 RXNORM) [facility] 0788231([facility]) Repository 09/13/2018 Drug acetaminophen/F0060 Anaphylaxis Unknown [place] Allergy/41 92874(RXNORM) [facility] 8274690([facility]) Repository 09/13/2018 Drug carbamazepine/F0060 Rash Unknown [place] Allergy/41 14395(RXNORM) [facility] 2608546([facility]) Repository 09/13/2018 Drug ibuprofen/M55147381 Anaphylaxis Unknown [place] Allergy/41 7(RXNORM) [facility] 8512313([facility]) Repository 09/13/2018 Drug neomycin/F052140812 Swelling Unknown [place] Allergy/41 (RXNORM) [facility] 2948070([facility]) Repository 09/13/2018 Drug bacitracin/P4695043 Swelling Unknown [place] Allergy/41 98(RXNORM) [facility] 9866789([facility]) Repository 09/13/2018 Drug sulfamethoxazole/F0 Anaphylaxis Unknown [place] Allergy/41 59413405(RXNORM) Community 2745997([facility]) Repository 09/13/2018 Drug trimethoprim/M79310 Anaphylaxis Unknown [place] Allergy/41 2873(RXNORM) Community 9486554([facility]) Repository 09/13/2018 Drug trazodone/X80916584 Vomiting Unknown [place] Allergy/41 0(RXNORM) Community 1128999([facility]) Repository 09/13/2018 Drug polymyxin Swelling Unknown [place] Allergy/41 B/I719273970(RXNORM Community 8012341([facility]) Repository 09/13/2018 Drug egg/I698698320(RXNO Other Unknown [place] Allergy/41 RM) Community 0167760([facility]) Repository 05/18/2012 DRUG ZOLPIDEM TARTRATE Mental Chg [facility] INGREDI/41 Clinic Main 7104926([facility]) Repository 05/18/2012 DRUG TRAZODONE GI UPSET [facility] INGREDI/41 Clinic Main 4422189([facility]) Repository 07/13/2006 DRUG IBUPROFEN OTHER: SEE C [facility] INGREDI/41 Clinic Main 8664315([facility]) Repository 09/21/2005 DRUG BENZTROPINE INTOLERANCE [facility] INGREDI/41 MESYLATE Clinic Main 4836587( [place] O[facility]) Repository 09/21/2005 DRUG EGG Vomiting [facility] INGREDI/41 Clinic Main 6197939([facility]) Repository 09/21/2005 DRUG METFORMIN HCL Vomiting [facility] INGREDI/41 Clinic Main 8656013([facility]) Repository 09/21/2005 Food/58146 ORANGE, ORANGE OIL [facility] 1000([facility] Clinic Main D CT) [place] Repository 06/09/2005 DRUG LOVASTATIN SWELLING [facility] INGREDI/41 Clinic Main 4893346( [place] OMED [facility]) Repository 06/09/2005 Drug SALICYLATES [place]ASH [place] Class/4195 Clinic Main 89203([facility] [place] ED [facility]) Repository 06/09/2005 Drug PENICILLINS [place] Class/4195 Clinic Main 45432([facility] [place] [facility]) Repository 06/09/2005 DRUG/91551 SULFAMETHOXAZOLE-TR RASH [place] 1003([facility] IMETHOPRIM Clinic Main D CT) [place] Repository 06/09/2005 DRUG CARBAMAZEPINE INTOLERANCE [address] Main 3162608([facility]) Repository 06/09/2005 DRUG ACETAMINOPHEN RASH [address] Main 2637012([facility] OME [facility]) Repository ENCOUNTERS ENCOUNTERS ADMIT/DISCHARGE ACCOUNT NUMBER ADMITTING ENCOUNTER LOCATION SOURCE CLASS 09/13/2018/09/13/20 [id number] Emergency [address] ding:ED Repository 09/13/[id number] [facility] ding:LAB.FUT Repository URE 09/11/[id number] [facility] ding:LAB Repository 08/24/2018/08/25/20 [id number] Emergency [address] ding:ED Repository 08/22/2018/08/22/20 [id number] Ambulatory BMSBuilding: [place] 18 [facility] [place] [place] Repository 08/11/2018/08/17/[id number] [facility] Inpatient [place] [address] Sulema Berg. Encounter lding:[address] and Psych/Adult [place] CloRoom: Hospitals [facility] Repository 3302Bed: [facility] [id number] 08/04/2018/08/04/20 [id number] Ambulatory BMSBuilding: [place] 18 [facility] Repository 07/06/2018 [id number] Ambulatory BMSBuilding: [place] BMS.[facility] Repository 07/05/2018/07/06/20 [id number] Emergency [address] ding:ED Repository 04/12/2018/04/13/20 [id number] Ambulatory BMSBuilding: [place] 18 [facility] Repository 04/10/2018/04/13/20 [id number] T[place], Inpatient [place] 18 [facility] ding:ICURoom Repository : UPW55Jef: 1 04/10/2018 [id number] Tc Ambulatory BMSBuilding: [place] [facility] BMS.[facility] Repository 04/10/2018 [id number] Tc Ambulatory BMSBuilding: [place] [facility] BMS.[facility] Repository 04/10/2018 [id number] T[place], Ambulatory BMSBuilding: [place] BMS.[facility] Repository 04/10/2018/04/13/20 [id number] Ambulatory BMSBuilding: [place] 18 [facility] Repository 04/10/2018 [id number] Ambulatory BMSBuilding: [place] BMS.[facility] Repository 04/05/2018/04/05/20 [id number] Ambulatory BMSBuilding: [place] 18 BMS.[facility] Repository 03/25/2018/03/25/20 [id number] Emergency [address] ding:ED Repository 03/25/2018 [id number] Ambulatory BMSBuilding: [place] [facility] Repository 03/21/2018/03/21/20 [id number] Ambulatory BMSBuilding: [place] 18 BMS.[facility] Repository 02/20/2018 [id number] Ambulatory BMSBuilding: [place] BMS.[facility] Repository 02/09/2018/02/11/20 [id number] Ambulatory [address] Repository 02/01/2018/02/02/20 [id number] Ambulatory [address] Repository 02/01/2018/02/02/20 [id number] Ambulatory [address] Repository 01/17/2018/01/18/20 [id number] Emergency [address] ding:ED Repository 01/06/2018/01/10/20 [id number] Ambulatory [address] Repository 12/08/2017/12/09/19 [id number] CARTER COHEN, Ambulatory PBuilding:[facility] Y[facility]: [facility] 6588Bed: [facility] Repository 12/07/2017/12/08/19 [id number] Emergency [address] ding:ED Repository 12/01/2017/12/02/19 [id number] Ambulatory [address] Repository 11/28/2017/11/28/19 [id number] Emergency [address] ding:ED Repository 11/27/[id number] [facility] ding:BHIOP Repository 11/18/2017/11/22/19 [id number] Ambulatory [address] Repository 11/11/2017/11/11/19 [id number] Emergency [address] ding:ED Repository 11/07/2017/11/16/19 [id number] Ambulatory [address] ding:BHIOP Repository 10/31/2017/11/01/19 [id number] Ambulatory [address] Repository PAYERS PAYERS ENCOUNTER GUARANTOR PAYER SUBSCRIBER SOURCE 09/13/2018 ALICJA Reece Primary ALICJA Albrecht [id number] JO[place]QU[place] Insurance:CARESOURCEP DEEPAKVNGDOB: [facility] Number: [id number]: [id number] Repository Date:2018-09-13P O () [address]ATTN: [place] [address]DZ: 09/13/2018 Secondary NOT GIVENUNK [place] Insurance:SELF PAY [facility] Number: Effective Repository Date:2018-09-13 09/13/2018 ALICJA Reece Primary ALICJA Albrecht [id number] [place] Insurance:CARESOURCEP KUNKVNGDOB: [facility]PT [facility] Number: [id number]: [id number] Repository Date:2018-09-11P O () [address]ATTN: [place] [address]AB: 09/13/2018 Secondary NOT GIVENUNK [place] Insurance:SELF PAY [facility] Number: Effective Repository Date:2018-09-11 09/11/2018 ALICJA Reece Primary ALICJA Albrecht [id number] JO[place]QU[place] Insurance:CARESOURCEP PHOEBEDOB: [facility] LNAPT [address] [place] [address] [facility] Number: [id number]: [id number] Repository Date:2018-09-11P O () [address]ATTN: [place] [address]TQ: 09/11/2018 Secondary NOT GIVENUNK [place] Insurance:SELF PAY [facility] Number: Effective Repository Date:2018-09-11 08/24/2018 ALICJA L Primary ALICJA L [place] [id number] JO[place]QUIN Insurance:CARESOURCEP DEEPAKVNGDOB: [address] Number: [id number]: [id number] Repository Date:2018-08-24P O () [address]ATTN: [place] [address]SN: 08/24/2018 Secondary NOT GIVENUNK [place] Insurance:SELF PAY [facility] Number: Effective Repository Date:2018-08-24 08/22/2018 ALICJA L Primary ALICJA L [place] [id number] JO[place]QU[place] Insurance:CARESOURCEP PHOEBEDOB: [address] Number: [id number]: [id number] Repository Date:2018-08-02P O () [address]ATTN: [place] [address]MX: 08/22/2018 Secondary NOT GIVENUNK [place] Insurance:SELF PAY [facility] Number: Effective Repository Date:2018-08-22 08/11/2018 Primary ALICJA L [facility] Insurance:CareSourceP JAYAB: [place] Number: [id number] [id number] JO[address]QUIN [address] Repository Date:[facility] [place], [place] Name:[facility] [address]Cmv: [phone], [place] [phone] (HP) [address]BX: 08/04/2018 ALICJA L Primary ALICJA L [place] [id number] JOAQUIN Insurance:CARESOURCEP KUNKVNGDOB: [address] Number: [id number]: [id number] Repository Date:2018-08-04P O (HP) [address]ATTN: [place] [address]QE: 08/04/2018 Secondary NOT GIVENUNK [place] Insurance:SELF PAY [facility] Number: Effective Repository Date:2018-08-04 07/06/2018 ALICJA L Primary ALICJA Albrecht [id number] [place] Insurance:CARESOURCEP PHOEBEDOB: [address] Number: [id number]: [id number] Repository Date:2018-04-05P O (HP) [address]ATTN: [place] [address]DO: 07/06/2018 Secondary NOT GIVENUNK [place] Insurance:SELF PAY [facility] Number: Effective Repository Date:2018-04-05 07/05/2018 ALICJA L Primary ALICJA L [place] [id number] JO[place] Insurance:CARESOURCEP PHOEBEDOB: [address] Number: [id number]: [id number] Repository Date:2018-07-05P O () [address]ATTN: [place] [address]FD: 07/05/2018 Secondary NOT GIVENUNK [place] Insurance:SELF PAY [facility] Number: Effective Repository Date:2018-07-05 04/12/2018 ALICJA L Primary ALICJA L [place] [id number] JO[place]QU[place] Insurance:CARESOURCEP PHOEBEDOB: [facility] Number: [id number] [id number] Repository [address]Ylm: [phone]) Date:2018-04-10P O [phone] (HP) [address]ATTN: [place] [address]OH: 04/12/2018 Secondary NOT GIVENUNK [place] Insurance:SELF PAY [facility] Number: Effective Repository Date:2018-04-12 04/10/2018 ALICJA L Primary ALICJA Albrecht [id number] [place] Insurance:CARESOURCEP DEEPATZDOB: [facility] Number: [id number] [id number] Repository [address]Gzx: [phone]) Date:2018-04-10P O [phone] () [address]ATTN: [place]S [place] [address]KW: 04/10/2018 Secondary NOT GIVENUNK [place] Insurance:SELF PAY [facility] Number: Effective Repository Date:2018-04-10 04/10/2018 ALICJA L Primary ALICJA Albrecht [id number] JO[place]QU[place] Insurance:CARESOURCEP PHOBEEDOB: [facility] Number: [id number] [id number] Repository [address]Koq: ([phone]) Date:2018-04-10P O [phone] () [address]ATTN: [place] [address]QW: 04/10/2018 Secondary NOT GIVENUNK [place] Insurance:SELF PAY [facility] Number: Effective Repository Date:2018-04-10 04/10/2018 ALICJA L Primary ALICJA L [place] [id number] JO[place] Insurance:CARESOURCEP KUNKVNGDOB: [facility] Number: [id number] [id number] Repository [address]Pkw: [phone]) Date:2018-04-10P O [phone] () [address]ATTN: [place] [address]KI: 04/10/2018 Secondary NOT GIVENUNK [place] Insurance:SELF PAY [facility] Number: Effective Repository Date:2018-04-10 04/10/2018 ALICJA L Primary ALICJA L [place] [id number] [place] Insurance:CARESOURCEP KUNTZDOB: [facility] LANEAPT olicy Number: [id number] [id number] Repository [address]Imy: ([phone]) Date:2018-04-10 O [phone] () [address]ATTN: [place] [address]KM: 04/10/2018 Secondary NOT GIVENUNK [place] Insurance:SELF PAY [facility] Number: Effective Repository Date:2018-04-10 04/10/2018 ALICJA L Primary ALICJA L [place] [id number] [place] Insurance:CARESOURCEP KUNTZDOB: [facility] LANEAPT olicy Number: [id number] [id number] Repository [address]Rcv: ([phone]) Date:2018-04-10P O [phone] () [address]ATTN: [place] [address]KE: 04/10/2018 Secondary NOT GIVENUNK [place] Insurance:SELF PAY [facility] Number: Effective Repository Date:2018-04-10 04/10/2018 ALICJA L Primary ALICJA L [place] [id number] JO[place]QU[place] Insurance:CARESOURCEP KUNTZDOB: [facility] LANEAPT olicy Number: [id number] [id number] Repository [address]Xkp: ([phone]) Date:2018-04-10 O [phone] () [address]ATTN: [place] [address]QX: 04/10/2018 Secondary NOT GIVENUNK [place] Insurance:SELF PAY [facility] Number: Effective Repository Date:2018-04-10 04/05/2018 ALICJA L Primary ALICJA L [place] [id number] JO[place]QU[place] Insurance:CARESOURCEP KUNTZDOB: [facility] LANEAPT olicy Number: [id number] [id number] Repository [address]Qpg: ([phone]) Date:2018-03-14 O [phone] () [address]ATTN: [place] [address]XX: 04/05/2018 Secondary NOT GIVENUNK [place] Insurance:SELF PAY [facility] Number: Effective Repository Date:2018-04-05 03/25/2018 ALICJA L Primary ALICJA Reece [place] [id number] JO[place]QU[place] Insurance:CARESOURCEP KUNTZDOB: Community LANEAPT olicy Number: [id number] [id number] Repository [address]Wop: ([phone]) Date:2018-03-25 O [phone] () [address]ATTN: [place] [address]DQ: 03/25/2018 Secondary NOT GIVENUNK [place] Insurance:SELF PAY [facility] Number: Effective Repository Date:2018-03-25 03/25/2018 ALICJA L Primary ALICJA L [place] [id number] [place] Insurance:CARESOURCEP KUNTZDOB: [facility] LANEAPT olicy Number: [id number] [id number] Repository [address]Udx: ([phone]) Date:2018-03-25 O [phone] () [address]ATTN[place] [address]DR: 03/25/2018 Secondary NOT GIVENUNK [place] Insurance:SELF PAY [facility] Number: Effective Repository Date:2018-03-25 03/21/2018 ALICJA L Primary ALICJA L Trena [id number] JOAQUIN Insurance:CARESOURCEP KUNKVNGDOB: [facility] [address] olicy Number: [id number] [id number] Repository [address]Ndm: ([phone]) Date:2018-04-03 O [phone] () [address] [address]JK: 03/21/2018 Secondary NOT GIVENUNK [place] Insurance:SELF PAY [facility] Number: Effective Repository Date:2018-04-03 02/20/2018 ALICJA L Primary ALICJA Albrecht [id number] SPINK Insurance:[facility]: [facility] Number: [id number] Hospital [address]74[address]Xyr: [phone] [id number] Repository [phone] () Date:2018-02-09P [address]ATTN: [place] [address]UO: 02/20/2018 Secondary NOT GIVENUNK [place] Insurance:SELF PAY [facility] Number: Effective Repository Date:2018-02-09 01/17/2018 ALICJA L Primary ALICJA Albrecht [id number] SPINK Insurance:[facility]: [facility] Number: [id number] Hospital [address]Ejc: 330 [id number] Repository [phone] () Date:2018-01-17P [address]ATTN: [place] [address]GC: 01/17/2018 Secondary NOT GIVENUNK [place] Insurance:SELF PAY [facility] Number: Effective Repository Date:2018-01-17 12/08/2017 ALICJA L [facility]:MEDICAID OF KUNTZDOB: [facility] Number: [id number] Repository [facility], [id number] [place], [place] [address]Bjd: Date:2017-04-30 [place] [address]Nul: [id number] () Name:GIL AGUIRREDARLIN Orantes ()Tel: [phone]) [id number] [place]ILL[place], [place] [address] () [address]FW: 12/07/2017 ALICJA L Primary ALICJA Albrecht [id number] SPINK Insurance:MEDICAIDPol [place]UNTZDOB: [facility] Number: [id number] Hospital [address]Tnw: [phone]) [id number] Repository [phone] () Date:2017-12-07 12/07/2017 Secondary NOT GIVENUNK [place] Insurance:SELF PAY [facility] Number: Effective Repository Date:2017-12-07 11/28/2017 ALICJA L Primary ALICJA Albrecht [id number] SPINK [facility] [place] Number: [id number] Hospital [address]Kjp: 330 [id number] Repository [phone] () Date:2017-11-28 11/28/2017 Secondary NOT GIVENUNK [place] Insurance:SELF PAY [facility] Number: Effective Repository Date:2017-11-28 11/27/2017 ALICJA L Primary ALICJA Albrecht [id number] Insurance:MEDICAIDPol [facility] Community [facility] icy Number: [id number] [id number] Repository [address]Zmz: [phone]) Date:2017-11-04 [phone] () 11/27/2017 Secondary NOT GIVENUNK [place] Insurance:SELF PAY [facility] Number: Effective Repository Date:2017-11-17 11/11/2017 Alicja L Primary Alicja Albrecht [id number] Insurance:MEDICAIDPol [facility] Number: [id number] [id number] Repository [address]Lhw: ([phone]) Date:2017-11-11 [phone] () 11/11/2017 Secondary NOT GIVENUNK [place] Insurance:SELF PAY [facility] Number: Effective Repository Date:2017-11-11 11/07/2017 Alicja L Primary Alicja Albrecht [id number] Insurance:MEDICAIDPol KuntzB: [employer] [address] icy Number: [id number] [id number] Repository [address]Bub: ([phone]) Date:2017-11-04 [phone] () 11/07/2017 Secondary NOT GIVENUNK [place] Insurance:SELF PAY [facility] Number: Effective Repository Date:2017-11-04
== END 2018-09-13 16:28 | disposition home or self-care (01) ==
LOC: ED 16:14
PROVIDERS: Emergency Provider Emergency Medicine; Family Provider Internal Medicine; PCP Internal Medicine
DX: F41.9 Anxiety disorder, unspecified (principal); F43.10 Post-traumatic stress disorder, unspecified; K21.9 Gastro-esophageal reflux disease without esophagitis; E11.9 Type 2 diabetes mellitus without complications; F31.9 Bipolar disorder, unspecified; Z79.899 Other long term (current) drug therapy
CPT/HCPCS: 36415; 82043; 82570; 99282

== ENCOUNTER 2018-11-02 00:18 | Emergency (ER) | payer MEDICAID, SELFPAY ==
[2018-11-02] VITALS (10 sets, daily range): BP systolic 98–197; BP diastolic 63–110; PULSE 62–126; RESP 15–20; TEMP 36.6; O2SAT 24–98; BMI 42.7
--- NOTE | 2018-11-02 00:39 | EKG12_ITS ---
Test Reason : [facility] [place] Pressure : / mmHG Vent. Rate : 089 BPM Atrial Rate : 089 BPM P-R Int : 154 ms QRS Dur : 088 ms QT Int : 368 ms P-R-T Axes : 041 038 032 degrees QTc Int : 447 ms Normal sinus rhythm Normal ECG Confirmed by SKYE COHEN, DIVINA ([id number]), department editor SHAE DORAN ([id number]) on 11/06/2018 9:23:21 AM Referred By: [facility] Confirmed By:DIVINA CHEUNG MD
[2018-11-02 00:49] LABS: Absolute Lymphocyte Count 2.78 X10^3/ul (0.83-4.51); Absolute Neutrophil Count 5.1 X10^3/uL (2.0-7.7); Basophil# 0.02 X10^3/uL; Basophil% 0.2 % (0-1); Eosinophil# 0.11 X10^3/uL; Eosinophils% 1.2 % (0-5); Hematocrit 42.5 % (37-47); Lymphocyte # 2.78 X10^3/ul (4.0); Lymphocyte % 31.5 % (19-41); Mean Corp Hgb Conc 32.9 g/gl (32-36); Mean Corpuscular Hgb 30.7 pg (27.0-32.0); Mean Corpuscular Volume 93.2 fL (81-99); Mean Platelet Vol. 8.8 fl (6.2-12.0); Monocyte% 7.9 % (0-10); Neutrophil # 5.13 X10^3/uL (2.7-7.7); Neutrophil % 58.2 % (47-70); Platelet Count 225 K/mm3 (150-450); RBC Distribution Width CV 13.6 % (11.6-14.6); RBC Distribution Width SD 46.4 fl (35.1-43.9); Red Blood Count 4.56 M/mm3 (4.2-5.4); White Blood Count 8.8 K/mm3 (4.4-11.0)
[2018-11-02 00:50] LABS: POSITIVE COUNT NO; POSITIVE DIFFERENTIAL NO; POSITIVE MORPHOLOGY NO
[2018-11-02 00:55] LABS: Anion Gap 10 (5-15); BUN 12 mg/dL (7-18); BUN/Creat Ratio 14.4 RATIO (10-20); Calcium,Total 8.7 mg/dL (8.5-10.1); Chloride 99 mmol/L (98-107); Creatinine, Serum 0.83 mg/dL (0.55-1.02); EST Glomerular Filtration Rate 79 mL/min (>60); Est Glom Filt Rate - Afr Amer 96 mL/min (>60); Estimated Creatinine Clearance 75.47 ml/min; Glucose 234 mg/dL (74-106); Potassium 3.6 mmol/L (3.5-5.1); Sodium Level 136 mmol/L (136-145)
[2018-11-02 01:06] LABS: Alcohol, Blood (Medical)-Serum < 3.0 mg/dL
[2018-11-02 01:28] LABS: Pregnancy, Serum, hCG Quali. NEGATIVE Negative (0-9 Nonpreg)
[2018-11-02] MEDS: 0.9% Normal Saline 1,000 ML 999 ML IV (02:08)
--- NOTE | 2018-11-02 03:43 | ED.RN ---
[facility] IS IN THE DEPARTMENT. NOTIFIED [facility] THAT THIS PT NEEDS TO BE EVALUATED.
--- NOTE | 2018-11-02 03:45 | ED.RN ---
[facility] EVALUATING THIS PT NOW.
[2018-11-02] MEDS: Ondansetron 4 MG/2 ML Vial IV (04:22)
[2018-11-02 04:36] LABS: Amphetamine Urine VISTA NEGATIVE (<1000 ng/mL); Barbiturate Urine VISTA NEGATIVE (< 200 ng/mL); Benzodiazepine Urine VISTA NEGATIVE (< 200 ng/mL); Cocaine Urine VISTA NEGATIVE (< 300 ng/mL); Ecstacy Urine VISTA NEGATIVE (< 500 ng/mL); Methadone Urine VISTA NEGATIVE (< 300 ng/mL); PCP Urine VISTA NEGATIVE (< 25 ng/mL); THC Urine VISTA NEGATIVE (< 50 ng/mL); Vista UDS pH Range 6
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
[2018-11-02 05:46] LABS: Bedside Glucose 107 mg/dL (70-110)
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
--- NOTE | 2018-11-02 08:24 | ED.RN ---
PT CALLED HER MOTHER AND IS INCREASINGLY AGITATED STATING SHE REFUSES TO GO TO [facility] AND WILL JUMP OUT OF THE [facility]. STATES SHE WOULD RATHER GO TO ALF. PTS MOTHER THEN CALLED AND TALKED TO RN WANTING TO SEND HER TO [place]. EXPLAINED TO MOTHER THAT [facility] HANDLES ALL THE TRANSFERS AND SHE COULD CONTACT THEM.
--- NOTE | 2018-11-02 08:26 | ED.RN ---
ODALYS MATHEW, PTS PUBLIC RELATIONS CONSULTANT CALLED REQUESTING INFORMATION ABOUT THE TRANSFER AND WANTED THE HOSPITAL TO CALL PTS PSYCHOLOGIST REGARDING TRANSFER. EXPLAINED THE [facility] HANDLES ALL THE TRANSFERS AND INTERACTS WITH THE DIFFERENT LOCATIONS. SHE STATED SHE WILL CONTACT THEM.
--- NOTE | 2018-11-02 09:02 | ED.RN ---
VALERIE CARNES CALLED REQUESTING STATUS UPDATE ON THE PT IN REGARDS TO VS, IF PT IS ALERT EATING AMBULATING. ANY PROBLEMS FROM THE OD.
[2018-11-02 09:25] LABS: Bedside Glucose 206 mg/dL (70-110)
--- OUTSIDE RECORDS SUMMARY | 2019-01-06 17:33 | XMS RPT_ITS ---
:1975 Author Organization OHIP Support Name Relationship Address Phone D Unavailable Unavailable Unavailable LIBBY, JOSE Unavailable [address] + [place] [address] LOHNEF, JOSE Unavailable [address] [place] [address] D Unavailable Unavailable Unavailable LIBBY, JOSE Unavailable [address] + [place] [address] LOHNEF, JOSE Unavailable [address] + [address] [place] [address] D Unavailable Unavailable Unavailable LIBBY, JOSE Unavailable [address] + [place] [address] LOHNEF, JOSE Unavailable [address] + [address] [place] [address] D Unavailable Unavailable Unavailable LIBBY, JOSE Unavailable [address] + [place] [address] LOHNEF, JOSE Unavailable [address] + [address] [place] [address] D Unavailable Unavailable Unavailable LIBBY, JOSE Unavailable [address] + [place] [address] LOHNEF, JOSE Unavailable [address] + [address] [place] [address] D Unavailable Unavailable Unavailable LIBBY, JOSE Unavailable [address] + [place] [address] LOHNEF, JOSE Unavailable [address] + [address] [place] [address] D Unavailable Unavailable Unavailable LIBBY, JOSE Unavailable [address] + [place] [address] LOHNEF, JOSE Unavailable [address] + [address] [place] [address] LIBBY, JOSE Unavailable [address] + [place] [address] D Unavailable Unavailable Unavailable LIBBY, JOSE Unavailable [address] + [place] [address] LOHNEF, JOSE Unavailable [address] + [address] [place] [address] D Unavailable Unavailable Unavailable LIBBY, JOSE Unavailable [address] + [place] [address] LOHNEF, JOSE Unavailable Unavailable + D Unavailable Unavailable Unavailable LIBBY, JOSE Unavailable [address] + [place] [address] LOHNEF, JOSE Unavailable Unavailable + D Unavailable Unavailable Unavailable LIBBY, JOSE Unavailable [address] + [place] [address] LOHNEF, JOSE Unavailable [address] [place] [address] D Unavailable Unavailable Unavailable LIBBY, JOSE Unavailable [address] + [place] [address] LOHNEF, JOSE Unavailable [address] [place] [address] D Unavailable Unavailable Unavailable LIBBY GILDARDO/JOSE Unavailable [address] + [place] [address] LOHNEF, JOSE Unavailable [address] + [address] [place] [address] D Unavailable Unavailable Unavailable LIBBY, JOSE Unavailable [address] + [place] [address] LOHNEF, JOSE Unavailable [address] [place] [address] D Unavailable Unavailable Unavailable LIBBY, JOSE Unavailable [address] + [place] [address] LOHNEF, JOSE Unavailable [address] [place] [address] D Unavailable Unavailable Unavailable LIBBY, JOSE Unavailable [address] + [place] [address] LOHNEF, JOSE Unavailable [address] [place] [address] D Unavailable Unavailable Unavailable GILDARDO SANDHU/JOSE Unavailable [address] + [place] [address] LOHNEF, JOSE Unavailable [address] + [address] [place] [address] D Unavailable Unavailable Unavailable GILDARDO SANDHU/JOSE Unavailable [address] + [place] [address] LOHNEF, JOSE Unavailable [address] + [address] [place] [address] D Unavailable Unavailable Unavailable LIBBY, JOSE Unavailable [address] + [place] [address] LOHNEF, JOSE Unavailable [address] [place] [address] D Unavailable Unavailable Unavailable LIBBY, JOSE Unavailable [address] + [place] [address] LOHNEF, JOSE Unavailable [address] [place] [address] D Unavailable Unavailable Unavailable LIBBY, GILDARDO/JOSE Unavailable [address] + [place] [address] LOHNEF, JOSE Unavailable [address] + [address] [place] [address] D Unavailable Unavailable Unavailable GILDARDO SANDHU/JOSE Unavailable [address] [phone] [place] [address] D Unavailable Unavailable Unavailable LIBBY, GILDARDO/JOSE Unavailable [address] [phone] [place] [address] LIBBY, JOSE Unavailable Unavailable + ~(330 LIBBY, JOSE Unavailable Unavailable + ~(330 LIBBY, JOSE Unavailable Unavailable + D Unavailable Unavailable Unavailable GILDARDO SANDHU/JOSE Unavailable [address] [phone] [place] [address] D Unavailable Unavailable Unavailable D Unavailable Unavailable Unavailable GILDARDO SANDHU/JOSE Unavailable [address] [phone] [place] [address] D Unavailable Unavailable Unavailable GILDARDO SANDHU/JOSE Unavailable [address] [phone] [place] [address] KEN MURPHY Unavailable . + [place] [address] D Unavailable Unavailable Unavailable GILDARDO SANDHU/JOSE Unavailable [address] [phone] [place] [address] KEN MURPHY Unavailable . + [place] [address] Care Team Providers Name Role Phone CHRISTY CABRERA MD Admitting Unavailable CHRISTY CABRERA MD Attending Unavailable MIRIAM MURILLO, DR. FRANCISCA Birch Primary Care Unavailable MELISSA WEISS (MARINE ELECTRONICS TECHNICIAN) Attending Unavailable KATHLEEN CHAPMAN (PA) Referring Unavailable NGHIA DARLING Attending Unavailable DANIIE, EFEWONGBE B Referring Unavailable LYN VELÁZQUEZ () Referring Unavailable LYN VELÁZQUEZ) Attending Unavailable CHAYO DAMON ([facility]) Attending Unavailable Dr. Sulema Chavez Attending Unavailable Dr. Sulema Chavez Admitting Unavailable Janie Walters Attending Unavailable Janie Walters Primary Care Unavailable Janie Walters Primary Care Unavailable Bridger Claudio Attending Unavailable CIANCONE, CHANO Attending Unavailable CIANCONE, CHANO Referring Unavailable Oleghe, Efewongbe Primary Care Unavailable Viridiana Stark Attending Unavailable Sondraley, Guillermo Primary Care Unavailable Bursley, Guillermo Primary Care Unavailable Luisito Bird Attending Unavailable Bursley, Guillermo Primary Care Unavailable Karsten Delacruz Attending Unavailable Bernarda Matos QUALITY ASSURANCE TESTER-C Attending Unavailable Eber Guillermo Referring Unavailable Viridiana Stark Attending Unavailable Keren Hooker Primary Care Unavailable Dick Darling Attending Unavailable Swihart DISTILLERY MANAGER, Keren Referring Unavailable Swihart DISTILLERY MANAGER, Keren Primary Care Unavailable ShoBernarda alvarado QUALITY ASSURANCE TESTER-C Attending Unavailable Guillermo Velázquez Referring Unavailable Swihart DISTILLERY MANAGER, Keren Primary Care Unavailable Swihart DISTILLERY MANAGER, Keren Primary Care Unavailable Drake Montez Admitting Unavailable Patrick, Marcelino Consulting Unavailable Paintsil, Bon Air Attending Unavailable Drake Montez Attending Unavailable Swihart DISTILLERY MANAGER, Keren Primary Care Unavailable Drake Montez Admitting Unavailable Paintsil, Bon Air Attending Unavailable Swihart DISTILLERY MANAGER, Keren Primary Care Unavailable Patrick, Marcelino Consulting Unavailable Paintsil, [place] Consulting Unavailable Montez, Drake Admitting Unavailable Paintsil, Bon Air Attending Unavailable Swihart DISTILLERY MANAGER, Keren Primary Care Unavailable Patrick, Marcelino Consulting Unavailable Paintsil, Bon [place] Consulting Unavailable Montez, Drake Admitting Unavailable Paintsil, Bon Air Attending Unavailable Swihart DISTILLERY MANAGER, Keren Primary Care Unavailable Patrick, Marcelino Consulting Unavailable Paintsil, Bon [place] Consulting Unavailable Patrick, Marcelino Attending Unavailable Drake Montez Referring Unavailable Ernst Chavez Attending Unavailable Viridiana Stark Referring Unavailable Arsalan Sprague Attending Unavailable Paintsil, Bon [place] Referring Unavailable Sean Felix Attending Unavailable Romeo, Janie Primary Care Unavailable Bernarda Matos QUALITY ASSURANCE TESTER-C Attending Unavailable Christy Graham QUALITY ASSURANCE TESTER-C Attending Unavailable Romeo, Janie Referring Unavailable ShookBernarda QUALITY ASSURANCE TESTER-C Attending Unavailable Romeo, Janie Referring Unavailable Romeo, Janie Primary Care Unavailable Live Hassan Attending Unavailable Bernarda Matos QUALITY ASSURANCE TESTER-C Attending Unavailable Bernarda Matos QUALITY ASSURANCE TESTER-C Referring Unavailable Romeo, Janie Primary Care Unavailable Bernarda Matos QUALITY ASSURANCE TESTER-C Attending Unavailable Romeo, Janie Primary Care Unavailable ShoBernarda alvarado QUALITY ASSURANCE TESTER-C Referring Unavailable Romeo, Janie Primary Care Unavailable Alex Yun Attending Unavailable Vannesa Guzman Primary Care Unavailable Kevin Torres Attending Unavailable PROBLEMS PROBLEMS DATE TYPE CONDITION / CODE ATTENDING STATUS SOURCE 08/22/2018 Unknown E11.9 - Type 2 Bernarda Matos diabetes mellitus J QUALITY ASSURANCE TESTER-C Community without complications Hospital / E11.9(ICD-10) Repository 05/25/2018 Unknown R94.31 - Abnormal Celestine, Arsalan Active [place] electrocardiogram Community [ECG] [EKG] / Hospital R94.31(ICD-10) Repository 05/25/2018 Unknown I10 - Essential Arsalan Sprague Active [place] (primary) hypertension Community / I10(ICD-10) Hospital Repository 04/17/2018 Unknown T45.0X1A - Poisoning Paintsil, Bon Air Active [place] by antiallergic and Community antiemetic drugs, Hospital accidental Repository (unintentional), initial encounter / T45.0X1A(ICD-10) 04/05/2018 Unknown R52 - Pain, Bernarda Matos Active [place] unspecified / J QUALITY ASSURANCE TESTER-C Community R52(ICD-10) Hospital Repository 05/11/2018 Unknown R00.2 - Palpitations / Ernst Chavez Active [place] R00.2(ICD-10) [facility] Hospital Repository 11/08/2008 Active Mixed hyperlipidemia / NA Active [place] E78.2(ICD-10) Clinic Main [place] Repository 02/01/2018 Active Type 2 diabetes NA Active [place] mellitus without Clinic Main complications / [place] E11.9(ICD-10) Repository PROCEDURES PROCEDURES No Procedure Records FoundRESULTS RESULTS 12 LEAD ELECTROCARDIOGRAM Observed: 11/06/2018 Status: F Source: [place] 9:23 AM [facility] REPOSITORY [facility] Cardiovascular Services [address] [place] [address] 12 Lead EKG 11/02/1853 MR#: [id number] Acct: [id number] Name: ALICJA SANDHU Rep #: [id number] : 1975 42 From: Arsalan Sprageu MD Attending Dr: Status: DEP ER Ordering Dr: Bridger Claudio MD Date: 11/02/18 Location: ED Sex: F C Admitted: Test Reason : MHC Blood Pressure : / mmHG Vent. Rate : 089 BPM Atrial Rate : 089 BPM P-R Int : 154 ms QRS Dur : 088 ms QT Int : 368 ms P-R-T Axes : 041 038 032 degrees QTc Int : 447 ms Normal sinus rhythm Normal ECG Confirmed by ARSALAN SPRAGUE MD ([id number]), slot editor SHAE DORAN ([id number]) on 11/06/2018 9:23:21 AM Referred By: [place] Confirmed By:ARSALAN SPRAGUE MD 11/06/18922 Date Arsalan Sprague MD CC: Bridger Claudio MD; Janie Walters MD Signed BEDSIDE GLUCOSE Collected: 11/02/2018 Status: F Source: [place] 9:20 AM [facility] REPOSITORY TYPE CODE TESTS RESULT OUT OF REFERENCE UNITS RANGE LAB L501.080 70-110 mg/dL High BEDSIDE GLU 206 Result Comment: MANAGEMENT OF PATIENT CARE PER NURSING PROTOCOL Performed By: #### L501.080 #### [facility] Point of Care [address] [place], [place] [address] BEDSIDE GLUCOSE Collected: 11/02/2018 Status: F Source: [place] 5:40 AM [facility] REPOSITORY TYPE CODE TESTS RESULT OUT OF RANGE REFERENCE UNITS LAB L501.080 70-110 mg/dL Normal BEDSIDE GLU 107 Result Comment: MANAGEMENT OF PATIENT CARE PER NURSING PROTOCOL Performed By: #### L501.080 #### [facility] Point of Care [address] [place], [place] [address] EMERGENCY DEPARTMENT Observed: 11/02/2018 Status: F Source: [place] SUMMARY 4:43 AM [facility] REPOSITORY [facility] Medical Records Department [address] [place] [address] Emergency Department Summary 11/02/18 0439 MR#: [id number] Acct: [id number] Name: ALICJA SANDHU Shanell Rep #: [id number] : 1975 42 From: Bridger Claudio MD PCP: Janie Walters MD Status: REG ER - ER Visit Summary Date of Service: 11/02/18 Chief Complaint: Intentional drug ingestion/overdose History of Present Illness: The patient is a 42 F who presents after an intentional overdose. She has a history of multiple personality disorder. Patient states of these personalities she named Danica took 12 tablets of 100 mg hydroxyzine, 2 tablets of 2 mg prazosin, 1 tablet of 30 mg mirtazapine in an attempt to harm himself over the course of about 6 hours. Currently she is only complaining of feeling tired and fatigued. She states she is not suicidal. She denies recent medical illness such as fevers chest pain shortness of breath nausea vomiting. She does have a history of serious anticholinergic overdose requiring intubation and ICU level care. Physical Examination: Initial heart rate 112, blood pressure 194/107, vitals otherwise unremarkable Calm and cooperative Patient currently denies suicidal or homicidal thoughts. Heart is regular rhythm slightly tachycardic Lungs are clear Abdomen soft Alert and oriented Test Results: EKG shows sinus rhythm at a rate of 89. CBC BMP normal. Urine drug screen negative. Serum alcohol negative. negative Emergency Department Course and Treatment: Medical workup unremarkable as above. Given intentional drug overdose and prior history of serious life- threatening overdose I feel she will need transferred for further psychiatric care pending crisis evaluation. Treatment Plan: [] Disposition: Pending crisis evaluation Impression: Intentional drug overdose This note was generated with [employer] Mind dictation software. It may contain incorrect words, [...] your Primary Care Provider. Call [facility] ([phone]) or report to the closest Emergency Room. Call 911 if necessary. 11/02/18 0443 <Electronically signed by Bridger Claudio MD> Date Bridger Claudio MD Cosigner Signature (If Indicated): Date CC: Janie Walters MD URINE DRUG SCREEN Collected: 11/02/2018 Status: F Source: [place] (VISTA) 3:30 AM [facility] REPOSITORY TYPE CODE TESTS RESULT [...] Normal NEGATIVE Performed By: #### L505.5000 #### [facility] [place], [address] CBC W/DIFF, AUTOMATED Collected: 11/02/2018 Status: F Source: [place] 12:35 AM [facility] REPOSITORY TYPE CODE TESTS RESULT OUT OF RANGE REFERENCE UNITS LAB L100.1000 4.4-11.0 K/mm3 Normal WBC 8.8 LAB L100.1200 4.2-5.4 M/mm3 Normal RBC 4.56 LAB L100.1300 12.0-15.0 g/dl Normal HGB 14.0 LAB L100.1400 37-47 % Normal HCT 42.5 LAB L100.1500 81-99 fL Normal MCV 93.2 LAB L100.1600 27.0-32.0 pg Normal MCH 30.7 LAB L100.1700 32-36 g/gl Normal MCHC 32.9 LAB L100.1810 11.6-14.6 % Normal RDW CV 13.6 LAB L100.1820 35.1-43.9 fl High RDW SD 46.4 LAB L100.1900 150-450 K/mm3 Normal PLT 225 LAB L100.2000 6.2-12.0 fl Normal MPV 8.8 LAB L100.2100 47-70 % Normal NEUT% 58.2 LAB L100.2200 19-41 % Normal LY% 31.5 LAB L100.2300 0-10 % Normal MONO% 7.9 LAB L100.2400 0-5 % Normal EO% 1.2 LAB L100.2500 0-1 % Normal BASO% 0.2 LAB L100.2550 0.0-0.9 % High IM GRAN % 1.000 Result Comment: IG% - Immature Granulocytes (promyelocytes, myelocytes and metamyelocytes) > 1% indicates that a LEFT SHIFT is Present. LAB L100.2620 2.0-7.7 X10 3/uL Normal Absolute Neut 5.1 LAB L100.2720 0.83-4.51 X10 3/ul Normal Absolute Lymph 2.78 Performed By: #### L100.0100 #### [facility] [address] [place], [address] BASIC METABOLIC Collected: 11/02/2018 Status: F Source: [place] PROFILE ([facility]) 12:35 AM [facility] REPOSITORY TYPE CODE TESTS RESULT OUT OF RANGE REFERENCE UNITS LAB L501.0100 74-106 mg/dL High GLU 234 Result Comment: Glucose result greater than or equal to 200 mg/dL suggests DIABETES MELLITUS per A.D.A. criteria. Please note revised GLUCOSE reference range effective 2017. LAB L501.1000 7-18 mg/dL Normal BUN 12 LAB L501.1100 0.55-1.02 mg/dL Normal CREAT,SERUM 0.83 [...] 75.47 LAB L501.1300 10-20 RATIO Normal BUN/CRE 14.4 LAB L501.2200 8.5-10 mg/dL Normal .1 CA 8.7 LAB L501.5300 136-14 mmol/L Normal 5 NA 136 LAB L501.5600 3.5-5. mmol/L Normal 1 K 3.6 LAB L501.5900 98-107 mmol/L Normal CL 99 LAB L501.6100 21.0-3 mmol/L Normal 2.0 CO2 27.0 LAB L501.6200 5-15 Normal GAP 10 Performed By: #### L500.2500 #### [facility] [address] [place], [address] ALCOHOL, BLOOD Collected: 11/02/2018 Status: F Source: [place] (MEDICAL)-SERUM 12:35 AM [facility] REPOSITORY TYPE CODE TESTS RESULT [...] fatal coma Performed By: #### L501.9100 #### [facility] [place], [address] ,SERUM,HCG QUALI. Collected: Status: F Source: [place] 11/02/2018 12:35 AM [facility] REPOSITORY TYPE CODE TESTS RESULT OUT OF REFERENCE UNITS RANGE LAB L700.7000 0-9 Nonpreg Negative Normal HCGSQUAL NEGATIVE LAB L700.6700 =>Qualitative mIU/mL Normal HCG Qual < 1 triggr Performed By: #### L700.6800 #### [facility] [place], [address] EMERGENCY DEPARTMENT Observed: 09/13/2018 Status: F Source: [place] SUMMARY 11:12 PM [facility] REPOSITORY [facility] Medical Records Department [address] [place] [address] Emergency Department Summary 09/13/18 1601 MR#: [id number] Acct: [id number] Name: ALICJA SANDHU Rep #: [id number] : 1975 42 From: Alex Yun MD PCP: Janie Walters MD Status: DEP ER - ER Visit Summary Date of Service: 09/13/18 Chief Complaint: Seizure History of Present Illness: The patient is a [address] Walters and her psycologist is Dr. Cabrera from [place]. She reports that since overdosing on Benadryl [...] accompanied by a postictal episode. Patient and trimming caser reported that she has had 3 different [...] 2. PTSD. This note was generated with Eqiancheng.comation software. It may contain incorrect words, spelling, [...] your Primary Care Provider. Call [facility] ([phone]) or report to the closest Emergency Room. Call 911 if necessary. 09/13/18 2312 <Electronically signed by Alex Yun MD> Date Alex Yun MD Cosigner Signature (If Indicated): Date CC: Janie Walters MD MICROALB:CREAT Collected: 09/13/2018 Status: F Source: [place] RATIO,RANDOM UR 8:32 AM [facility] REPOSITORY TYPE CODE TESTS RESULT OUT OF RANGE REFERENCE UNITS LAB L501.1200 NO RANGE EST. mg/dL Normal UR CREAT 82.50 LAB L502.0500 NO RANGE EST. mg/L Normal 7.7 MICROALBUMIN ,UR LAB L502.0600 <30 mg/g CRE mg/g CRE Normal 9.4 MALB:CREAT Performed By: #### L502.0250 #### [facility] [address] [place], [address] HEMOGLOBIN A1C Collected: 09/11/2018 Status: F Source: [place] 8:40 AM [facility] REPOSITORY TYPE CODE TESTS RESULT OUT OF RANGE REFERENCE UNITS LAB L501.9985 4.2-6.3 % High HGB A1C 7.4 Performed By: #### L501.9985 #### [facility] [address] [place], [address] COMPREHENSIVE METABOLIC Collected: 09/11/2018 Status: F [facility] REPOSITORY TYPE CODE TESTS RESULT [...] Performed By: #### L500.4050, L500.4100, L501.9520 #### [facility] [address] [place], [place], [address] LIPID PROFILE Collected: 09/11/2018 Status: F Source: [place] 8:40 AM [facility] REPOSITORY TYPE CODE TESTS RESULT [...] Performed By: #### L500.4050, L500.4100, L501.9520 #### [facility] [address] [place], [place], [address] THYROID STIM HORMONE Collected: 09/11/2018 Status: F Source: [place] ([facility]) 8:40 AM [facility] REPOSITORY TYPE CODE TESTS RESULT OUT OF RANGE REFERENCE UNITS LAB L501.9520 0.358-3.74 uIU/mL Normal TSH 1.60 Performed By: #### L500.4050, L500.4100, L501.9520 #### [facility] [address] [place], [address] EMERGENCY DEPARTMENT Observed: 08/24/2018 Status: F Source: [place] SUMMARY 9:57 PM [facility] REPOSITORY [facility] Medical Records Department [address] [place] [address] Emergency Department Summary 08/24/18 1712 MR#: [id number] Acct: [id number] Name: ALICJA SANDHU Rep #: [id number] : 1975 42 From: Live Hassan MD PCP: Janie Walters MD Status: REG ER - ER Visit Summary Date of Service: 08/24/18 Chief Complaint: Suicidal thoughts History of Present Illness: The patient is a 42 F who states that she is suicidal. She feels that everybody has been bullying her. This includes people on the bus, business support specialist and people in the [employer]. She believes people in the [employer] are pain people often bully her. She [...] ideation, paranoia This note was generated with Eqiancheng.comation software. It may contain incorrect words, spelling, [...] your Primary Care Provider. Call [facility] ([phone]) or report to the closest Emergency Room. Call 911 if necessary. 08/24/18 2157 <Electronically signed by Live Hassan MD> Date Live Hassan MD Cosigner Signature (If Indicated): Date CC: Janie Walters MD URINE DRUG SCREEN Collected: 08/24/2018 Status: F Source: [place] (VISTA) 6:40 PM [facility] REPOSITORY Order Comment: List of [...] Normal NEGATIVE Performed By: #### L505.5000 #### [facility] [address] [place], [address] ALCOHOL, BLOOD Collected: 08/24/2018 Status: F Source: [place] (MEDICAL)-SERUM 5:55 PM [facility] REPOSITORY TYPE CODE TESTS RESULT [...] fatal coma Performed By: #### L501.9100 #### [facility] [address] [place], [place], [address] CBC W/DIFF, AUTOMATED Collected: 08/24/2018 Status: F Source: [place] 5:15 PM [facility] REPOSITORY TYPE CODE TESTS RESULT [...] Lymph 1.89 Performed By: #### L100.0100 #### [facility] [address] [place], [place], [address] BASIC METABOLIC Collected: 08/24/2018 Status: F Source: [place] PROFILE (BMP) 5:15 PM [facility] REPOSITORY TYPE CODE TESTS RESULT [...] GAP 8 Performed By: #### L500.2500 #### [facility] [address] [place], [address] ,SERUM,HCG QUALI. Collected: Status: F Source: [place] 08/24/2018 5:15 PM [facility] REPOSITORY TYPE CODE TESTS RESULT OUT OF REFERENCE UNITS RANGE LAB L700.7000 0-9 Nonpreg Negative Normal HCGSQUAL NEGATIVE LAB L700.6700 =>Qualitative mIU/mL Normal HCG Qual < 1 triggr Performed By: #### L700.6800 #### [facility] [address] [place], [address] ENDOCRINOLOGY VISIT Observed: 08/23/2018 Status: F Source: [place] REPORT 12:08 PM [facility] REPOSITORY [facility] [address] [place], [place] [address] OFFICE VISIT Date of Service: 08/22/18 MR#: [id number] Acct: [id number] Name: ALICJA SANDHU Rep #: [id number] : 1975 Provider: Bernarda Matos NP Age/Sex: 42/F Location[place] [facility] [place]: Signed HPI History of present illness [...] Appearance: well nourished, overweight Orientation: oriented x3 [facility] Head: normal to inspection Ears: hearing grossly [...] (Verified 08/22/18 09:18) Anaphylaxis bacitracin [From Neosporin (gkq-whz-cxxok)] Adverse Reaction (Verified 08/22/18 09:18) Swelling neomycin [From Neosporin (apd-jyx-labdl)] Adverse Reaction (Verified 08/22/18 09:18) Swelling polymyxin B [From Neosporin (coc-rgx-rfpys)] Adverse Reaction (Verified 08/22/18 09:18) Swelling trazodone [...] blood sugars : low : high : [facility] Medical History Abnormal bruising (Acute) Anxiety disorder [...] CC: ELECTROLYTES Collected: 08/13/2018 Status: F Source: [facility] 9:13 AM [facility] REPOSITORY TYPE CODE TESTS RESULT OUT OF RANGE REFERENCE UNITS LAB NA 135-145 mmol/L Normal Sodium 137 LAB K 3.5-5.1 mmol/L Normal Potassium 3.7 LAB CL 98-108 mmol/L Normal Chloride 101 LAB CO2 21-32 mmol/L CO2 Normal 28 Performed By: #### LYTES #### Unless otherwise noted, all testing performed by [address] [address] CLIA: [id number] Motor Setter: Kathleen Pepper M.D. URINALYSIS, ROUTINE Collected: 08/12/2018 Status: F Source: [facility] 8:47 AM [facility] REPOSITORY TYPE CODE TESTS RESULT OUT OF RANGE REFERENCE UNITS LAB COLOR Normal Color, Urine Yellow LAB CHAUR Normal Character Hazy LAB SPGRUR 1.003-1.029 Normal Specific 1.009 [place],Urine LAB PHUR 4.5-8.0 Normal pH,Urine 5.0 LAB [...] Unless otherwise noted, all testing performed by [address] [address] CLIA: [id number] Motor Setter: Kathleen Pepper M.D. CBC WITH DIFF Collected: 08/12/2018 Status: F Source: [facility] 7:31 AM [facility] REPOSITORY TYPE CODE TESTS RESULT OUT [...] Unless otherwise noted, all testing performed by [place] [address] CLIA: [id number] Motor Setter: Kathleen Pepper M.D. TSH Collected: 08/12/2018 Status: F Source: [facility] 7:31 AM [facility] TYPE CODE TESTS RESULT OUT OF RANGE REFERENCE UNITS LAB TSH 0.270-4.200 uIU/mL Normal TSH 2.06 Result Comment: Samples from patients routinely receiving high dose biotin therapy (100-300 mg/day) may show falsely decreased results. Please correlate clinically. Please note reference range change as of 08/08/18. Performed By: #### CBCDIF, CMET, TSH, LIPID #### Unless otherwise noted, all testing performed by [place] [address] CLIA: [id number] Motor Setter: Kathleen Pepper M.D. COMPREHENSIVE METABOLIC Collected: 08/12/2018 Status: F Source: [facility] 7:31 AM [facility] REPOSITORY TYPE CODE TESTS RESULT OUT [...] used with caution. LAB eGFRB ml/min/1.73sq.m eGFR, -Northern Irish >=60 Result Comment: GFR Calc LAB CALCM [...] Unless otherwise noted, all testing performed by [place] [address] [place] [address] CLIA: [id number] Motor Setter: Kathleen Pepper M.D. LIPID PANEL Collected: 08/12/2018 Status: F Source: [facility] 7:31 AM [facility] REPOSITORY TYPE CODE TESTS RESULT OUT [...] Unless otherwise noted, all testing performed by [address] [address] CLIA: [id number] Motor Setter: Kathleen Pepper M.D. DRUGS OF ABUSE, Collected: 08/11/2018 Status: F Source: [facility] URINE 5:08 PM [facility] REPOSITORY TYPE CODE TESTS RESULT OUT [...] Unless otherwise noted, all testing performed by [address] [place] [id number] CLIA: [id number] Motor Setter: Kathleen Pepper M.D. ALCOHOL, MEDICAL Collected: 08/11/2018 Status: F Source: [facility] 4:20 PM [facility] REPOSITORY TYPE CODE TESTS RESULT OUT OF RANGE REFERENCE UNITS LAB ALCMD G% Normal Alcohol Negative [Medical] Performed By: #### ALC #### Unless otherwise noted, all testing performed by [address] [place] [address] CLIA: [id number] Motor Setter: Kathleen Pepper M.D. URGENT CARE VISIT Observed: 08/04/2018 Status: F Source: [place] RE[place] 2:44 PM [facility] REPOSITORY [facility] [address] [place] [address] [address] [place] [address] OFFICE VISIT Date of Service: 08/04/18 MR#: [id number] Acct: [id number] Name: ALICJA SANDHU Rep #: [id number] : 1975 Provider: Christy Graham NP Age/Sex: 42/F Location: [facility] Status: Signed Intake Vital Signs08/04/18 Height 5 [...] (Verified 08/04/18 11:12) Anaphylaxis bacitracin [From Neosporin (wfg-oiw-jwesn)] Adverse Reaction (Verified 08/04/18 11:12) Swelling neomycin [From Neosporin (cny-jdn-rjjbb)] Adverse Reaction (Verified 08/04/18 11:12) Swelling polymyxin B [From Neosporin (qaf-crg-szqhe)] Adverse Reaction (Verified 08/04/18 11:12) Swelling trazodone [...] oriented x3 Limitations: mental status not altered HENMT Head: normal to inspection Ears: hearing [...] S99.922A 08/04/18 1444 <Electronically signed by Christy Graham QUALITY ASSURANCE TESTER-C> Date Christy Graham QUALITY ASSURANCE TESTER-C Cosigner Signature: Date (if applicable) CC: EMERGENCY DEPARTMENT Observed: 07/05/2018 Status: F Source: [place] SUMMARY 4:22 PM [facility] REPOSITORY [facility] Medical Records Department [address] [place] [address] Emergency Department Summary 07/05/18 1619 MR#: [id number] Acct: [id number] Name: ALICJA SANDHU Rep #: [id number] : 1975 42 From: Sean Felix DO [...] Suicidal ideation] This note was generated with Diamond Mind dictation software. It may contain incorrect words, [...] problems, contact your Primary Care Provider. Call [facility] ([phone]) or report to the closest Emergency Room. Call 911 if necessary. 07/05/18 1622 <Electronically signed by Sean Felix DO> Date Sean Felix DO Cosigner Signature (If Indicated): Date CC: Janie Walters MD URINE DRUG SCREEN Collected: 07/05/2018 Status: F Source: [place] ([place] 11:15 AM [facility] REPOSITORY TYPE CODE TESTS RESULT [...] Normal NEGATIVE Performed By: #### L505.5000 #### [facility] [address] [place], [place], [id number] URINALYSIS, COMPLETE Collected: 07/05/2018 Status: F Source: [place] 11:15 AM [facility] REPOSITORY Order Comment: Has pt [...] URINE SEEN Performed By: #### L400.0001 #### [facility] [address] [place], [address] CBC W/DIFF, AUTOMATED Collected: 07/05/2018 Status: F Source: [place] 10:20 AM [facility] REPOSITORY TYPE CODE TESTS RESULT [...] Lymph 1.47 Performed By: #### L100.0100 #### [facility] [address] [facility] [place], [address] ALCOHOL, BLOOD Collected: 07/05/2018 Status: F Source: [place] (MEDICAL)-SERUM 10:20 AM [facility] REPOSITORY TYPE CODE TESTS RESULT [...] fatal coma Performed By: #### L501.9100 #### [facility] [address] [place], [place], [address] BASIC METABOLIC Collected: 07/05/2018 Status: F Source: [place] PROFILE (BMP) 10:20 AM [facility] REPOSITORY TYPE CODE TESTS RESULT [...] GAP 9 Performed By: #### L500.2500 #### [facility] [address] [place], [address] ,SERUM,HCG QUALI. Collected: Status: F Source: [place] 07/05/2018 10:20 AM [facility] REPOSITORY TYPE CODE TESTS RESULT OUT OF REFERENCE UNITS RANGE LAB L700.6700 =>Qualitative mIU/mL Normal HCG Qual < 1 triggr LAB L700.7000 0-9 Nonpreg Negative Normal HCGSQUAL NEGATIVE Performed By: #### L700.6800 #### [facility] [address] [place], [address] CNCO Observed: 06/07/2018 Status: COMPLETED Source: [place] 12:00 AM [facility] REPOSITORY Letter [facility] Medicine [facility] [address] [place], [place] [id number] Office: [phone] Lyn Velázquez MD REQUEST FOR EYE EXAM FINDINGS November 05, 2016 Dear eye elderly caregiver, Thank you for coordinating eye care for [...] Comments: Patient is to return: Letter Text [place] [facility] Lyn Velázquez M.D. [address] [place], [place] [address] Dear Alicja Sandhu Your health care is [...] LEAD ELECTROCARDIOGRAM Observed: 05/02/2018 Status: F Source: [place] 2:51 PM [facility] REPOSITORY [facility] Cardiovascular Services [address] [place] [address] 12 Lead EKG 03/25/18 0425 MR#: [id number] Acct: [id number] Name: ALICJA SANDHU Rep #: [id number] : 1975 42 From: Arsalan Sprague MD [...] Normal sinus rhythm Normal ECG Reconfirmed by CELESTINE COHEN, ARSALAN ([id number]), slot editor PRINCE STAHL ([id number]) on 05/02/2018 2:50:54 PM Referred By: LENNY Confirmed By:ARSALAN SPRAGUE MD 05/02/18 1451 Date Arsalan Sprague MD CC: Viridiana Stark MD; Keren STACY Signed 12 LEAD ELECTROCARDIOGRAM Observed: 04/14/2018 Status: F Source: [place] 10:08 AM [facility] Cardiovascular Services [address] [place] [address] 12 Lead EKG 04/11/18 0629 MR#: [id number] Acct: [id number] Name: ALICJA SANDHU Rep #: [id number] : 1975 42 From: Arsalan Sprague MD [...] ECGs available Confirmed by ARSALAN SPRAGUE MD ([id number]), slot editor SHAE DORAN ([id number]) on 04/14/2018 10:07:44 AM Referred By: MARCELINO ALAN Confirmed By:ARSALAN SPRAGUE MD 04/14/18 1007 Date Arsalan Sprague MD CC: Clarisse Camarena MD; Marcelino Alan MD; Keren STACY Signed 12 LEAD ELECTROCARDIOGRAM Observed: 04/14/2018 Status: F Source: [place] 9:45 AM [facility] REPOSITORY [facility] Cardiovascular Services [address] [place] [address] 12 Lead EKG 04/12/18 0533 MR#: [id number] Acct: [id number] Name: ALICJA SANDHU Rep #: [id number] : 1975 42 From: Arsalan Sprague MD [...] Abnormal ECG Confirmed by ARSALAN SPRAGUE MD ([id number]), slot editor SHAE DORAN ([id number]) on 04/14/2018 9:44:57 AM Referred By: LOUISE Confirmed By:ARSALAN SPRAGUE MD 04/14/18 0945 Date Arsalan Sprague MD CC: Clarisse Camarena MD; Marcelino Alan MD; Keren STACY Signed DISCHARGE SUMMARY Observed: 04/13/2018 Status: F Source: [place] 6:38 PM [facility] REPOSITORY [facility] Medical Records Department [address] [place] [address] Discharge Summary 04/13/18 1830 MR#: [id number] Acct: [id number] Name: ALICJA SANDHU Rep #: [id number] : 1975 42 From: Clarisse Camarena MD [...] after meals. Is set up with counselor, renal social worker and psychiatrist. Looks and feels [...] Emmett Delatorre MD at 9:48 EDT Tel [phone], Service support , Critical care Operations: None [...] voices today, follows with outpatient psychiatrist, counselor, renal social worker. Started on risperidone, continued on [...] applicable Code Visit Inpatient E AND M: 24877 Disch Hosp 04/13/18 1838 <Electronically signed by Clarisse Camarena MD> Date Clarisse Camarena MD Cosigner Signature (if applicable): Date CC: Clarisse Camarena MD; Keren STACY Signed DISCHARGE INSTRUCTION Observed: 04/13/2018 Status: F Source: [place] 6:30 PM [facility] REPOSITORY [facility] Medical Records Department [address] [place] [address] Instructions for Home/Discharge Instructions 04/13/18 1828 MR#: [id number] Acct: [id number] Name: ALICJA SANDHU Rep #: [id number] : 1975 42 From: Clarisse Camarena MD [...] (Verified 04/10/18 20:55) Anaphylaxis bacitracin [From Neosporin (sve-aij-igzln)] Adverse Reaction (Verified 04/10/18 20:55) Swelling neomycin [From Neosporin (fne-tni-oiifo)] Adverse Reaction (Verified 04/05/18 13:31) Swelling polymyxin B [From Neosporin (cvw-ncc-ynmtw)] Adverse Reaction (Verified 04/05/18 13:31) Swelling trazodone [...] BEDSIDE GLUCOSE Collected: 04/13/2018 Status: F Source: [place] 5:44 PM [facility] REPOSITORY TYPE CODE TESTS RESULT OUT OF REFERENCE UNITS RANGE LAB L501.080 70-110 mg/dL High BEDSIDE GLU 148 Result Comment: MANAGEMENT OF PATIENT CARE PER NURSING PROTOCOL Performed By: #### L501.080 #### [facility] Point of Care [address] [facility] [address] 12 LEAD ELECTROCARDIOGRAM Observed: 04/13/2018 Status: F Source: [place] 4:01 PM [facility] REPOSITORY [facility] Cardiovascular Services [address] [place] [address] 12 Lead EKG 04/10/182127 MR#: [id number] Acct: [id number] Name: ALICJA SANDHU Rep #: [id number] : 1975 42 From: Arsalan Sprague MD [...] Sinus tachycardia Otherwise normal ECG Confirmed by CELESTINE COHEN, ARSALAN ([id number]), slot editor SHAE DORAN ([id number]) on 04/13/2018 4:01:11 PM Referred By: GARY Confirmed By:ARSALAN SPRAGUE MD 04/13/18 1601 Date Arsalan Sprague MD CC: Clarisse Camarena MD; Ernst Mckinnon MD; Keren STACY Signed BEDSIDE GLUCOSE Collected: 04/13/2018 Status: F Source: [place] 1:04 PM [facility] REPOSITORY TYPE CODE TESTS RESULT OUT OF REFERENCE UNITS RANGE LAB L501.080 70-110 mg/dL High BEDSIDE GLU 201 Result Comment: MANAGEMENT OF PATIENT CARE PER NURSING PROTOCOL Performed By: #### L501.080 #### [facility] Point of Care [address] [place], [place] [address] BEDSIDE GLUCOSE Collected: 04/13/2018 Status: F Source: [place] 9:23 AM [facility] REPOSITORY TYPE CODE TESTS RESULT OUT OF REFERENCE UNITS RANGE LAB L501.080 70-110 mg/dL High BEDSIDE GLU 143 Result Comment: MANAGEMENT OF PATIENT CARE PER NURSING PROTOCOL Performed By: #### L501.080 #### [facility] Point of Care [address] [place] [address] BEDSIDE GLUCOSE Collected: 04/12/2018 Status: F Source: [place] 9:13 PM [facility] REPOSITORY TYPE CODE TESTS RESULT OUT OF REFERENCE UNITS RANGE LAB L501.080 70-110 mg/dL High BEDSIDE GLU 175 Result Comment: Dr Mckay Followed MANAGEMENT OF PATIENT CARE PER NURSING PROTOCOL Performed By: #### L501.080 #### [facility] Point of Care [address] [place] [address] BEDSIDE GLUCOSE Collected: 04/12/2018 Status: F Source: [place] 5:55 PM [facility] REPOSITORY TYPE CODE TESTS RESULT OUT OF REFERENCE UNITS RANGE LAB L501.080 70-110 mg/dL High BEDSIDE GLU 131 Result Comment: MANAGEMENT OF PATIENT CARE PER NURSING PROTOCOL Performed By: #### L501.080 #### [facility] Point of Care [address] [place] [address] BEDSIDE GLUCOSE Collected: 04/12/2018 Status: F Source: [place] 10:37 AM [facility] REPOSITORY TYPE CODE TESTS RESULT OUT OF REFERENCE UNITS RANGE LAB L501.080 70-110 mg/dL High BEDSIDE GLU 153 Result Comment: MANAGEMENT OF PATIENT CARE PER NURSING PROTOCOL Performed By: #### L501.080 #### [facility] Point of Care [address] [place] [address] BLOOD GASES BY CPS Collected: 04/12/2018 Status: F Source: [place] 6:25 AM [facility] REPOSITORY TYPE CODE TESTS RESULT [...] ISTAT 89 Performed By: #### L9000.0800 #### [facility] Point of Care [address] [place] [address] BEDSIDE GLUCOSE Collected: 04/12/2018 Status: F Source: [place] 6:10 AM [facility] REPOSITORY TYPE CODE TESTS RESULT OUT OF REFERENCE UNITS RANGE LAB L501.080 70-110 mg/dL High BEDSIDE GLU 135 Result Comment: MANAGEMENT OF PATIENT CARE PER NURSING PROTOCOL Performed By: #### L501.080 #### [facility] Point of Care [address] [place] [address] CONSULTATION Observed: 04/12/2018 Status: F Source: [place] 5:30 AM [facility] REPOSITORY [facility] Medical Records Department [address] [place] [address] [place] [address] Consultation 04/11/18 0648 MR#: [id number] Acct: [id number] Name: ALICJA SANDHU Rep #: [id number] : 1975 42 From: Marcelino Alan MD PCP: Keren Hooker Status: ADM IN Y Location: ICU ICU04-1 Problem List (1) Overdose Status: Acute Qualifiers: [...] after meals. Is set up with counselor, renal social worker and psychiatrist. Looks and feels happy and she verbally confirms this. Reviewed labs, medications Reason for Consult Date of Consultation: 04/11/18 Reason for Consultation: Benadryl overdose History of Present Illness: The patient is a 42 year old F, with past medical history listed below, who presented to [facility] on 04/10/2018 following an overdose of 12 g of Benadryl. Patient was pink slipped by markedup police and history was somewhat questionable. Time [...] after meals. Is set up with counselor, renal social worker and psychiatrist. Looks and feels [...] (Verified 04/10/18 20:55) Anaphylaxis bacitracin [From Neosporin (tut-nnj-etnhz)] Adverse Reaction (Verified 04/10/18 20:55) Swelling neomycin [From Neosporin (aak-apu-zjedh)] Adverse Reaction (Verified 04/05/18 13:31) Swelling polymyxin B [From Neosporin (nfu-afe-wtkzl)] Adverse Reaction (Verified 04/05/18 13:31) Swelling trazodone [...] AM to 6:30 AM) Code Visit 9xxxx: [id number] Critical care first hour 04/12/18 0530 <Electronically signed by Marcelino Alan MD> Date Marcelino Alan MD Cosigner Signature (if applicable): Date CC: Marcelino Alan MD; Keren STAYC Signed CBC W/DIFF, AUTOMATED Collected: 04/12/2018 Status: F Source: [place] 4:05 AM [facility] REPOSITORY TYPE CODE TESTS RESULT [...] Lymph 2.15 Performed By: #### L100.0100 #### [facility] [address] [facility] [address] BEDSIDE GLUCOSE Collected: 04/11/2018 Status: F Source: [place] 11:58 PM [facility] REPOSITORY TYPE CODE TESTS RESULT OUT OF RANGE REFERENCE UNITS LAB L501.080 70-110 mg/dL Normal BEDSIDE GLU 105 Result Comment: MANAGEMENT OF PATIENT CARE PER NURSING PROTOCOL Performed By: #### L501.080 #### [facility] Point of Care [address] [place] [address] BEDSIDE GLUCOSE Collected: 04/11/2018 Status: F Source: [place] 6:09 PM [facility] REPOSITORY TYPE CODE TESTS RESULT OUT OF RANGE REFERENCE UNITS LAB L501.080 70-110 mg/dL Normal BEDSIDE GLU 77 Result Comment: MANAGEMENT OF PATIENT CARE PER NURSING PROTOCOL Performed By: #### L501.080 #### [facility] Point of Care [address] [place] [address] BEDSIDE GLUCOSE Collected: 04/11/2018 Status: F Source: [place] 11:25 AM [facility] REPOSITORY TYPE CODE TESTS RESULT OUT OF RANGE REFERENCE UNITS LAB L501.080 70-110 mg/dL Normal BEDSIDE GLU 82 Result Comment: MANAGEMENT OF PATIENT CARE PER NURSING PROTOCOL Performed By: #### L501.080 #### [facility] Point of Care [address] [place] [address] ,URINE Collected: 04/11/2018 Status: F Source: [place] 9:00 AM [facility] REPOSITORY TYPE CODE TESTS RESULT OUT OF REFERENCE UNITS RANGE LAB L400.8000 Negative Normal HCGUQUAL Negative Result Comment: Very dilute urine specimens, as indicated by a low specific gravity, may not contain entry level sales representative levels of hCG. If is still suspected, a first morning urine specimen should be collected 48 hours later and tested. Performed By: #### L400.7600 #### [facility] [address] [place], [address] CBC-COMPLETE BLOOD CNT Collected: 04/11/2018 Status: F Source: [place] NO DIFF 4:15 AM [facility] REPOSITORY TYPE CODE TESTS RESULT [...] MPV 8.8 Performed By: #### L100.0500 #### [facility] [address] [place], [address] COMPREHENSIVE METABOLIC Collected: 04/11/2018 Status: F Source: [place] PROFIL 4:15 AM [facility] REPOSITORY TYPE CODE TESTS RESULT [...] Normal 9 Performed By: #### L500.4050 #### [facility] [address] [place], [place], [address] HEMOGLOBIN A1C Collected: 04/11/2018 Status: F Source: [place] 4:15 AM [facility] REPOSITORY Order Comment: Comments: as add on test TYPE CODE TESTS RESULT OUT OF RANGE REFERENCE UNITS LAB L501.9985 4.2-6.3 % High HGB A1C 7.4 Performed By: #### L501.9985 #### [facility] [address] [place], [address] BLOOD GASES BY CPS Collected: 04/11/2018 Status: F Source: [place] 3:02 AM [facility] REPOSITORY TYPE CODE TESTS RESULT [...] ISTAT 97 Performed By: #### L9000.0800 #### [facility] Point of Care [address] [place] [address] EMERGENCY DEPARTMENT Observed: 04/11/2018 Status: F Source: [place] SUMMARY 12:17 AM [facility] REPOSITORY [facility] Medical Records Department [address] [place] [address] Emergency Department Summary 04/10/18 2312 MR#: [id number] Acct: [id number] Name: ALICJA SANDHU Rep #: [id number] : 1975 42 From: Ernst Mckinnon MD PCP: Keren Hooker Status: ADM IN - ER Visit Summary Date of Service: 06/25/18 Chief Complaint: Overdose History of Present Illness: [...] suicidal attempts. She was pink slipped by markedup police. Physical Examination: Blood pressure 183/107. Heart [...] with Versed. Patient was discussed with the swimming pool maintenance supervisor and the hospitalist and will be admitted to the ICU for further monitoring and care. Treatment Plan: Above Disposition: Admission Impression: 1. Overdose on Benadryl 2. Acute respiratory failure This note was generated with Diamond Mind dictation software. It may contain incorrect words, spelling, and punctuation that were not noted in review of the chart prior to signing ED Disposition - Plan for ED Patient: Chief Complaint: Overdose What to do if you have Problems For any increased pain, shortness of breath, bleeding, nausea or vomiting, chest pain, or any unexpected problems, contact your Primary Care Provider. Call [facility] ([phone]) or report to the closest Emergency Room. Call 911 if necessary. 04/11/18 0017 <Electronically signed by Ernst Mckinnon MD> Date Ernst Mckinnon MD Cosigner Signature (If Indicated): Date CC: Keren Lawrence [employer] Collected: 04/11/2018 Status: F Source: [place] DNA BY PCR 12:10 AM [facility] REPOSITORY TYPE CODE TESTS RESULT OUT OF RANGE REFERENCE UNITS LAB L8200.1100 Negative Normal MRSA Negative RESULT Performed By: #### L8200.1000 #### [facility] [address] [facility] [place], [address] CHEST 1 VIEW Observed: 04/11/2018 Status: F Source: [place] (PORTABLE) 12:06 AM [facility] REPOSITORY [facility] Imaging Services [address] [place] [address] Chest 1 View (Portable) MR#: [id number] Acct: [id number] Name: ALICJA SANDHU Shanell Rep #: [id number] : 1975 F 42 From: Emmett Delatorre MD PCP: Keren Hooker Status: ADM IN Study: Chest 1 View (Portable) Date of Exam: 04/11/18 Exam# [id number] Ordering Dr: Drake Montez MD STUDY: X-RAY [...] Emmett Delatorre MD at 9:48 EDT Tel [phone], Service support , CC: Keren STACY; Drake Montez MD Diamond Assorter: Signed HISTORY AND PHYSICAL Observed: 04/10/2018 Status: F Source: [place] EXAM 10:46 PM [facility] REPOSITORY [facility] Medical Records Department [address] [place] [address] History and Physical 04/10/185 MR#: [id number] Acct: [id number] Name: ALICJA SANDHU Rep #: [id number] : 1975 42 From: Drake Montez MD [...] after meals. Is set up with counselor, renal social worker and psychiatrist. Looks and feels [...] to be consulted when she is extubated. [place] slip was written by Trena BURGESS. Past Medical History Past Medical History (Chronic Problems): Chronic Problems (Last Reviewed 04/05/18 @ 13:34 by Rosenda Tinajero) Diabetes type 2, controlled (Chronic) Now has an apartment. Feels she is doing well. Provided with a meter and strips. Enc to check before and after meals. Is set up with counselor, renal social worker and psychiatrist. Looks and feels [...] (Verified 04/10/18 20:55) Anaphylaxis bacitracin [From Neosporin (dxq-qyq-jjkwf)] Adverse Reaction (Verified 04/10/18 20:55) Swelling neomycin [From Neosporin (xms-lyx-iagqr)] Adverse Reaction (Verified 04/05/18 13:31) Swelling polymyxin B [From Neosporin (zav-lvf-iiwgh)] Adverse Reaction (Verified 04/05/18 13:31) Swelling trazodone [...] prophylaxis Code Visit Inpatient E AND M: 68072 Init Hosp L3 04/10/18 2246 <Electronically signed by Drake Montez MD> Date Drake Montez MD Cosigner Signature: Date (if applicable) CC: Keren STACY; Drake Montez MD Signed CHEST 1 VIEW Observed: 04/10/2018 Status: F Source: [place] (PORTABLE) 10:29 PM [facility] REPOSITORY [facility] Imaging Services [address] [place] [address] Chest 1 View (Portable) MR#: [id number] Acct: [id number] Name: ALICJA SANDHU Rep #: [id number] : 1975 F 42 From: Doug Holly MD PCP: Keren Hooker Status: ADM IN Study: Chest 1 View (Portable) Date of Exam: 04/10/18 Exam# [id number] Ordering Dr: Ernst Mckinnon MD STUDY: X-RAY [...] (Portable) CC: Ernst Mckinnon MD; Keren STACY Diamond Assorter: Signed URINALYSIS, COMPLETE Collected: 04/10/2018 Status: F Source: [place] 10:11 PM [facility] REPOSITORY Order Comment: How was [...] URINE SEEN Performed By: #### L400.0001 #### [facility] [address] [place], [place], [address] URINE DRUG SCREEN Collected: 04/10/2018 Status: F Source: [place] (VISTA) 10:05 PM [facility] REPOSITORY TYPE CODE TESTS RESULT [...] Normal NEGATIVE Performed By: #### L505.5000 #### [facility] [address] [place], [address] CBC W/DIFF, AUTOMATED Collected: 04/10/2018 Status: F Source: [place] 9:00 PM [facility] REPOSITORY TYPE CODE TESTS RESULT [...] Lymph 2.23 Performed By: #### L100.0100 #### [facility] [address] [place], [address] ,SERUM,HCG QUALI. Collected: Status: F Source: [place] 04/10/2018 9:00 PM [facility] REPOSITORY TYPE CODE TESTS RESULT OUT OF REFERENCE UNITS RANGE LAB L700.7000 0-9 Nonpreg Negative Normal HCGSQUAL NEGATIVE LAB L700.6700 =>Qualitative mIU/mL Normal HCG Qual < 1 triggr Performed By: #### L700.6800 #### [facility] [address] [place], [address] COMPREHENSIVE METABOLIC Collected: 04/10/2018 Status: F Source: [facility] 9:00 PM [facility] REPOSITORY TYPE CODE TESTS RESULT [...] GAP 11 Performed By: #### L500.4050 #### [facility] [address] [place], [place], [address] CPK TOTAL, CREATINE Collected: 04/10/2018 Status: F Source: [place] KINASE 9:00 PM [facility] REPOSITORY TYPE CODE TESTS RESULT OUT OF RANGE REFERENCE UNITS LAB L501.3620 26-192 U/L Normal CPK TOTAL 161 Result Comment: Moderate Hemolysis, Result may be falsely increased. Performed By: #### L501.3620, L501.4010 #### [facility] [address] [place], [place], [address] TROPONIN-I Collected: 04/10/2018 Status: F Source: [place] 9:00 PM [facility] REPOSITORY TYPE CODE TESTS RESULT OUT OF RANGE REFERENCE UNITS LAB L501.4010 <0.045 ng/mL Normal < 0.015 TROPONIN-I Result Comment: TROPONIN-I EXPECTED VALUES <0.045 Negative 0.045 - 0.590 Consistent with Cardiac Damage > OR = 0.600 Critical Value Not every elevated troponin is indicative of SC. These values should be used with clinical judgement in examining the patient's clinical picture for diagnosis. To establish a diagnosis of SC versus myocardial injury, there must be a demonstrated rise and/or fall in the troponin values, in addition to ischemic symptoms, EKG changes, new regional wall motion abnormality, and/or angiographical evidence. PLEASE NOTE: REFERENCE RANGES EDITED 18 Performed By: #### L501.3620, L501.4010 #### [facility] [address] [place], [place], [id number] ALCOHOL, BLOOD Collected: 04/10/2018 Status: F Source: [place] (MEDICAL)-SERUM 9:00 PM [facility] REPOSITORY TYPE CODE TESTS RESULT [...] fatal coma Performed By: #### L501.9100 #### [facility] [address] [place], [place], [address] SALICYLATE Collected: 04/10/2018 Status: F Source: [place] 9:00 PM [facility] REPOSITORY TYPE CODE TESTS RESULT OUT OF REFERENCE UNITS RANGE LAB L501.8300 2.8-20.0 mg/dL Low SALICYLATE < 1.7 Performed By: #### L501.8300, L501.8400 #### [facility] [address] [place], [place], [id number] ACETAMINOPHEN (TYLENOL) Collected: 04/10/2018 Status: F Source: [place] LEVEL 9:00 PM [facility] REPOSITORY TYPE CODE TESTS RESULT OUT OF REFERENCE UNITS RANGE LAB L501.8400 10.0-30.0 ug/mL ACETAMINOPHEN Low < 2.0 Performed By: #### L501.8300, L501.8400 #### [facility] [address] [place], [address] ENDOCRINOLOGY VISIT Observed: 04/08/2018 Status: F Source: [place] REPORT 10:46 AM [facility] REPOSITORY [facility] [address] [place] [address] OFFICE VISIT Date of Service: 04/05/18 MR#: [id number] Acct: [id number] Name: ALICJA SANDHU Rep #: [id number] : 1975 Provider: Bernarda Matos NP Age/Sex: 42/F Location: [facility] Status: Signed HPI History of present illness Alicja Sandhu is a 42 year old female who presents today for diabetes type 2 controlled. Diagnnosed in 2006. Currently she does not have ameter for slef monitoringg of BG but recently A1c notes she is controlled. She presents today with her renal social worker Pratima. 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[employer] Officer Required: No Accompanied by: Friend Is patient [...] (Verified 04/05/18 13:31) Anaphylaxis bacitracin [From Neosporin (bgy-eac-hjlqv)] Adverse Reaction (Verified 04/05/18 13:31) Swelling neomycin [From Neosporin (jfn-yqr-ikghd)] Adverse Reaction (Verified 04/05/18 13:31) Swelling polymyxin B [From Neosporin (bdh-oaa-cvxsg)] Adverse Reaction (Verified 04/05/18 13:31) Swelling trazodone [...] blood sugars : low : high : [facility] Medical History Anxiety disorder (Acute) Asthma (Acute) [...] current use of insulin E11.9 Diabetes mellitus inker machine insulin use: without shelter use Diabetes mellitus complication status: without complication 04/08/18 1046 <Electronically signed by Bernarda MATTHEW> Date Bernarda MATTHEW Cosigner Signature: Date (if applicable) CC: DOWNTIME REPORT Observed: 04/05/2018 Status: F Source: [place] 1:33 PM [facility] Medical Records Department [address] [place] [address] Downtime Report MR#: [id number] Acct: [id number] Name: ALICJA SANDHU Rep #: [id number] : 1975 42 From: Andrea Stahl MD PCP: Keren Hooker Status: DEP This patient was seen during an EMR downtime March 20, 2018 - March 27, 2018. This patient may have a combination of paper and electronic documentation or all paper documentation. All documentation is viewable within the e-chart portion of [employer] for each patient visit. CHEST 1 VIEW Observed: 03/26/2018 Status: F Source: [place] (PORTABLE) 3:33 PM [facility] Imaging Services [address] [place] [address] Chest 1 View (Portable) MR#: [id number] Acct: [id number] Name: ALICJA SANDHU Rep #: [id number] : 1975 F 42 From: Carolina Stahl MD PCP: Keren Hooker Status: REG ER Study: Chest 1 View (Portable) Date of Exam: 03/25/18 Exam# [id number] Ordering Dr: Viridiana Stark MD STUDY: X-RAY [...] , CC: Viridiana Stark MD; Keren STACY Diamond Assorter: Signed URINALYSIS, COMPLETE Collected: 03/25/2018 Status: F Source: [place] 6:00 AM [facility] REPOSITORY Order Comment: RESULT(S) PREVIOUSLY [...] URINE SEEN Performed By: #### L400.0001 #### [facility] [address] [place], [address] URINE DRUG SCREEN Collected: 03/25/2018 Status: F Source: [place] (FDTEKTA) 5:04 AM [facility] REPOSITORY Order Comment: List of Drugs Taken or Suspected? . TYPE CODE TESTS RESULT OUT OF RANGE REFERENCE UNITS LAB L505.0075 TO BE Normal CONFIRMED Result Comment: CONFIRMATORY TESTING FOR ALL POSITIVE URINE DRUG SCREEN RESULTS WILL ONLY BE SENT OUT UPON PHYSICIAN ORDER. FDTEKTA Urine Drug Screen methods provide only preliminary [...] Normal NEGATIVE Performed By: #### L505.5000 #### [facility] [address] [place], [address] ALCOHOL, BLOOD Collected: 03/25/2018 Status: F Source: [place] (MEDICAL)-SERUM 5:04 AM [facility] REPOSITORY Order Comment: RESULT(S) PREVIOUSLY [...] fatal coma Performed By: #### L501.9100 #### [facility] [address] [place], [address] BASIC METABOLIC Collected: 03/25/2018 Status: F Source: [place] PROFILE (BMP) 5:04 AM [facility] REPOSITORY Order Comment: RESULT(S) PREVIOUSLY [...] 11 Performed By: #### L500.2500, L501.4010 #### [facility] [address] [place], [address] TROPONIN-I Collected: 03/25/2018 Status: F Source: [place] 5:04 AM [facility] REPOSITORY Order Comment: RESULT(S) PREVIOUSLY [...] Not every elevated troponin is indicative of SC. These values should be used with clinical judgement in examining the patient's clinical picture for diagnosis. To establish a diagnosis of SC versus myocardial injury, there must be a demonstrated rise and/or fall in the troponin values, in addition to ischemic symptoms, EKG changes, new regional wall motion abnormality, and/or angiographical evidence. PLEASE NOTE: REFERENCE RANGES EDITED 18 Performed By: #### L500.2500, L501.4010 #### [facility] [address] [place], [place], [address] CBC W/DIFF, AUTOMATED Collected: 03/25/2018 Status: F Source: [place] 5:04 [facility] REPOSITORY Order Comment: RESULT(S) PREVIOUSLY REPORTED ON [...] Lymph 1.80 Performed By: #### L100.0100 #### [facility] [place], [address] CNOV Observed: 02/09/2018 Status: COMPLETED Source: [place] 11:00 AM [facility] REPOSITORY [facility] ALICJA [id number]) 1975 F Date Time Provider Department 02/09/18 11:00 AM MELISSA WEISS CNP During your visit today, we recorded the [...] diagnosis - Suicidal thoughts 11/23/2009 Hospitalized at [facility] - Suicidal thoughts February 2010 Hospitalized at [facility] in [place] - Type II or unspecified type diabetes mellitus without mention of complication, uncontrolled - Unspecified schizophrenia Schizophrenia. Seeing Dr. Cabrera ALLERGIES Lovastatin; Advil [Ibuprofen]; Ambien [Zolpidem Tartrate]; Asa [Salicylates]; Cogentin [Benztropine Mesylate]; Egg; Glucophage [Metformin Hcl]; Hormigueros, [place] Oil; Penicillins; Septra [Sulfamethoxazole-Trimethoprim]; Tegretol [Carbamazepine]; Trazodone; [...] above - CONSULT TO PHYSICAL THERAPY Melissa Weiss APRN.MARINE ELECT[employer]ICS TECHNICIAN Prescription instructions reviewed with patient as applicable. Patient advised if symptoms do not improve or if symptoms worsen sooner, to contact their primary care physician. Potential red flag symptoms discussed with the patient. Reviewed appropriate action plan to take if red flag symptoms occur. Patient agreeable to treatment plan. Referring Provider: KATHLEEN CHAPMAN ([facility]) [[id number]] Allergies As of Date: 02/09/2018 Noted Allergy [...] CONSULT TO PHYSICAL THERAPY [9032] Order #: [id number]: 1 Prescriptions as of 02/09/2018 Sig: TIZANIDINE [...] 02/09/18 PROGRESS Observed: 02/09/2018 Status: COMPLETED Source: [place] 10:38 AM [facility] REPOSITORY HNO ID: [id number] Author: Melissa Carias) Podlogar Service: (none) Author [...] that time. She had to stop in [place] d/t no insurance. She has seen Dr. [...] diagnosis - Suicidal thoughts 11/23/2009 Hospitalized at [facility] - Suicidal thoughts February 2010 Hospitalized at [facility] in [place] - Type II or unspecified type diabetes mellitus without mention of complication, uncontrolled - Unspecified schizophrenia Schizophrenia. Seeing Dr. Cabrera ALLERGIES Lovastatin; Advil [Ibuprofen]; Ambien [Zolpidem Tartrate]; Asa [Salicylates]; Cogentin [Benztropine Mesylate]; Egg; Glucophage [Metformin Hcl]; [place], [place] Oil; Penicillins; Septra [Sulfamethoxazole-Trimethoprim]; Tegretol [Carbamazepine]; Trazodone; [...] above - CONSULT TO PHYSICAL THERAPY Melissa Podlogar, EXPLOSIVE ORDNANCE MANAGER.MARINE ELECTRONICS TECHNICIAN Prescription instructions reviewed with patient as applicable. Patient advised if symptoms do not improve or if symptoms worsen sooner, to contact their primary care physician. Potential red flag symptoms discussed with the patient. Reviewed appropriate action plan to take if red flag symptoms occur. Patient agreeable to treatment plan. PROGRESS Observed: 02/01/2018 Status: COMPLETED Source: [place] 11:24 AM [facility] REPOSITORY HNO ID: [id number] Author: Kathleen Chapman Service: (none) Author Type: Nurse Practitioner Type: [...] diagnosis - Suicidal thoughts 11/23/2009 Hospitalized at [facility] - Suicidal thoughts February 2010 Hospitalized at [facility] in [place] - Type II or unspecified type diabetes [...] Cogentin [Benztropine Mesylate]; Egg; Glucophage [Metformin Hcl]; [place], [place] Oil; Penicillins; Septra [Sulfamethoxazole-Trimethoprim]; Tegretol [Carbamazepine]; Trazodone; [...] Patient agreeable to treatment plan. Kathleen Chapman APRN.MARINE ELECTRONICS TECHNICIAN CBC Collected: 02/01/2018 Status: F Source: [place] 10:36 AM [facility] REPOSITORY TYPE CODE TESTS RESULT [...] By: #### CBC, CMP, LIPB, HBA1C #### [facility] [address] [place], [place] [address] COMP METABOLIC PANEL Collected: 02/01/2018 Status: F Source: [place] 10:36 AM [facility] REPOSITORY TYPE CODE TESTS RESULT OUT OF REFERENCE UNITS RANGE LAB TP 6.3-8.0 g/dL Protein, Total 7.7 LAB ALB 3.9-4.9 g/dL Albumin 4.4 LAB CA 8.5-10.2 mg/dL Calcium, Total 9.2 LAB TBIL 0.2-1.3 mg/dL Bilirubin, Total 0.3 LAB ALKP 32-117 U/L Alkaline Phosphatase 98 LAB AST 13-35 U/L AST 23 LAB GLU 74-99 mg/dL Glucose High 138 Result Comment: The [place] Diabetes Association (ADA) provides guidance for cutoff [...] Standards of Medical Care in Diabetes 2016, [place] Diabetes Association. Diabetes Care. 2016.39(Suppl 1). LAB [...] By: #### CBC, CMP, LIPB, HBA1C #### [facility] [address] [place], [place] [address] LIPID PANEL, BASIC Collected: 02/01/2018 Status: F Source: [place] 10:36 AM [facility] REPOSITORY TYPE CODE TESTS RESULT [...] Desk Reference: National Heart, Lung, and Blood [place]. National Institutes of Health. 2001: NIH Publication No. 01-3305. 2. An International Atherosclerosis Society position paper: global recommendations for the management of dyslipidemia: executive summary, Atherosclerosis. 2014: 232(2):410-413. Performed By: #### CBC, CMP, LIPB, HBA1C #### [facility] [address] [place] [id number] HEMOGLOBIN A1C Collected: 02/01/2018 Status: F Source: [place] 10:36 AM [facility] REPOSITORY TYPE CODE TESTS RESULT OUT OF REFERENCE UNITS RANGE LAB HGBA1C 4.3-5.6 % High Hemoglobin A1c 6.5 LAB HBA0 mg/dL Est. Average Glucose 140 Result Comment: eAG: (Estimated average glucose) is a calculated value from HgbA1c and is entry level sales representative of the average blood glucose level in the last 2-3 month period. Performed By: #### CBC, CMP, LIPB, HBA1C #### [facility] [address] [place], [place] [address] CNOV Observed: 02/01/2018 Status: COMPLETED Source: [place] 9:30 AM [facility] REPOSITORY Office Visit ([facility]) ALICJA SANDHU ([id number]) 1975 F Date Time Provider Department 02/01/18 9:30 AM KATHLEEN CHAPMAN (TANK) [place] During your visit today, we recorded the [...] diagnosis - Suicidal thoughts 11/23/2009 Hospitalized at [facility] - Suicidal thoughts February 2010 Hospitalized at [facility] in [place] - Type II or unspecified type diabetes [...] EGD - HYSTEROSCOPY - HYSTEROSCOPY 06/29/2012 Dr Mart ORTIZ IUD - PULMONARY FUNCTION TEST 12/29/04 ALLERGIES Lovastatin; Advil [Ibuprofen]; Ambien [Zolpidem Tartrate]; Asa [Salicylates]; Cogentin [Benztropine Mesylate]; Egg; Glucophage [Metformin Hcl]; [place], [place] Oil; Penicillins; Septra [Sulfamethoxazole-Trimethoprim]; Tegretol [Carbamazepine]; Trazodone; [...] Patient agreeable to treatment plan. Kathleen Chapman APRN.TANK Referring Provider: SELF [[id number]] Allergies As of [...] EMERGENCY DEPARTMENT Observed: 01/17/2018 Status: F Source: [place] SUMMARY 10:16 PM [facility] REPOSITORY [facility] Medical Records Department [address] [place] [address] Emergency Department Summary 01/17/18 2208 MR#: [id number] Acct: [id number] Name: ALICJA SANDHU Rep #: [id number] : 1975 42 From: Karsten Delacruz MD PCP: Guillermo Velázquez MD Status: REG ER - ER Visit Summary Date of Service: 01/17/18 Chief Complaint: Weak and sleeping more History of Present Illness: The patient is a 42 F who presents with fatigue, weakness and sleeping more. She is homeless residing in a usp. She denies fever, chills night sweats. She [...] She is presently homeless residing in a usp. Physical Examination: Vital signs are normal. She [...] will be discharged to return to the usp Disposition: Discharged to usp in stable condition Impression: Generalized weakness and fatigue unknown etiology History of psychosis and hallucination Obesity Hyperglycemia in a nondiabetic This note was generated with [employer] software. It may contain incorrect words, spelling, [...] your Primary Care Provider. Call [facility] ([phone]) or report to the closest Emergency Room. Call 911 if necessary. 01/17/181 <Electronically signed by Karsten Delacruz MD> Date Karsten Delacruz MD Cosigner Signature (If Indicated): Date CC: Guillermo Velázquez MD BLOOD GASES BY CPS Collected: 01/17/2018 Status: F Source: [place] 8:40 PM [facility] REPOSITORY TYPE CODE TESTS RESULT [...] ISTAT 92 Performed By: #### L9000.0800 #### [facility] Point of Care [address] [place] [address] CBC W/DIFF, AUTOMATED Collected: 01/17/2018 Status: F Source: [place] 8:12 PM [facility] REPOSITORY TYPE CODE TESTS RESULT [...] Lymph 2.25 Performed By: #### L100.0100 #### [facility] [place], [address] BASIC METABOLIC Collected: 01/17/2018 Status: F Source: [place] PROFILE (BMP) 8:12 PM [facility] REPOSITORY TYPE CODE TESTS RESULT [...] 7 Performed By: #### L500.2500, L501.9520 #### [facility] [address] [place], [place], [address] THYROID STIM HORMONE Collected: 01/17/2018 Status: F Source: [place] (TSH) 8:12 PM [facility] REPOSITORY TYPE CODE TESTS RESULT OUT OF RANGE REFERENCE UNITS LAB L501.9520 0.358-3.74 uIU/mL Normal TSH 0.93 Performed By: #### L500.2500, L501.9520 #### [facility] [address] [place], [address] PROGRESS Observed: 01/06/2018 Status: COMPLETED Source: [place] 2:06 PM [facility] REPOSITORY HNO ID: [id number] Author: Lyn Carlos) Eber Service: (none) Author Type: Physician Type: Progress Notes Filed: 01/08/2018 5:21 PM Note Text: Chief Complaint Patient presents with: Establish Care HPI Ailcja Sandhu is a 42 year old female who presents here today for establish care visit. Here today with trimming caser from [facility]. Previously seeing Dr. Gabriel and last OV was over a year ago. Seeing Dr. Shabazz prior to that. Reviewed records from [facility] ED prior to appointment and she was last seen on 12/07 for suicidal ideation. Patient was pink slipped and admitted for 2 days after transfer to [facility]. While inpatient, patient had adjustments to [...] more suicidal thoughts. Currently staying at the [facility] usp which is staffed 24 hours and does not have access to her own medications. Feels safe to go home today and will discuss this with her counselor next week. customer operations manager agrees with this. Patient has IUD in place and follows up with Dr. Cevallos, but cannot say when last appointment was or when she had Mirena placed. Discussed following up with JD EDWARDS which trimming caser will help with. Has history of DM [...] diagnosis - Suicidal thoughts 11/23/2009 Hospitalized at [facility] - Suicidal thoughts February 2010 Hospitalized at [facility] in [place] - Type II or unspecified type diabetes [...] Egg Vomiting - Glucophage [Metform* Vomiting - Hormigueros, H[place]igueros Oil - Penicillins Rash - Septra [Sulfamethox* [...] with counseling. Feels safe going home and trimming caser agrees. 2. Undifferentiated schizophrenia (HCC) - ICD9: [...] with more than 50% of the total inoi-fg-dicj time of the visit in counseling / coordination of care. Lyn Velázquez MD CNOV Observed: 01/06/2018 Status: COMPLETED Source: [place] 2:00 PM [facility] REPOSITORY Office Visit (FAMPWS) ALICJA SANDHU ([id number]) 1975 F Date Time Provider Department 01/06/18 2:00 PM LYN VELÁZQUEZ) FAMPWS During your visit today, we recorded the following information about you: Pulse Respiration Blood pressure Weight 90/minute 14/minute 108/78 117 kg Height 1.619 m Lyn Velázquez MD 01/08/2018 5:21 PM Signed Chief Complaint Patient presents with: Establish Care HPI Alicja Sandhu is a 42 year old female who presents here today for establish care visit. Here today with trimming caser from [facility]. Previously seeing Dr. Gabriel and last OV was over a year ago. Seeing Dr. Shabazz prior to that. Reviewed records from [facility] ED prior to appointment and she was last seen on 12/07 for suicidal ideation. Patient was pink slipped and admitted for 2 days after transfer to [facility]. While inpatient, patient had adjustments to [...] more suicidal thoughts. Currently staying at the [facility] usp which is staffed 24 hours and does not have access to her own medications. Feels safe to go home today and will discuss this with her counselor next week. customer operations manager agrees with this. Patient has IUD in place and follows up with Dr. Cevallos, but cannot say when last appointment was or when she had Mirena placed. Discussed following up with JD EDWARDS which trimming caser will help with. Has history of DM [...] diagnosis - Suicidal thoughts 11/23/2009 Hospitalized at [facility] - Suicidal thoughts February 2010 Hospitalized at [facility] in [place] - Type II or unspecified type diabetes [...] HYSTEROSCOPY - HYSTEROSCOPY 06/29/2012 Dr Cevallos - DIANA IUD - PULMONARY FUNCTION TEST 12/29/04 Family [...] Egg Vomiting - Glucophage [Metform* Vomiting - Hormigueros, H[place]uer[place] Oil - Penicillins Rash - Septra [Sulfamethox* [...] with counseling. Feels safe going home and trimming caser agrees. 2. Undifferentiated schizophrenia (HCC) - ICD9: [...] with more than 50% of the total dvjk-fy-rhxf time of the visit in counseling / [...] by mouth twice daily.Disp: Rfl: HGB A1C [RFOER5U] Order #: [id number] FUTURE COMP METABOLIC PANEL [SQCMP] Order #: [id number] FUTURE LIPID PANEL BASIC [SQLIPB] Order #: [id number] FUTURE CBC [SQCBC] Order #: [id number] FUTURE loperamide (ANTI-DIARRHEAL) 2 mg cap(s)Take 1 [...] LEAD ELECTROCARDIOGRAM Observed: 12/09/2017 Status: F Source: [place] 1:24 PM [facility] REPOSITORY [facility] Cardiovascular Services [address] [place] [address] 12 Lead EKG 12/07/17 2357 MR#: [id number] Acct: [id number] Name: ALICJA SANDHU Rep #: [id number] : 1975 42 From: Drake French MD [...] Normal ECG Confirmed by RAFITA COHEN, DRAKE ([id number]), slot editor PRINCE STAHL ([id number]) on 12/09/2017 1:24:25 PM Referred By: ALLY Confirmed By:DRAKE FRENCH MD 12/09/17 1324 Date Drake French MD CC: Guillermo Velázquez MD; Luisito Bird MD Signed LIPID Collected: 12/09/2017 Status: F Source: [place] [employer] 7:39 AM [facility] REPOSITORY TYPE CODE TESTS RESULT OUT OF [...] risk Performed By: #### LIPID, A1C #### [facility] [address] [place] [address] A1C Collected: 12/09/2017 Status: F Source: [facility] 7:39 AM [facility] REPOSITORY TYPE CODE TESTS RESULT OUT OF RANGE REFERENCE UNITS LAB A1C(LOINC) 4.0-6.0 % High Hgb A1c 6.6 Performed By: #### LIPID, A1C #### [facility] [address] [place] [address] EMERGENCY DEPARTMENT Observed: 12/08/2017 Status: F Source: [place] SUMMARY 4:22 AM [facility] REPOSITORY [facility] Medical Records Department [address] [place] [address] Emergency Department Summary 12/07/17 2207 MR#: [id number] Acct: [id number] Name: ALICJA SANDHU Shanell Rep #: [id number] : 1975 42 From: Luisito Bird MD [...] suicidal ideation. This note was generated with Diamond Mind dictation software. It may contain incorrect words, [...] your Primary Care Provider. Call [facility] ([phone]) or report to the closest Emergency Room. Call 911 if necessary. 12/08/17 0422 <Electronically signed by Luisito Bird MD> Date Luisito Bird MD Cosigner Signature (If Indicated): Date CC: Guillermo Velázquez MD CBC W/DIFF, AUTOMATED Collected: 12/07/2017 Status: F Source: [place] 9:25 PM [facility] REPOSITORY TYPE CODE TESTS RESULT [...] Lymph 1.92 Performed By: #### L100.0100 #### [facility] [address] [place], [place], [address] BASIC METABOLIC Collected: 12/07/2017 Status: F Source: [place] PROFILE (BMP) 9:25 PM [facility] REPOSITORY TYPE CODE TESTS RESULT [...] GAP 11 Performed By: #### L500.2500 #### [facility] [address] [facility] [place], [address] ,SERUM,HCG QUALI. Collected: Status: F Source: [place] 12/07/2017 9:25 PM [facility] REPOSITORY TYPE CODE TESTS RESULT OUT OF REFERENCE UNITS RANGE LAB L700.6700 =>Qualitative mIU/mL Normal HCG Qual < 1 triggr LAB L700.7000 0-9 Nonpreg Negative Normal HCGSQUAL NEGATIVE Performed By: #### L700.6800 #### [facility] [address] [facility] [place], [place], [address] ALCOHOL, BLOOD Collected: 12/07/2017 Status: F Source: [place] (MEDICAL)-SERUM 9:25 PM [facility] REPOSITORY TYPE CODE TESTS RESULT [...] fatal coma Performed By: #### L501.9100 #### [facility] [address] [place], [place], [address] URINE DRUG SCREEN Collected: 12/07/2017 Status: F Source: [place]RE[place] (VISTA) 9:05 PM [facility] REPOSITORY TYPE CODE TESTS RESULT [...] Normal NEGATIVE Performed By: #### L505.5000 #### [facility] [address] [place], [place], [address] URINALYSIS, COMPLETE Collected: 12/07/2017 Status: F Source: TRENA 9:05 PM [facility] REPOSITORY Order Comment: Order Date: [...] URINE SEEN Performed By: #### L400.0001 #### [facility] [address] [place], [address] PROGRESS Observed: 12/01/2017 Status: COMPLETED Source: [place] 2:04 PM [facility] REPOSITORY HNO ID: [id number] Author: Nghia Darling Service: (none) Author Type: Psychologist Type: Progress Notes Filed: 12/01/2017 2:09 PM Note Text: [facility] Progress Note Alicja Sandhu 12/01/2017 [id number] Provider: Nghia Darling, PHD CPT Code: 72842 Psychotherapy 38-52 minutes Time: Approximately 50 minutes [...] Issues: No change from previous appointment DIAGNOSIS: Sylvia I: Schizophrenia Undifferentiated Type PTSD Mixed Depression: Depression and Anxiety Sleep problem (insomnia currently) r/o Cyclothymic ?? Sylvia II : Deferred Sylvia III : See medical history Sylvia IV: Problems related to the social environment Sylvia V: GAF 40-31 Some impairment in reality testing or communication or major impairment in several areas Treatment Modality/Interventions: Cognitive Behavioral Reassurance/Supportive Problem solving TREATMENT ASSESSMENT/PROGRESS: . Progressing satisfactorily. TREATMENT PLAN/GOALS: Continue in therapy focusing on self- care, stress management, affect management and anxiety management. Next appointment: as scheduled Nghia Darling, PHD 12 LEAD ELECTROCARDIOGRAM Observed: 11/29/2017 Status: F Source: [place] 1:46 PM [facility] Cardiovascular Services [address] [place] [address] 12 Lead EKG 11/28/172048 MR#: [id number] Acct: [id number] Name: ALICJA SANDHU Rep #: [id number] : 1975 42 From: Arsalan Sprague MD [...] Normal sinus rhythm Normal ECG Confirmed by ARSALAN SPRAGUE MD ([id number]), slot editor PRINCE STAHL ([id number]) on 11/29/2017 1:46:21 PM Referred By: LENNY Confirmed By:ARSALAN SPRAGUE MD 11/29/17 1346 Date Arsalan Sprague MD CC: Guillermo Velázquez MD; Viridiana Stark MD Signed EMERGENCY DEPARTMENT Observed: 11/29/2017 Status: F Source: [place] SUMMARY 2:34 AM [facility] REPOSITORY [facility] Medical Records Department [address] [place] [address] Emergency Department Summary 11/28/17 2244 MR#: [id number] Acct: [id number] Name: ALICJA SANDHU Rep #: [id number] : 1975 42 From: Viridiana Stark MD [...] Course and Treatment: Patient was observed on pillar man and had no significant change in her rhythm strip. Patient is treated with 40 mEq of potassium chloride. She be given a 5 day course of potassium at home. Repeat blood pressure at time of discharge is 117/96. Treatment Plan: [] Disposition: Discharge Impression: 1. Atypical chest pain 2. Hypokalemia This note was generated with Eqiancheng.comation software. It may contain incorrect words, spelling, [...] problems, contact your Primary Care Provider. Call [facility] ([phone]) or report to the closest Emergency Room. Call 911 if necessary. 11/29/174 <Electronically signed by Viridiana Stark MD> Date Viridiana Stark MD Cosigner Signature (If Indicated): Date CC: Guillermo Velázquez MD DISCHARGE INSTRUCTION Observed: 11/28/2017 Status: F Source: [place] 10:46 PM [facility] REPOSITORY [facility] Medical Records Department [address] [place] [address] Discharge Instruction 11/28/172243 MR#: [id number] Acct: [id number] Name: ALICJA SANDHU Rep #: [id number] : 1975 42 From: Viridiana Stark MD [...] problems, contact your Primary Care Provider. Call [facility] ([phone]) or report to the closest Emergency Room. Call 911 if necessary. 11/28/176 <Electronically signed by Viridiana Stark MD> Date Viridiana Stark MD Cosigner Signature (If Indicated): Date CC: Guillermo Velázquez MD CBC W/DIFF, AUTOMATED Collected: 11/28/2017 Status: F Source: [place] 9:07 PM [facility] REPOSITORY TYPE CODE TESTS RESULT [...] Lymph 1.80 Performed By: #### L100.0100 #### [facility] [address] [facility] [place], [address] D-DIMER QUANTITATIVE Collected: 11/28/2017 Status: F Source: [place] (DVT/PE) 9:07 PM [facility] REPOSITORY TYPE CODE TESTS RESULT OUT OF RANGE REFERENCE UNITS LAB L300.8000 0.27-0.49 FEU/ug/m Low D-DIMER < 0.27 QUANT Result Comment: NORMAL D-Dimer level (<0.50) indicates no DVT or PE. Performed By: #### L300.8000 #### [facility] [address] [facility] [place], [place], [address] BASIC METABOLIC Collected: 11/28/2017 Status: F Source: [place] PROFILE (BMP) 9:07 PM [facility] REPOSITORY Order Comment: 'TROP' Serial [...] 11 Performed By: #### L500.2500, L501.4010 #### [facility] [address] [place], [address] TROPONIN-I Collected: 11/28/2017 Status: F Source: [place] 9:07 PM [facility] REPOSITORY Order Comment: 'TROP' Serial specimen #1, #2, #3, or #4: 1 TYPE CODE TESTS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
== END 2018-11-02 12:01 | disposition short-term general hospital (02) ==
LOC: ED 00:54
PROVIDERS: Emergency Provider Emergency Medicine; Family Provider Internal Medicine; PCP Internal Medicine
DX: T43.592A Poisoning by other antipsychotics and neuroleptics, intentional self-harm, initial encounter (principal); T44.6X2A Poisoning by alpha-adrenoreceptor antagonists, intentional self-harm, initial encounter; T43.022A Poisoning by tetracyclic antidepressants, intentional self-harm, initial encounter; R53.83 Other fatigue; Y92.9 Unspecified place or not applicable; F44.81 Dissociative identity disorder; E11.9 Type 2 diabetes mellitus without complications; Z91.5 Personal history of self-harm
CPT/HCPCS: 80048; 80307; 80320; 82962; 84703; 85025; 93005; 96361; 96374; 99285; J7030; A4216; G0480; J2405

== ENCOUNTER 2018-12-05 14:16 | Emergency (ER) | payer MEDICAID, SELFPAY ==
[2018-12-05 10:51] VITALS: BMI 42.7
[2018-12-05 14:18] VITALS: BP 130/76; PULSE 86; RESP 18; TEMP 36.6; O2SAT 97; BMI 45.4
--- NOTE | 2018-12-05 14:50 | ED.VISSUMM ---
- ER Visit Summary Date of Service: 12/05/18 Chief Complaint: Left-sided jaw pain. History of Present Illness: The patient is a 43 F who presents because of left-sided jaw pain. She had dental x-rays and was placed on antibiotics for presumed infection. She was given no oral pain medication. She denies fever, chills night sweats. She denies ocular, visual auditory symptoms. Denies change in voice. Denies difficulty opening or closing her mouth. There is no history rheumatic fever, murmur, SPE, IV drug use or being immune suppressed. She is able to swallow. Physical Examination: Blood pressure slightly elevated 130/76. BMI is 45.5. She has significant dental caries. There is erosion to the root what I believe is the first left lower molar. The second left lower molar is decayed. There is no evidence of facial cellulitis. There is no trismus. There is no evidence of Danny's angina. Trachea is midline. There is no stridor. There is no tenderness over the carotid artery. There is no carotid bruit. Heart is regular without murmur, gallop or rub. S1 and S2 are normal. Lungs are clear to auscultation with good movement of air bilaterally. Test Results: None obtained Emergency Department Course and Treatment: NSAID and opiate analgesia Treatment Plan: Pain medicine follow-up with dentist Disposition: Discharged home in stable condition Impression: 1. Odontalgia multiple teeth secondary to dental caries involving dentin and pulp as well as exposure of root 2. Periapical abscess 3. Gingivitis 4. History of type 2 diabetes This note was generated with [employer] dictation software. It may contain incorrect words, spelling, and punctuation that were not noted in review of the chart prior to signing ED Disposition - Plan for ED Patient: Disposition: Home or Assisted Living Instructions: Dental Abscess, ED Cavity Dental Prescriptions: Oxycodone [Oxyir] 5 mg PO Q6H PRN PRN #10 tablet PRN Reason: Pain Naproxen [Naprosyn] 500 mg PO BID #14 tablet [facility] [NON-STAFF] - Keep Therese appointment Additional Instructions: Your prescription was electronically transmitted to [facility] [place] [place] your pharmacy of choice.
[2018-12-05] MEDS: oxyCODONE 5 MG Tablet PO (15:14)
[2018-12-05] MEDS: Naproxen 250 MG Tablet 500 MG PO (15:14)
[2018-12-05 15:16] VITALS: PULSE 68; RESP 16; TEMP 36.7; O2SAT 100
== END 2018-12-05 15:19 | disposition home or self-care (01) ==
PROVIDERS: Emergency Provider Emergency Medicine; Family Provider Internal Medicine; PCP Internal Medicine
DX: K02.7 Dental root caries (principal); K04.7 Periapical abscess without sinus; K05.10 Chronic gingivitis, plaque induced; E11.9 Type 2 diabetes mellitus without complications; E66.9 Obesity, unspecified; Z68.42 Body mass index [BMI] 45.0-49.9, adult; Z72.0 Tobacco use
CPT/HCPCS: 99283

== ENCOUNTER 2019-01-01 12:00 | Emergency (ER) | payer MEDICAID, SELFPAY ==
[2019-01-01 12:03] VITALS: BP 209/86; PULSE 80; RESP 17; TEMP 36.8; O2SAT 96; BMI 47.1
--- NOTE | 2019-01-01 12:24 | ED.RN ---
PT CONTINUES TO STATE-- i AM .. i AM IN PURGATORY. STATES GOD TOLD ME THE TRIP FROM [facility] TO [facility] IS GOING TO BE PAINFUL SO i MUST TAKE ALL OF MY PAIN PILLS. PT DENIES BEING SUICIDAL, BUT IN SAME SENTENCE STATES IF GOD TELLS ME TO DO IT i WILL. GOD IS TALKING IN MY HEAD AND I FOLLOW ALL HIS COMMANDS
[2019-01-01 13:11] LABS: Absolute Lymphocyte Count 1.11 X10^3/ul (0.83-4.51); Absolute Neutrophil Count 7.6 X10^3/uL (2.0-7.7); Basophil# 0.02 X10^3/uL; Basophil% 0.2 % (0-1); Eosinophil# 0.06 X10^3/uL; Eosinophils% 0.6 % (0-5); Hematocrit 41.4 % (37-47); Hemoglobin 13.3 g/dl (12.0-15.0); Lymphocyte # 1.11 X10^3/ul (4.0); Lymphocyte % 11.6 % (19-41); Mean Corp Hgb Conc 32.1 g/gl (32-36); Mean Corpuscular Volume 93.2 fL (81-99); Mean Platelet Vol. 8.9 fl (6.2-12.0); Monocyte# 0.69 X10^3/uL; Monocyte% 7.2 % (0-10); Neutrophil # 7.61 X10^3/uL (2.7-7.7); Neutrophil % 79.5 % (47-70); POSITIVE COUNT NO; POSITIVE DIFFERENTIAL NO; POSITIVE MORPHOLOGY NO; Platelet Count 231 K/mm3 (150-450); RBC Distribution Width CV 14.1 % (11.6-14.6); Red Blood Count 4.44 M/mm3 (4.2-5.4); White Blood Count 9.6 K/mm3 (4.4-11.0)
[2019-01-01 13:22] LABS: Anion Gap 8 (5-15); BUN 11 mg/dL (7-18); BUN/Creat Ratio 14.5 RATIO (10-20); Calcium,Total 8.9 mg/dL (8.5-10.1); Chloride 99 mmol/L (98-107); Creatinine, Serum 0.76 mg/dL (0.55-1.02); EST Glomerular Filtration Rate 88 mL/min (>60); Est Glom Filt Rate - Afr Amer 106 mL/min (>60); Estimated Creatinine Clearance 81.57 ml/min; Glucose 166 mg/dL (74-106); Potassium 4.1 mmol/L (3.5-5.1); Sodium Level 138 mmol/L (136-145)
[2019-01-01 13:24] VITALS: RESP 18
[2019-01-01 13:44] LABS: Pregnancy, Serum, hCG Quali. NEGATIVE Negative (0-9 Nonpreg)
[2019-01-01 13:49] LABS: Alcohol, Blood (Medical)-Serum < 3.0 mg/dL
[2019-01-01 13:53] LABS: Amphetamine Urine VISTA NEGATIVE (<1000 ng/mL); Barbiturate Urine VISTA NEGATIVE (< 200 ng/mL); Benzodiazepine Urine VISTA NEGATIVE (< 200 ng/mL); Cocaine Urine VISTA NEGATIVE (< 300 ng/mL); Ecstacy Urine VISTA NEGATIVE (< 500 ng/mL); Methadone Urine VISTA NEGATIVE (< 300 ng/mL); PCP Urine VISTA NEGATIVE (< 25 ng/mL); THC Urine VISTA NEGATIVE (< 50 ng/mL); Vista UDS pH Range 6
--- NOTE | 2019-01-01 14:04 | ED.VISSUMM ---
- ER Visit Summary Date of Service: 01/01/19 Chief Complaint: Sent from [facility] because of suicidal ideation. History of Present Illness: The patient is a 43 F who has history of schizoaffective disorder. She denies suicidal ideation. She states that God has been speaking to her. She states she cannot kill herself because she has been since 2016. She had 2 friends that . One of cancer. She states she is presently in purgatory. She states she lives alone. She states she has not been employed for 20 years. She states she is compliant with her medication. She states she has not been hospitalized recently. She denies drug use. Physical Examination: Vital signs noted and are normal. BMI is 47.2. Head is atraumatic normocephalic. Pupils are equal round reactive. Extraocular muscles are intact. TMs are pearly white with landmarks noted. Nares patent with no drainage. Posterior pharynx without erythema or exudate. Uvula is midline. There is no dysphonia or dysphasia. Trachea is midline. There is no stridor with auscultation of the neck. Heart is regular without murmur, gallop or rub. S1 and S2 are normal. Lungs are clear to auscultation with good movement of air bilaterally. Abdomen is soft nontender. Patient is alert and oriented ?3. Motor is 5 over 5. Sensory is intact. DTRs are symmetric with no clonus or Babinski sign. Cranial 2 through 12 are intact. Cerebellar testing is normal. Leann from case management saw patient. She informed me that she is not purgatory and cannot leave purgatory until she killed herself. She states she would harm herself by overdosing. She informed us ago that God said this would not harm her. Test Results: CBC, basic metabolic panel, test, tox and alcohol are unremarkable. Emergency Department Course and Treatment: Case management to evaluate for possible urgent outpatient follow-up versus evaluation by take away worker for hospitalization. In light of the fact that she informed Leann that she will be stopping purgatory until she overdoses will consult take away worker for evaluation and transfer to psychiatric facility Treatment Plan: Inpatient therapy Disposition: Consult to crisis for evaluation and assistance with admission to psychiatric facility Impression: 1. Auditory hallucinations secondary to schizoaffective disorder, acute exacerbation 2. Command auditory hallucinations to harm self This note was generated with Dragon dictation software. It may contain incorrect words, spelling, and punctuation that were not noted in review of the chart prior to signing ED Disposition - Plan for ED Patient: Referrals: Janie Walters MD [Primary Care Provider] -
[2019-01-01 14:05] VITALS: BP 194/94; PULSE 68; RESP 16; O2SAT 99
--- NOTE | 2019-01-01 14:06 | NURSING ---
CRISIS CALLED TO COME IN TO SEE PT PER DR. SCHUSTER.
--- NOTE | 2019-01-01 14:07 | CM.ED ---
Social Work Assessment Reason for Consult: Command Hallucinations Informant: Dr. Delacruz Information obtained from: Medical record and pt. Pt is alert and oriented x3 and able to identify where she is, the date and who she is. Presents with pleasant affect as evidenced by smilling and willingness to participate in assessment. Pt states that God is telling her it's time to come to [facility], but she can't kill herself because she is already and just stuck in purgatory. States that she was murdered in August of 2016. Living Arrangements: Pt reports to live independently in an apartment. She lives in [address] and her mother lives in [address]. Pt denies access issues and reports to have all necessities. Employment: Pt has not been employed since she was 23 y/o. She reports to be financially stable through [employer]. Denies any concerns. Supports: Identifies her mother and her case management social worker, Pratima Bustamante, as her primary supports. Stressors: Loss of two friends within the last couple of years. Mental Health Hx: Pt reports a diagnosis of schizoaffective DO. She sees a psychiatrist at [facility], Dr. Cabrera. She is also linked with a counselor, Miguelina, at [facility] and has a case management social worker, Pratima Bustamante, through [employer]. Pt denies SI or HI. Denies hallucinations. Reports that God is telling her that she is ready to come to [facility]. Claims that she saw both of her friends that and they told her it was almost my time. States that she is in purgatory and just waiting to go to [facility]. States that none of this is real, I don't really think anyone here is real. This is just a test. Claims that God has stated, he wants me home now. Inquire what the pt has to do to come home and she reports that God told her it wouldn't hurt, but that she has to take all of her Ibuprofen pills. Estimates that she has 70-80 at home and pt has a hx of attempting suicide by overdose in the past. Pt has been psychiatrically hospitalized with the last being in October of 2018. Pt is appropriate for psychiatric hospitalization and discussed with physician who will have crisis consulted for this placement. Substance Use Hx: Pt denies substance use hx. Intervention(s): C-SSRS completed and pt posing great lethal suicide risk. Remains in suicide precautions. Crisis consulted for psychiatric hospitalization. Physician notified of findings. PLAN: Crisis to evaluate for psychiatric hospitalization. Leann Santos, RIGGER CHIEF, OSMAN
--- NOTE | 2019-01-01 14:08 | ED.DCSUM_ITS ---
- ER Visit Summary Date of Service: 01/01/19 Chief Complaint: Sent from [facility] because of suicidal ideation. History of Present Illness: The patient is a 43 F who has history of schizoaffective disorder. She denies suicidal ideation. She states that God has been speaking to her. She states she cannot kill herself because she has been since 2016. She had 2 friends that . One of cancer. She states she is presently in purgatory. She states she lives alone. She states she has not been employed for 20 years. She states she is compliant with her medication. She states she has not been hospitalized recently. She denies drug use. Physical Examination: Vital signs noted and are normal. BMI is 47.2. Head is atraumatic normocephalic. Pupils are equal round reactive. Extraocular muscles are intact. TMs are pearly white with landmarks noted. Nares patent with no drainage. Posterior pharynx without erythema or exudate. Uvula is midline. There is no dysphonia or dysphasia. Trachea is midline. There is no stridor with auscultation of the neck. Heart is regular without murmur, gallop or rub. S1 and S2 are normal. Lungs are clear to auscultation with good movement of air bilaterally. Abdomen is soft nontender. Patient is alert and oriented ?3. Motor is 5 over 5. Sensory is intact. DTRs are symmetric with no clonus or Babinski sign. Cranial 2 through 12 are intact. Cerebellar testing is normal. Leann from case management saw patient. She informed me that she is not purgatory and cannot leave purgatory until she killed herself. She states she would harm herself by overdosing. She informed us ago that God said this would not harm her. Test Results: CBC, basic metabolic panel, test, tox and alcohol are unremarkable. Emergency Department Course and Treatment: Case management to evaluate for possible urgent outpatient follow-up versus evaluation by warehouse assembly worker for hospitalization. In light of the fact that she informed Leann that she will be stopping purgatory until she overdoses will consult warehouse assembly worker for evaluation and transfer to psychiatric facility Treatment Plan: Inpatient therapy Disposition: Consult to crisis for evaluation and assistance with admission to psychiatric facility Impression: 1. Auditory hallucinations secondary to schizoaffective disorder, acute exacerbation 2. Command auditory hallucinations to harm self This note was generated with Dragon dictation software. It may contain incorrect words, spelling, and punctuation that were not noted in review of the chart prior to signing ED Disposition - Plan for ED Patient: Referrals: Janie Walters MD [Primary Care Provider] -
--- NOTE | 2019-01-01 14:46 | ED.RN ---
ED, THE PT'S GAME PROTECTOR CALLED TO SEE HOW PT WAS DOING.
--- NOTE | 2019-01-01 15:13 | NURSING ---
KENDELL, CRISIS, HERE
[2019-01-01 17:13] VITALS: BP 188/81; PULSE 71; RESP 18; O2SAT 97
[2019-01-01 20:00] VITALS: BP 156/72; PULSE 85; RESP 18; O2SAT 95
--- NOTE | 2019-01-01 21:31 | ED.RN ---
report called to ICU at [facility].
== END 2019-01-01 20:24 ==
PROVIDERS: Emergency Provider Emergency Medicine; Family Provider Internal Medicine; PCP Internal Medicine
DX: F25.9 Schizoaffective disorder, unspecified (principal); F32.9 Major depressive disorder, single episode, unspecified; E11.9 Type 2 diabetes mellitus without complications; E66.9 Obesity, unspecified; Z68.42 Body mass index [BMI] 45.0-49.9, adult; Z79.899 Other long term (current) drug therapy
CPT/HCPCS: 36415; 80048; 80307; 80320; 84703; 85025; 99282; G0480

== ENCOUNTER → 2019-01-18 | Outpatient (CLI) | payer MEDICAID, SELFPAY ==
[2019-01-01 12:03] VITALS: BMI 47.1
[2019-01-18 10:09] LABS: Hemoglobin A1c 7.7 % (4.2-6.3)
[2019-01-18 10:19] LABS: ALB/GLOB Ratio 0.8 RATIO (0.9-2.4); AST(SGOT) 18 U/L (15-37); Alanine Aminotransfer ALT/SGPT 24 U/L (13-56); Albumin, Serum 3.3 g/dL (3.2-5.0); Alkaline Phosphatase 117 U/L (45-117); Anion Gap 6 (5-15); BUN 16 mg/dL (7-18); BUN/Creat Ratio 19.8 RATIO (10-20); Calcium,Total 8.3 mg/dL (8.5-10.1); Chloride 100 mmol/L (98-107); Cholesterol 179 mg/dL (200); Creatinine, Serum 0.81 mg/dL (0.55-1.02); EST Glomerular Filtration Rate 82 mL/min (>60); Est Glom Filt Rate - Afr Amer 99 mL/min (>60); Globulin 4.1 g/dL (2.2-4.2); Glucose 253 mg/dL (74-106); High Density Lipoprotein 29 mg/dL; Potassium 4.1 mmol/L (3.5-5.1); Protein, Total 7.4 g/dL (6.4-8.2); Sodium Level 137 mmol/L (136-145); Thyroid Stim Hormone (TSH) 1.26 uIU/mL (0.358-3.74); Triglycerides 218 mg/dL; Very Low Density Lipoprotein 44 mg/dL (5-40)
== END | disposition home or self-care (01) ==
LOC: MTLAB 09:11
PROVIDERS: Family Provider Internal Medicine; PCP Internal Medicine; Referring Provider Internal Medicine; Visit Provider Internal Medicine
DX: E11.9 Type 2 diabetes mellitus without complications (principal)
CPT/HCPCS: 36415; 80053; 80061; 83036; 84443

== ENCOUNTER 2019-02-19 18:47 | Emergency (ER) | payer MEDICAID, SELFPAY ==
[2019-02-19] VITALS (7 sets, daily range): BP systolic 147–186; BP diastolic 70–102; PULSE 60–90; RESP 12–20; TEMP 37.1; O2SAT 92–100; BMI 48.1
--- NOTE | 2019-02-19 19:18 | RAD_ITS ---
STUDY: X-RAY - RIGHT SHOULDER REASON FOR EXAM: Female, 43 years old. Shoulder dislocation, fall TECHNIQUE: 2 view(s) of the shoulder. COMPARISON: None. FINDINGS: There is anterior-inferior shoulder dislocation. There is a 4 mm bony fragment projecting over the glenoid. There is soft tissue edema. The bone mineralization is preserved.. 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
--- NOTE | 2019-02-19 19:40 | ED.VISSUMM ---
- ER Visit Summary Date of Service: 02/19/19 Chief Complaint: Fall History of Present Illness: The patient is a 43 F who states that she had her dog's leash wrapped around her left wrist. The dog took off after a cat and pulled her down landing on her right shoulder. Complaining of pain to the right shoulder. She is right-hand dominant. She denies paresthesias. Physical Examination: Blood pressure is 155/102, otherwise vitals normal. Patient sitting upright in bed. She is in no acute distress. Head neck examination is grossly unremarkable. No midline cervical tenderness. Heart is regular rate and rhythm. Lung sounds are clear. Right upper extremity examination was mild tenderness of the humerus and forearm. No obvious deformities noted. She has strong distal pulses. Test Results: Right shoulder x-rays obtained per nursing protocol revealed anterior inferior shoulder dislocation. There is initially a reading of a 4 mm avulsion fracture. This is later noted to be on a prior chest x-ray and felt to be calcific tendinitis. Emergency Department Course and Treatment: Patient received morphine and Zofran for pain. She was consented for procedural sedation. Patient was given 100 mg of IV propofol. Right shoulder was reduced with traction countertraction mechanism. Patient is placed in a sling and swath. Repeat shoulder x-rays reveal good reduction. Patient will be given oxycodone for pain as she does have a Tylenol allergy. She does state that she has taken oxycodone in the past. She will be referred to Dr. Richards, on-call for orthopedics. Treatment Plan: [] Disposition: Discharge Impression: 1. Right shoulder dislocation status post reduction 2 procedural sedation by ED physician This note was generated with Revivio dictation software. It may contain incorrect words, spelling, and punctuation that were not noted in review of the chart prior to signing ED Disposition - Plan for ED Patient: Disposition: Home or Assisted Living Instructions: ED Dislocation Shoulder Redu Prescriptions: Oxycodone [Oxyir] 5 mg PO Q6H PRN PRN 3 Days #14 tablet PRN Reason: Pain Referrals: Kevin Richards DO [STAFF PHYSICIAN] - 1 Week
[2019-02-19] MEDS: Ondansetron 4 MG/2 ML Vial IV (20:13)
[2019-02-19] MEDS: Morphine 4 MG/ML Syringe IV (20:13)
[2019-02-19] MEDS: 0.9% Normal Saline 1,000 ML 150 ML IV (20:13)
--- NOTE | 2019-02-19 20:15 | ED.RN ---
PT GIVES THIS RN VERBAL PERMISSION TO CONTACT MOTHER REGARDING CARE, AND TO ASK IF SHE WOULD PICK PT UP ON DISCHARGE.
--- NOTE | 2019-02-19 21:10 | RAD_ITS ---
STUDY: X-RAY - RIGHT SHOULDER REASON FOR EXAM: Female, 43 years old. Shoulder dislocation TECHNIQUE: 2 view(s) of the shoulder. COMPARISON: Same day and compared to prior chest radiograph 03/25/2018 FINDINGS: There is is reduction of prior described anterior inferior shoulder dislocation. There is a Hill-Sachs deformity of the humeral head. There is stable benign soft tissue ossification lateral to the right humeral head which is present on old chest radiograph and likely is secondary to chronic calcific tendinitis less likely old avulsion injury. There is mild soft tissue edema. Normal visualized pulmonary apex. RAD/Shoulder min 2 Views IMPRESSION: Reduction of prior described anterior inferior shoulder dislocation Hill-Sachs deformity of the humeral head stable benign soft tissue ossification lateral to the right humeral head which is present on old chest radiograph and likely is secondary to chronic calcific tendinitis less likely old avulsion injury Mild soft tissue edema Electronically Signed: Rom Ladd, at 21:33 EDT Tel , Service support ,
[2019-02-19] MEDS: Propofol 200 MG/20 ML Vial IV BOLUS (21:15)
[2019-02-19] MEDS: oxyCODONE 5 MG Tablet PO (22:07)
== END 2019-02-19 22:09 | disposition home or self-care (01) ==
PROVIDERS: Emergency Provider Emergency Medicine; Family Provider Internal Medicine; PCP Internal Medicine
DX: S43.084A Other dislocation of right shoulder joint, initial encounter (principal); W18.39XA Other fall on same level, initial encounter; Y93.89 Activity, other specified; Y92.9 Unspecified place or not applicable; J45.909 Unspecified asthma, uncomplicated; K21.9 Gastro-esophageal reflux disease without esophagitis; F41.9 Anxiety disorder, unspecified; Z79.899 Other long term (current) drug therapy
CPT/HCPCS: 23650; 73030; 96361; 96374; 96375; 99285; A4216; J2405

== ENCOUNTER 2019-03-20 11:30 | Outpatient (RCR) | payer MEDICAID, SELFPAY ==
[2019-02-26 08:12] VITALS: BMI 48.1
--- NOTE | 2019-02-26 09:33 | HP.PTEVAL_ITS ---
Patient's Visit Information EDVIN SOUZA is a 43 year old F referred to Physical Therapy by Sergio Holland DO with a diagnosis of R shoulder dislocation DOI 02-19-19. Date of Evaluation: 02/26/19 Physical Therapist: IDRIS Li - Visit Plan Frequency: 2x /Week Duration: 4 Weeks Plan: 2X/ week for 3-6 weeks for postural and scapular strength, RC strength, AROM, with HEP and modalities if needed for pain control. - Subjective Findings: Pt reports that she dislocated her R shoulder last tuesday night and the dog pulled her to get a cat and she fell and landed on her R shoulder. She went to the ER cause she could not get up and they put her in a sling and said to not take it off until get to the DR. They put her out and pushed her shoulder back in place. Dr Holland said ok to take the sling off and to go to PT. She reports that she has some stiffness and soreness in the R shoulder and pain in the R elbow area. SHe is R handed. She does not work. They did not x- ray the elbow but they feel everything is intact. She was told to avoid reaching into the back seat and motions like that. He feels that it will heal on its own with strengthening. - Pain R shoulder Pain Intensity (Out of 10): 6 R elbow pain Pain Intensity (Out of 10): 7 - Objective R shoulder AROM: flexion 105 degrees, abd 85 degrees, ER 20 degrees, IR greater trochanter on the R. L shoulder AROM: flexion 165 degrees, abd 180 degrees, ER 85 degrees, and IR T12. R elbow AROM -19 degrees from full extension, and 125 degrees R elbow flexion. R shld mmt NT due to increased tenderness with very light resisitance. L shld MMT WFL. Posture: sits with rounded shoulders and flexed posture - Goals Goal 1:: I HEP Goal Time Frame: 2 Weeks Goal 2:: Increase R shoulder AROM to 175 degrees elevation ( flex and abd), 60 degrees ER and T12 IR on the R shoulder Goal Time Frame: 4-6 Weeks Goal 3:: Increase R shld MMT to 4/5 R shoulder flex, abd, ER and IR Goal Time Frame: 4-6 Weeks - Rehabilitation Potential Rehabilitation Potential: Good - Anticipated Interventions Patient/Client Instruction: Educate patient on: Condition, Plan of Care For the Purpose of:: To decrease pain, To increase ROM, To improve nutrient delivery to tissue, To improve muscle performance and motor function, To improve ability to perform ADL's, To increase tolerance to activity/condition/position, To improve performance and independence with ADL's, To improve ability of physical actions for home/community/work/leisure, To increase flexibility/ROM Therapeutic Exercise to Include: Strength training, Postural training, Flexibilty training, Passive ROM, Active ROM, Scapular Strength/Stabilization For the Purpose of:: To decrease pain, To increase ROM, To improve nutrient delivery to tissue, To improve muscle performance and motor function, To improve ability to perform ADL's, To increase tolerance to activity/condition/position, To improve performance and independence with ADL's, To decrease level of superv ision to perform tasks, To increase flexibility/ROM Manual Therapy Techniques to Include: Passive ROM For the Purpose of:: To increase ROM IF ES: Yes Cryotherapy (ice pack, ice massage): Yes Thermo therapy (hot pack): Yes Ultrasound (thermal/non thermal): Yes For the Purpose of:: To decrease pain, To decrease swelling/inflammation, To improve nutrient delivery to tissue, To improve muscle performance and motor function Thank you for the opportunity to evaluate your patient. For Medicare and Medicare HMO plans, please review the plan of care and approve it. It will need to be FAXED BACK to us at [phone] for Medicare purposes. For Medicare only, by signing this I certify the plan of care. Please let me know if there are questions or concerns regarding this plan of care. Physician Signature: Date:
--- NOTE | 2019-03-20 11:42 | HP.PTDCSUM ---
HP - PT D/C Summary It has been my pleasure to treat EDVIN SOUZA under orders from Sergio Holland DO, for the diagnosis of R shoulder dislocation DOI 02-19-19 for a total of 5 visit(s). Discharge Date: 03/20/19 Please see the following information for a summary of their discharge status. - Subjective Subjective: Pt reports that she needs to leave [facility]. Pt reports that it is still hard to sleep on the R shoulder but other than that she is back to normal. Pt feels comfortable doing her exercises at home. - Pain R shoulder Pain Intensity (Out of 10): 0 R elbow pain Pain Intensity (Out of 10): 0 - Overall Improvement % Improvement: 100 - Objective Objective/Function: R AROM of the shoulder: flex 176. and 167. IR L1. ER 52 degrees. R shoulder MMT: Flex, abd 4/5 and ER/IR 4+/5 - Goals Goal 1:: I HEP Goal Progress: Goal Met Goal 2:: Increase R shoulder AROM to 175 degrees elevation ( flex and abd), 60 degrees ER and T12 IR on the R shoulder Goal Progress: Goal Met Goal 3:: Increase R shld MMT to 4/5 R shoulder flex, abd, ER and IR - Plan Plan: DC PT to HEP - D/C Information Discharge Comments: DC PT to HEP. If there are questions or concerns regarding this patient's physical therapy, please feel free to call me at [phone]. Thank you for the referral of this patient. Sincerely, Ny Lainez, MPT
== END 2019-03-20 19:00 | disposition home or self-care (01) ==
LOC: PT 11:30
PROVIDERS: Family Provider Internal Medicine; PCP Internal Medicine; Visit Provider Orthopaedic Surgery
DX: S43.004D Unspecified dislocation of right shoulder joint, subsequent encounter (principal)
CPT/HCPCS: 97110; 97161; 97530

== ENCOUNTER 2019-07-28 00:14 | Emergency (ER) | payer MEDICAID, SELFPAY ==
[2019-02-26 08:12] VITALS: BMI 48.1
[2019-07-28] VITALS (7 sets, daily range): BP systolic 110–172; BP diastolic 43–86; PULSE 62–91; RESP 18–93; TEMP 36.7; O2SAT 18–99; BMI 47.3
--- NOTE | 2019-07-28 00:20 | EKG12_ITS ---
Test Reason : DYSRHYTHMIA Blood Pressure : / mmHG Vent. Rate : 077 BPM Atrial Rate : 077 BPM P-R Int : 170 ms QRS Dur : 092 ms QT Int : 388 ms P-R-T Axes : 041 040 019 degrees QTc Int : 439 ms Normal sinus rhythm Normal ECG Confirmed by GISSEL COHEN, DEL ([id number]), material expeditor PRINCE GRAFF ([id number]) on 08/01/2019 9:44:04 AM Referred By: CHETNA Confirmed By:SWATHI CHAUHAN MD
[2019-07-28 00:42] LABS: Hematocrit 39.5 % (37-47); Mean Corp Hgb Conc 32.9 g/dL (32-36); Mean Corpuscular Hgb 29.5 pg (27.0-32.0); Mean Corpuscular Volume 89.8 fL (81-99); Mean Platelet Vol. 9.2 fl (6.2-12.0); Platelet Count 227 K/mm3 (150-450); RBC Distribution Width CV 14.1 % (11.6-14.6); RBC Distribution Width SD 46.2 fl (35.1-43.9); White Blood Count 10.1 K/mm3 (4.4-11.0)
[2019-07-28 01:00] LABS: Anion Gap 5 (5-15); BUN 11 mg/dL (7-18); Calcium,Total 9.1 mg/dL (8.5-10.1); Chloride 98 mmol/L (98-107); Creatinine, Serum 0.85 mg/dL (0.55-1.02); EST Glomerular Filtration Rate 77 mL/min (>60); Est Glom Filt Rate - Afr Amer 94 mL/min (>60); Estimated Creatinine Clearance 72.93 ml/min; Glucose 207 mg/dL (74-106); Potassium 3.9 mmol/L (3.5-5.1); Sodium Level 136 mmol/L (136-145)
--- NOTE | 2019-07-28 01:22 | ED.VIS.GEN ---
History of Present Illness Chief Complaint: Overdose Detail of Chief Complaint: Took 24 Haldol tablets to sleep Informant: Patient Onset: Today Context: Sudden Onset Timing: Continuous Quality: 24 5 mg Haldol tablets Location: At home to sleep Current Severity: Mild Maximum Severity: Mild Worsened by: Accidental ingestion Relieved by: Slight tiredness Associated Symptoms: No symptoms of dystonia or any other symptoms Narrative: Patient is a 43-year-old woman with history of schizophrenia. Patient took 24 5 mg Haldol tablets of sleep. She had no intention of harming self. She states when she cannot sleep she has taken more than prescribed. She has taken 20 in the past with no reaction. She states her psychiatrist told her that Haldol will not kill her. Patient's voice seems slightly slurred. Both the patient and the nurse who knows her quite well states that her normal speech. She does not complain of drowsiness or feeling tired. She denies any ocular, visual or auditory symptoms. Patient denies cardiac respiratory symptoms. She denies nausea or vomiting. She denies paresthesia, anesthesia or motor weakness. Prior similar symptoms: Yes Recent Illness/Hospitalization: No - Past Medical History (1) Schizophrenia Status: Acute (2) Diabetes type 2, controlled Status: Chronic Comment: Now has an apartment. Feels she is doing well. Provided with a meter and strips. Enc to check before and after meals. Is set up with counselor, home health care social worker and psychiatrist. Past Medical History - Allergies and Home Meds Allergies/Adverse Reactions: Allergies acetaminophen [From Tylenol] Allergy (Verified 07/28/19 00:20) Anaphylaxis aspirin Allergy (Verified 07/28/19:20) Anaphylaxis benztropine mesylate [From Cogentin] Allergy (Verified 07/28/19:20) Other carbamazepine [From Tegretol] Allergy (Verified 07/28/19:20) Rash egg Allergy (Verified 07/28/19:20) Other ibuprofen [From Motrin] Allergy (Verified 07/28/19:20) Anaphylaxis Penicillins Allergy (Verified 07/28/19:20) Anaphylaxis sulfamethoxazole [From Septra] Allergy (Verified 07/28/19:20) Anaphylaxis trimethoprim [From Septra] Allergy (Verified 07/28/19:20) Anaphylaxis bacitracin [From Neosporin ([id number])] Adverse Reaction (Verified 07/28/19 00:20) Swelling neomycin [From Neosporin ([id number]-[id number])] Adverse Reaction (Verified 07/28/19 00:20) Swelling polymyxin B [From Neosporin (nwo-kae-depte)] Adverse Reaction (Verified 07/28/19 00:20) Swelling trazodone Adverse Reaction (Verified 07/28/19 00:20) Vomiting Primary Care Physician: Janie Walters MD [Primary Care Provider] - Prior records reviewed: Yes Surgical History: noncontributory Lives: Alone Smoking Status: Never smoker Alcohol: None Drugs: None Review of Systems General: Denies: Chills, Fever, Sweats Eyes: Denies: Visual changes - bilaterally, Blurred Vision - bilaterally, Diplopia ENT: Denies: Bilateral ear pain, Rhinorrhea, Sore throat Cardiovascular: Denies: Chest pain, Palpitations Respiratory: Denies: Dyspnea, Cough, Dyspnea on exertion Gastrointestinal: Denies: Abdominal pain, Nausea, Vomiting, Diarrhea, Melena, Hematochezia Genitourinary: Denies: Dysuria, Hematuria, Frequency Musculoskeletal: Denies: Myalgias, Arthralgias, Neck pain, Back pain, Swelling, Extremity Pain Skin: Denies: Rash, Wounds Neurological: Denies: Headache, Weakness, Numbness Psych: Denies: Depression, Anxiety, Suicidal thoughts Allergy: Denies: Uticaria, Swelling of the mouth, Swelling of the tongue Physical Exam Vital Signs/Narrative: Vital Signs Temp Pulse Resp BP Pulse Ox 07/28/19 00:15 98.0 F 85 18 172/85 H 95 Inital Vital Signs reviewed: Yes General: Well nourished, Well developed, Obese, Unkempt, No Acute Distress Head: Normocephalic, Atraumatic Eyes: Perrl, EOMI ENT: Moist mucous membranes, No rhinorrhea Neck: Supple, Nontender Cardiovascular: Regular rate, Regular rhythm, No murmurs, Normal S1, Normal S2 Respiratory: No distress, CTA bilaterally, Chest nontender Abdomen: Soft, Nontender, Nondistended, Normal bowel sounds Back: Nontender, Normal Inspection Extremities: Nontender, No edema Skin: Normal color, No rash. Negative for: Cyanosis, Diaphoresis, Jaundice, No Trauma Neurological: Alert, Oriented x3, Cranial nerves II-XII grossly intact, Normal Strength, Normal Sensation, Normal DTR Psychological: Normal affect, Normal Mood Diagnostic/Tx/Re-eval Laboratory Results 07/28/19 07/28/19 00:35 00:35 WBC 10.1 RBC 4.40 Hgb 13.0 Hct 39.5 MCV 89.8 MCH 29.5 MCHC 32.9 RDW Std Deviation 46.2 H RDW Coeff of Ida 14.1 Plt Count 227 MPV 9.2 Sodium 136 Potassium 3.9 Chloride 98 Carbon Dioxide 33.0 H Anion Gap 5 BUN 11 Creatinine 0.85 Estim Creat Clear Calc 72.93 Est GFR (MDRD) Af Amer 94 Est GFR (MDRD) Non-Af 77 BUN/Creatinine Ratio 13.0 Glucose 207 H Calcium 9.1 Work is remarkable elevated blood sugar 207. CO2 and anion gap are normal. White count, H&H and platelet count are unremarkable. - EKG Initial EKG Interpretation: Sinus Rhythm - Normal sinus rhythm with a ventricular rate of 77. [place] interval 170 ms. QRS duration 92 ms. QT duration 388 ms with a QTC of 439 ms. [place] is normal. The EKG is normal. - Medical Decision Making Since patient did not have suicidal attempt and took the medication to sleep she will be observed in the emergency department for minimum 6 hours. EKG was obtained to evaluate for prolonged QT interval. She was placed on a monitor. Baseline blood work was obtained. Patient was reassessed at 0125. There is no change in her mental status or cognitive abilities. We will continue to observe. Was reassessed at 0210. She awoke easily. She has no dystonic type symptoms or findings. Monitor reveals a sinus rhythm rate of 78. She is not hypoxic. 0313. Patient is asleep. Monitor reveals a sinus rhythm without ectopy. Respiratory rate is not depressed. Patient is not hypoxic. We will continue to observe She was reassessed at 0435. Monitor reveals a sinus bradycardia with a rate of 59. There is no prolongation of QT interval. Respiratory rate is 16 and pulse ox is 94% on room air. We will continue to monitor. Patient was reassessed at 0620. She is alert and oriented. She was observed walking to the restroom. Vital signs are unremarkable. There are no symptoms and no findings of dystonic reaction. She has no rigidity of her muscles or pain. ED Disposition - Plan for ED Patient: Disposition: Home or Assisted Living Diagnosis: Overdose of antipsychotic Instructions: OVERDOSE, Accidental (Adult) Referrals: Janie Walters MD [Primary Care Provider] - 3-5 Days
--- NOTE | 2019-07-28 06:43 | ED.RN ---
THIS NURSE REVIEWED D/C INSTRUCTIONS WITH THE PT. PT VERBALIZED UNDERSTANDING OF INSTRUCTIONS. IV D/C. IV CATHETER INTACT. PT TOLERATED WELL. PT DENIES FURTHER NEEDS OR QUESTIONS AT THIS TIME. PT AMBULATES FROM ROOM ON OWN WITHOUT ASSISTANCE FROM STAFF
== END 2019-07-28 06:49 | disposition home or self-care (01) ==
PROVIDERS: Emergency Provider Emergency Medicine; Family Provider Internal Medicine; PCP Internal Medicine
DX: T43.4X1A Poisoning by butyrophenone and thiothixene neuroleptics, accidental (unintentional), initial encounter (principal); Y92.009 Unspecified place in unspecified non-institutional (private) residence as the place of occurrence of the external cause; F20.9 Schizophrenia, unspecified; E11.9 Type 2 diabetes mellitus without complications; E66.9 Obesity, unspecified
CPT/HCPCS: 80048; 85027; 93005; 99285

== ENCOUNTER → 2020-04-30 11:49 | Outpatient (CLI) | payer MEDICARE, MEDICAID, SELFPAY ==
[2020-04-30 11:01] VITALS: BMI 47.3
[2020-04-30 16:21] LABS: Absolute Lymphocyte Count 1.27 X10^3/uL (0.83-4.51); Absolute Neutrophil Count 4.7 X10^3/uL (2.0-7.7); Basophil# 0.03 X10^3/uL; Basophil% 0.4 % (0-1); Eosinophil# 0.09 X10^3/uL; Eosinophils% 1.3 % (0-5); Hematocrit 42.1 % (37-47); Hemoglobin 13.5 g/dL (12.0-15.0); Lymphocyte # 1.27 X10^3/ul (4.0); Mean Corp Hgb Conc 32.1 g/dL (32-36); Mean Corpuscular Hgb 30.6 pg (27.0-32.0); Mean Corpuscular Volume 95.5 fL (81-99); Mean Platelet Vol. 9.5 fl (6.2-12.0); Monocyte# 0.53 X10^3/uL; Monocyte% 7.9 % (0-10); NRBC Flagged by Analyzer 0 % (0-5); Neutrophil # 4.69 X10^3/uL (2.7-7.7); Neutrophil % 70.1 % (47-70); Platelet Count 226 K/mm3 (150-450); RBC Distribution Width CV 13.6 % (11.6-14.6); RBC Distribution Width SD 48.5 fl (35.1-43.9); Red Blood Count 4.41 M/mm3 (4.2-5.4); White Blood Count 6.7 K/mm3 (4.4-11.0)
[2020-04-30 16:32] LABS: ALB/GLOB Ratio 0.8 RATIO (0.9-2.4); AST(SGOT) 50 U/L (15-37); Alanine Aminotransfer ALT/SGPT 35 U/L (13-56); Albumin, Serum 3.5 g/dL (3.2-5.0); Alkaline Phosphatase 137 U/L (45-117); Anion Gap 6 (5-15); BUN 9 mg/dL (7-18); BUN/Creat Ratio 11.4 RATIO (10-20); Chloride 98 mmol/L (98-107); Cholesterol 195 mg/dL (200); Creatinine, Serum 0.79 mg/dL (0.55-1.02); EST Glomerular Filtration Rate 83 mL/min (>60); Est Glom Filt Rate - Afr Amer 101 mL/min (>60); Globulin 4.4 g/dL (2.2-4.2); Glucose 262 mg/dL (74-106); High Density Lipoprotein 27 mg/dL; Potassium 3.9 mmol/L (3.5-5.1); Protein, Total 7.9 g/dL (6.4-8.2); Sodium Level 134 mmol/L (136-145); Thyroid Stim Hormone (TSH) 1.29 uIU/mL (0.358-3.74); Triglycerides 333 mg/dL; Very Low Density Lipoprotein 67 mg/dL (5-40)
[2020-04-30 16:45] LABS: Vitamin D,25 Hydroxy 31.6 ng/mL
== END ==
PROVIDERS: PCP Internal Medicine; Referring Provider Nurse Practitioner Family; Visit Provider Nurse Practitioner Family
DX: E11.9 Type 2 diabetes mellitus without complications (principal); F20.9 Schizophrenia, unspecified; I10 Essential (primary) hypertension; E55.9 Vitamin D deficiency, unspecified
CPT/HCPCS: 36415; 80053; 80061; 82043; 82306; 82570; 84443; 85025

== ENCOUNTER → 2020-10-28 09:06 | Outpatient (CLI) | payer MEDICARE, MEDICAID, SELFPAY ==
[2020-10-21 13:04] VITALS: BMI 45.6
[2020-10-28 12:22] LABS: Absolute Lymphocyte Count 1.82 X10^3/uL (0.83-4.51); Absolute Neutrophil Count 6.8 X10^3/uL (2.0-7.7); Basophil# 0.05 X10^3/uL; Basophil% 0.5 % (0-1); Eosinophil# 0.08 X10^3/uL; Eosinophils% 0.8 % (0-5); Hematocrit 44.2 % (37-47); Lymphocyte # 1.82 X10^3/ul (4.0); Lymphocyte % 19.2 % (19-41); Mean Corp Hgb Conc 31.7 g/dL (32-36); Mean Corpuscular Hgb 29.3 pg (27.0-32.0); Mean Corpuscular Volume 92.5 fL (81-99); Mean Platelet Vol. 9.5 fl (6.2-12.0); Monocyte# 0.63 X10^3/uL; Monocyte% 6.6 % (0-10); NRBC Flagged by Analyzer 0 % (0-5); Neutrophil % 71.6 % (47-70); Platelet Count 257 K/mm3 (150-450); RBC Distribution Width CV 14.2 % (11.6-14.6); RBC Distribution Width SD 48.4 fl (35.1-43.9); Red Blood Count 4.78 M/mm3 (4.2-5.4); White Blood Count 9.5 K/mm3 (4.4-11.0)
[2020-10-28 13:17] LABS: ALB/GLOB Ratio 0.8 RATIO (0.9-2.4); AST(SGOT) 36 U/L (15-37); Alanine Aminotransfer ALT/SGPT 40 U/L (13-56); Albumin, Serum 3.6 g/dL (3.2-5.0); Alkaline Phosphatase 127 U/L (45-117); Anion Gap 9 (5-15); BUN 18 mg/dL (7-18); BUN/Creat Ratio 23.8 RATIO (10-20); Calcium,Total 8.9 mg/dL (8.5-10.1); Chloride 100 mmol/L (98-107); Cholesterol 211 mg/dL (200); Creatinine, Serum 0.76 mg/dL (0.55-1.02); EST Glomerular Filtration Rate 88 mL/min (>60); Est Glom Filt Rate - Afr Amer 106 mL/min (>60); Globulin 4.4 g/dL (2.2-4.2); Glucose 176 mg/dL (74-106); High Density Lipoprotein 34 mg/dL; Potassium 3.6 mmol/L (3.5-5.1); Sodium Level 136 mmol/L (136-145); Thyroid Stim Hormone (TSH) 2.67 uIU/mL (0.358-3.74); Triglycerides 242 mg/dL; Very Low Density Lipoprotein 48 mg/dL (5-40)
== END ==
PROVIDERS: PCP Internal Medicine; Referring Provider Internal Medicine; Visit Provider Internal Medicine
DX: E11.9 Type 2 diabetes mellitus without complications (principal); E66.01 Morbid (severe) obesity due to excess calories; Z68.42 Body mass index [BMI] 45.0-49.9, adult
CPT/HCPCS: 36415; 80053; 80061; 84443; 85025

== ENCOUNTER → 2021-08-04 14:34 | Outpatient (CLI) | payer MEDICARE, MEDICAID, SELFPAY ==
[2021-08-04 16:48] LABS: Absolute Lymphocyte Count 1.78 X10^3/uL (0.83-4.51); Absolute Neutrophil Count 7.9 X10^3/uL (2.0-7.7); Basophil# 0.05 X10^3/uL; Basophil% 0.5 % (0-1); Eosinophil# 0.09 X10^3/uL; Eosinophils% 0.8 % (0-5); Hemoglobin 14.3 g/dL (12.0-15.0); Lymphocyte # 1.78 X10^3/ul (0.83-4.51); Lymphocyte % 16.7 % (19-41); Mean Corp Hgb Conc 32.5 g/dL (32-36); Mean Corpuscular Hgb 30.6 pg (27.0-32.0); Mean Platelet Vol. 9.3 fl (6.2-12.0); Monocyte% 6.6 % (0-10); NRBC Flagged by Analyzer 0 % (0-5); Neutrophil # 7.92 X10^3/uL (2.7-7.7); Neutrophil % 74.4 % (47-70); Platelet Count 285 K/mm3 (150-450); RBC Distribution Width CV 13.7 % (11.6-14.6); RBC Distribution Width SD 47.6 fl (35.1-43.9); Red Blood Count 4.68 M/mm3 (4.2-5.4); White Blood Count 10.7 K/mm3 (4.4-11.0)
[2021-08-04 17:06] LABS: Vitamin D,25 Hydroxy 24.7 ng/mL
[2021-08-04 17:11] LABS: Hemoglobin A1c 9.4 % (3.8-5.6)
[2021-08-04 17:17] LABS: ALB/GLOB Ratio 0.7 RATIO (0.9-2.4); AST(SGOT) 47 U/L (15-37); Alanine Aminotransfer ALT/SGPT 42 U/L (13-56); Albumin, Serum 3.5 g/dL (3.2-5.0); Alkaline Phosphatase 156 U/L (45-117); Anion Gap 6 (5-15); BUN 19 mg/dL (7-18); BUN/Creat Ratio 18.8 RATIO (10-20); Calcium,Total 9.1 mg/dL (8.5-10.1); Chloride 97 mmol/L (98-107); Cholesterol 237 mg/dL (200); Creatinine, Serum 1.01 mg/dL (0.55-1.02); EST Glomerular Filtration Rate 63 mL/min (>60); Est Glom Filt Rate - Afr Amer 76 mL/min (>60); Glucose 223 mg/dL (74-106); High Density Lipoprotein 32 mg/dL; Potassium 3.8 mmol/L (3.5-5.1); Protein, Total 8.5 g/dL (6.4-8.2); Sodium Level 134 mmol/L (136-145); Thyroid Stim Hormone (TSH) 0.76 uIU/mL (0.358-3.74); Triglycerides 310 mg/dL; Very Low Density Lipoprotein 62 mg/dL (5-40)
== END ==
PROVIDERS: PCP Internal Medicine; Referring Provider Internal Medicine; Visit Provider Internal Medicine
DX: E55.9 Vitamin D deficiency, unspecified (principal); K21.9 Gastro-esophageal reflux disease without esophagitis; E11.9 Type 2 diabetes mellitus without complications; E66.01 Morbid (severe) obesity due to excess calories; Z68.42 Body mass index [BMI] 45.0-49.9, adult
CPT/HCPCS: 36415; 80053; 80061; 82306; 83036; 84443; 85025

== ENCOUNTER 2021-10-28 09:40 | Outpatient (CLI) | payer MEDICARE, MEDICAID, SELFPAY ==
[2021-10-28 12:28] LABS: ALB/GLOB Ratio 0.8 RATIO (0.9-2.4); AST(SGOT) 26 U/L (15-37); Alanine Aminotransfer ALT/SGPT 26 U/L (13-56); Albumin, Serum 3.4 g/dL (3.2-5.0); Alkaline Phosphatase 141 U/L (45-117); Anion Gap 9 (5-15); BUN 18 mg/dL (7-18); BUN/Creat Ratio 22.5 RATIO (10-20); Calcium,Total 8.9 mg/dL (8.5-10.1); Chloride 95 mmol/L (98-107); Cholesterol 153 mg/dL (200); EST Glomerular Filtration Rate 82 mL/min (>60); Est Glom Filt Rate - Afr Amer 99 mL/min (>60); Globulin 4.5 g/dL (2.2-4.2); Glucose 253 mg/dL (74-106); High Density Lipoprotein 35 mg/dL; Potassium 3.8 mmol/L (3.5-5.1); Protein, Total 7.9 g/dL (6.4-8.2); Sodium Level 132 mmol/L (136-145); Triglycerides 206 mg/dL; Very Low Density Lipoprotein 41 mg/dL (5-40)
[2021-10-28 12:32] LABS: Hemoglobin A1c 9.5 % (3.8-5.6)
== END 2021-10-28 23:59 | disposition short-term general hospital (02) ==
LOC: BIMLAB 09:41
PROVIDERS: PCP Internal Medicine; Referring Provider Internal Medicine; Visit Provider Internal Medicine
DX: E11.9 Type 2 diabetes mellitus without complications (principal); E66.01 Morbid (severe) obesity due to excess calories; Z68.42 Body mass index [BMI] 45.0-49.9, adult; K21.9 Gastro-esophageal reflux disease without esophagitis
CPT/HCPCS: 36415; 80053; 80061; 83036

== ENCOUNTER 2022-03-26 13:30 | Outpatient (RCR) | payer MEDICARE, MEDICAID, SELFPAY ==
--- NOTE | 2022-02-19 11:42 | HP.PTEVAL_ITS ---
Patient's Visit Information EDVIN SOUZA is a 46 year old F referred to Physical Therapy by Dr. Alonzo Cook DPM with a diagnosis of Left Plantar Fasciitis- Heel Spur. Date of Evaluation: 02/19/22 Physical Therapist: Helen Cedillo DPT - Visit Plan Frequency: 2x /Week Duration: 4 Weeks Plan: Focus on LE and core strength/stabilization, proprioception- modality of US, manual and eccentrics. HEP Given IE: - Subjective Patient reports that she has had pain for a few months in the left heel- her main exercise is walking so its really limiting her. Pain is located in the ankle and bottom of the foot. Pain radiates to the corrales when she is on it all day. Worst: 10/10 Agg: being on it, walking, stepping on it in the morning. Eases: not moving, elevation. Best: 0/10. Describes the pain as sharp on the bottom and on the heel and then up the corrales its more achy. She is diabetic so she has some neuropathy and her toes feel weird- in the last year- both feet. She was given a night splint- she can only wear it for 1/2 the night- then it wakes her up and she has a hard time getting back to sleep. Just got new shoes- [employer]ics- she has inserts made by [employer] Wears the orthotics all the time. She goes barefoot some at home- the new shoes are much better. She is walking more in the spring she does about 5 miles a day- but does not do any specific exercise routine with weights. Work: does not work. PMHx/Meds: no c hanges since PCP Note. Doing calf stretch exercises from . Does have a cane that she can use but does not use it all the time only when she hurts. Her ankle does feel unstable- she does have falls- last one was last month. - Objective Posture: FH, RS- can correct with verbal and tactile cues but does not maintain. Gait: antalgic- decreased stance on the left LE with decreased heel/toe pattern. Observation: increased pes planus bilateral-good correction with shoes/orthotics for ambulation. HR/TR: able with reports of pain with both HR>TR. SLS: weight shift but unable to SLS. Palpation: tender along plantar fascia, Achilles and medial/lateral Malleolus. Sensation: diminished to gross touch on bottom of foot. ROM: WFL. Strength: Ankle: 4+/5, Knee: 5/5. Flex: HS: moderate, Gastroc: moderate, Soleus: moderate - Balance/Special Test Scores Lower Extremity Functional Score: 25 - Goals Goal 1:: Patient will be I with HEP and progression Goal Time Frame: 4-6 Weeks Goal 2:: Patient will ambulate >300 feet with a normalized gait pattern Goal Time Frame: 4-6 Weeks Goal 3:: Patient will SLS for 15 seconds without LOB or hip drop Goal Time Frame: 4-6 Weeks Goal 4:: Patient will report 80% improvement - Rehabilitation Potential Physical Therapy Diagnosis: Patient presents with hypomobility- she has decreased LE and core strength/stabilization, proprioception, flex and muscular endurance leading abnormal gait and increased pain with ADL's. Rehabilitation Potential: Good - Anticipated Interventions Patient/Client Instruction: Educate patient on: Benefits of Fitness Program Therapeutic Exercise to Include: Strength training, Endurance training, Balance training, Coordination, Agility training, Body mechanics, Postural training, Flexibilty training, Gait and locomotor training, Neuromotor development, Dynamic Lumbar Stabilization, Scapular Strength/Stabilization For the Purpose of:: To improve muscle performance and motor function TENS: Yes Cryotherapy (ice pack, ice massage): Yes Thermo therapy (hot pack): Yes Ultrasound (thermal/non thermal): Yes Thank you for the opportunity to evaluate your patient. For Medicare and Medicare HMO plans, please review the plan of care and approve it. It will need to be FAXED BACK to us at [phone] for Medicare purposes. For Medicare only, by signing this I certify the plan of care. Please let me know if there are questions or concerns regarding this plan of care. Physician Signatur e: Date:
== END 2022-03-26 19:00 | disposition home or self-care (01) ==
LOC: PT 13:30
PROVIDERS: PCP Internal Medicine; Referring Provider Podiatrist; Visit Provider Podiatrist
DX: M72.2 Plantar fascial fibromatosis (principal); M77.32 Calcaneal spur, left foot
CPT/HCPCS: 97035; 97110; 97140; 97162

== ENCOUNTER → 2022-09-28 | Outpatient (CLI) | payer MEDICARE, MEDICAID, SELFPAY ==
[2022-09-28 10:05] LABS: Absolute Lymphocyte Count 1.93 X10^3/uL (0.83-4.51); Absolute Neutrophil Count 6.3 X10^3/uL (2.0-7.7); Basophil# 0.03 X10^3/uL; Basophil% 0.3 % (0-1); Eosinophil# 0.09 X10^3/uL; Hematocrit 39.2 % (37-47); Hemoglobin 12.9 g/dL (12.0-15.0); Lymphocyte # 1.93 X10^3/ul (0.83-4.51); Lymphocyte % 21.3 % (19-41); Mean Corp Hgb Conc 32.9 g/dL (32-36); Mean Corpuscular Hgb 30.6 pg (27.0-32.0); Mean Corpuscular Volume 93.1 fL (81-99); Mean Platelet Vol. 9.3 fl (6.2-12.0); Monocyte# 0.62 X10^3/uL; Monocyte% 6.9 % (0-10); NRBC Flagged by Analyzer 0 % (0-5); Neutrophil # 6.26 X10^3/uL (2.7-7.7); Neutrophil % 69.3 % (47-70); Platelet Count 232 K/mm3 (150-450); RBC Distribution Width CV 14.1 % (11.6-14.6); RBC Distribution Width SD 47.9 fl (35.1-43.9); Red Blood Count 4.21 M/mm3 (4.2-5.4)
[2022-09-28 10:15] LABS: Vitamin D,25 Hydroxy 29.9 ng/mL
[2022-09-28 10:57] LABS: ALB/GLOB Ratio 0.9 RATIO (0.9-2.4); AST(SGOT) 23 U/L (15-37); Alanine Aminotransfer ALT/SGPT 26 U/L (13-56); Albumin, Serum 3.4 g/dL (3.2-5.0); Alkaline Phosphatase 141 U/L (45-117); Anion Gap 8 (5-15); BUN 15 mg/dL (7-18); BUN/Creat Ratio 21.5 RATIO (10-20); Calcium,Total 8.8 mg/dL (8.5-10.1); Chloride 101 mmol/L (98-107); Cholesterol 163 mg/dL (200); EST Glomerular Filtration Rate 95 mL/min (>60); Est Glom Filt Rate - Afr Amer 115 mL/min (>60); Globulin 3.7 g/dL (2.2-4.2); Glucose 211 mg/dL (74-106); High Density Lipoprotein 37 mg/dL; Potassium 4.1 mmol/L (3.5-5.1); Protein, Total 7.1 g/dL (6.4-8.2); Sodium Level 137 mmol/L (136-145); Thyroid Stim Hormone (TSH) 2.72 uIU/mL (0.358-3.74); Triglycerides 175 mg/dL; Very Low Density Lipoprotein 35 mg/dL (5-40)
[2022-10-01 15:08] LABS: Alkaline Phosphatase, Serum 141 IU/L (44-121); Bone Fraction 19 % (14-68); Liver Fraction 51 % (18-85)
[2022-10-01 15:47] LABS: Intestinal Fraction 30 % (0-18)
== END | disposition home or self-care (01) ==
LOC: MTLAB 07:48
PROVIDERS: PCP Internal Medicine; Referring Provider Internal Medicine; Visit Provider Internal Medicine
DX: R74.8 Abnormal levels of other serum enzymes (principal); F20.9 Schizophrenia, unspecified; E66.01 Morbid (severe) obesity due to excess calories; Z68.42 Body mass index [BMI] 45.0-49.9, adult; E11.9 Type 2 diabetes mellitus without complications; E55.9 Vitamin D deficiency, unspecified; K21.9 Gastro-esophageal reflux disease without esophagitis; K04.7 Periapical abscess without sinus; J45.909 Unspecified asthma, uncomplicated
CPT/HCPCS: 36415; 80053; 80061; 82306; 84075; 84080; 84443; 85025

== ENCOUNTER 2022-10-08 17:53 | Emergency (ER) | payer MEDICARE, MEDICAID, SELFPAY ==
[2022-10-08 17:57] VITALS: BP 153/132; PULSE 97; RESP 18; TEMP 35.9; O2SAT 96; BMI 45.5
--- NOTE | 2022-10-08 18:13 | EDS_ITS ---
HPI History of Present Illness Chief Complaint: Laceration Informant: patient Onset/Context/Timing Onset: Today Narrative Narrative: Patient presents with a laceration to the right index finger. She states she was opening some cans and was trying to pry when the lids off when her spoon slipped and she cut her right PIP index finger on the can lid. She is right- hand dominant. She is unsure of her last tetanus update. [facility] Medical History Abnormal bruising Anxiety disorder Asthma Back problem Breast lump Chest pain Chronic headaches Diabetes type 2, controlled Diarrhea Fatigue GERD (gastroesophageal reflux disease) Hypoglycemia IBS (irritable bowel syndrome) Restless leg Schizoaffective disorder Seasonal allergies Seizure disorder Shoulder pain SOB (shortness of breath) Stomach ulcer Home Medications mirtazapine 15 mg tablet 45 mg PO QHS depression 08/04/18 [History Last Taken Unknown] prazosin 5 mg capsule 1 cap PO DAILY 04/30/20 [History Last Taken Unknown] blood sugar diagnostic (OneTouch Verio test strips) #100 ea 01/19/21 [Rx Last Taken Unknown] lancets 32 gauge (Easy Touch Safety Lancets) #100 ea 01/20/21 [Rx Last Taken Unknown] levonorgestrel 20 mcg/24 hours (8 yrs) 52 mg intrauterine device (Mirena) 1 device intrauterine ONCE 01/27/21 [History Last Taken Unknown] sertraline 100 mg tablet 200 mg PO DAILY 11/10/21 [History Last Taken Unknown] simvastatin 20 mg tablet 20 mg PO DAILY #90 tabs 01/25/22 [Rx Last Taken Unknown] blood sugar diagnostic (OneTouch Verio test strips) #100 ea 02/02/22 [Rx Last Taken Unknown] insulin glargine 100 unit/mL (3 mL) subcutaneous pen (Lantus Solostar U-100 In sulin) 15 unit (0.15 mL) subcut QAM #15 mL 02/02/22 [Rx Last Taken Unknown] pen needle, diabetic 31 gauge x 5/16 (Sure-Fine Pen [place]) #100 ea 02/02/22 [Rx Last Taken Unknown] cetirizine 10 mg tablet 10 mg PO DAILY #90 tabs 04/05/22 [Rx Last Taken Unknown] cholecalciferol (vitamin D3) 50 mcg (2,000 unit) capsule 2,000 unit PO DAILY #90 caps 04/05/22 [Rx Last Taken Unknown] pantoprazole 40 mg tablet,delayed release 40 mg PO DAILY #90 tabs 04/05/22 [Rx Last Taken Unknown] enalapril maleate 2.5 mg tablet See Rx Instructions .Route .COMPLEX #90 tabs 07/26/22 [Rx Last Taken Unknown] ibuprofen 200 mg tablet 600 mg PO Q6H PRN Pain 08/02/22 [History Last Taken Unknown] dulaglutide 3 mg/0.5 mL subcutaneous pen injector 3 mg (0.5 mL) subcut QWEEK #2 mL 10/04/22 [Rx Last Taken Unknown] Allergy/AdvReac Type Severity Reaction Status Date / Time lithium Allergy Mild other Verified 10/08/22 17:55 zolpidem [From Ambien] Allergy Mild other Verified 10/08/22 17:55 acetaminophen [From Tylenol] Allergy Anaphylaxis Verified 10/08/22 17:55 aspirin Allergy Anaphylaxis Verified 10/08/22 17:55 benztropine mesylate Allergy Other Verified 10/08/22 17:55 [From Cogentin] carbamazepine [From Tegretol] Allergy Rash Verified 10/08/22 17:55 Penicillins Allergy Anaphylaxis Verified 10/08/22 17:55 sulfamethoxazole Allergy Anaphylaxis Verified 10/08/22 17:55 [From Septra] trimethoprim [From Septra] Allergy Anaphylaxis Verified 10/08/22 17:55 bacitracin AdvReac Swelling Verified 10/08/22 17:55 [From Neosporin ([id number])] metformin AdvReac Diarrhea Verified 10/08/22 17:55 neomycin AdvReac Swelling Verified 10/08/22 17:55 [From Neosporin ([id number]-aia-iepti)] polymyxin B AdvReac Swelling Verified 10/08/22 17:55 [From Neosporin (miv-nij-derpq)] trazodone AdvReac Vomiting Verified 10/08/22 17:55 Family History Other Cancer Diabetes Heart disease Parkinson disease Social History Smoking Status: Never smoker second hand exposure: No alcohol intake: never substance use type: does not use what type of physical activity do you participate in: walking frequency: daily seatbelt use: always do you feel safe at home: Yes additional social history: unemployed- single ROS ROS ED Constitutional Constitutional ED: Denies chills or fever(s) Eyes Eyes: Denies change in vision or discharge from eye(s) ENT ENT ED: Denies discharge from eye(s), rhinorrhea or sore throat Cardiovascular Cardiovascular: Denies chest pain or palpitations Respiratory/Chest Respiratory/Chest: Denies cough or dyspnea Gastrointestinal Gastrointestinal: Denies abdominal pain, nausea or vomiting Genitourinary Genitourinary ED: Denies dysuria Musculoskeletal Musculoskeletal: Reports extremity pain; Denies back pain Integumentary Reports other Details: Right index finger laceration ; Denies Abrasions or rash Neurologic Neurologic: Denies headache(s) or weakness Psychiatric Psychiatric: Denies anxiety or depression Allergic/Immunologic Allergic/Immunologic ED: Denies lip swelling or urticaria EXAM Physical Exam Const Vital Signs: 10/08/22 17:57 Temperature 96.6 F L Temperature Source Temporal Pulse Rate 97 Respiratory Rate 18 Blood Pressure 153/132 H Blood Pressure Mean 139 Pulse Ox 96 Oxygen Delivery Method Room Air Positive well nourished and well developed General Appearance ED: well developed HEENT Reports normocephalic and head/scalp atraumatic Eyes PERRL and EOMs intact bilaterally Neck supple Chest Wall inspection of chest normal and palpation of chest normal Resp normal respiratory effort and clear to auscultation bilaterally Cardio regular rate and regular rhythm GI normal to inspection, nondistended, normoactive bowel sounds Palpation: soft Extremity Extremity Narrative: 1/2 cm superficial laceration along the extensor surface of the right index finger at the PIP joint. Minimal bleeding noted. Full range of motion of the digit without difficulty. Normal sensation and cap refill distally. Neuro oriented x3 and no sensory deficits noted Sensorium / Orientation: alert Motor Exam: strength 5/5 throughout Psych mental status grossly normal MDM MDM MDM Narrative Medical decision making narrative: Index finger laceration is cleansed and sealed with Dermabond. Gauze wrap is applied. Tetanus update given. Wound instructions given. Discharge Plan Triage Chief Complaint: Laceration ED Provider: Viridiana Stark Dx/Rx/DC Orders Clinical Impression: Finger laceration Instructions: ED Laceration, Extremity: Skin Glue Prescriptions: No Action prazosin 5 mg capsule 1 cap PO DAILY sertraline 100 mg tablet 200 mg PO DAILY levonorgestrel 20 mcg/24 hours (6 yrs) 52 mg intrauterine device 20 mcg/24 hours (6 yrs) 52 mg intrauterine device 1 device INTRA-UTER ONCE Rx Instructions: as a single dose Lantus Solostar U-100 Insulin 100 unit/mL (3 mL) insulin pen 15 unit subcut QAM Qty: 15 3RF (DME) pen needle, diabetic [Sure-Fine Pen [place]] 31 gauge x 5/16 needle See Rx Instructions .ROUTE .MEDSUPPLY Qty: 100 3RF Rx Instructions: As directed (DME) OneTouch Verio test strips Strip See Rx Instructions .ROUTE .MEDSUPPLY Qty: 100 3RF Rx Instructions: As directed ibuprofen 200 mg tablet 600 mg PO Q6H PRN (Reason: Pain) mirtazapine 15 mg tablet 45 mg PO QHS (DME) OneTouch Verio test strips Strip See Rx Instructions .ROUTE .MEDSUPPLY Qty: 100 1RF Rx Instructions: BID, As directed (DME) Easy Touch Safety Lancets 32 gauge misc See Rx Instructions .ROUTE .MEDSUPPLY Qty: 100 3RF Rx Instructions: BID, As directed simvastatin 20 mg tablet 20 mg PO DAILY Qty: 90 3RF cetirizine 10 mg tablet 10 mg PO DAILY Qty: 90 3RF cholecalciferol (vitamin D3) 50 mcg (2,000 unit) capsule 2,000 unit PO DAILY Qty: 90 3RF pantoprazole 40 mg tablet,delayed release (DR/EC) 40 mg PO DAILY Qty: 90 3RF enalapril maleate 2.5 mg tablet See Rx Instructions .ROUTE .COMPLEX Qty: 90 3RF Dose Instruction: TAKE 1 TABLET BY MOUTH DAILY Rx Instructions: TAKE 1 TABLET BY MOUTH DAILY dulaglutide 3 mg/0.5 mL pen injector 3 mg SC QWEEK Qty: 2 5RF Primary Care Provider: Janie Walters Referrals: Janie Walters MD [Primary Care Provider] - As Needed Disposition Disposition: Home, Self Care
[2022-10-08] MEDS: Diphth,Pertuss(Acell),Tet Vac 0.5 ML Vial IM (18:22)
== END 2022-10-08 18:23 | disposition home or self-care (01) ==
LOC: ED 18:18
PROVIDERS: Emergency Provider Emergency Medicine; PCP Internal Medicine; Visit Provider Emergency Medicine
DX: S61.210A Laceration without foreign body of right index finger without damage to nail, initial encounter (principal); E11.9 Type 2 diabetes mellitus without complications; Z79.4 Long term (current) use of insulin; Z79.899 Other long term (current) drug therapy; X58.XXXA Exposure to other specified factors, initial encounter
CPT/HCPCS: 12001; 99284

== ENCOUNTER 2023-04-29 02:53 | Emergency (ER) | payer MEDICARE, MEDICAID, SELFPAY ==
[2023-04-29 02:54] VITALS: BP 151/82; PULSE 97; RESP 20; TEMP 37; O2SAT 93; BMI 45.1
--- NOTE | 2023-04-29 03:03 | EKG12_ITS ---
Test Reason : CP Blood Pressure : / mmHG Vent. Rate : 086 BPM Atrial Rate : 086 BPM P-R Int : 162 ms QRS Dur : 084 ms QT Int : 366 ms P-R-T Axes : 044 024 039 degrees QTc Int : 437 ms Normal sinus rhythm Normal ECG Confirmed by SKYE COHEN, DIVINA ([id number]), newspaper or periodical editor HALLE MCGOVERN ([id number]) on 04/29/2023 12:59:08 PM Referred By: DEZ Confirmed By:DIVINA CHEUNG MD
[2023-04-29 03:17] LABS: Absolute Lymphocyte Count 2.55 X10^3/uL (0.83-4.51); Absolute Neutrophil Count 6.7 X10^3/uL (2.0-7.7); Basophil# 0.03 X10^3/uL; Basophil% 0.3 % (0-1); Eosinophil# 0.11 X10^3/uL; Eosinophils% 1.1 % (0-5); Hematocrit 42.2 % (37-47); Lymphocyte # 2.55 X10^3/ul (0.83-4.51); Lymphocyte % 24.6 % (19-41); Mean Corp Hgb Conc 33.2 g/dL (32-36); Mean Corpuscular Hgb 30.4 pg (27.0-32.0); Mean Corpuscular Volume 91.5 fL (81-99); Mean Platelet Vol. 9.1 fl (6.2-12.0); Monocyte# 0.83 X10^3/uL; NRBC Flagged by Analyzer 0 % (0-5); Neutrophil # 6.72 X10^3/uL (2.7-7.7); Neutrophil % 64.9 % (47-70); Platelet Count 236 K/mm3 (150-450); RBC Distribution Width CV 13.2 % (11.6-14.6); RBC Distribution Width SD 44.5 fl (35.1-43.9); Red Blood Count 4.61 M/mm3 (4.2-5.4); White Blood Count 10.4 K/mm3 (4.4-11.0)
[2023-04-29] MEDS: 0.9% Normal Saline 1,000 ML 150 ML IV (03:19)
--- NOTE | 2023-04-29 03:24 | ED.VIS.CHEST ---
HPI History of Present Illness Chief Complaint: Chest Pain Informant: patient Onset/Context/Timing Onset: Weeks Timing: Intermittent Current Severity: Mild Maximum Severity: Moderate Narrative Narrative: Patient presents secondary to chest pain. She states is been having intermittent chest pain for the past 3 weeks or so. She is scheduled to see her doctor next week. She states that this evening she developed sharp pain behind her left eye and a headache. When she tried to lay down to rest her chest pain worsened. She denies significant shortness of breath. She has not noted fever or chills. She did feel somewhat dizzy this evening. [facility] Medical History Abnormal bruising Anxiety disorder Asthma Back problem Breast lump Chest pain Chronic headaches Diabetes type 2, controlled Diarrhea Fatigue GERD (gastroesophageal reflux disease) Hypoglycemia IBS (irritable bowel syndrome) Restless leg Schizoaffective disorder Seasonal allergies Seizure disorder Shoulder pain SOB (shortness of breath) Stomach ulcer Home Medications mirtazapine 15 mg tablet 45 mg PO QHS depression 08/04/18 [History Last Taken Unknown] lancets 32 gauge (Easy Touch Safety Lancets) #100 ea 01/20/21 [Rx Last Taken Unknown] levonorgestrel 21 mcg/24 hours (8 yrs) 52 mg intrauterine device (Mirena) 1 device intrauterine ONCE 01/27/21 [History Last Taken Unknown] blood sugar diagnostic (OneTouch Verio test strips) #100 ea 02/02/22 [Rx Last Taken Unknown] ibuprofen 200 mg tablet 600 mg PO Q6H PRN Pain 08/02/22 [History Last Taken Unknown] dulaglutide 3 mg/0.5 mL subcutaneous pen injector 3 mg (0.5 mL) subcut QWEEK #2 mL 10/04/22 [Rx Last Taken Unknown] insulin glargine 100 unit/mL (3 mL) subcutaneous pen (Lantus Solostar U-100 Insulin) 15 unit (0.15 mL) subcut QAM #15 mL 11/25/22 [Rx Last Taken Unknown] pen needle, diabetic 31 gauge x 5/16 (Sure-Fine Pen [place]) #100 ea 12/13/22 [Rx Last Taken Unknown] cyclobenzaprine 10 mg tablet 10 mg PO TID PRN muscle spasm #60 tabs 02/10/23 [Rx Last Taken Unknown] enalapril maleate 5 mg tablet 5 mg PO DAILY #90 tabs 02/10/23 [Rx Last Taken Unknown] cetirizine 10 mg tablet 10 mg PO DAILY #90 tabs 03/09/23 [Rx Last Taken Unknown] cholecalciferol (vitamin D3) 50 mcg (2,000 unit) capsule 2,000 unit PO DAILY #90 caps 03/09/23 [Rx Last Taken Unknown] pantoprazole 40 mg tablet,delayed release 40 mg PO DAILY #90 tabs 03/09/23 [Rx Last Taken Unknown] sertraline 100 mg tablet 100 mg PO DAILY 03/10/23 [History Last Taken Unknown] dulaglutide 3 mg/0.5 mL subcutaneous pen injector (Trulicity) 3 mg subcut QWEEK 04/29/23 [History Last Taken Unknown] Allergy/AdvReac Type Severity Reaction Status Date / Time lithium Allergy Mild other Verified 04/29/23 02:58 zolpidem [From Ambien] Allergy Mild other Verified 04/29/23 02:58 acetaminophen [From Tylenol] Allergy Anaphylaxis Verified 04/29/23 02:58 aspirin Allergy Anaphylaxis Verified 04/29/23 02:58 benztropine mesylate Allergy Other Verified 04/29/23 02:58 [From Cogentin] carbamazepine [From Tegretol] Allergy Rash Verified 04/29/23 02:58 Penicillins Allergy Anaphylaxis Verified 04/29/23 02:58 sulfamethoxazole Allergy Anaphylaxis Verified 04/29/23 02:58 [From Septra] trimethoprim [From Septra] Allergy Anaphylaxis Verified 04/29/23 02:58 bacitracin AdvReac Swelling Verified 04/29/23 02:58 [From Neosporin ([id number])] metformin AdvReac Diarrhea Verified 04/29/23 02:58 neomycin AdvReac Swelling Verified 04/29/23 02:58 [From Neosporin ([id number])] polymyxin B AdvReac Swelling Verified 04/29/23 02:58 [From Neosporin ([id number])] trazodone AdvReac Vomiting Verified 04/29/23 02:58 Family History Other Cancer Diabetes Heart disease Parkinson disease Social History Smoking Status: Never smoker second hand exposure: No alcohol intake: never substance use type: does not use what type of physical activity do you participate in: walking frequency: daily seatbelt use: always do you feel safe at home: Yes additional social history: unemployed- single ROS ROS ED Constitutional Constitutional ED: Denies chills or fever(s) Eyes Eyes: Denies change in vision or discharge from eye(s) ENT ENT ED: Denies discharge from eye(s), rhinorrhea or sore throat Cardiovascular Cardiovascular: Reports chest pain; Denies palpitations Respiratory/Chest Respiratory/Chest: Denies cough or dyspnea Gastrointestinal Gastrointestinal: Denies abdominal pain, nausea or vomiting Genitourinary Genitourinary ED: Denies dysuria Musculoskeletal Musculoskeletal: Denies back pain or extremity pain Integumentary Denies Abrasions or rash Neurologic Neurologic: Reports headache(s); Denies weakness Psychiatric Psychiatric: Denies anxiety or depression Allergic/Immunologic Allergic/Immunologic ED: Denies lip swelling or urticaria EXAM Physical Exam Const Vital Signs: 04/29/23 02:54 Temperature 98.6 F Temperature Source Oral Pulse Rate 97 Respiratory Rate 20 H Blood Pressure 151/82 H Blood Pressure Mean 105 Pulse Ox 93 Oxygen Delivery Method Room Air Positive well nourished and well developed General Appearance ED: well developed HEENT Reports normocephalic and head/scalp atraumatic Eyes PERRL and EOMs intact bilaterally Neck supple Chest Wall inspection of chest normal and palpation of chest normal Resp normal respiratory effort and clear to auscultation bilaterally Cardio regular rate and regular rhythm GI normal to inspection, nondistended, normoactive bowel sounds Palpation: soft Extremity normal to inspection Neuro oriented x3 and no sensory deficits noted Sensorium / Orientation: alert Motor Exam: strength 5/5 throughout Psych mental status grossly normal Skin no rashes or lesions noted Heart Score History: Slightly/Non-Suspicious ECG: Normal Age: >45 - <65 years Risk Factors: 1 or 2 Risk Factors Troponin: </= Normal Limit Score: 2 MDM MDM MDM Narrative Medical decision making narrative: Placed on cardiac catheterization technician. EKG obtained to evaluate for cardiac arrhythmia/ischemia. Labwork obtained to evaluate for leukocytosis, anemia, and electrolyte derangement. Chest x-ray obtained to evaluate for acute lung pathology, cardiac size, or mediastinal abnormality. Lab Data Attestation: I reviewed the patient's lab results. Labs: Laboratory Results - last 24 hr 04/29/23 03:12 WBC 10.4 RBC 4.61 Hgb 14.0 Hct 42.2 MCV 91.5 MCH 30.4 MCHC 33.2 RDW Std Deviation 44.5 H RDW Coeff of Ida 13.2 Plt Count 236 MPV 9.1 Immature Gran % (Auto) 1.100 H Neut % (Auto) 64.9 Lymph % (Auto) 24.6 [place] % (Auto) 8.0 Eos % (Auto) 1.1 Baso % (Auto) 0.3 Absolute Neuts (auto) 6.7 Absolute Lymphs (auto) 2.55 Nucleated RBC % 0 Sodium 134 L Potassium 3.7 Chloride 98 Carbon Dioxide 32.0 Anion Gap 4 L BUN 13 Creatinine 0.99 Estim Creat Clear Calc 60.01 Est GFR (MDRD) Af Amer 77 Est GFR (MDRD) Non-Af 64 BUN/Creatinine Ratio 13.2 Glucose 248 H Calcium 9.1 Troponin I High Sens 4 Radiography Chest X-Ray - ED: 1 View, Read by ED Physician, Normal, Heart, Lungs and Mediastinum Diagnostic Testing: Clinical Impression(s) from Imaging Studies Chest X-Ray 04/29/23 03:30 IMPRESSION: No radiographic evidence of acute cardiopulmonary disease. Electronically Signed: Kevin Harrison MD at 3:42 EDT , EKG Initial EKG: Attestation: I personally reviewed and interpreted this EKG as follows: Interpretation: Sinus Rhythm (Sinus 86 with no acute ischemia.) Treatment and Re-Evaluation :: CBC reveals normal white count at 10.4 with a hemoglobin of 14.0. Normal differential. Reveal slightly low sodium at 134. Potassium is normal at 3.7. Renal function is normal. Glucose is 248. Troponin is normal at 4. Portable chest x-ray per my interpretation reveals normal lungs, heart, mediastinum. Radiology interpretation is reviewed and agrees. EKG reveals no evidence of ischemia. Patient was given a dose of Toradol for her headache and chest pain. She does have multiple drug allergies. At this time she is resting comfortably. She still reports slight shortness of breath with exertion. She has no pleuritic pain, is not tachycardic, and is not hypoxic. At this time her O2 sat is 98% on room air. I do not believe she has a pulmonary embolism. Patient be discharged home with return instructions. Advised to follow-up with her primary care physician. Discharge Plan Triage Chief Complaint: Chest Pain ED Provider: Viridiana Stark Dx/Rx/DC Orders Clinical Impression: Headache, Chest pain Instructions: Self-Care for Headaches, ED Chest Pain, Uncertain Cause Prescriptions: No Action sertraline 100 mg tablet 100 mg PO DAILY Hold Instructions: MD Ordered levonorgestrel 20 mcg/24 hours (6 yrs) 52 mg intrauterine device 20 mcg/24 hours (6 yrs) 52 mg intrauterine device 1 device INTRA-UTER ONCE Rx Instructions: as a single dose (DME) OneTouch Verio test strips Strip See Rx Instructions .ROUTE .MEDSUPPLY Qty: 100 3RF Rx Instructions: As directed ibuprofen 200 mg tablet 600 mg PO Q6H PRN (Reason: Pain) Hold Instructions: MD Ordered cyclobenzaprine 10 mg tablet 10 mg PO TID PRN (Reason: muscle spasm) Qty: 60 1RF Hold Instructions: MD Ordered enalapril maleate 5 mg tablet 5 mg PO DAILY Qty: 90 3RF mirtazapine 15 mg tablet 45 mg PO QHS Hold Instructions: MD Ordered Trulicity 3 mg/0.5 mL pen injector 3 mg subcut QWEEK (DME) Easy Touch Safety Lancets 32 gauge misc See Rx Instructions .ROUTE .MEDSUPPLY Qty: 100 3RF Rx Instructions: BID, As directed dulaglutide 3 mg/0.5 mL pen injector 3 mg SC QWEEK Qty: 2 5RF Lantus Solostar U-100 Insulin 100 unit/mL (3 mL) insulin pen 15 unit subcut QAM Qty: 15 3RF (DME) pen needle, diabetic [Sure-Fine Pen [place]] 31 gauge x 5/16 needle See Rx Instructions .ROUTE .MEDSUPPLY Qty: 100 3RF Rx Instructions: As directed cetirizine 10 mg tablet 10 mg PO DAILY Qty: 90 3RF cholecalciferol (vitamin D3) 50 mcg (2,000 unit) capsule 2,000 unit PO DAILY Qty: 90 3RF pantoprazole 40 mg tablet,delayed release (DR/EC) 40 mg PO DAILY Qty: 90 3RF Primary Care Provider: Janie Walters Referrals: Janie Walters MD [Primary Care Provider] - [facility] appointment Disposition Disposition: Home, Self Care
--- NOTE | 2023-04-29 03:30 | RAD_ITS ---
EXAM: XR CHEST, 1 VIEW CLINICAL INDICATION: cp TECHNIQUE: Frontal view of the chest. COMPARISON: 11/11/2017. FINDINGS: LUNGS AND PLEURAL SPACES: Unremarkable. No consolidation or edema. No pneumothorax. No effusion. HEART: Unremarkable. Cardiac silhouette not enlarged. MEDIASTINUM: Central airways and mediastinal contour are unremarkable. BONES/JOINTS: Unremarkable. SOFT TISSUES: Unremarkable. RAD/Chest 1 View (Portable) IMPRESSION: No radiographic evidence of acute cardiopulmonary disease. Electronically Signed: Kevin Harrison MD at 3:42 EDT ,
[2023-04-29 03:45] LABS: Anion Gap 4 (5-15); BUN 13 mg/dL (7-18); BUN/Creat Ratio 13.2 RATIO (10-20); Calcium,Total 9.1 mg/dL (8.5-10.1); Chloride 98 mmol/L (98-107); Creatinine, Serum 0.99 mg/dL (0.55-1.02); EST Glomerular Filtration Rate 64 mL/min (>60); Est Glom Filt Rate - Afr Amer 77 mL/min (>60); Estimated Creatinine Clearance 60.01 ml/min; Glucose 248 mg/dL (74-106); Potassium 3.7 mmol/L (3.5-5.1); Sodium Level 134 mmol/L (136-145); Troponin-I HS (w/2H Reflex) 4 pg/mL (3.0-54.0)
[2023-04-29] MEDS: Ketorolac 30 MG/ML Syringe IV (03:51)
[2023-04-29 05:14] VITALS: BP 153/85; PULSE 78; RESP 18; O2SAT 95
[2023-04-29 05:16] LABS: Reflex Troponin-HS? (from REC) Y
== END 2023-04-29 05:18 | disposition home or self-care (01) ==
PROVIDERS: Emergency Provider Emergency Medicine; PCP Internal Medicine; Visit Provider Emergency Medicine
DX: R51.9 Headache, unspecified (principal); E11.9 Type 2 diabetes mellitus without complications; Z79.4 Long term (current) use of insulin; R07.9 Chest pain, unspecified; K21.9 Gastro-esophageal reflux disease without esophagitis; Z79.899 Other long term (current) drug therapy
CPT/HCPCS: 71045; 80048; 84484; 85025; 93005; 96374; 99283; J7030; A4216

== ENCOUNTER 2023-06-05 23:57 | Emergency (ER) | payer MEDICARE, MEDICAID, SELFPAY ==
[2023-06-05 23:58] VITALS: BP 131/90; PULSE 100; RESP 18; TEMP 36.7; O2SAT 98; BMI 44.4
--- NOTE | 2023-06-06 00:12 | EX.ED.DYSGE1 ---
HPI History of Present Illness Chief Complaint: Rash Informant: patient Onset/Context/Timing Onset: Days (10 days) Context: Gradual Onset Current Severity: Moderate Maximum Severity: Moderate Narrative Narrative: Patient presents with diffuse patchy rash over her trunk and extremities over the past 10 days. [facility] . It was recommended she take Benadryl and Pepcid. She is been taking this 2 or 3 times a day without significant improvement in her symptoms. She does report some erythema in the genital area. She has tried using Vagisil [id number] without improvement. She started Farxiga about a month ago, but denies any other new medications. No new soaps or detergents. No new foods. [facility] Medical History Abnormal bruising Anxiety disorder Asthma Back problem Breast lump Chest pain Chronic headaches Diabetes type 2, controlled Diarrhea Fatigue GERD (gastroesophageal reflux disease) Hypoglycemia IBS (irritable bowel syndrome) Pruritic dermatitis Restless leg Schizoaffective disorder Seasonal allergies Seizure disorder Shoulder pain SOB (shortness of breath) Stomach ulcer Home Medications lancets 32 gauge (Easy Touch Safety Lancets) #100 ea 01/20/21 [Rx Last Taken Unknown] levonorgestrel 21 mcg/24 hours (8 yrs) 52 mg intrauterine device (Mirena) 1 device intrauterine ONCE 01/27/21 [History Last Taken Unknown] blood sugar diagnostic (OneTouch Verio test strips) #100 ea 02/02/22 [Rx Last Taken Unknown] ibuprofen 200 mg tablet 600 mg PO Q6H PRN Pain 08/02/22 [History Last Taken Unknown] pen needle, diabetic 31 gauge x 5/16 (Sure-Fine Pen [place]) #100 ea 12/13/22 [Rx Last Taken Unknown] cyclobenzaprine 10 mg tablet 10 mg PO TID PRN muscle spasm #60 tabs 02/10/23 [Rx Last Taken Unknown] enalapril maleate 5 mg tablet 5 mg PO DAILY #90 tabs 02/10/23 [Rx Last Taken Unknown] cetirizine 10 mg tablet 10 mg PO DAILY #90 tabs 03/09/23 [Rx Last Taken Unknown] cholecalciferol (vitamin D3) 50 mcg (2,000 unit) capsule 2,000 unit PO DAILY #90 caps 03/09/23 [Rx Last Taken Unknown] pantoprazole 40 mg tablet,delayed release 40 mg PO DAILY #90 tabs 03/09/23 [Rx Last Taken Unknown] dulaglutide 3 mg/0.5 mL subcutaneous pen injector (Trulicity) 3 mg (0.5 mL) subcut QWEEK #6 mL 04/29/23 [Rx Last Taken Unknown] dapagliflozin propanediol 10 mg tablet (Farxiga) 10 mg PO DAILY #90 tabs 05/12/23 [Rx Last Taken Unknown] prednisone 20 mg tablet 40 mg (2 x 20 mg) PO DAILY #8 tabs 06/06/23 [Rx Last Taken Unknown] Allergy/AdvReac Type Severity Reaction Status Date / Time lithium Allergy Mild other Verified 06/06/23 00:01 zolpidem [From Ambien] Allergy Mild other Verified 06/06/23 00:01 acetaminophen [From Tylenol] Allergy Anaphylaxis Verified 06/06/23 00:01 aspirin Allergy Anaphylaxis Verified 06/06/23 00:01 benztropine mesylate Allergy Other Verified 06/06/23 00:01 [From Cogentin] carbamazepine [From Tegretol] Allergy Rash Verified 06/06/23 00:01 Penicillins Allergy Anaphylaxis Verified 06/06/23 00:01 sulfamethoxazole Allergy Anaphylaxis Verified 06/06/23 00:01 [From Septra] trimethoprim [From Septra] Allergy Anaphylaxis Verified 06/06/23 00:01 bacitracin AdvReac Swelling Verified 06/06/23 00:01 [From Neosporin ([id number])] metformin AdvReac Diarrhea Verified 06/06/23 00:01 neomycin AdvReac Swelling Verified 06/06/23 00:01 [From Neosporin ([id number])] polymyxin B AdvReac Swelling Verified 06/06/23 00:01 [From Neosporin ([id number])] trazodone AdvReac Vomiting Verified 06/06/23 00:01 Family History Other Cancer Diabetes Heart disease Parkinson disease Social History Smoking Status: Never smoker second hand exposure: No alcohol intake: never substance use type: does not use what type of physical activity do you participate in: walking frequency: daily seatbelt use: always do you feel safe at home: Yes additional social history: unemployed- single ROS ROS ED Constitutional Constitutional ED: Denies chills or fever(s) Eyes Eyes: Denies change in vision ENT ENT ED: Denies rhinorrhea or sore throat Cardiovascular Cardiovascular: Denies chest pain or palpitations Respiratory/Chest Respiratory/Chest: Denies cough or dyspnea Gastrointestinal Gastrointestinal: Denies abdominal pain, diarrhea, nausea or vomiting Genitourinary Genitourinary ED: Denies dysuria Musculoskeletal Musculoskeletal: Denies back pain or extremity pain Integumentary Reports rash; Denies Abrasions Neurologic Neurologic: Denies headache(s) or weakness Psychiatric Psychiatric: Denies anxiety or depression Allergic/Immunologic Allergic/Immunologic ED: Denies lip swelling or urticaria EXAM Physical Exam Const Vital Signs: 06/05/23 23:58 06/06/23 00:15 Temperature 98.0 F Temperature Source Temporal Pulse Rate 100 100 Respiratory Rate 18 18 Blood Pressure 131/90 H 131/90 H Blood Pressure Mean 103 Pulse Ox 98 98 Oxygen Delivery Method Room Air Positive well nourished and well developed General Appearance ED: well developed HEENT Reports normocephalic and head/scalp atraumatic Eyes PERRL and EOMs intact bilaterally Neck supple Chest Wall inspection of chest normal and palpation of chest normal Resp normal respiratory effort and clear to auscultation bilaterally Cardio regular rate and regular rhythm GI normal to inspection, nondistended, normoactive bowel sounds Palpation: soft Back/Spine no CVA tenderness Extremity Extremity Narrative: Full range of motion of all extremities. Neuro oriented x3 and no sensory deficits noted Sensorium / Orientation: alert Motor Exam: strength 5/5 throughout Psych mental status grossly normal Skin Skin Narrative: Patchy areas of erythema noted on the right neck, upper chest, abdomen, left arm. No urticarial lesions are noted. examination feels mild erythema to the labia majora. No focal lesions or discharge. No erythematous lesions noted in the skin folds. MDM MDM MDM Narrative Medical decision making narrative: Patient has been using Benadryl and Pepcid without significant improvement in her symptoms. She will be given a one-time dose of Diflucan here as well as prednisone. I will write her for additional days of oral prednisone at home. She understands that her blood sugars will be elevated during this time, but will return to her baseline once the prednisone is completed and is out of her system. I advised her that if this does not prove her symptoms, she may need to consider stopping the Farxiga to ensure it is not a reaction to this medication. She will follow-up with her primary care physician. Return instructions given. Discharge Plan Triage Chief Complaint: Rash ED Provider: Viridiana Stark Dx/Rx/DC Orders Clinical Impression: Rash Instructions: ED General Allergic Reactions Prescriptions: New prednisone 20 mg tablet 40 mg PO DAILY Qty: 8 0RF No Action levonorgestrel 20 mcg/24 hours (6 yrs) 52 mg intrauterine device 20 mcg/24 hours (6 yrs) 52 mg intrauterine device 1 device INTRA-UTER ONCE Rx Instructions: as a single dose (DME) OneTouch Verio test strips Strip See Rx Instructions .ROUTE .MEDSUPPLY Qty: 100 3RF Rx Instructions: As directed ibuprofen 200 mg tablet 600 mg PO Q6H PRN (Reason: Pain) Hold Instructions: MD Ordered cyclobenzaprine 10 mg tablet 10 mg PO TID PRN (Reason: muscle spasm) Qty: 60 1RF Hold Instructions: MD Ordered enalapril maleate 5 mg tablet 5 mg PO DAILY Qty: 90 3RF Farxiga 10 mg tablet 10 mg PO DAILY Qty: 90 1RF (DME) Easy Touch Safety Lancets 32 gauge misc See Rx Instructions .ROUTE .MEDSUPPLY Qty: 100 3RF Rx Instructions: BID, As directed (DME) pen needle, diabetic [Sure-Fine Pen [place]] 31 gauge x 5/16 needle See Rx Instructions .ROUTE .MEDSUPPLY Qty: 100 3RF Rx Instructions: As directed cetirizine 10 mg tablet 10 mg PO DAILY Qty: 90 3RF cholecalciferol (vitamin D3) 50 mcg (2,000 unit) capsule 2,000 unit PO DAILY Qty: 90 3RF pantoprazole 40 mg tablet,delayed release (DR/EC) 40 mg PO DAILY Qty: 90 3RF Trulicity 3 mg/0.5 mL pen injector 3 mg subcut QWEEK Qty: 6 3RF Primary Care Provider: Janie Walters Referrals: Janie Walters MD [Primary Care Provider] - 1 Week Disposition Disposition: Home, Self Care Discharge Date/Time: 06/06/23 00:26
[2023-06-06 00:15] VITALS: BP 131/90; PULSE 100; RESP 18; O2SAT 98
[2023-06-06] MEDS: predniSONE 20 MG Tablet 60 MG PO (00:20)
[2023-06-06] MEDS: Fluconazole 100 MG Tablet 200 MG PO (00:21)
== END 2023-06-06 00:26 | disposition home or self-care (01) ==
LOC: ED 06-06 00:20
PROVIDERS: Emergency Provider Emergency Medicine; PCP Internal Medicine; Visit Provider Emergency Medicine
DX: R21 Rash and other nonspecific skin eruption (principal)
CPT/HCPCS: 99283

== ENCOUNTER → 2023-08-30 | Outpatient (CLI) | payer MEDICARE, MEDICAID, SELFPAY ==
[2023-08-30 12:45] LABS: Absolute Lymphocyte Count 1.81 X10^3/uL (0.83-4.51); Absolute Neutrophil Count 5.4 X10^3/uL (2.0-7.7); Basophil# 0.04 X10^3/uL; Basophil% 0.5 % (0-1); Eosinophil# 0.11 X10^3/uL; Eosinophils% 1.4 % (0-5); Hematocrit 44.8 % (37-47); Hemoglobin 14.3 g/dL (12.0-15.0); Lymphocyte # 1.81 X10^3/ul (0.83-4.51); Lymphocyte % 22.4 % (19-41); Mean Corp Hgb Conc 31.9 g/dL (32-36); Mean Corpuscular Hgb 29.4 pg (27.0-32.0); Mean Platelet Vol. 9.6 fl (6.2-12.0); Monocyte% 7.4 % (0-10); NRBC Flagged by Analyzer 0 % (0-5); Neutrophil # 5.41 X10^3/uL (2.7-7.7); Neutrophil % 67.1 % (47-70); Platelet Count 253 K/mm3 (150-450); RBC Distribution Width SD 47.1 fl (35.1-43.9); Red Blood Count 4.87 M/mm3 (4.2-5.4); White Blood Count 8.1 K/mm3 (4.4-11.0)
[2023-08-30 13:30] LABS: ALB/GLOB Ratio 0.8 RATIO (0.9-2.4); AST(SGOT) 29 U/L (15-37); Alanine Aminotransfer ALT/SGPT 29 U/L (13-56); Albumin, Serum 3.5 g/dL (3.2-5.0); Alkaline Phosphatase 146 U/L (45-117); Anion Gap 6 (5-15); BUN 16 mg/dL (7-18); BUN/Creat Ratio 21.2 RATIO (10-20); Calcium,Total 8.8 mg/dL (8.5-10.1); Chloride 99 mmol/L (98-107); Cholesterol 177 mg/dL (200); Creatinine, Serum 0.75 mg/dL (0.55-1.02); EST Glomerular Filtration Rate 87 mL/min (>60); Est Glom Filt Rate - Afr Amer 105 mL/min (>60); Globulin 4.4 g/dL (2.2-4.2); Glucose 169 mg/dL (74-106); High Density Lipoprotein 38 mg/dL; Potassium 3.8 mmol/L (3.5-5.1); Protein, Total 7.9 g/dL (6.4-8.2); Sodium Level 136 mmol/L (136-145); Thyroid Stim Hormone (TSH) 1.14 uIU/mL (0.358-3.74); Triglycerides 217 mg/dL; Very Low Density Lipoprotein 43 mg/dL (5-40)
[2023-08-30 13:36] LABS: Hemoglobin A1c 10.4 % (3.8-5.6)
== END | disposition home or self-care (01) ==
LOC: MTLAB 09:34
PROVIDERS: PCP Internal Medicine; Referring Provider Internal Medicine; Visit Provider Internal Medicine
DX: J45.909 Unspecified asthma, uncomplicated (principal); F20.9 Schizophrenia, unspecified; Z68.42 Body mass index [BMI] 45.0-49.9, adult; E66.01 Morbid (severe) obesity due to excess calories; E11.9 Type 2 diabetes mellitus without complications; F41.9 Anxiety disorder, unspecified
CPT/HCPCS: 80053; 80061; 83036; 84443; 85025

== ENCOUNTER → 2024-01-31 | Outpatient (CLI) | payer MEDICARE, MEDICAID, SELFPAY ==
[2024-01-31 09:26] LABS: Absolute Neutrophil Count 5.7 X10^3/uL (2.0-7.7); Basophil# 0.03 X10^3/uL; Basophil% 0.4 % (0-1); Eosinophil# 0.15 X10^3/uL; Eosinophils% 1.8 % (0-5); Hematocrit 43.8 % (37-47); Hemoglobin 14.3 g/dL (12.0-15.0); Lymphocyte % 19.2 % (19-41); Mean Corp Hgb Conc 32.6 g/dL (32-36); Mean Corpuscular Hgb 29.2 pg (27.0-32.0); Mean Corpuscular Volume 89.6 fL (81-99); Mean Platelet Vol. 9.2 fl (6.2-12.0); Monocyte# 0.71 X10^3/uL; Monocyte% 8.5 % (0-10); NRBC Flagged by Analyzer 0 % (0-5); Neutrophil # 5.72 X10^3/uL (2.7-7.7); Neutrophil % 68.8 % (47-70); Platelet Count 282 K/mm3 (150-450); RBC Distribution Width CV 14.4 % (11.6-14.6); RBC Distribution Width SD 47.3 fl (35.1-43.9); Red Blood Count 4.89 M/mm3 (4.2-5.4); White Blood Count 8.3 K/mm3 (4.4-11.0)
[2024-01-31 09:58] LABS: Hemoglobin A1c 9.4 % (3.8-5.6)
[2024-01-31 10:10] LABS: Vitamin B12 445 pg/mL (211-911); Vitamin D,25 Hydroxy 31.8 ng/mL
[2024-01-31 10:17] LABS: Microalbumin,Random Urine 98.3 mg/L (NO RANGE EST.)
[2024-01-31 10:22] LABS: ALB/GLOB Ratio 0.7 RATIO (0.9-2.4); AST(SGOT) 21 U/L (15-37); Alanine Aminotransfer ALT/SGPT 24 U/L (13-56); Albumin, Serum 3.4 g/dL (3.2-5.0); Alkaline Phosphatase 166 U/L (45-117); Anion Gap 5 (5-15); BUN 23 mg/dL (7-18); Calcium,Total 8.7 mg/dL (8.5-10.1); Chloride 102 mmol/L (98-107); Cholesterol 196 mg/dL (200); Creatinine, Serum 0.89 mg/dL (0.55-1.02); EST Glomerular Filtration Rate 72 mL/min (>60); Est Glom Filt Rate - Afr Amer 87 mL/min (>60); Free T3 2.6 pg/mL (2.18-3.98); Globulin 4.7 g/dL (2.2-4.2); Glucose 250 mg/dL (74-106); High Density Lipoprotein 32 mg/dL; Potassium 3.5 mmol/L (3.5-5.1); Protein, Total 8.1 g/dL (6.4-8.2); Sodium Level 136 mmol/L (136-145); T4 Free Direct 0.65 ng/dL (0.76-1.46); Thyroid Stim Hormone (TSH) 3.19 uIU/mL (0.358-3.74); Triglycerides 366 mg/dL; Very Low Density Lipoprotein 73 mg/dL (5-40)
== END | disposition home or self-care (01) ==
LOC: LAB 08:20
PROVIDERS: PCP Internal Medicine; Referring Provider Internal Medicine; Visit Provider Internal Medicine
DX: J45.909 Unspecified asthma, uncomplicated (principal); F20.9 Schizophrenia, unspecified; E66.01 Morbid (severe) obesity due to excess calories; Z68.42 Body mass index [BMI] 45.0-49.9, adult; E11.9 Type 2 diabetes mellitus without complications; M79.671 Pain in right foot; M79.672 Pain in left foot
CPT/HCPCS: 36415; 80053; 80061; 82043; 82306; 82607; 83036; 83735; 84439; 84443; 84481; 85025

== ENCOUNTER → 2024-02-23 | Outpatient (CLI) | payer MEDICARE, MEDICAID, SELFPAY ==
--- NOTE | 2024-02-23 09:19 | US_ITS ---
STUDY: ABDOMINAL ULTRASOUND - RIGHT UPPER QUADRANT REASON FOR VISIT: Female, 48 years old Elevated alk phos, intestinal TECHNIQUE: Ultrasound evaluation of the right upper quadrant was performed with real-time and static fitzgerald-scale imaging. TECHNICAL QUALITY: Adequate. COMPARISON: None. FINDINGS: Liver: The liver measures 18.5 cm. There is increased echogenicity consistent with fatty infiltration. The bile ducts are within normal limits. There is hepatic color flow. The direction of portal flow is hepatopetal. There is no demonstrated mass lesion. Gallbladder: Normal distended gallbladder. The gallbladder wall measures 2 mm. There is a negative sonographic Hamilton''s sign. There is no pericholecystic fluid. There are no gallstones. Common Bile Duct (C.B.D.): The common bile duct measures 3 mm. Pancreas: Normal size of the head, body and tail of the pancreas. There is normal echogenicity of the pancreas. There is no demonstrated pancreatic mass or cyst. Right Kidney: Normal size of the right kidney. The right kidney measures 13.0 cm. Normal renal cortex. The right cortex measures 1.7 cm. There is no demonstrated renal mass or cyst. There is no right hydronephrosis. US/Abdomen Limited IMPRESSION: Fatty infiltration of the liver. Electronically Signed: Raffy Golden MD at 22:59 EDT ,
== END | disposition home or self-care (01) ==
PROVIDERS: PCP Internal Medicine; Referring Provider Internal Medicine; Visit Provider Internal Medicine
DX: R74.8 Abnormal levels of other serum enzymes (principal)
CPT/HCPCS: 76705

== ENCOUNTER → 2024-12-11 | Outpatient (CLI) | payer MEDICARE, MEDICAID, SELFPAY ==
[2024-12-11 13:16] LABS: Absolute Lymphocyte Count 2.19 X10^3/uL (0.83-4.51); Absolute Neutrophil Count 6.7 X10^3/uL (2.0-7.7); Basophil# 0.07 X10^3/uL; Basophil% 0.7 % (0-1); Hematocrit 43.5 % (37-47); Hemoglobin 14.1 g/dL (12.0-15.0); Lymphocyte # 2.19 X10^3/ul (0.83-4.51); Lymphocyte % 22.4 % (19-41); Mean Corp Hgb Conc 32.4 g/dL (32-36); Mean Corpuscular Hgb 29.6 pg (27.0-32.0); Mean Corpuscular Volume 91.4 fL (81-99); Mean Platelet Vol. 9.4 fl (6.2-12.0); Monocyte% 6.1 % (0-10); NRBC Flagged by Analyzer 0 % (0-5); Neutrophil # 6.68 X10^3/uL (2.7-7.7); Neutrophil % 68.6 % (47-70); Platelet Count 284 K/mm3 (150-450); RBC Distribution Width CV 14.8 % (11.6-14.6); RBC Distribution Width SD 49.7 fl (35.1-43.9); Red Blood Count 4.76 M/mm3 (4.2-5.4); White Blood Count 9.8 K/mm3 (4.4-11.0)
[2024-12-11 20:45] LABS: ALB/GLOB Ratio 1.1 RATIO (0.9-2.4); AST(SGOT) 34 U/L (<=31); Alanine Aminotransfer ALT/SGPT 23 U/L (<=34); Albumin, Serum 4.2 g/dL (3.5-5.0); Alkaline Phosphatase 126 U/L (35-104); Anion Gap 15 (5-15); BUN 15 mg/dL (4-19); Calcium 9.4 mg/dL (7.6-11.0); Carbon Dioxide 25.9 mmol/L (22.0-29.0); Chloride 97 mmol/L (96-108); Cholesterol 176 mg/dL (<=200); Creatinine, Serum 0.7 mg/dL (0.6-1.0); EST Glomerular Filtration Rate 98 (>60); Globulin 3.7 g/dL (2.2-4.2); Glucose 162 mg/dL (70-99); High Density Lipoprotein 37 mg/dL; Potassium 3.9 mmol/L (3.3-5.1); Protein, Total 7.9 g/dL (5.9-8.4); Sodium Level 137 mmol/L (133-145); Total Bilirubin 0.33 mg/dL (0.00-1.30); Triglycerides 305 mg/dL; Very Low Density Lipoprotein 61 mg/dL (5-40)
== END | disposition home or self-care (01) ==
LOC: VSLAB 11:45
PROVIDERS: PCP Internal Medicine
DX: E11.9 Type 2 diabetes mellitus without complications (principal); Z13.220 Encounter for screening for lipoid disorders
CPT/HCPCS: 36415; 80053; 80061; 84443; 85025

== ENCOUNTER → 2025-03-12 | Outpatient (CLI) | payer MEDICARE, MEDICAID, SELFPAY ==
[2025-03-12 16:03] LABS: ALB/GLOB Ratio 1.2 RATIO (0.9-2.4); AST(SGOT) 31 U/L (<=31); Alanine Aminotransfer ALT/SGPT 23 U/L (<=34); Albumin, Serum 4.3 g/dL (3.5-5.0); Alkaline Phosphatase 134 U/L (35-104); Anion Gap 13 (5-15); BUN 14 mg/dL (4-19); BUN/Creat Ratio 19.1 RATIO (10-20); Calcium,Total 9.6 mg/dL (7.6-11.0); Carbon Dioxide 27.1 mmol/L (21.0-32.0); Chloride 98 mmol/L (98-108); Creatinine, Serum 0.75 mg/dL (0.70-1.20); EST Glomerular Filtration Rate 97 (>60); Globulin 3.7 g/dL (2.2-4.2); Glucose 136 mg/dL (70-99); Magnesium 2.1 mg/dL (1.5-2.2); Potassium 3.8 mmol/L (3.3-5.1); Sodium Level 137 mmol/L (133-145); Total Bilirubin 0.25 mg/dL (0.00-1.30)
== END | disposition home or self-care (01) ==
LOC: LAB 13:37
PROVIDERS: PCP Internal Medicine
DX: R00.2 Palpitations (principal); E11.9 Type 2 diabetes mellitus without complications
CPT/HCPCS: 36415; 80053; 83735

== ENCOUNTER → 2025-06-11 | Outpatient (CLI) | payer MEDICARE, MEDICAID, SELFPAY ==
[2025-06-11 16:40] LABS: Hematocrit 43.5 % (37-47); Hemoglobin 14.2 g/dL (12.0-15.0); Immature Granulocytes Count 0.110 X10^3/uL (0.0-0.0); Mean Corp Hgb Conc 32.6 g/dL (32-36); Mean Corpuscular Volume 90.8 fL (81-99); Mean Platelet Vol. 9.6 fl (6.2-12.0); NRBC Flagged by Analyzer 0 % (0-5); Platelet Count 283 K/mm3 (150-450); RBC Distribution Width CV 14.9 % (11.6-14.6); RBC Distribution Width SD 49.8 fl (35.1-43.9); Red Blood Count 4.79 M/mm3 (4.2-5.4); White Blood Count 10.7 K/mm3 (4.4-11.0)
[2025-06-11 17:14] LABS: AST(SGOT) 29 U/L (<=31); Alanine Aminotransfer ALT/SGPT 22 U/L (<=34); Albumin, Serum 4.3 g/dL (3.5-5.0); Alkaline Phosphatase 120 U/L (35-104); Anion Gap 13 (5-15); BUN 13 mg/dL (4-19); BUN/Creat Ratio 17.3 RATIO (10-20); Calcium,Total 9.4 mg/dL (7.6-11.0); Carbon Dioxide 24.9 mmol/L (21.0-32.0); Chloride 99 mmol/L (98-108); Globulin 3.6 g/dL (2.2-4.2); Glucose 140 mg/dL (70-99); Potassium 3.9 mmol/L (3.3-5.1)
== END | disposition home or self-care (01) ==
LOC: VSLAB 13:27
PROVIDERS: PCP Internal Medicine
DX: E11.9 Type 2 diabetes mellitus without complications (principal)
CPT/HCPCS: 36415; 80053; 84443; 85025